=== PATIENT | male | born 1950 | race Caucasian/White ===

== ENCOUNTER 2017-09-09 09:13 | Day surgery (SDC) | payer OTHER ==
[2017-09-08 09:13] VITALS: BMI 25.7
[2017-09-09] MEDS ORDERED: MIDAZOLAM HCL 2 MG/2 ML SINGLE DOSE VIAL ONE (11:13)
[2017-09-09] MEDS ORDERED: PROPOFOL 20 ML ONE ×3 (11:13)
[2017-09-09] MEDS ORDERED: KETAMINE HCL 200 MG/20 ML VIAL ONE (12:03)
[2017-09-09] MEDS ORDERED: ACETAMINOPHEN 325 MG TABLET (FP) PO PRN (12:19)
[2017-09-09] MEDS ORDERED: ONDANSETRON 4 MG/2 ML VIAL IVPUSH PRN (12:19)
[2017-09-09] MEDS ORDERED: ceFAZolin SODIUM 1 GM VIAL IVPB ONE (12:19)
[2017-09-09] MEDS ORDERED: oxyCODONE HCL 5 MG TABLET PO PRN (12:19)
[2017-09-09] MEDS ORDERED: ceFAZolin SODIUM 1 GM VIAL ONE (12:20)
[2017-09-09] MEDS ORDERED: LACTATED RINGERS SOLUTION 1,000 ML IV SCH (12:30)
--- NOTE | 2017-09-09 13:15 | OP ---
Operative Note - Note: Operative Date: 09/09/17 Pre-Operative Diagnosis: gross hematuria freq.noct. urgen.dribbling and feelings of incomplete bladder emptying Operation: cysto.turp/fulgeration of trigone for controle of bleeding Findings: bleeding prostate and bleeding trigone of bladder and prostate obst. Post-Operative Diagnosis: Same as Pre-op Surgeon: Yo Barroso Anesthesia: General Estimated Blood Loss (mls): 40 Drains & Tubes with Location: 20f-10cc andino Drains, Volume Out (mls): 0 Blood Volume Replaced (mls): 0 Fluid Volume Replaced (mls): 0 Operative Report Dictated: Yes
[2017-09-09 15:14] VITALS: TEMP 98
[2017-09-09 15:46] VITALS: BP 127/89; PULSE 67
--- NOTE | 2017-09-09 16:42 | OP ---
DATE OF ADMISSION: 09/09/2017 PREOPERATIVE DIAGNOSIS: Persistent hematuria, obstructive uropathy, status post cystoscopy with bleeding base of bladder and prostate. POSTOPERATIVE DIAGNOSIS: Hemorrhagic, obstructive prostate and bladder neck. OPERATIVE PROCEDURE: Cystourethroscopy, TURP and fulguration of bladder neck. ANESTHESIA: Spinal. DESCRIPTION OF PROCEDURE: Under the above anesthesia, the patient was prepped and draped in the usual sterile manner. He was placed in the dorsal lithotomy position. External genitalia appeared to be within normal limits. The patient is not circumcised. The meatus is adequate. A continuous flow, 30-degree scope was introduced under direct vision. The anterior urethra was within normal limits. The prostatic urethra revealed an obstructing bleed and prostate. There was trilobar hypertrophy with a large subcervical prostate gland that was actively bleeding. Ureteral orifices were within normal limits with efflux of clear urine. Dome and lateral shahid were clear of lesions. The only bleeding areas were the right and left lobes of the prostate and the subcervical lobe, which was located in the trigone. A resectoscope was inserted and resection of the right lobe of the prostate was performed in the usual fashion. The same thing was done to the left lateral lobe. Prostate chips were evacuated with an Lockbox evacuator. No active bleeding was noted. The trigone which was bleeding was fulgurated for hemostasis. Ureteral orifices were not involved. Inspection of the bladder neck revealed no other bleeding. Therefore, the bladder was emptied and the scope was removed. A 24-Pashto De Luna was inserted and was connected to a drainage bag. The patient tolerated the procedure well and returned to the recovery room in good condition. Leandra [id number]
--- NOTE | 2017-09-10 14:27 | HP ---
DATE OF ADMISSION: DATE OF DICTATION: 09/09/2017 The patient is a 67-year-old male resident of a long-term. Admitted to undergo ambulatory cystoscopy and fulguration of bleeding prostate and/or bladder for recurrent gross hematuria and recurrent urinary tract infections. The patient does have a history of dyslipidemia. The patient also has history of seizures, a CVA, dementia. He is unable to ambulate. MEDICATIONS: Presently, he is on Depakote and Atrovent nebulizers. The patient also takes Keppra for his seizures and Flomax for his prostate. Physical exam revealed a male on a stretcher unable to communicate. He wears a diaper which is wet and pinkish indicative of gross hematuria. He does have history of a large postvoid residual. Also, has history of kidney stones. He is admitted to the hospital to undergo a cystourethroscopy, possible TUR of prostate, possible bladder biopsy, possible TUR bladder tumor. This was explained fully to the patient's who agrees. Leandra [id number]
--- NOTE | 2017-09-13 14:33 | PATH ---
Cytology Non-Gynecological Report Patient Name: TRIP MAE [facility]. Rec. #: [id number] /Age/Gender: 1950 (Age: 67) / M Account: [id number] Location: [facility] Taken: 09/09/2017 Received: 09/09/2017 Reported: 09/13/2017 Physicians: Yo Barroso M.D. Specimen(s) Received URINE VOIDED Clinical History Microscopic hematuria Final Diagnosis URINE FOR CYTOLOGY: SATISFACTORY FOR EVALUATION. NEGATIVE FOR HIGH GRADE UROTHELIAL CARCINOMA. RARE UROTHELIAL CELLS AND RARE RED BLOOD CELLS PRESENT. Electronically Signed Alejandrina Orellana M.D. Gross Description Approximately 20 cc of yellow fluid received fresh and sterile cup. Two cytofunnels prepared.
--- NOTE | 2017-09-13 15:08 | PATH ---
Surgical Pathology Report Patient Name: TRIP MAE [facility]. Rec. #: [id number] /Age/Gender: 1950 (Age: 67) / M Account: [id number] Location: [facility] Taken: 09/09/2017 Received: 09/09/2017 Reported: 09/13/2017 Physicians: Yo Barroso M.D. Specimen(s) Received PROSTATE CHIPS Clinical History Hematuria Final Diagnosis PROSTATE TISSUE, TRANSURETHRAL RESECTION OF BLADDER AND PROSTATE LESION: BENIGN PROSTATIC TISSUE WITH STROMAL HYPERPLASIA, FOCAL ACINAR ATROPHY, AND CYSTIC CHANGE. Electronically Signed Alejandrina Orellana M.D. Gross Description Received in formalin labeled "hemorrhagic prostate tissue," is a 2 g, 4.5 x 3.3 x 0.3 cm aggregate of sosa-pink, irregular portions of firm to rubbery tissue, consistent with prostate chips. The specimen is entirely submitted in 3 cassettes. 09/09/201709/09/2017
== END 2017-09-09 15:45 ==
LOC: JASU-SURG 09:13
PROVIDERS: ATTEND Urology
PROC: 0VT08ZZ Resection of Prostate, Via Natural or Artificial Opening Endoscopic (ICD-10-PCS; principal; 2017-09-09 10:00)
DX: N40.1 Benign prostatic hyperplasia with lower urinary tract symptoms (principal); N13.8 Other obstructive and reflux uropathy
CPT/HCPCS: 87086; 88108; 88305-TC; 94760

== ENCOUNTER 2017-12-29 10:26 | Emergency (ER) | payer OTHER ==
[2017-12-29 11:01] VITALS: BMI 26.4
--- NOTE | 2017-12-29 11:16 | PDOC ---
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 At presentation, patient is @ baseline mental status, hypertensive (BP 200's/100's) and bradycardic (HR 40). Patient's notes a h /o 7 year prison stay @ [facility] and a more recent 9 month stay @ [facility] in the [place] -- the latter from which patient was discharged last Tuesday (12/23/17). Patient's @ bedside denies any recent cough, wheezing, or noticed changes in bowel or bladder habits. Patient tolerates oral intake (all medications are PO meds). NKDA Surgical: shoulder surgery (unknown shoulder, unknown type of surgery) Social: no current nicotine/alcohol/recreational drugs HPI obtained from patient's nurse Kasia Fletcher as well as paperwork from [facility] and [facility]. Past History - Past Medical History Allergies/Adverse Reactions: Allergies Allergy/AdvReac Type Severity Reaction Status Date / Time No Known Allergies Allergy Verified 12/29/17 10:44 Home Medications: Ambulatory Orders Acetaminophen [Tylenol] 650 mg PO PRN PRN 12/29/17 Albuterol 0.083% Nebulizer Elizabeth [Ventolin 0.083%] 1 neb NEB TID 12/29/17 Docusate Sodium [Colace] 200 mg PO HS 12/29/17 Ferrous Sulfate 325 mg PO BID 12/29/17 Folic Acid 1 mg PO DAILY 12/29/17 Ipratropium 0.02% Nebulizer [Atrovent *Nebulizer*] 0.5 mg IH TID 12/29/17 Tamsulosin HCl 0.4 mg PO DAILY 12/29/17 Valproate Sodium Liquid [Depakene] 500 mg PO BID 12/29/17 Vitamin A & D Top Oint - [Vitamin A & D] 1 applic TP DAILY 12/29/17 levETIRAcetam [Keppra Oral Solution -] 1,000 mg PO BID 12/29/17 Anemia: No Asthma: No Cancer: No Cardiac Disorders: No CVA: No (altered mental behavior) COPD: Yes (uses O2@ prn) CHF: No Dementia: Yes Diabetes: Yes (not on meds) GI Disorders: No Disorders: Yes (BPH) HTN: No Hypercholesterolemia: Yes (hyperlidemia) Liver Disease: No Seizures: Yes Thyroid Disease: No - Suicide/Smoking/Psychosocial Hx Smoking History: Unknown if ever smoked Have you smoked in the past 12 months: No Hx Alcohol Use: No (unsure) Drug/Substance Use Hx: No Substance Use Type: None Hx Substance Use Treatment: No Review of Systems - Review of Systems Able to Perform ROS?: No (dementia) *Physical Exam - Physical Exam General Appearance: Yes: Nourished, Appropriately Dressed HEENT: positive: CATARINA. negative: TM Bulging, TM Dull, TM Erythema Neck: positive: Trachea midline, Supple Respiratory/Chest: positive: Lungs Clear Cardiovascular: positive: S1, S2. negative: Edema, JVD, Murmur Gastrointestinal/Abdominal: positive: Normal Bowel Sounds, Soft Integumentary: positive: Normal Color, Dry, Warm, Other (no ulcers) Neurologic: positive: Other (patient reponsive to tactile/verbal stimuli ( baseline); non-verbal @ baseline) ED Treatment Course - LABORATORY CBC & Chemistry Diagram: 12/29/17 11:56 12/29/17 11:56 Medical Decision Making - Medical Decision Making 12/29/17 11:17 67 year old male BIBEMS after visiting nurse noted some possible decreased breath sounds. At presentation patient bradycardic (40's-50's) and hypertensive (200's/100's). Will evaluate for ACS, medication overdose ( patient on Keppra, Dilantin), Hypothyroidism as well as broad infectious work- up including UA, CXR and r/o CVA. 12/29/17 11:19 Case d/w patient's home health nurse (Kasia Urias . Patient was evaluated on Tuesday (12/27) at which time lungs CLTA. Called 911 today as appreciated some decreased breath sounds. Also noted patient was diaphoretic earlier today. 12/29/17 12:05 ECG shows HR 45, NSR, no KASHMIR/STD, TWI in Lead III and anterior leads, poor R wave progression V1-V6. No acute ischemia on ECG. 12/29/17 12:[address] Wet read of head CT negative for acute bleed 12/29/17 13:26 Case d/w radiology -- no acute ischemia, microvascular ischemic change and decreased brain matter c/w advanced dementia 12/29/17 15:31 CBC shows no leukocytosis. TSH normal. Troponin (-) x1. 12/29/17 15:35 UA negative for UTI. At this time, low clinical suspicion for active infectious (no leukocytosis, afebrile), respiratory (clean CXR, normal saturation), cardiac (normal ECG, negative Troponin) process. Will plan to d/c home - as patient has previously scheduled PMD home visit tomorrow. 12/29/17 15:40 Case d/w home health nurse counseled on POC. 12/29/17 15:55 Patient's @ bedside. Counseled on POC. Will discharge home with return precautions. I discussed the physical exam findings, ancillary test results and final diagnoses with the patient. I answered all of the patient's questions. The patient was satisfied with the care received and felt comfortable with the discharge plan and treatment plan. The patient will return to the Emergency Department with any new, persistent or worsening symptoms. *DC/Admit/Observation/Transfer Diagnosis at time of Disposition: Dementia - Discharge Dispostion Disposition: HOME Condition at time of disposition: Good Admit: No - Referrals - Patient Instructions Printed Discharge Instructions: Improving Nutrition in the Elderly Additional Instructions: Adrian was evaluated today with a CT scan, chest x-ray, basic labs and a urinalysis. All labs and imaging showed no concerning findings. Please follow- up with your primary care doctor as scheduled tomorrow. Return to the Emergency Department for any new/worsening/concerning symptoms. - Post Discharge Activity
--- NOTE | 2017-12-29 11:25 | PDOC ---
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 seizure disorder, hld, schizophrenia, htn, hl, cardiomegaly, malignant neoplasm of bladder, copd presents from home for complaint of abnormal breath sounds - per the pt was in a NH for a few months and was d/c 1 week ago erick and has been doing well. eatig well, no fevers/coughing, vomiting, diarrhea, fould smelling urine. Pt notes that she has not been getting many medications as they were not sent to her pharmacy. Upon review of the patients discharge packet, there are several unfilled prescriptions - Physicial Exam PE: 12/29/17 11:41 GENERAL: The patient is awake, nontoxic, occasional twitching noted HEAD: Normocephalic, atraumatic. EYES: extraocular movements intact, sclera anicteric, conjunctiva clear ENT: Normal voice, Moist mucous membranes. NECK: Normal range of motion, supple LUNGS: Breath sounds equal, transmitted breath sounds b/l, no rales, no respiratory distress or accessory muscle use. . HEART:slightly bradycardic, no m/r/g ABDOMEN: Soft, nontender,. No guarding, no rebound. . No CVA tenderness EXTREMITIES: Normal range of motion, trace edema. No clubbing or cyanosis. No cords, erythema, or tenderness. NEUROLOGICAL: limited exam due to severe dementia SKIN: Warm, Dry, normal turgor, no sacral ulcers noted - Medical Decision Making 12/29/17 11:43 ddx includes possible chf, pna, viral syndrome will ck labs, cxr pt noted slightly mario but bp is elevated will ck ekg will reassess 12/29/17 15:41 The patient's blood work is unremarkable UA negative for infection Heart Score/ECG Review - ECG Impressions Comment:: 12/29/17 12:11 Twelve-lead EKG was performed and reviewed by me. There is normal sinus rhythm with a rate of 45 st flattening inferior and lateral leads no prior ekg for comparison
[2017-12-29 12:04] LABS: HEMATOCRIT 39.8 % (35.4-49); HEMOGLOBIN 13.1 GM/dL (11.7-16.9); LYMPH % 50.8 % (8-40); MCH 31.1 pg (25.7-33.7); MEAN CELL VOLUME 94.3 fl (80-96); MEAN PLT VOLUME 8.5 fl (7.5-11.1); PLATELET COUNT 144 K/MM3 (134-434); RBC 4.22 M/mm3 (4.00-5.60); WHITE BLOOD COUNT 3.4 K/mm3 (4.0-10.0)
[2017-12-29 12:05] LABS: BASO % 0.4 % (0-2.0); MONO % 8.8 % (3.8-10.2)
[2017-12-29 12:12] LABS: VENOUS PC02 61.5 mmHg (38-52); VENOUS PH 7.37 (7.32-7.42); VENOUS PO2 25.7 mmHg (28-48)
[2017-12-29 12:32] LABS: ALBUMIN 2.9 g/dl (3.4-5.0); ANION GAP 5 (8-16); BILIRUBIN,TOTAL 0.4 mg/dL (0.2-1.0); BLOOD UREA NITROGEN 13 mg/dL (7-18); CALCIUM 8.2 mg/dL (8.5-10.1); CHLORIDE 109 mmol/L (98-107); CO2 34 mmol/L (21-32); CREATININE 0.9 mg/dL (0.7-1.3); GLUCOSE,RANDOM 85 mg/dL (74-106); MAGNESIUM 2.4 mg/dL (1.8-2.4); N-TERMINAL BNP 111.57 pg/ml (5-125); POTASSIUM 3.4 mmol/L (3.5-5.1); SGPT/ALT 18 U/L (12-78); SODIUM 148 mmol/L (136-145)
[2017-12-29 12:35] LABS: ALK PHOS 61 U/L (45-117); SGOT/AST 10 U/L (15-37)
[2017-12-29] MEDS ORDERED: ALBUTEROL SO4 2.5/IPRATROPIUM 0.5 INH SOL 3 ML VIAL.NEB. NEB ONE (12:55)
--- NOTE | 2017-12-29 13:28 | EKG ---
Test Reason : Blood Pressure : / mmHG Vent. Rate : 045 BPM Atrial Rate : 045 BPM P-R Int : 150 ms QRS Dur : 092 ms QT Int : 424 ms P-R-T Axes : 022 -23 -08 degrees QTc Int : 366 ms SINUS BRADYCARDIA NONSPECIFIC T WAVE ABNORMALITY ABNORMAL ECG NO PREVIOUS ECGS AVAILABLE Confirmed by RUTH INGRAM MD ([id number]) on 12/29/2017 1:28:03 PM Referred By: Confirmed By:RUTH INGRAM MD
[2017-12-29 15:05] LABS: URINE APPEARANCE CLOUDY; URINE BILIRUBIN NEGATIVE (<2.0 mg/dL); URINE BLOOD NEGATIVE (NEGATIVE); URINE COLOR LTYELLOW; URINE GLUCOSE (UA) NEGATIVE (NEGATIVE); URINE KETONE NEGATIVE (NEGATIVE); URINE LEUK ESTERASE NEGATIVE (NEGATIVE); URINE NITRITE NEGATIVE (NEGATIVE); URINE PROTEIN NEGATIVE (NEGATIVE); URINE UROBILINOGEN 4.0 E.U/dl mg/dL (0.2-1.0)
[2017-12-29 18:59] VITALS: BP 154/78
[2017-12-29 19:04] VITALS: PULSE 54
== END 2017-12-29 19:03 | disposition home or self-care (01) ==
LOC: JER 10:26
PROC: 3E0F7GC Introduction of Other Therapeutic Substance into Respiratory Tract, Via Natural or Artificial Opening (ICD-10-PCS; principal; 2017-12-29)
DX: I10 Essential (primary) hypertension (principal); J44.9 Chronic obstructive pulmonary disease, unspecified; F03.90 Unspecified dementia, unspecified severity, without behavioral disturbance, psychotic disturbance, mood disturbance, and anxiety; N40.0 Benign prostatic hyperplasia without lower urinary tract symptoms; E78.5 Hyperlipidemia, unspecified
CPT/HCPCS: 36415; 70450-TC; 71045-TC-FY; 80053; 80164; 81003; 82550; 82803; 83735; 83880; 84443; 84484; 85025; 87040; 87086; 93005; 93010; 99285-25

== ENCOUNTER 2018-07-03 21:02 | Inpatient (IN) | payer OTHER ==
[2018-07-03 21:22] VITALS: BMI 26.6
[2018-07-03] MEDS: SODIUM CHLORIDE 1,000 ML IV SCH (22:18)
--- NOTE | 2018-07-03 22:19 | PDOC ---
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 At baseline pt is only able to track people but is not communicative. According to he hasn't been tracking and been more lethargic since yesterday. According to aide at bedside pt developed worsening of his R sided facial droop at 6pm today. Temperature was checked last night and he was at approximately 99 degrees. He currently is not tracking. reports seeing an extremely small amount of blood in urine today. No diarrhea was noted by . Further history was not able to obtained as pt is not able to communicate. NIH Stroke Scale - Last Known Well Date/Time & Onset Date Last Known Well: 07/03/18 Time Last Known Well: 18:00 - Initial Evaluation Level of consciousness: Not alert, but arousable with minimal stimulation Ask patient the month and their age: Both incorrect Ask patient to open & close eyes; make fist and let go: Both incorrect Best gaze (horizontal eye movement): Normal Visual field testing: No visual field loss Facial paresis (Show teeth/raise eyebrows/close eyes tight): Complete paralysis of one or both sides (Upper and lower face) Motor Function: Left Arm: Untestable (Joint fused orlimb amputated), explain: ( dementia) Motor Function: Right Arm: Untestable (Joint fused or limb amputated), explain: Motor Function: Left Leg: Untestable (Joint fused or limb amputated), explain: Motor Function: Right Leg: Untestable )Joint fused orlimb amputated), explain: Limb Ataxia: Untestable (Joint fused or limb amputated), explain: Sensory(Use pinprick test arms,legs,trunk,face/side to side): Severe to total sensory loss (unable to assess due to dementia) Best language (Describe picture, name items, read sentences): Mute (dementia) Dysarthria (read several words): Intubated or other physical barrierr, explain: (DEMENTED) Extinction and Inattention: Profound mark anthony-inattention or extinction to more than one modality (dementia) - Total Score NIH Stroke Scale Score: 15 Past History - Past Medical History Allergies/Adverse Reactions: Allergies Allergy/AdvReac Type Severity Reaction Status Date / Time No Known Allergies Allergy Verified 07/03/18 21:12 Home Medications: Ambulatory Orders Acetaminophen [Tylenol] 650 mg PO PRN PRN 12/29/17 Albuterol 0.083% Nebulizer Elizabeth [Ventolin 0.083%] 1 neb NEB TID 12/29/17 Docusate Sodium [Colace] 200 mg PO HS 12/29/17 Ferrous Sulfate 325 mg PO BID 12/29/17 Folic Acid 1 mg PO DAILY 12/29/17 Ipratropium 0.02% Nebulizer [Atrovent *Nebulizer*] 0.5 mg IH TID 12/29/17 Tamsulosin HCl 0.4 mg PO DAILY 12/29/17 Valproate Sodium Liquid [Depakene] 500 mg PO BID 12/29/17 Vitamin A & D Top Oint - [Vitamin A & D] 1 applic TP DAILY 12/29/17 levETIRAcetam [Keppra Oral Solution -] 1,000 mg PO BID 12/29/17 Anemia: No Asthma: No Cancer: No Cardiac Disorders: No CVA: No (altered mental behavior) COPD: Yes (uses O2@ prn) CHF: No Dementia: Yes Diabetes: Yes (not on meds) GI Disorders: No Disorders: Yes (BPH) HTN: No Hypercholesterolemia: Yes (hyperlidemia) Liver Disease: No Seizures: Yes Thyroid Disease: No - Suicide/Smoking/Psychosocial Hx Smoking History: Never smoked Have you smoked in the past 12 months: No Information on smoking cessation initiated: No Hx Alcohol Use: No Drug/Substance Use Hx: No Substance Use Type: None Hx Substance Use Treatment: No Review of Systems - Review of Systems Able to Perform ROS?: No *Physical Exam - Vital Signs Last Vital Signs Temp Pulse Resp BP Pulse Ox 99.2 F 106 H 17 152/99 97 07/03/18 21:11 07/03/18 21:11 07/03/18 21:11 07/03/18 21:11 07/03/18 21:11 - Physical Exam General Appearance: Yes: Appropriately Dressed, Other (Pt is not tracking and is demented and unable to communicate) HEENT: positive: CATARINA Respiratory/Chest: positive: Rales, Other (Coarse breath sounds) Cardiovascular: positive: Regular Rhythm, Regular Rate, S1, S2 ED Treatment Course - LABORATORY CBC & Chemistry Diagram: 07/03/18 22:45 07/03/18 22:45 - RADIOLOGY Radiology Studies Ordered: Category Date Time Status HEAD CT (STROKE) [CT] Stat CT Scan 07/03/18 22:07 Ordered Medical Decision Making - Medical Decision Making 07/03/18 22:10 -Pt last known well 6pm today. Worsening R sided facial droop. -Code drake called at 9:05 PM. -Head CT stat, labs, neuro consult -NIH stroke difficult to assess due to baseline dementia. 07/03/18 22:25 -Head CT with no acute bleed noted. Awaiting official read. Call sent out to Dr. Espana, awaiting call back. 07/03/18 22:36 -Case discussed with Dr. Espana. Pt is out of window for tpa and is unlikely to be stroke. Will work up for further etiology for subacute altered mental status. -Awaiting labs. 07/03/18 23:18 -Head CT no acute intracranial pathology noted on official read. -Lactic acid 1.3, WBC 12.3 07/03/18 23:43 -K+ 3.3, will replete K with 2b04jhq of KCl 07/03/18 23:47 -Blood cultures, lactic acid and CXR also ordered. 07/04/18 01:14 -Ceftriaxone 1g ordered 07/04/18 01:45 -Case signed out to Dr. Alexander Faye for admission for sepsis secondary to UTI. *DC/Admit/Observation/Transfer Diagnosis at time of Disposition: Sepsis secondary to UTI - Discharge Dispostion Condition at time of disposition: Fair Decision to Admit order: Yes - Referrals - Patient Instructions - Post Discharge Activity
--- NOTE | 2018-07-03 22:32 | PDOC ---
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 The patients last known well was 6:00pm. History was obtained from at bedside and from EMR. Allergies: NKDA Past surgical history: shoulder surgery (unknown shoulder, unknown type of surgery). <Casper Moreau - Last Filed: 07/03/18 22:32> - ED Attending Attestation I have performed the following: I have examined & evaluated the patient, The case was reviewed & discussed with the resident, I agree w/resident's findings & plan, Exceptions are as noted - Physicial Exam PE: 07/04/18 08:02 Chronic deficits with worsened facial droop per family - Critical Care Time Total Critical Care Time: 20 - Medical Decision Making 07/04/18 08:03 Initially evaluated for stroke, no signs of acute stroke Eval for AMS, infection <Jeffrey Cheng - Last Filed: 07/04/18 08:03> Attestations - Attestations 07/03/18 22:32 Documentation prepared by Casper Moreau, acting as medical device sales for Jeffrey Cheng MD. <Casper Moreau - Last Filed: 07/03/18 22:32>
[2018-07-03 22:55] LABS: BASO % 0.2 % (0-2.0); EOS % 0.2 % (0-4.5); HEMOGLOBIN 13.1 GM/dL (11.7-16.9); LYMPH % 12.6 % (8-40); MCHC 33.6 g/dl (32.0-35.9); MEAN CELL VOLUME 92.3 fl (80-96); MEAN PLT VOLUME 10.1 fl (7.5-11.1); MONO % 9.6 % (3.8-10.2); NEUT % 77.4 % (42.8-82.8); PLATELET COUNT 157 K/MM3 (134-434); RBC 4.22 M/mm3 (4.00-5.60); RDW 14.2 % (11.9-15.9); WHITE BLOOD COUNT 12.3 K/mm3 (4.0-10.0)
[2018-07-03 23:16] LABS: INR 1.18 (0.83-1.09); PROTHROMBIN TIME (PATIENT) 13.9 SEC (9.7-13.0)
[2018-07-03 23:22] LABS: ALBUMIN 2.9 g/dl (3.4-5.0); ALK PHOS 89 U/L (45-117); ANION GAP 7 MMOL/L (8-16); BILIRUBIN,TOTAL 0.6 mg/dL (0.2-1); BLOOD UREA NITROGEN 16 mg/dL (7-18); CALCIUM 8.3 mg/dL (8.5-10.1); CHLORIDE 105 mmol/L (98-107); CHOLESTEROL 189 mg/dL (50-200); CO2 30 mmol/L (21-32); GLUCOSE,RANDOM 120 mg/dL (74-106); HDL CHOLESTEROL 56 mg/dL (40-60); POTASSIUM 3.3 mmol/L (3.5-5.1); SGOT/AST 17 U/L (15-37); SGPT/ALT 19 U/L (13-61); SODIUM 141 mmol/L (136-145); TOT PROT 7.2 g/dl (6.4-8.2); TRIGLYCERIDES 102 mg/dL (0-150)
[2018-07-04] MEDS: KCL 10 MEQ IVPB 10 MEQ/100 ML INFUS.BAG IVPB SCH ×3 (00:01→03:28)
[2018-07-04 00:33] LABS: URINE APPEARANCE CLOUDY; URINE GLUCOSE (UA) NEGATIVE (NEGATIVE); URINE KETONE NEGATIVE (NEGATIVE); URINE LEUK ESTERASE 3+ (NEGATIVE); URINE NITRITE POSITIVE (NEGATIVE); URINE PROTEIN 2+ (NEGATIVE); URINE UROBILINOGEN 4.0 E.U/dl mg/dL (0.2-1.0)
[2018-07-04 00:36] LABS: URINE COLOR YELLOW
[2018-07-04 00:39] LABS: EPI CELLS FEW /HPF (FEW); URINE BACTERIA RARE /hpf (NONE SEEN); URINE HYALINE CAST 21 /lpf; URINE MUCUS MANY
[2018-07-04] MEDS ORDERED: CEFTRIAXONE 1,000 MG in DEXTROSE 5%-WATER - 50 ML IVPB ONE (01:04)
[2018-07-04] MEDS ORDERED: CEFTRIAXONE 1 GM/50 ML BAG ONE (01:08)
[2018-07-04] MEDS ORDERED: KCL 10 MEQ IVPB 10 MEQ/100 ML INFUS.BAG IVPB ONE ×3 (01:08→04:03)
--- NOTE | 2018-07-04 02:48 | PN ---
Teaching Attending Note Name of Resident: Alexander Barroso ATTENDING PHYSICIAN STATEMENT I saw and evaluated the patient. I reviewed the resident's note and discussed the case with the resident. I agree with the resident's findings and plan as documented. 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 At baseline he is only able to track people but is not communicative. According to he hasn't been tracking and been more lethargic since yesterday. According to aide at bedside he developed worsening of his R sided facial droop at 6pm today. Temperature was checked last night and he was at approximately 99 degrees. He currently is not tracking. reports seeing an extremely small amount of blood in urine today. No diarrhea was noted by . Further history was not able to obtained as patient is not able to communicate. OBJECTIVE: Somnolent but arousable Vital Signs Period Temp Pulse Resp BP Sys/Cortes Pulse Ox Last 24 Hr 99.2 F 106 17 152/99 97 HEENT: No Jaundice, eye redness or discharge, PERRLA, Right facial droop. Normocephalic, atraumatic. External ears are normal. No nasal discharge. Neck: Supple, nontender. No palpable adenopathy or thyromegaly. No JVD Chest: Good effort. Clear to auscultation and percussion. Heart: Regular. No S3, rub or murmur Abdomen: Not distended, soft, nontender and no HSM. No rebound or guarding. Normoactive bowel sounds. Ext: Peripheral pulses intact. No leg edema. Skin: Warm and dry. No petechiae, rash or ecchymosis. Neuro: Somnolent but arousable. Dementia. Unable to follow commands. Nonverbal. Moves all four extremities and DTR are symmetric. Current Medications Generic Name Dose Route Start Last Admin Trade Name Freq PRN Reason Stop Dose Admin Sodium Chloride 1,000 mls @ 42 mls/hr 07/03/18 22:15 07/03/18 22:18 Normal Saline - IV 42 mls/hr ASDIR CARA Administration Home Medications Medication Instructions Recorded Acetaminophen [Tylenol] 650 mg PO PRN PRN 12/29/17 Albuterol 0.083% Nebulizer Elizabeth 1 neb NEB TID 12/29/17 [Ventolin 0.083%] Docusate Sodium [Colace] 200 mg PO HS 12/29/17 Ferrous Sulfate 325 mg PO BID 12/29/17 Folic Acid 1 mg PO DAILY 12/29/17 Ipratropium 0.02% Nebulizer 0.5 mg IH TID 12/29/17 [Atrovent *Nebulizer*] Tamsulosin HCl 0.4 mg PO DAILY 12/29/17 Valproate Sodium Liquid [Depakene] 500 mg PO BID 12/29/17 Vitamin A & D Top Oint - [Vitamin 1 applic TP DAILY 12/29/17 A & D] levETIRAcetam [Keppra Oral 1,000 mg PO BID 12/29/17 Solution -] Abnormal Lab Results 07/03/18 07/03/18 07/03/18 22:45 22:45 22:45 WBC 12.3 H Absolute Neuts (auto) 9.5 H PT with INR 13.90 H INR 1.18 H Potassium 3.3 L Anion Gap 7 L Random Glucose 120 H Calcium 8.3 L Albumin 2.9 L Total LDL Cholesterol 123 H Urine Protein Urine Blood Ur Leukocyte Esterase 07/04/18 00:21 WBC Absolute Neuts (auto) PT with INR INR Potassium Anion Gap Random Glucose Calcium Albumin Total LDL Cholesterol Urine Protein 2+ H Urine Blood 3+ H Ur Leukocyte Esterase 3+ H ASSESSMENT AND PLAN: 1. Sepsis due to UTI with acute metabolic encephalopathy - No acute pathology on head CT. Will get MRI, do speech and swallow evaluation, implement fall precautions and consult neurology and PT. Treat UTI with Rocephin and continue IV NS. Hypokalemia likely due to poor intake and excess losses. Give IV KCL and check Mg+. 2. Hypoalbuminemia - Possibly due to combined effects of proteinuria, malnutrition and inflammation associated with comorbid chronic conditions. Will ensure adequate dietary protein intake and also consult ict developer. 3. DVT prophylaxis - Lovenox 40 mg SQ q 24 hours. 4. Advance directives - Full code
--- NOTE | 2018-07-04 05:18 | HP ---
CHIEF COMPLAINT: Lethargy PCP: Natasha BELL HISTORY OF PRESENT ILLNESS: Pt is poor historian. not at bedside. Information obtained from Dr Ramos ER resident and previous medical records. 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 Pt is noncommunicative at baseline but does track movement with his eyes. Per , pt hasn't been tracking with his eyes since yesterday evening. Per , pt is not eating well, believes this is because he has too much mucus in his throat. Per aid at pt's bedside, yesterday evening, she noticed increased facial droop. Furthermore, pt's states he underwent a barium swallow last week which was normal. Pt has 24/7 home health aid and receives visiting nursing services once per week. ER course was notable for: (1) WBC 12.3 (2) Potassium 3.3 (3) Leuk Est 3+ Recent Travel: negative PAST MEDICAL HISTORY: Per HPI PAST SURGICAL HISTORY: shoulder surgery (unknown shoulder, unknown type of surgery). Social History: Smoking: Negative Alcohol: Negative Drugs: Negative Family History: Allergies No Known Allergies Allergy (Verified 07/03/18 21:12) HOME MEDICATIONS: Home Medications Medication Instructions Recorded Acetaminophen [Tylenol] 650 mg PO PRN PRN 12/29/17 Albuterol 0.083% Nebulizer Elizabeth 1 neb NEB TID 12/29/17 [Ventolin 0.083%] Docusate Sodium [Colace] 200 mg PO HS 12/29/17 Ferrous Sulfate 325 mg PO BID 12/29/17 Folic Acid 1 mg PO DAILY 12/29/17 Ipratropium 0.02% Nebulizer 0.5 mg IH TID 12/29/17 [Atrovent *Nebulizer*] Tamsulosin HCl 0.4 mg PO DAILY 12/29/17 Valproate Sodium Liquid [Depakene] 500 mg PO BID 12/29/17 Vitamin A & D Top Oint - [Vitamin 1 applic TP DAILY 12/29/17 A & D] levETIRAcetam [Keppra Oral 1,000 mg PO BID 12/29/17 Solution -] REVIEW OF SYSTEMS unable to obtain. PHYSICAL EXAMINATION Vital Signs - 24 hr 07/03/18 21:11 Temperature 99.2 F Pulse Rate 106 H Respiratory 17 Rate Blood Pressure 152/99 O2 Sat by Pulse 97 Oximetry (%) GENERAL: Noncommunicative, resting in bed, NAD. HEAD: NC/AT EYES: PERRL, No scleral icterus EARS, NOSE, THROAT: MMM LUNGS: Coarse BS throughout. HEART: RRR, No MRG S1 S2 ABDOMEN:ND, No HSM, BS+ all 4 quadrants UPPER EXTREMITIES: No CCE LOWER EXTREMITIES:No CCE NEUROLOGICAL: Somnolent but arousable. Dementia. Unable to follow commands SKIN: No Rashes or lesions appreciated Laboratory Results - last 24 hr 07/03/18 07/03/18 07/03/18 22:45 22:45 22:45 WBC 12.3 H RBC 4.22 Hgb 13.1 Hct 39.0 MCV 92.3 MCH 31.0 MCHC 33.6 RDW 14.2 Plt Count 157 MPV 10.1 D Absolute Neuts (auto) 9.5 H Neutrophils % 77.4 D Lymphocytes % 12.6 D Monocytes % 9.6 Eosinophils % 0.2 Basophils % 0.2 Nucleated RBC % 0 PT with INR 13.90 H INR 1.18 H Sodium 141 Potassium 3.3 L Chloride 105 Carbon Dioxide 30 Anion Gap 7 L BUN 16 Creatinine 1.0 Creat Clearance w eGFR > 60 Random Glucose 120 H Lactic Acid Calcium 8.3 L Total Bilirubin 0.6 AST 17 ALT 19 Alkaline Phosphatase 89 Creatine Kinase 70 Troponin I < 0.02 Total Protein 7.2 Albumin 2.9 L Triglycerides 102 Cholesterol 189 Total LDL Cholesterol 123 H HDL Cholesterol 56 Urine Color Urine Appearance Urine pH Ur Specific [place] Urine Protein Urine Glucose (UA) Urine Ketones Urine Blood Urine Nitrite Urine Bilirubin Urine Urobilinogen Ur Leukocyte Esterase Urine WBC (Auto) Urine RBC (Auto) Ur Epithelial Cells Urine Bacteria Hyaline Casts Urine Mucus Blood Type Antibody Screen 07/03/18 07/03/18 07/04/18 22:45 22:45 00:21 WBC RBC Hgb Hct MCV MCH MCHC RDW Plt Count MPV Absolute Neuts (auto) Neutrophils % Lymphocytes % Monocytes % Eosinophils % Basophils % Nucleated RBC % PT with INR INR Sodium Potassium Chloride Carbon Dioxide Anion Gap BUN Creatinine Creat Clearance w eGFR Random Glucose Lactic Acid 1.3 Calcium Total Bilirubin AST ALT Alkaline Phosphatase Creatine Kinase Troponin I Total Protein Albumin Triglycerides Cholesterol Total LDL Cholesterol HDL Cholesterol Urine Color Yellow Urine Appearance Cloudy Urine pH 5.0 D Ur Specific [place] 1.027 Urine Protein 2+ H Urine Glucose (UA) Negative Urine Ketones Negative Urine Blood 3+ H Urine Nitrite Positive Urine Bilirubin 2.0 Urine Urobilinogen 4.0 e.u/dl Ur Leukocyte Esterase 3+ H Urine WBC (Auto) 1302 Urine RBC (Auto) 131 Ur Epithelial Cells Few Urine Bacteria Rare Hyaline Casts 21 Urine Mucus Many Blood Type A POSITIVE Antibody Screen Negative ASSESSMENT/PLAN: Pt is a 68 y/o gentleman with a significant past medical history of HTN, COPD, 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 # Sepsis 2/2 UTI -WBC 12.3 -Urine leukocyte Esterase 3+ - 2 SIRS Criteria (WBC and HR) plus G.U source of infection -Rocephin 1 gm QD -ID Consult #Dysphagia -Head CT Negative for any acute intracranial pathology. -Inability to swallow for 2 days -Speech/Swallow Eval MRI Brain-r/o CVA (code drake called in ED) -Fall precautions #Seizure D/O -Informed day team to reconcile pt's medications #COPD -Informed day team to reconcile pt's medication FEN NS@42cc/ml Monitor electrolytes NPO DVT Heparin SQ TID Dispo: Med-Surg Visit type - Emergency Visit Emergency Visit: Yes ED Registration Date: 07/04/18 Care time: The patient presented to the Emergency Department on the above date and was hospitalized for further evaluation of their emergent condition. - New Patient This patient is new to me today: Yes Date on this admission: 07/04/18 - Critical Care Critical Care patient: No
[2018-07-04] MEDS ORDERED: HEPARIN NA (PORCINE) 5,000 UNITS/ML 1ML VIAL ONE (06:35)
[2018-07-04] MEDS: HEPARIN NA (PORCINE) 5,000 UNITS/ML 1ML VIAL SQ SCH ×3 (06:37→22:13)
[2018-07-04] MEDS ORDERED: LORazepam 2 MG/ML SDV VIAL IVPUSH ONE (09:35)
[2018-07-04] MEDS ORDERED: LORazepam 2 MG/ML SDV VIAL ONE (09:38)
[2018-07-04] MEDS ORDERED: LORazepam 2 MG/ML SDV VIAL IVPUSH PRN (09:44)
--- NOTE | 2018-07-04 09:44 | PN ---
Progress Note (short form) - Note Progress Note: Having a seizure-- give Ativan - better after non verbal drowsy Vital Signs - 24 hr 07/03/18 07/03/18 07/04/18 21:11 22:17 06:11 Temperature 99.2 F 99.1 F Pulse Rate 106 H 84 Pulse Rate [ 84 Right Apical] Respiratory 17 15 Rate Blood Pressure 152/99 Blood Pressure 146/98 [Right Arm] O2 Sat by Pulse 97 98 99 Oximetry (%) Current Medications Generic Name Dose Route Start Last Admin Trade Name Rogerq PRN Reason Stop Dose Admin Heparin Sodium (Porcine) 5,000 unit 07/04/18 06:30 07/04/18 06:37 Heparin - SQ 5,000 unit TID CARA Administration Sodium Chloride 1,000 mls @ 42 mls/hr 07/03/18 22:15 07/03/18 22:18 Normal Saline - IV 42 mls/hr ASDIR CARA Administration Ceftriaxone Sodium 1 gm/ 50 mls @ 100 mls/hr 07/04/18 10:00 Dextrose IVPB DAILY CARA Protocol Laboratory Results - last 24 hr 07/03/18 07/03/18 07/03/18 22:45 22:45 22:45 WBC 12.3 H RBC 4.22 Hgb 13.1 Hct 39.0 MCV 92.3 MCH 31.0 MCHC 33.6 RDW 14.2 Plt Count 157 MPV 10.1 D Absolute Neuts (auto) 9.5 H Neutrophils % 77.4 D Lymphocytes % 12.6 D Monocytes % 9.6 Eosinophils % 0.2 Basophils % 0.2 Nucleated RBC % 0 PT with INR 13.90 H INR 1.18 H Sodium 141 Potassium 3.3 L Chloride 105 Carbon Dioxide 30 Anion Gap 7 L BUN 16 Creatinine 1.0 Creat Clearance w eGFR > 60 Random Glucose 120 H Lactic Acid Calcium 8.3 L Total Bilirubin 0.6 AST 17 ALT 19 Alkaline Phosphatase 89 Creatine Kinase 70 Troponin I < 0.02 Total Protein 7.2 Albumin 2.9 L Triglycerides 102 Cholesterol 189 Total LDL Cholesterol 123 H HDL Cholesterol 56 Urine Color Urine Appearance Urine pH Ur Specific [place] Urine Protein Urine Glucose (UA) Urine Ketones Urine Blood Urine Nitrite Urine Bilirubin Urine Urobilinogen Ur Leukocyte Esterase Urine WBC (Auto) Urine RBC (Auto) Ur Epithelial Cells Urine Bacteria Hyaline Casts Urine Mucus Blood Type Antibody Screen 1007/03/18 07/04/18 22:45 22:45 00:21 WBC RBC Hgb Hct MCV MCH MCHC RDW Plt Count MPV Absolute Neuts (auto) Neutrophils % Lymphocytes % Monocytes % Eosinophils % Basophils % Nucleated RBC % PT with INR INR Sodium Potassium Chloride Carbon Dioxide Anion Gap BUN Creatinine Creat Clearance w eGFR Random Glucose Lactic Acid 1.3 Calcium Total Bilirubin AST ALT Alkaline Phosphatase Creatine Kinase Troponin I Total Protein Albumin Triglycerides Cholesterol Total LDL Cholesterol HDL Cholesterol Urine Color Yellow Urine Appearance Cloudy Urine pH 5.0 D Ur Specific [place] 1.027 Urine Protein 2+ H Urine Glucose (UA) Negative Urine Ketones Negative Urine Blood 3+ H Urine Nitrite Positive Urine Bilirubin 2.0 Urine Urobilinogen 4.0 e.u/dl Ur Leukocyte Esterase 3+ H Urine WBC (Auto) 1302 Urine RBC (Auto) 131 Ur Epithelial Cells Few Urine Bacteria Rare Hyaline Casts 21 Urine Mucus Many Blood Type A POSITIVE Antibody Screen Negative 07/04/18 06:06 WBC RBC Hgb Hct MCV MCH MCHC RDW Plt Count MPV Absolute Neuts (auto) Neutrophils % Lymphocytes % Monocytes % Eosinophils % Basophils % Nucleated RBC % PT with INR INR Sodium Potassium Chloride Carbon Dioxide Anion Gap BUN Creatinine Creat Clearance w eGFR Random Glucose Lactic Acid Calcium Total Bilirubin AST ALT Alkaline Phosphatase Creatine Kinase Troponin I Total Protein Albumin Triglycerides Cholesterol Total LDL Cholesterol HDL Cholesterol Urine Color Urine Appearance Urine pH Ur Specific [place] Urine Protein Urine Glucose (UA) Urine Ketones Urine Blood Urine Nitrite Urine Bilirubin Urine Urobilinogen Ur Leukocyte Esterase Urine WBC (Auto) Urine RBC (Auto) Ur Epithelial Cells Urine Bacteria Hyaline Casts Urine Mucus Blood Type A POSITIVE Antibody Screen S1 S2 RRR Lungs decreased increased secretions ABd- soft, NT No edema PLAN Ativan PRN keep NPO IV fluids IV antibiotics cultures pending Keppra and Depakote IV Neurology and ID evaluation
[2018-07-04] MEDS: SODIUM CHLORIDE 1,000 ML IV SCH ×2 (09:47→22:00)
[2018-07-04] MEDS ORDERED: ACETAMINOPHEN 650 MG SUPP.RECT PR PRN (09:47)
[2018-07-04 10:08] LABS: BASO % 0.1 % (0-2.0); EOS % 0.2 % (0-4.5); HEMATOCRIT 39.2 % (35.4-49); HEMOGLOBIN 13.2 GM/dL (11.7-16.9); LYMPH % 10.7 % (8-40); MCH 31.6 pg (25.7-33.7); MCHC 33.8 g/dl (32.0-35.9); MEAN CELL VOLUME 93.5 fl (80-96); MEAN PLT VOLUME 9.9 fl (7.5-11.1); MONO % 3.6 % (3.8-10.2); NEUT % 85.4 % (42.8-82.8); PLATELET COUNT 148 K/MM3 (134-434); RBC 4.19 M/mm3 (4.00-5.60); RDW 14.4 % (11.9-15.9); WHITE BLOOD COUNT 9.9 K/mm3 (4.0-10.0)
[2018-07-04 10:21] LABS: INR 1.2 (0.83-1.09); PROTHROMBIN TIME (PATIENT) 14.2 SEC (9.7-13.0)
[2018-07-04 10:24] LABS: ACTIVATED PTT 29.4 SECONDS (25.2-36.5)
[2018-07-04 10:38] LABS: ANION GAP 6 MMOL/L (8-16); BLOOD UREA NITROGEN 11 mg/dL (7-18); CALCIUM 8.7 mg/dL (8.5-10.1); CHLORIDE 107 mmol/L (98-107); CO2 29 mmol/L (21-32); CREATININE 0.8 mg/dL (0.55-1.3); GLUCOSE,RANDOM 103 mg/dL (74-106); MAGNESIUM 2.2 mg/dL (1.8-2.4); SODIUM 142 mmol/L (136-145)
[2018-07-04] MEDS ORDERED: DEXTROSE 5%-WATER - 50 ML IVPB ONE (11:01)
[2018-07-04] MEDS ORDERED: cefTRIAXone SODIUM 1 GM VIAL ONE (11:01)
[2018-07-04] MEDS: levETIRAcetam 500 MG/5 ML INJECTION VIAL IVPB SCH ×2 (11:13→22:12)
[2018-07-04] MEDS: CEFTRIAXONE 1 GM in DEXTROSE 5%-WATER - 50 ML IVPB SCH (11:16)
[2018-07-04] MEDS: ALBUTEROL SO4 0.083% IH SOL 2.5 MG/3 ML VIAL.NEB. NEB SCH ×3 (12:00→20:00)
--- NOTE | 2018-07-04 12:16 | CONSULT ---
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 At baseline pt is only able to track people but is not communicative. According to he hasn't been tracking and been more lethargic since yesterday. According to aide at bedside pt developed worsening of his R sided facial droop at 6pm today. Temperature was checked last night and he was at approximately 99 degrees. He currently is not tracking. reports seeing an extremely small amount of blood in urine today. No diarrhea was noted by . Further history was not able to obtained as pt is not able to communicate. Seizure, given Ativan, secretions suctioned, lethargic. Assessment deferred. - Smoking History Smoking history: Never smoked Have you smoked in the past 12 months: No - Alcohol/Substance Use Hx Alcohol Use: No History - Admission Reason For Visit: SEPSIS DUE TO URINARY TRACT INFECTION Speech Evaluation - Communication Primary Language: ESTONIAN
--- NOTE | 2018-07-04 12:32 | EKG ---
Test Reason : Blood Pressure : / mmHG Vent. Rate : 081 BPM Atrial Rate : 081 BPM P-R Int : 152 ms QRS Dur : 100 ms QT Int : 374 ms P-R-T Axes : 036 -36 -27 degrees QTc Int : 434 ms POOR DATA QUALITY, INTERPRETATION MAY BE ADVERSELY AFFECTED NORMAL SINUS RHYTHM LEFT AXIS DEVIATION NONSPECIFIC ST AND T WAVE ABNORMALITY ABNORMAL ECG Confirmed by MD HARJINDER, BRIANNA ([id number]) on 07/04/2018 12:32:24 PM Referred By: Confirmed By:BRIANNA GRANDE MD
[2018-07-04] MEDS ORDERED: PT OWN MED DRAWER 7, Y5N ONE ×2 (14:38→15:55)
[2018-07-04] MEDS: VALPROATE SODIUM 500 MG/5 ML VIAL IVPB SCH ×2 (14:57→22:13)
--- NOTE | 2018-07-04 15:02 | CON.ID ---
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 reports mouth drooping, and hematuria no fevers at home eats pureed food no diarrhea prior history of UTI now nonambulatory, used to walk had a witnessed seizure this am and was given ativan- now asleep - History Source History Provided By: Family Member, Medical Record Limitations to Obtaining History: Dementia - Past Medical History COUNSELING CASE MANAGER: Yes: Dementia, Seizure Pulmonary: Yes: COPD Renal/: Yes: Renal Calculi, UTI - Past Surgical History Past Surgical History: Yes: TURP (2017) Additional Surgical History: shoulder surgery - Alcohol/Substance Use Hx Alcohol Use: No - Smoking History Smoking history: Never smoked Have you smoked in the past 12 months: No - Social History Usual Living Arrangement: With Spouse ADL: Support Services [facility] History of Recent Travel: No Home Medications - Allergies Allergies/Adverse Reactions: Allergies Allergy/AdvReac Type Severity Reaction Status Date / Time No Known Allergies Allergy Verified 07/03/18 21:12 - Home Medications Home Medications: Ambulatory Orders Acetaminophen [Tylenol] 650 mg PO PRN PRN 12/29/17 Albuterol 0.083% Nebulizer Elizabeth [Ventolin 0.083%] 1 neb NEB TID 12/29/17 Docusate Sodium [Colace] 200 mg PO HS 12/29/17 Ferrous Sulfate 325 mg PO BID 12/29/17 Folic Acid 1 mg PO DAILY 12/29/17 Ipratropium 0.02% Nebulizer [Atrovent *Nebulizer*] 0.5 mg IH TID 12/29/17 Tamsulosin HCl 0.4 mg PO DAILY 12/29/17 Valproate Sodium Liquid [Depakene] 500 mg PO BID 12/29/17 Vitamin A & D Top Oint - [Vitamin A & D] 1 applic TP DAILY 12/29/17 levETIRAcetam [Keppra Oral Solution -] 1,000 mg PO BID 12/29/17 Family Disease History - Family Disease History Family History: Unable to Obtain Review of Systems Unable to obtain ROS, reason: per - Review of Systems Constitutional: reports: No Symptoms. denies: Chills, Diaphoresis, Fever Eyes: reports: No Symptoms HENT: reports: No Symptoms Neck: reports: No Symptoms Cardiovascular: reports: No Symptoms. denies: Edema Respiratory: reports: Snoring. denies: Cough Gastrointestinal: reports: Abdominal Pain. denies: Bloating, Constipation, Diarrhea, Dysphagia, Indigestion Genitourinary: reports: Hematuria Physical Exam Vital Signs: Vital Signs Temperature 98.0 F 07/04/18 14:50 Pulse Rate 106 H 07/04/18 14:50 Respiratory Rate 20 07/04/18 14:50 Blood Pressure 129/65 07/04/18 14:50 O2 Sat by Pulse Oximetry (%) 96 07/04/18 14:00 Constitutional: Yes: Well Nourished, No Distress, Calm, Other (not awake, received ativan) Eyes: Yes: Conjunctiva Clear HENT: Yes: Atraumatic, Normocephalic Cardiovascular: Yes: Regular Rate and Rhythm Respiratory: Yes: Regular, CTA Bilaterally Gastrointestinal: Yes: Normal Bowel Sounds, Soft ...Rectal Exam: Yes: Deferred Extremities: Yes: WNL Edema: No Labs: CBC, BMP 07/04/18 09:55 07/04/18 09:55 Imaging - Results Chest X-ray: Report Reviewed Cat Scan: Report Reviewed Problem List - Problems (1) UTI (urinary tract infection) Code(s): N39.0 - URINARY TRACT INFECTION, SITE NOT SPECIFIED (2) Seizure disorder Code(s): G40.909 - EPILEPSY, UNSP, NOT INTRACTABLE, WITHOUT STATUS EPILEPTICUS (3) Dementia Code(s): F03.90 - UNSPECIFIED DEMENTIA WITHOUT BEHAVIORAL DISTURBANCE Assessment/Plan continue ceftriaxone for UTI prior history of TURP 2017 no fevers f/u cultures seizure disorder- for neurology evaluation d/w at bedside
--- NOTE | 2018-07-04 23:28 | CONSULT ---
Consult - text type - Consultation Consultation Note: NEUROLOGY CONSULTATION is greatly appreciated: This 68 yo man with h/o paranoid schizophrenia was last seen by me on after 10 years of relentlessly progressive cognitive decline c/w Alzheimer 's Disease, punctuated by the development of seizures. Since that visit, he has apparently been on stable doses of levetiracetam elixor (1000 mg q 12 hrs) and Depakote elixor (500 mg q 12 hrs). Now admitted after 3 days of progressive lethargy with UTI (Urine EKZ=4508). Now on Ceftriaxone. Reportedly had a seizure during transport to the floor. Given Ativan and has been "sleeping" since. No further seizures reported. Valproic acid level =18.6 ug% DANIELLA: Neck rigid in all directions. Neg. Kernigs. NEURO: Resting with eyes closed. Maintains arms in elevated posture when placed by examiner. Blinks to threat all oliver. Full EOM's. No facial. Symmetrical rigid tone. Normal reflexes. Plantars silent Withdraws all fours to pinch. IMP: Non-focal exam sig for severe, B/L cerebral dysfunction (OMS, Chronic) Seizure disorder All worsened by Toxic-metabolic encephalopathy (TME) do to UTI/urosepsis SUGGEST: Continue antibiotics and hydration. Continue levetiracetam 1000 mg IV q 12 hrs until taking PO Increase Depakote to 1000 mg IV q 12 hrs until taking PO. (Return patient to NH on new doses of AED's) Thank you very much, Raudel Espana MD
[2018-07-05] MEDS: HEPARIN NA (PORCINE) 5,000 UNITS/ML 1ML VIAL SQ SCH ×3 (06:52→21:16)
[2018-07-05] MEDS: ALBUTEROL SO4 0.083% IH SOL 2.5 MG/3 ML VIAL.NEB. NEB SCH ×4 (07:30→20:54)
[2018-07-05] MEDS ORDERED: cefTRIAXone SODIUM 1 GM VIAL ONE (09:04)
[2018-07-05] MEDS ORDERED: DEXTROSE 5%-WATER - 50 ML IVPB ONE (09:04)
--- NOTE | 2018-07-05 10:30 | PN ---
Progress Note (short form) - Note Progress Note: MRi brain no cva- +extensive volume loss c/w dementia still sleepy NAD Vital Signs Period Temp Pulse Resp BP Sys/Cortes Pulse Ox Last 24 Hr 97.8 F-98.6 F 68-106 18-20 129-148/65-80 96-98 cor-rrr lungs clear abd soft,nt ext no edema CBC, BMP 07/04/18 09:55 07/04/18 09:55 Microbiology 07/04/18 01:25 Blood - Peripheral Venous Blood Culture - Preliminary NO GROWTH OBTAINED AFTER 24 HOURS, INCUBATION TO CONTINUE FOR 4 DAYS. 07/04/18 01:25 Blood - Peripheral Venous Blood Culture - Preliminary NO GROWTH OBTAINED AFTER 24 HOURS, INCUBATION TO CONTINUE FOR 4 DAYS. urine culture pending a/p UTI continue ceftriaxone f/u cultures s/p seizure dementia Problem List - Problems (1) UTI (urinary tract infection) Code(s): N39.0 - URINARY TRACT INFECTION, SITE NOT SPECIFIED (2) Seizure disorder Code(s): G40.909 - EPILEPSY, UNSP, NOT INTRACTABLE, WITHOUT STATUS EPILEPTICUS (3) Dementia Code(s): F03.90 - UNSPECIFIED DEMENTIA WITHOUT BEHAVIORAL DISTURBANCE
[2018-07-05] MEDS: CEFTRIAXONE 1 GM in DEXTROSE 5%-WATER - 50 ML IVPB SCH (10:49)
[2018-07-05] MEDS: levETIRAcetam 500 MG/5 ML INJECTION VIAL IVPB SCH ×2 (10:51→21:17)
[2018-07-05] MEDS: VALPROATE SODIUM 500 MG/5 ML VIAL IVPB SCH ×2 (10:52→22:22)
--- NOTE | 2018-07-05 10:52 | PN ---
Progress Note, WAREHOUSE COORDINATOR - Note Progress Note: Selected Entries 07/05/18 07/05/18 07/05/18 02:00 06:00 06:11 Breakfast Temperature 98 F 97.8 F Respiratory 20 20 18 Rate O2 Sat by Pulse 98 98 Oximetry (%) 07/05/18 10:04 Breakfast NPO Temperature Respiratory Rate O2 Sat by Pulse Oximetry (%) Laboratory Tests 07/03/18 07/04/18 22:45 09:55 WBC 12.3 H 9.9 MRi brain no cva- +extensive volume loss c/w dementia Eye opening to sternal rub, nonverbal, not following directions. PO trial deferred. Pt not sufficiently alert. High risk of aspiration at present.
--- NOTE | 2018-07-05 11:32 | PN ---
Progress Note (short form) - Note Progress Note: no further seizures sleepy awakens with deep tactile stimuli Vital Signs - 24 hr 07/04/18 07/04/18 07/05/18 21:00 22:00 02:00 Temperature 98 F Pulse Rate 87 Respiratory 20 20 20 Rate Blood Pressure 140/69 O2 Sat by Pulse 98 98 98 Oximetry (%) 07/05/18 07/05/18 07/05/18 06:00 06:11 09:00 Temperature 97.8 F Pulse Rate 68 Respiratory 20 18 Rate Blood Pressure 148/80 O2 Sat by Pulse 98 94 L Oximetry (%) 07/05/18 07/05/18 07/05/18 10:00 14:17 18:00 Temperature 97.5 F L 97.5 F L 98.3 F Pulse Rate 55 L 80 88 Respiratory 18 18 18 Rate Blood Pressure 137/72 125/86 145/83 O2 Sat by Pulse Oximetry (%) Current Medications Generic Name Dose Route Start Last Admin Trade Name Freq PRN Reason Stop Dose Admin Acetaminophen 650 mg 07/04/18 09:47 Tylenol Suppository - MA Q6H PRN FEVER Albuterol Sulfate 1 amp 07/04/18 12:00 07/05/18 15:51 Ventolin 0.083% Nebulizer Soln - NEB 1 amp RQID CARA Administration Heparin Sodium (Porcine) 5,000 unit 07/04/18 06:30 07/05/18 15:26 Heparin - SQ 5,000 unit TID CARA Administration Sodium Chloride 1,000 mls @ 42 mls/hr 07/03/18 22:15 07/04/18 22:00 Normal Saline - IV 42 mls/hr ASDIR CARA Administration Ceftriaxone Sodium 1 gm/ 50 mls @ 100 mls/hr 07/04/18 10:00 07/05/18 10:49 Dextrose IVPB 100 mls/hr DAILY CARA Administration Protocol Potassium Chloride/Dextrose/Sod Cl 20 meq in 1,000 mls @ 83 mls/hr 07/05/18 11 :45 07/05/18 15:28 D5-1/2ns+20 Meq Kcl - IV 83 mls/hr ASDIR CARA Administration Levetiracetam 1,000 mg 07/04/18 10:00 07/05/18 10:51 Keppra Injection - IVPB 1,000 mg BID CARA Administration Lorazepam 1 mg 07/04/18 09:44 Ativan Injection - IVPUSH Q6H PRN seizures Valproate Sodium 1,000 mg 07/05/18 10:00 07/05/18 10:52 Depacon Injection - IVPB 1,000 mg BID CARA Administration S1 S2 RRR Lungs decreased increased secretions ABd- soft, NT No edema PLAN Ativan PRN keep NPO IV fluids- increase Noted increased depakote IV antibiotics cultures pending Keppra and Depakote IV Neurology and ID evaluation noted
[2018-07-05] MEDS: D5-1/2NS+20 MEQ KCL - 20 MEQ/1,000 ML INFUS.BAG IV SCH (15:28)
[2018-07-05] MEDS ORDERED: PT OWN MED DRAWER 7, Y5N ONE (20:32)
[2018-07-06] MEDS: SODIUM CHLORIDE 1,000 ML IV SCH (03:06)
[2018-07-06] MEDS: HEPARIN NA (PORCINE) 5,000 UNITS/ML 1ML VIAL SQ SCH ×3 (06:04→22:04)
[2018-07-06 07:27] LABS: BASO % 0.4 % (0-2.0); EOS % 3.2 % (0-4.5); HEMATOCRIT 37.5 % (35.4-49); HEMOGLOBIN 12.5 GM/dL (11.7-16.9); MCH 31.1 pg (25.7-33.7); MCHC 33.2 g/dl (32.0-35.9); MEAN CELL VOLUME 93.4 fl (80-96); MEAN PLT VOLUME 9.4 fl (7.5-11.1); MONO % 12.8 % (3.8-10.2); NEUT % 42.6 % (42.8-82.8); PLATELET COUNT 147 K/MM3 (134-434); RBC 4.01 M/mm3 (4.00-5.60); RDW 14.2 % (11.9-15.9); WHITE BLOOD COUNT 3.1 K/mm3 (4.0-10.0)
[2018-07-06] MEDS: ALBUTEROL SO4 0.083% IH SOL 2.5 MG/3 ML VIAL.NEB. NEB SCH ×4 (07:44→20:50)
[2018-07-06 08:38] LABS: ALBUMIN 2.6 g/dl (3.4-5.0); ALK PHOS 86 U/L (45-117); ANION GAP 6 MMOL/L (8-16); BILIRUBIN,TOTAL 0.6 mg/dL (0.2-1); BLOOD UREA NITROGEN 8 mg/dL (7-18); CALCIUM 8.2 mg/dL (8.5-10.1); CHLORIDE 105 mmol/L (98-107); CO2 30 mmol/L (21-32); CREATININE 0.5 mg/dL (0.55-1.3); GLUCOSE,RANDOM 149 mg/dL (74-106); POTASSIUM 4.2 mmol/L (3.5-5.1); SGOT/AST 22 U/L (15-37); SGPT/ALT 17 U/L (13-61); SODIUM 140 mmol/L (136-145); TOT PROT 6.9 g/dl (6.4-8.2)
[2018-07-06] MEDS: D5-1/2NS+20 MEQ KCL - 20 MEQ/1,000 ML INFUS.BAG IV SCH ×3 (09:05→13:19)
[2018-07-06] MEDS ORDERED: cefTRIAXone SODIUM 1 GM VIAL ONE (09:59)
[2018-07-06] MEDS ORDERED: PT OWN MED DRAWER 7, Y5N ONE ×2 (09:59→10:01)
[2018-07-06] MEDS ORDERED: DEXTROSE 5%-WATER - 50 ML IVPB ONE (10:00)
[2018-07-06] MEDS: levETIRAcetam 500 MG/5 ML INJECTION VIAL IVPB SCH ×2 (10:12→22:04)
--- NOTE | 2018-07-06 10:45 | PN ---
Progress Note (short form) - Note Progress Note: no further seizures awake and alert at bedside Wants to feed him Vital Signs - 24 hr 07/05/18 07/05/18 07/05/18 14:17 18:00 21:00 Temperature 97.5 F L 98.3 F Pulse Rate 80 88 Respiratory 18 18 18 Rate Blood Pressure 125/86 145/83 O2 Sat by Pulse 96 Oximetry (%) 07/05/18 07/06/18 07/06/18 22:00 01:00 06:05 Temperature 97.6 F 98.6 F 97.8 F Pulse Rate 93 H 68 55 L Respiratory 18 18 18 Rate Blood Pressure 137/68 153/84 137/62 O2 Sat by Pulse Oximetry (%) 07/06/18 08:48 Temperature Pulse Rate Respiratory Rate Blood Pressure O2 Sat by Pulse 100 Oximetry (%) Current Medications Generic Name Dose Route Start Last Admin Trade Name Freq PRN Reason Stop Dose Admin Acetaminophen 650 mg 07/04/18 09:47 Tylenol Suppository - [place] Q6H PRN FEVER Albuterol Sulfate 1 amp 07/04/18 12:00 07/06/18 07:44 Ventolin 0.083% Nebulizer Soln - NEB 1 amp RQID CARA Administration Heparin Sodium (Porcine) 5,000 unit 07/04/18 06:30 07/06/18 06:04 Heparin - SQ 5,000 unit TID CARA Administration Sodium Chloride 1,000 mls @ 42 mls/hr 07/03/18 22:15 07/06/18 03:06 Normal Saline - IV Not Given ASDIR CARA Ceftriaxone Sodium 1 gm/ 50 mls @ 100 mls/hr 07/04/18 10:00 07/05/18 10:49 Dextrose IVPB 100 mls/hr DAILY CARA Administration Protocol Potassium Chloride/Dextrose/Sod Cl 20 meq in 1,000 mls @ 83 mls/hr 07/05/18 11 :45 07/06/18 09:05 D5-1/2ns+20 Meq Kcl - IV 83 mls/hr ASDIR CARA Administration Levetiracetam 1,000 mg 07/04/18 10:00 07/06/18 10:12 Keppra Injection - IVPB 1,000 mg BID CARA Administration Lorazepam 1 mg 07/04/18 09:44 Ativan Injection - IVPUSH Q6H PRN seizures Valproate Sodium 1,000 mg 07/05/18 10:00 07/05/18 22:22 Depacon Injection - IVPB 1,000 mg BID CARA Administration Laboratory Results - last 24 hr 07/06/18 07/06/18 07/06/18 06:45 06:45 06:45 WBC 3.1 L RBC 4.01 Hgb 12.5 Hct 37.5 MCV 93.4 MCH 31.1 MCHC 33.2 RDW 14.2 Plt Count 147 MPV 9.4 Absolute Neuts (auto) 1.3 L Neutrophils % 42.6 L D Lymphocytes % 41.0 H D Monocytes % 12.8 H D Eosinophils % 3.2 D Basophils % 0.4 D Nucleated RBC % 0 Sodium 140 Potassium 4.2 Chloride 105 Carbon Dioxide 30 Anion Gap 6 L BUN 8 Creatinine 0.5 L Creat Clearance w eGFR > 60 Random Glucose 149 H Calcium 8.2 L Total Bilirubin 0.6 AST 22 ALT 17 Alkaline Phosphatase 86 Total Protein 6.9 Albumin 2.6 L Valproic Acid 81.2 awake S1 S2 RRR Lungs decreased ABd- soft, NT No edema PLAN Ativan PRN keep NPO till seen by Swallow therapist IV fluids Depakote levels therapeutic IV antibiotics cultures - blood culture negative Keppra and Depakote IV Neurology and ID evaluation noted
[2018-07-06] MEDS: CEFTRIAXONE 1 GM in DEXTROSE 5%-WATER - 50 ML IVPB SCH (11:04)
[2018-07-06] MEDS: VALPROATE SODIUM 500 MG/5 ML VIAL IVPB SCH ×2 (11:58→23:33)
--- NOTE | 2018-07-06 12:30 | PN ---
Progress Note, ADMISSIONS RECRUITER - Note Progress Note: h/o paranoid schizophrenia with progressive cognitive decline c/w Alzheimer's Disease, with onset of seizure. Pt alert today, eyes open. Pt's served as informant.He is nonverbal, nonvocal at baseline with progressive Dementia. He had a MBS at [facility] last week and Dys puree/nectar thick liquid was recommended. Swallowing assessed at bedside. Pt readily accepted puree and nectar thick with delayed but fairly brisk swallow. Some mastication on puree and bite reflex elicited from spoon touching teeth intermittently. REC: Dys puree/nectar thick liquid Feed fully upright, chin flexed, slowly 1/2 tsp at a time, single sips, no straw or continuous drinking. Pt's observed and educated regarding compensatory swallowing strategies and aspiration precautions.
[2018-07-06] MEDS: NIFEdipine E.R. 30 MG TABLET (FP) PO SCH (12:52)
--- NOTE | 2018-07-06 17:08 | PN ---
Progress Note (short form) - Note Progress Note: more awake today NAD Vital Signs Period Temp Pulse Resp BP Sys/Cortes Pulse Ox Last 24 Hr 97.6 F-98.6 F 55-93 18-18 129-153/62-89 96-100 cor-rrr lungs clear abd soft,nt ext no edema CBC, BMP 07/06/18 06:45 07/06/18 06:45 Microbiology 07/04/18 00:21 Urine - Urine - Catheterized Urine Culture - Final Escherichia Coli 07/04/18 01:25 Blood - Peripheral Venous Blood Culture - Preliminary NO GROWTH OBTAINED AFTER 48 HOURS, INCUBATION TO CONTINUE FOR 3 DAYS. 07/04/18 01:25 Blood - Peripheral Venous Blood Culture - Preliminary NO GROWTH OBTAINED AFTER 48 HOURS, INCUBATION TO CONTINUE FOR 3 DAYS. a/p UTI continue ceftriaxone can switch to po keflex once his swallowing eval is done s/p seizure dementia Problem List - Problems (1) UTI (urinary tract infection) Code(s): N39.0 - URINARY TRACT INFECTION, SITE NOT SPECIFIED (2) Seizure disorder Code(s): G40.909 - EPILEPSY, UNSP, NOT INTRACTABLE, WITHOUT STATUS EPILEPTICUS (3) Dementia Code(s): F03.90 - UNSPECIFIED DEMENTIA WITHOUT BEHAVIORAL DISTURBANCE
[2018-07-07] MEDS: D5-1/2NS+20 MEQ KCL - 20 MEQ/1,000 ML INFUS.BAG IV SCH ×2 (02:34→16:27)
[2018-07-07] MEDS: HEPARIN NA (PORCINE) 5,000 UNITS/ML 1ML VIAL SQ SCH ×3 (06:39→21:35)
[2018-07-07] MEDS: ALBUTEROL SO4 0.083% IH SOL 2.5 MG/3 ML VIAL.NEB. NEB SCH ×4 (07:25→20:37)
[2018-07-07] MEDS ORDERED: DEXTROSE 5%-WATER - 50 ML IVPB ONE (09:09)
[2018-07-07] MEDS ORDERED: cefTRIAXone SODIUM 1 GM VIAL ONE (09:09)
[2018-07-07] MEDS: levETIRAcetam 500 MG/5 ML INJECTION VIAL IVPB SCH ×2 (09:12→21:36)
[2018-07-07] MEDS: VALPROATE SODIUM 500 MG/5 ML VIAL IVPB SCH (09:16)
[2018-07-07] MEDS: CEFTRIAXONE 1 GM in DEXTROSE 5%-WATER - 50 ML IVPB SCH (09:18)
[2018-07-07] MEDS: NIFEdipine E.R. 30 MG TABLET (FP) PO SCH (09:18)
--- NOTE | 2018-07-07 14:00 | DS ---
Physical Examination Vital Signs: Vital Signs Temperature 97.8 F 07/07/18 10:46 Pulse Rate 72 07/07/18 10:46 Respiratory Rate 20 07/07/18 10:46 Blood Pressure 155/80 07/07/18 10:46 O2 Sat by Pulse Oximetry (%) 100 07/07/18 09:00 Findings/Remarks: pt seen/ examined chart reviewed awake/ comfortable non verbal no further seizure activity no distress afebrile eating ok per nursing staff swallowing eval noted Constitutional: Yes: No Distress, Calm Neck: Yes: Supple Cardiovascular: Yes: Regular Rate and Rhythm Respiratory: Yes: Diminished Gastrointestinal: Yes: Soft Edema: No Labs: CBC, BMP 07/06/18 06:45 07/06/18 06:45 Discharge Summary Reason For Visit: SEPSIS DUE TO URINARY TRACT INFECTION Current Active Problems Seizure disorder (Acute) Sepsis secondary to UTI (Acute) UTI (urinary tract infection) (Acute) Hospital Course: pt admitted due to seizures meds adjusted also treated with abx for uti now stable meds reconcilled discussed with medical case worker/ nursing staff stable to go home with home health services will d/c on po abx f/u with pmd in one week d/c time 30 min in examining/ documenting and coordating care. Condition: Fair - Instructions Disposition: VNS/HOME HEALTH CARE - Home Medications Comprehensive Discharge Medication List: Ambulatory Orders Acetaminophen [Tylenol] 650 mg PO PRN PRN 12/29/17 Albuterol 0.083% Nebulizer Elizabeth [Ventolin 0.083% Nebulizer Soln -] 1 neb NEB TID 12/29/17 Docusate Sodium [Colace] 200 mg PO HS 12/29/17 Ferrous Sulfate 325 mg PO BID 12/29/17 Folic Acid 1 mg PO DAILY 12/29/17 Ipratropium 0.02% Nebulizer [Atrovent 0.02% Nebulizer -] 0.5 mg IH TID 12/29/17 Tamsulosin HCl 0.4 mg PO DAILY 12/29/17 Valproate Sodium Liquid [Depakene] 500 mg PO BID 12/29/17 -- Changed dose to 1000 mg bid . Vitamin A & D Top Oint - 1 applic TP DAILY 12/29/17 Cephalexin [Keflex] 500 mg PO BID #10 capsule 07/07/18 Nifedipine ER [Procardia XL -] 30 mg PO DAILY tab.er.24 07/07/18
[2018-07-07] MEDS: CEPHALEXIN MONOHYDRATE 500 MG CAPSULE (UD) PO SCH (21:35)
[2018-07-07] MEDS: DIVALPROEX SODIUM 500 MG TABLET E.C. PO SCH (21:37)
[2018-07-08] MEDS: HEPARIN NA (PORCINE) 5,000 UNITS/ML 1ML VIAL SQ SCH ×2 (05:24→16:19)
[2018-07-08] MEDS: ALBUTEROL SO4 0.083% IH SOL 2.5 MG/3 ML VIAL.NEB. NEB SCH ×3 (07:55→15:07)
[2018-07-08] MEDS: levETIRAcetam 500 MG/5 ML INJECTION VIAL IVPB SCH (10:30)
[2018-07-08] MEDS: CEPHALEXIN MONOHYDRATE 500 MG CAPSULE (UD) PO SCH (10:30)
[2018-07-08] MEDS: NIFEdipine E.R. 30 MG TABLET (FP) PO SCH (10:31)
[2018-07-08] MEDS: DIVALPROEX SODIUM 500 MG TABLET E.C. PO SCH (12:03)
--- NOTE | 2018-07-08 12:04 | PN ---
Progress Note (short form) - Note Progress Note: Having a seizure-- give Ativan - better after non verbal drowsy Vital Signs - 24 hr 07/07/18 07/07/18 07/07/18 18:00 20:30 21:00 Temperature 98.4 F 98.4 F Pulse Rate 85 72 Respiratory 20 18 Rate Blood Pressure 137/64 138/82 O2 Sat by Pulse 98 Oximetry (%) 07/08/18 05:44 Temperature 98.5 F Pulse Rate 64 Respiratory 18 Rate Blood Pressure 136/83 O2 Sat by Pulse Oximetry (%) Current Medications Generic Name Dose Route Start Last Admin Trade Name Freq PRN Reason Stop Dose Admin Acetaminophen 650 mg 07/04/18 09:47 Tylenol Suppository - [place] Q6H PRN FEVER Albuterol Sulfate 1 amp 07/04/18 12:00 07/08/18 11:32 Ventolin 0.083% Nebulizer Soln - NEB 1 amp RQID CARA Administration Cephalexin HCl 500 mg 07/07/18 22:00 07/08/18 10:30 Keflex - PO 500 mg BID CARA Administration Divalproex Sodium 1,000 mg 07/07/18 22:00 07/08/18 12:03 Depakote - PO 1,000 mg BID CARA Administration Heparin Sodium (Porcine) 5,000 unit 07/04/18 06:30 07/08/18 05:24 Heparin - SQ 5,000 unit TID CARA Administration Levetiracetam 1,000 mg 07/04/18 10:00 07/08/18 10:30 Keppra Injection - IVPB 1,000 mg BID CARA Administration Lorazepam 1 mg 07/04/18 09:44 Ativan Injection - IVPUSH Q6H PRN seizures Nifedipine 30 mg 07/06/18 12:45 07/08/18 10:31 Procardia Xl - PO 30 mg DAILY CARA Administration Laboratory Results - last 24 hr 07/07/18 21:51 POC Glucometer 79 S1 S2 RRR Lungs decreased increased secretions ABd- soft, NT No edema PLAN Ativan PRN keep NPO IV fluids IV antibiotics cultures pending Keppra and Depakote IV Neurology and ID evaluation
[2018-07-08 14:05] VITALS: BP 125/69; PULSE 77; TEMP 98.4
== END 2018-07-08 17:30 | disposition home health service (06) | DRG 720 ==
LOC: JER 21:02 → JERBED 07-04 01:46 → J7W 07-04 09:25
PROVIDERS: ADMIT Internal Medicine; ATTEND Internal Medicine
DX: A41.9 Sepsis, unspecified organism (principal); N39.0 Urinary tract infection, site not specified; I10 Essential (primary) hypertension; J44.9 Chronic obstructive pulmonary disease, unspecified; R13.10 Dysphagia, unspecified; G40.909 Epilepsy, unspecified, not intractable, without status epilepticus; F03.90 Unspecified dementia, unspecified severity, without behavioral disturbance, psychotic disturbance, mood disturbance, and anxiety; G92 Toxic encephalopathy
CPT/HCPCS: 36415; 70450-TC; 70551-TC; 71045-TC-FY; 80048; 80053; 80164; 81003; 81015; 82465; 82550; 82962; 83605; 83718; 83721; 83735; 84100; 84478; 84484; 85025; 85610; 85730; 86850; 86900; 86901; 87040; 87086; 87186; 93005; 93010; 94640; 99284-25; J1644; J7030

== ENCOUNTER 2018-11-28 15:12 | Inpatient (IN) | payer OTHER ==
[2018-11-28] MEDS ORDERED: SODIUM CHLORIDE 1,000 ML IV STA ×2 (16:08→18:59)
--- NOTE | 2018-11-28 16:08 | PDOC ---
History of Present Illness - General Chief Complaint: Respiratory Stated Complaint: Weakness Time Seen by Provider: 11/28/18 15:59 History Source: Family, Other ([employer]) Exam Limitations: Dementia Past History - Past Medical History Allergies/Adverse Reactions: Allergies Allergy/AdvReac Type Severity Reaction Status Date / Time No Known Allergies Allergy Verified 07/03/18 21:12 Home Medications: Ambulatory Orders Acetaminophen [Tylenol] 650 mg PO PRN PRN 12/29/17 Albuterol 0.083% Nebulizer Elizabeth [Ventolin 0.083% Nebulizer Soln -] 1 neb NEB TID 12/29/17 Docusate Sodium [Colace] 200 mg PO HS 12/29/17 Ferrous Sulfate 325 mg PO BID 12/29/17 Folic Acid 1 mg PO DAILY 12/29/17 Ipratropium 0.02% Nebulizer [Atrovent 0.02% Nebulizer -] 0.5 mg IH BID 12/29/17 Tamsulosin HCl 0.4 mg PO DAILY 12/29/17 Valproate Sodium Liquid [Depakene] 500 mg PO BID 12/29/17 Vitamin A & D Top Oint - 1 applic TP DAILY 12/29/17 Nifedipine ER [Procardia XL -] 30 mg PO DAILY #30 tab.er.24 07/08/18 Cyanocobalamin (Vitamin B-12) [Vitamin B-12] 1,000 mcg PO DAILY 11/29/18 Levetiracetam 1,000 mg PO BID 11/29/18 Anemia: No Asthma: No Cancer: No Cardiac Disorders: No CVA: No (altered mental behavior) COPD: Yes (uses O2@ prn) CHF: No Dementia: Yes Diabetes: Yes (not on meds) GI Disorders: No Disorders: Yes (BPH) HTN: Yes Hypercholesterolemia: No Liver Disease: No Seizures: Yes Thyroid Disease: No - Suicide/Smoking/Psychosocial Hx Smoking History: Never smoked Have you smoked in the past 12 months: No Information on smoking cessation initiated: No Hx Alcohol Use: No Drug/Substance Use Hx: No Substance Use Type: None Hx Substance Use Treatment: No Review of Systems - Review of Systems Able to Perform ROS?: No (2/2 dementia) *Physical Exam - Vital Signs Last Vital Signs Temp Pulse Resp BP Pulse Ox 99.8 F H 92 H 22 H 156/100 97 11/28/18 15:27 11/28/18 15:27 11/28/18 15:27 11/28/18 15:27 11/28/18 15:27 - Physical Exam General Appearance: Yes: Appropriately Dressed Respiratory/Chest: negative: Respiratory Distress, Wheezing Gastrointestinal/Abdominal: positive: Normal Bowel Sounds, Soft. negative: Distended Integumentary: positive: Dry, Warm Moderate Sedation - Procedure Monitoring Vital Signs: Procedure Monitoring Vital Signs Temperature 99.8 F H 11/28/18 15:27 Pulse Rate 92 H 11/28/18 15:27 Respiratory Rate 22 H 11/28/18 15:27 Blood Pressure 156/100 11/28/18 15:27 O2 Sat by Pulse Oximetry (%) 97 11/28/18 15:27 ED Treatment Course - LABORATORY CBC & Chemistry Diagram: 12/05/18 07:10 12/05/18 07:10 - RADIOLOGY Radiology Studies Ordered: Category Date Time Status CHEST X-RAY PORTABLE* [RAD] Stat Radiology 11/28/18 16:05 Ordered Medical Decision Making - Medical Decision Making 11/28/18 16:06 [id number] male, history of HTN, COPD, 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 states she usually feeds pt w/ a spoon and that for the past week, pt has been refusing to eat and spittibg up food. No vomiting or diarrhea. States pt did have low grade fever 2 days ago and was given tylenol po which he tolerated. concerned that patient might have difficulty swallowing as she heard "a weird sound" in his throat. See exam Decreased po intake in pt w/ dementia Low grade fever in ED, in NAD w/ limited exam due to condition -IVF -labs -CXR -EKG -admit 11/28/18 18:49 Multiple electrolyte derangements, c/w dehydration. IVF and dose of po potassium in progress. Leukocytosis of 16. Urine with no nitrites or leuks and chest x-ray unchanged compared to previous. Will give dose of ceftriaxone, azithromycin and arrange admission at this time 11/28/18 19:00 Signed out to KARLA Padgett pending admission *DC/Admit/Observation/Transfer Diagnosis at time of Disposition: Dehydration, Anorexia - Referrals - Patient Instructions - Post Discharge Activity
[2018-11-28 16:36] LABS: BASO % 0.8 % (0-2.0); EOS % 0.2 % (0-4.5); HEMATOCRIT 41.1 % (35.4-49); LYMPH % 14.8 % (8-40); MCH 31.4 pg (25.7-33.7); MCHC 34.1 g/dl (32.0-35.9); MEAN CELL VOLUME 92.2 fl (80-96); MEAN PLT VOLUME 11.4 fl (7.5-11.1); MONO % 5.6 % (3.8-10.2); NEUT % 78.6 % (42.8-82.8); PLATELET COUNT 190 K/MM3 (134-434); RBC 4.46 M/mm3 (4.00-5.60); WHITE BLOOD COUNT 16.6 K/mm3 (4.0-10.0)
[2018-11-28 17:11] LABS: ALBUMIN 2.5 g/dl (3.4-5.0); ALK PHOS 100 U/L (45-117); ANION GAP 4 MMOL/L (8-16); BILIRUBIN,TOTAL 0.8 mg/dL (0.2-1); BLOOD UREA NITROGEN 22 mg/dL (7-18); CALCIUM 8.5 mg/dL (8.5-10.1); CHLORIDE 119 mmol/L (98-107); CO2 27 mmol/L (21-32); CREATININE 1.1 mg/dL (0.55-1.3); GLUCOSE,RANDOM 93 mg/dL (74-106); SGPT/ALT 37 U/L (13-61); SODIUM 150 mmol/L (136-145); TOT PROT 7.4 g/dl (6.4-8.2)
[2018-11-28 18:36] LABS: ALBUMIN 2.5 g/dl (3.4-5.0); ALK PHOS 92 U/L (45-117); ANION GAP 7 MMOL/L (8-16); BILIRUBIN,TOTAL 0.6 mg/dL (0.2-1); BLOOD UREA NITROGEN 21 mg/dL (7-18); CALCIUM 8.1 mg/dL (8.5-10.1); CHLORIDE 123 mmol/L (98-107); CO2 27 mmol/L (21-32); GLUCOSE,RANDOM 89 mg/dL (74-106); POTASSIUM 3.1 mmol/L (3.5-5.1); SGOT/AST 24 U/L (15-37); SGPT/ALT 29 U/L (13-61); SODIUM 157 mmol/L (136-145); TOT PROT 6.6 g/dl (6.4-8.2)
[2018-11-28 18:38] LABS: URINE APPEARANCE SLCLOUDY; URINE BILIRUBIN NEGATIVE (<2.0 mg/dL); URINE COLOR YELLOW; URINE GLUCOSE (UA) NEGATIVE (NEGATIVE); URINE KETONE NEGATIVE (NEGATIVE); URINE LEUK ESTERASE NEGATIVE (NEGATIVE); URINE NITRITE NEGATIVE (NEGATIVE); URINE PROTEIN 1+ (NEGATIVE); URINE UROBILINOGEN NEGATIVE mg/dL (0.2-1.0)
[2018-11-28] MEDS ORDERED: POTASSIUM CHLORIDE ORAL LIQUID 20 MEQ/15 ML PO ONE (18:40)
[2018-11-28 18:42] LABS: URINE BACTERIA RARE /hpf (NONE SEEN); URINE HYALINE CAST 3 /lpf; URINE MUCUS FEW
[2018-11-28] MEDS ORDERED: POTASSIUM CHLORIDE ORAL LIQUID 20 MEQ/15 ML ONE (18:46)
[2018-11-28] MEDS ORDERED: ACETAMINOPHEN 160 MG/5 ML *Children Solution PO ONE (18:49)
[2018-11-28] MEDS ORDERED: CEFTRIAXONE 1 GM in DEXTROSE 5%-WATER - 100 ML IVPB ONE (18:56)
[2018-11-28] MEDS ORDERED: AZITHROMYCIN IVPB 500 MG in DEXTROSE 5%-WATER - 250 ML IVPB ONE (18:57)
[2018-11-28] MEDS ORDERED: CEFTRIAXONE 1 GM/50 ML BAG ONE (19:38)
[2018-11-28] MEDS ORDERED: AZITHROMYCIN IVPB 500 MG/250 ML BAG IVPB ONE (19:38)
[2018-11-28 20:50] LABS: MAGNESIUM 2.3 mg/dL (1.8-2.4)
--- NOTE | 2018-11-28 21:21 | PN ---
Teaching Attending Note Name of Resident: Raudel Acevedo ATTENDING PHYSICIAN STATEMENT I saw and evaluated the patient. I reviewed the resident's note and discussed the case with the resident. I agree with the resident's findings and plan as documented. SUBJECTIVE: Seen and examined; please refer to resident note for further historical information. Briefly, this is a 68 y/o male presenting with diminished PO intake for2 weeks. He has been having intermittent fevers to 102 at home somewhat helped with APAP occasionally accompanied by shaking but not seizure- like activity. He was also noted as having a low pulse ox at home to 70s and HR to 150s. Limited history as nonverbal at baseline. He lives at home with his who takes care of him; he has a 24 hour home health aid. Hasn't been vomiting, etc. 10 sys ROS done and negative aside from HPI PMH, PSH, Family Hx, Social Hx reviewed Valproate 500 BID, tams, nifedipine, iron, folic acid) OBJECTIVE: VS, labs, imaging reviewed NAD, AAO, resting comfortably in bed NC AT EOMI PERRLA RRR s1/2 no mgr Lungs CTAB, w/ sym exp No rashes or abbrasions CN2-12 wnl, no fnd Normal mood, appropriate behavior CXR reviewed ASSESSMENT AND PLAN: #Aspiration Pnemonia -f/u CXR; continue zosyn and doxy. Reviewed CT. Speech/swallow and NPO #Failure to Thrive Consider nutrition #Hypernatremia -received 2L NS in ED -must decrease Sodium level at a rate of 1-2 meq/L per hour -5% Dextrose @75/hr -Q2H Sodium check -EKG shows prolonged QT 474, NSR, Left Anterior fasicular block #DVT Ppx. -HepSQ TID
--- NOTE | 2018-11-28 21:43 | HP ---
<CurtisRaudel - Last Filed: 11/29/18 08:02> CHIEF COMPLAINT: Decreased PO intake PCP: Dr. Brady HISTORY OF PRESENT ILLNESS: Pt. is a 68 y.o. non-verbal M presenting with 2 weeks of decreased PO intake. Pt. has been having fevers to 102.9 and treated with Tylenol at home. One one such occasion yesterday fever was preceded by vigorous "shaking" of unknown time that did not resemble his prior seizures. Pt. has not had seizures in a "long time." Pt. has been having on going problems swallowing at home. Pt. yesterday had desaturations at home to 78% and heart rates to 150 as noted by a home pulse oximeter. Per Pt.s Pt. has not had any changes to urinary or bowel habits. Per family they have been unable to assess for pain and do not know if the Pt. has had signs of localized discomfort. 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), seizure disorder PAST SURGICAL HISTORY: Per chart review shoulder surgery Social History: Smoking: Denies Alcohol: Denies Drugs: Denies Family History: N/c Allergies No Known Allergies Allergy (Verified 07/03/18 21:12) HOME MEDICATIONS: Home Medications Medication Instructions Recorded Acetaminophen [Tylenol] 650 mg PO PRN PRN 12/29/17 Albuterol 0.083% Nebulizer Elizabeth 1 neb NEB TID 12/29/17 [Ventolin 0.083% Nebulizer Soln -] Docusate Sodium [Colace] 200 mg PO HS 12/29/17 Ferrous Sulfate 325 mg PO BID 12/29/17 Folic Acid 1 mg PO DAILY 12/29/17 Ipratropium 0.02% Nebulizer 0.5 mg IH TID 12/29/17 [Atrovent 0.02% Nebulizer -] Tamsulosin HCl 0.4 mg PO DAILY 12/29/17 Valproate Sodium Liquid [Depakene] 500 mg PO BID 12/29/17 Vitamin A & D Top Oint - 1 applic TP DAILY 12/29/17 Nifedipine ER [Procardia XL -] 30 mg PO DAILY #30 tab.er.24 07/08/18 REVIEW OF SYSTEMS CONSTITUTIONAL: Present: fever, chills, diaphoresis, loss of appetite Absent: generalized weakness, malaise, , weight change HEENT: Present: difficulty swallowing Absent: rhinorrhea, nasal congestion, throat pain, throat swelling, mouth swelling, ear pain, eye pain, visual changes CARDIOVASCULAR: Absent: chest pain, syncope, palpitations, irregular heart rate, lightheadedness , peripheral edema RESPIRATORY: cough, shortness of breath Absent:, dyspnea with exertion, orthopnea, wheezing, stridor, hemoptysis GASTROINTESTINAL: Absent: abdominal pain, abdominal distension, nausea, vomiting, diarrhea, constipation, melena, hematochezia GENITOURINARY: Absent: dysuria, frequency, urgency, hesitancy, hematuria, flank pain, genital pain MUSCULOSKELETAL: Absent: myalgia, arthralgia, joint swelling, back pain, neck pain SKIN: Absent: rash, itching, pallor HEMATOLOGIC/IMMUNOLOGIC: Absent: easy bleeding, easy bruising, lymphadenopathy, frequent infections ENDOCRINE: Absent: unexplained weight gain, unexplained weight loss, heat intolerance, cold intolerance NEUROLOGIC: seizure Absent: headache, focal weakness or paresthesias, dizziness, unsteady gait, , mental status changes, bladder or bowel incontinence PSYCHIATRIC: Absent: anxiety, depression, suicidal or homicidal ideation, hallucinations. PHYSICAL EXAMINATION Vital Signs - 24 hr 11/28/18 11/28/18 15:27 18:56 Temperature 99.8 F H 98.4 F Pulse Rate 92 H Pulse Rate [ 94 H Apical] Respiratory 22 H 20 Rate Blood Pressure 156/100 Blood Pressure 169/105 H [Left Arm] O2 Sat by Pulse 97 94 L Oximetry (%) GENERAL: Awake, alert, unable to maintain eye contact . HEAD: Normal with no signs of trauma. EYES: Pupils equal, round and reactive to light, extraocular movements intact, sclera anicteric, conjunctiva cloudy. No lid lag. EARS, NOSE, THROAT: Ears normal, nares patent, difficult to open Pt.s mouth, copious secretions noted. Moist mucous membranes. NECK: supple without lymphadenopathy, JVD, or masses. LUNGS: Wet sounding cough, decreased breath sounds, diffuse crackles anteriorly and in axilla. No accessory muscle use. HEART: Tachycardic, regular rhythm, normal S1 and S2 without murmur- limited d/ t body habitus and coarse breath sounds ABDOMEN: Soft, nontender?, not distended, normoactive bowel sounds, no guarding , no rebound, no masses. No hepatomegaly or splenomegaly. MUSCULOSKELETAL: No CVA tenderness. UPPER EXTREMITIES: 2+ radial pulses, warm, well-perfused. No cyanosis. No clubbing. No peripheral edema. Tremulous LOWER EXTREMITIES: 2+ pulses, warm, well-perfused. No calf tenderness. No peripheral edema. Tremulous NEUROLOGICAL: PSYCHIATRIC: Demented SKIN: Warm, dry, normal turgor, no rashes or lesions noted, normal capillary refill. Laboratory Results - last 24 hr 11/28/18 11/28/18 11/28/18 16:00 16:00 17:32 WBC 16.6 H RBC 4.46 Hgb 14.0 Hct 41.1 MCV 92.2 MCH 31.4 MCHC 34.1 RDW 15.0 Plt Count 190 D MPV 11.4 H D Absolute Neuts (auto) 13.0 H Neutrophils % 78.6 D Lymphocytes % 14.8 D Monocytes % 5.6 Eosinophils % 0.2 D Basophils % 0.8 Nucleated RBC % 0 Sodium 150 H 157 H Potassium 3.1 L Chloride 119 H 123 H Carbon Dioxide 27 27 Anion Gap 4 L 7 L BUN 22 H 21 H Creatinine 1.1 1.0 Creat Clearance w eGFR > 60 > 60 Random Glucose 93 89 Calcium 8.5 8.1 L Magnesium 2.3 Total Bilirubin 0.8 0.6 AST 24 ALT 37 29 Alkaline Phosphatase 100 92 Creatine Kinase Troponin I 0.03 Total Protein 7.4 6.6 Albumin 2.5 L 2.5 L Urine Color Urine Appearance Urine pH Ur Specific [place] Urine Protein Urine Glucose (UA) Urine Ketones Urine Blood Urine Nitrite Urine Bilirubin Urine Urobilinogen Ur Leukocyte Esterase Urine WBC (Auto) Urine RBC (Auto) Urine Bacteria Hyaline Casts Urine Mucus 11/28/18 18:15 WBC RBC Hgb Hct MCV MCH MCHC RDW Plt Count MPV Absolute Neuts (auto) Neutrophils % Lymphocytes % Monocytes % Eosinophils % Basophils % Nucleated RBC % Sodium Potassium Chloride Carbon Dioxide Anion Gap BUN Creatinine Creat Clearance w eGFR Random Glucose Calcium Magnesium Total Bilirubin AST ALT Alkaline Phosphatase Creatine Kinase Troponin I Total Protein Albumin Urine Color Yellow Urine Appearance Slcloudy Urine pH 6.0 Ur Specific [place] 1.018 Urine Protein 1+ H Urine Glucose (UA) Negative Urine Ketones Negative Urine Blood 1+ H Urine Nitrite Negative Urine Bilirubin Negative Urine Urobilinogen Negative Ur Leukocyte Esterase Negative Urine WBC (Auto) 7 Urine RBC (Auto) 2 Urine Bacteria Rare Hyaline Casts 3 Urine Mucus Few ASSESSMENT/PLAN: Pt. is a 68 y.o. M w/ PMHx. 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 #Aspiration Pnemonia -f/u CXR -received Ceftriaxone and Azithromycin in ED -started Zosyn and Doxycycline -Chest CT noted -f/u Bcx. and Sputum Cx. -Barium swallow -NPO -Speech and Swallow consult #Failure to Thrive -keep HOB 30-45 degrees -aspiration precautions -barium swallow- last swallow in August 2018 was negative -Bedside suction (consider teaching family how to use suction and prescribe suction equipment on discharge) #Hypernatremia -received 2L NS in ED -must decrease Sodium level at a rate of 1-2 meq/L per hour -5% Dextrose @75/hr -Q2H Sodium check -EKG shows prolonged QT 474, NSR, Left Anterior fasicular block #DVT Ppx. -HepSQ TID Visit type - Emergency Visit Emergency Visit: Yes ED Registration Date: 11/28/18 Care time: The patient presented to the Emergency Department on the above date and was hospitalized for further evaluation of their emergent condition. - New Patient This patient is new to me today: Yes Date on this admission: 11/29/18 - Critical Care Critical Care patient: No <Joseluis Decker - Last Filed: 01/03/19 19:47> Seen and examined; agree with above aside from as supplemented by myself in my own assessment, plan, and physical examination.
[2018-11-28 23:29] LABS: ANION GAP 2 MMOL/L (8-16); BLOOD UREA NITROGEN 19 mg/dL (7-18); CHLORIDE 125 mmol/L (98-107); CO2 27 mmol/L (21-32); CREATININE 0.8 mg/dL (0.55-1.3); GLUCOSE,RANDOM 113 mg/dL (74-106); POTASSIUM 3.8 mmol/L (3.5-5.1); SODIUM 154 mmol/L (136-145)
[2018-11-29] MEDS ORDERED: DEXTROSE 5%-WATER - 1,000 ML IV SCH ×2 (00:15→05:39)
[2018-11-29 05:01] LABS: ANION GAP 2 MMOL/L (8-16); BLOOD UREA NITROGEN 19 mg/dL (7-18); CALCIUM 7.8 mg/dL (8.5-10.1); CHLORIDE 120 mmol/L (98-107); CO2 27 mmol/L (21-32); CREATININE 0.8 mg/dL (0.55-1.3); GLUCOSE,RANDOM 209 mg/dL (74-106); POTASSIUM 3.9 mmol/L (3.5-5.1); SODIUM 149 mmol/L (136-145)
--- NOTE | 2018-11-29 09:48 | PN ---
Progress Note (short form) - Note Progress Note: ID consult dictated imp/reccd 68 yo man admitted from home with decreased po intake. lethargy, and hypoxia fever two days ago difficulty swallowing at home per andino placed in ER +intermittent jerks of hands and arms RLL pneumonia cannot r/o aspiration suspicion for MDRO is low d/c zosyn unasyn and doxycycline urinary antigens can d/c doxycycline if antigens are negative ?reason for andino would consider d/c andino catheter anorexia dementia ?myoclonus spoke with nurse hospitalist service informed about HTN Problem List - Problems (1) Pneumonia Code(s): J18.9 - PNEUMONIA, UNSPECIFIED ORGANISM (2) Anorexia Code(s): R63.0 - ANOREXIA (3) Dementia Code(s): F03.90 - UNSPECIFIED DEMENTIA WITHOUT BEHAVIORAL DISTURBANCE
[2018-11-29] MEDS ORDERED: VALPROATE SODIUM 250 MG/5 ML UNIT DOSE CUP PO SCH (10:00)
[2018-11-29] MEDS ORDERED: PIPERACILLIN/TAZOB 3.375 GM 3.375 GM in DEXTROSE 5%-WATER - 50 ML IVPB SCH (10:00)
[2018-11-29 10:05] LABS: ANION GAP 6 MMOL/L (8-16); BLOOD UREA NITROGEN 17 mg/dL (7-18); CHLORIDE 118 mmol/L (98-107); CO2 27 mmol/L (21-32); CREATININE 0.8 mg/dL (0.55-1.3); GLUCOSE,RANDOM 115 mg/dL (74-106); SODIUM 150 mmol/L (136-145)
--- NOTE | 2018-11-29 10:08 | CONSULT ---
Admitting History and Physical - Admission History of Present Illness: 68 y.o. non-verbal M admitted following 2 weeks of decreased PO intake, developed fevers and o2 desaturation. CT chest noted. ID- PNA Last seen by me 07/06/18: h/o paranoid schizophrenia with progressive cognitive decline c/w Alzheimer's Disease, with onset of seizure. Pt alert today, eyes open. Pt's served as informant.He is nonverbal, nonvocal at baseline with progressive Dementia. He had a MBS at [facility] last week and Dys puree/nectar thick liquid was recommended. Swallowing assessed at bedside. Pt readily accepted puree and nectar thick with delayed but fairly brisk swallow. Some mastication on puree and bite reflex elicited from spoon touching teeth intermittently. REC: Dys puree/nectar thick liquid Feed fully upright, chin flexed, slowly 1/2 tsp at a time, single sips, no straw or continuous drinking. Pt's observed and educated regarding compensatory swallowing strategies and aspiration precautions. History Source: Medical Record Limitations to Obtaining History: Clinical Condition, Dementia - Past Medical History [employer]: Yes: Dementia, Seizure Pulmonary: Yes: COPD Renal/: Yes: Renal Calculi, UTI - Past Surgical History Past Surgical History: Yes: TURP (2017) - Smoking History Smoking history: Never smoked Have you smoked in the past 12 months: No - Alcohol/Substance Use Hx Alcohol Use: No - Social History ADL: Support Services History of Recent Travel: No History - Admission Reason For Visit: DEHYDRATION - Diagnostics CT Scan: Report Reviewed (atelectasis both bases, possible infiltrate on right) - General Mental Status: Confused, Flat Affect Attention: Moderate Impairment Ability to Follow Directions: Poor Head/Neck Control: Needs Assist - Hearing Hearing: Normal Speech Evaluation - Communication Primary Language: LAO Communication: Yes: Non-Communicable (non vocal unintelligible) - Speech Characteristics Voice Loudness: Hypophonia - Language/Auditory Comprehension Observation: Able to respond to yes/no queries: No, Comprehends Conversational Speech: No (maybe social speech) - Language/Verbal Expression Functional Communication Status: Yes: Severely Impaired - Swallow Evaluation/Bedside Assessment Current Nutritional Intake: NPO Oral Secretions: Yes: WFL Dentition: Yes: Adequate Facial Symmetry at Rest: Symmetrical Bite Reflex: Present Laryngeal Movement: Labored,delay initiation (rare, very delayed) Rate of Intake: Slow/Holding Bolus Size: Small Sensation: Bite Reflex Labial Seal: WFL Recommendations - Speech Evaluation, Impression/Plan Impression: Arousable to tactile stimulation.Opens eyes but does not visually track. Follows no commands.Bite reflex triggered by spoon to teeth. Oral holding of 1/3 tsp puree. Poor ability to transfer bolus. Rare, untimely swallow elicited. Poor function and airway protection suspected. Body twitching intermittently, - Disposition Discharge to: To be Determined - Dysphagia Impressions/Plan Swallowing Skills: Impaired Dysphagia Impressions: Severe Impairment, Suspect Aspiration *Silent aspiration: cannot be R/O at bedside Recommendations: Other (Strict NPO including medication.Consider IV medication vs NGT)
[2018-11-29] MEDS ORDERED: DEXTROSE 5%-0.45% SALINE 1,000 ML IV SCH (11:00)
--- NOTE | 2018-11-29 11:02 | CONS ---
DATE OF CONSULTATION: DATE OF DICTATION: 11/29/2018 REQUESTING PHYSICIAN: Hospitalist Service. CONSULTING PHYSICIAN: Elise Paz M.D. HISTORY: This is a 68-year-old man who was admitted from home. He lives at home with his and he has a 24-hour home health aide. He was brought to the emergency room for lethargy, decreased p.o. intake, intermittent fevers. Apparently 2 days ago, he had a fever 102.5. In the ER he was noted to be hypoxic. He had a chest x-ray done that was unremarkable. He was noted to have leukocytosis. He had CAT scan done that shows a right lower lobe infiltrate. He eats pureed food at home and he was noted as well to have increased jerking movements of his arms and legs and shaking. PAST MEDICAL HISTORY: Notable for dementia, seizure disorder, COPD, renal calculi and UTI. PAST SURGICAL HISTORY: Surgical history is notable for a TURP in 2017 and shoulder surgery. SOCIAL HISTORY: He lives at home with his spouse. He is from the [place] and he is aphasic. ALLERGIES: He has no known drug allergies. MEDICATIONS: His medications at home include: 1. Depakene. 2. Tamsulosin. 3. Nifedipine. 4. Atrovent nebulizer. 5. Albuterol nebulizer. 6. Folic acid. 7. Ferrous sulfate. 8. Colace. REVIEW OF SYSTEMS: Is as per the emergency room evaluation. He has been having trouble swallowing at home and he was noted to be hypoxic and tachycardic at home on their pulse oximeter. He was also noted to have some cough and has had some intermittent fevers. PHYSICAL EXAMINATION: General: On physical exam he is currently resting comfortably. He had a rare monoclonal jerk. Vitals: T max was 99.8 in the emergency room. Current temperature is 96.9. Pulse is 78. Blood pressure is 159/133 with a respiratory rate of 15. His O2 saturation is 97%. I will speak to the nurse about retaking his blood pressure. HEENT: He is normocephalic. He does not follow any commands. His dentition is fair. Lungs: His lungs have diminished breath sounds at the bases. Heart: His heart is regular rate and rhythm. Abdomen: His abdomen is soft, nontender. Extremities: Are without edema. Skin: He has no skin breakdown. LABORATORY DATA: White count is 16.6, hemoglobin 14, platelets are 190. BUN is 17 and creatinine 0.8. LFTs on admission were normal. Urinalysis was negative and his influenza screen was negative. Blood and urine cultures are pending. CAT scan reveals a right lower lobe infiltrate. IMPRESSION: 1. In summary, this is a 68-year-old man admitted from home with decreased oral intake, intermittent fever, found to have a right lower lobe pneumonia. Cannot rule out aspiration especially with the history of difficulty swallowing. Suspicion for multi-drug resistant organisms is low. I would stop his Zosyn and switch him to Unasyn for aspiration. Can continue the doxycycline for now, which was started as he was noted to have QT prolongation for atypical coverage. I would send urinary antigens. If the antigens are negative, would stop his doxycycline. 2. I am not sure why he has a [place]. I would consider discontinuation, if he did not have a De [place] at home and no history of urinary retention. 3. History of anorexia. 4. Dementia. 5. Lastly myoclonus. RECOMMENDATIONS: I would suggest that after his pneumonia improves, he get evaluated by Speech and Swallow, but we should probably give him 24 or 48 hours to clinically stabilize first. Further recommendations to follow. ELISE PAZ M.D. [id number]
--- NOTE | 2018-11-29 11:09 | EKG ---
Test Reason : Blood Pressure : / mmHG Vent. Rate : 100 BPM Atrial Rate : 100 BPM P-R Int : 150 ms QRS Dur : 094 ms QT Int : 368 ms P-R-T Axes : 046 -46 027 degrees QTc Int : 474 ms NORMAL SINUS RHYTHM LEFT ANTERIOR FASCICULAR BLOCK NONSPECIFIC T WAVE ABNORMALITY PROLONGED QT ABNORMAL ECG WHEN COMPARED WITH ECG OF 04-JUL-2018 06:35, NONSPECIFIC T WAVE ABNORMALITY HAS REPLACED INVERTED T WAVES IN INFERIOR LEADS Confirmed by MOUSTAPHA DE LA ROSA MD ([id number]) on 11/29/2018 11:09:01 AM Referred By: Confirmed By:MOUSTAPHA DE LA ROSA MD
[2018-11-29] MEDS: NIFEdipine E.R. 30 MG TABLET (FP) PO SCH (11:13)
[2018-11-29] MEDS: TAMSULOSIN HCL 0.4 MG CAP PO SCH (11:13)
[2018-11-29] MEDS: KCL 10 MEQ IVPB 10 MEQ/100 ML INFUS.BAG IVPB SCH ×3 (11:19→14:46)
[2018-11-29] MEDS ORDERED: PT OWN MED DRAWER 7, Y5N ONE ×5 (11:22→21:30)
[2018-11-29] MEDS: VITAMINS A AND D TOPICAL OINTMENT 60 GM TUBE TP SCH (11:23)
[2018-11-29] MEDS: AMPICILLIN NA/SULBACTAM NA 3 GM in SODIUM CHLORIDE 100 ML IVPB SCH ×3 (12:00→22:58)
[2018-11-29] MEDS: DOXYCYCLINE INJECTION 100 MG in DEXTROSE 5%-WATER 100 ML IVPB SCH ×2 (12:23→23:32)
[2018-11-29] MEDS: HEPARIN NA (PORCINE) 5,000 UNITS/ML 1ML VIAL SQ SCH ×2 (14:04→21:45)
[2018-11-29 14:45] LABS: ANION GAP 5 MMOL/L (8-16); BLOOD UREA NITROGEN 15 mg/dL (7-18); CALCIUM 8.3 mg/dL (8.5-10.1); CHLORIDE 116 mmol/L (98-107); CO2 27 mmol/L (21-32); CREATININE 0.8 mg/dL (0.55-1.3); GLUCOSE,RANDOM 99 mg/dL (74-106); POTASSIUM 3.4 mmol/L (3.5-5.1); SODIUM 149 mmol/L (136-145)
[2018-11-29] MEDS: VALPROATE SODIUM 500 MG/5 ML VIAL IVPB SCH ×2 (17:03→21:43)
--- NOTE | 2018-11-29 18:02 | PN ---
Teaching Attending Note Name of Resident: Jonh Echavarria ATTENDING PHYSICIAN STATEMENT I saw and evaluated the patient. I reviewed the resident's note and discussed the case with the resident. I agree with the resident's findings and plan as documented. SUBJECTIVE: Presented to ED with complaints of lethargy, decreased oral intake, fevers, chills by his daughter. OBJECTIVE: Afebrile, Hemodynamically Stable. Last Vital Signs Temp Pulse Resp BP Pulse Ox 98.3 F 91 H 22 H 148/86 97 11/29/18 14:28 11/29/18 14:28 11/29/18 14:28 11/29/18 14:28 11/29/18 09:00 HEENT - Atraumatic, Normocephalic Heart - S1, S2, RRR Lungs - basal crackles Abdomen - Soft, non-tender. Bowel Sounds normal. Extremities - no calf tenderness Neuro - opens eyes spontaneously. No tracking. Does not follow commands. Intermittent myoclonic jerks. Laboratory Results - last 24 hr 11/28/18 11/28/18 11/28/18 17:32 18:15 22:35 Sodium 157 H Potassium 3.1 L Chloride 123 H Carbon Dioxide 27 Anion Gap 7 L BUN 21 H Creatinine 1.0 Creat Clearance w eGFR > 60 Random Glucose 89 Lactic Acid Calcium 8.1 L Magnesium 2.3 Total Bilirubin 0.6 AST 24 ALT 29 Alkaline Phosphatase 92 Total Protein 6.6 Albumin 2.5 L Prealbumin 11.4 L Urine Color Yellow Urine Appearance Slcloudy Urine pH 6.0 Ur Specific [place] 1.018 Urine Protein 1+ H Urine Glucose (UA) Negative Urine Ketones Negative Urine Blood 1+ H Urine Nitrite Negative Urine Bilirubin Negative Urine Urobilinogen Negative Ur Leukocyte Esterase Negative Urine WBC (Auto) 7 Urine RBC (Auto) 2 Urine Bacteria Rare Hyaline Casts 3 Urine Mucus Few Valproic Acid Influenza A (Rapid) Influenza B (Rapid) 11/28/18 11/28/18 11/29/18 22:35 22:35 00:57 Sodium 154 H Potassium 3.8 Chloride 125 H Carbon Dioxide 27 Anion Gap 2 L BUN 19 H Creatinine 0.8 Creat Clearance w eGFR > 60 Random Glucose 113 H Lactic Acid Calcium 8.0 L Magnesium Total Bilirubin AST ALT Alkaline Phosphatase Total Protein Albumin Prealbumin Urine Color Urine Appearance Urine pH Ur Specific [place] Urine Protein Urine Glucose (UA) Urine Ketones Urine Blood Urine Nitrite Urine Bilirubin Urine Urobilinogen Ur Leukocyte Esterase Urine WBC (Auto) Urine RBC (Auto) Urine Bacteria Hyaline Casts Urine Mucus Valproic Acid 3.1 L Influenza A (Rapid) Negative Influenza B (Rapid) Negative 11/29/18 11/29/18 11/29/18 00:57 04:00 09:10 Sodium 149 H 150 H Potassium 3.9 3.0 L Chloride 120 H 118 H Carbon Dioxide 27 27 Anion Gap 2 L 6 L BUN 19 H 17 Creatinine 0.8 0.8 Creat Clearance w eGFR > 60 > 60 Random Glucose 209 H 115 H Lactic Acid 1.1 Calcium 7.8 L 8.0 L Magnesium Total Bilirubin AST ALT Alkaline Phosphatase Total Protein Albumin Prealbumin Urine Color Urine Appearance Urine pH Ur Specific [place] Urine Protein Urine Glucose (UA) Urine Ketones Urine Blood Urine Nitrite Urine Bilirubin Urine Urobilinogen Ur Leukocyte Esterase Urine WBC (Auto) Urine RBC (Auto) Urine Bacteria Hyaline Casts Urine Mucus Valproic Acid Influenza A (Rapid) Influenza B (Rapid) 11/29/18 13:55 Sodium 149 H Potassium 3.4 L Chloride 116 H Carbon Dioxide 27 Anion Gap 5 L BUN 15 Creatinine 0.8 Creat Clearance w eGFR > 60 Random Glucose 99 Lactic Acid Calcium 8.3 L Magnesium Total Bilirubin AST ALT Alkaline Phosphatase Total Protein Albumin Prealbumin Urine Color Urine Appearance Urine pH Ur Specific [place] Urine Protein Urine Glucose (UA) Urine Ketones Urine Blood Urine Nitrite Urine Bilirubin Urine Urobilinogen Ur Leukocyte Esterase Urine WBC (Auto) Urine RBC (Auto) Urine Bacteria Hyaline Casts Urine Mucus Valproic Acid Influenza A (Rapid) Influenza B (Rapid) Current Medications Generic Name Dose Route Start Last Admin Trade Name Freq PRN Reason Stop Dose Admin Heparin Sodium (Porcine) 5,000 unit 11/29/18 14:00 11/29/18 14:04 Heparin - SQ 5,000 unit TID CARA Administration Doxycycline Hyclate 100 mg/ 100 mls @ 100 mls/hr 11/29/18 10:00 11/29/18 12: 23 Dextrose IVPB 100 mls/hr BID CARA Administration Dextrose/Sodium Chloride 1,000 mls @ 42 mls/hr 11/29/18 11:00 11/29/18 11:19 D5-1/2ns - IV 42 mls/hr ASDIR CARA Administration Ampicillin Sodium/Sulbactam 100 mls @ 200 mls/hr 11/29/18 11:00 11/29/18 15: 51 Sodium 3 gm/ Sodium Chloride IVPB 200 mls/hr Q6H-IV CARA Administration Levetiracetam 1,000 mg 11/29/18 22:00 Keppra Injection - IVPB BID CARA Nifedipine 30 mg 11/29/18 10:00 11/29/18 11:13 Procardia Xl - PO Not Given DAILY CARA Tamsulosin HCl 0.4 mg 11/29/18 08:30 11/29/18 11:13 Flomax - PO Not Given DAILY@0830 CARA Valproate Sodium 250 mg 11/29/18 15:00 11/29/18 17:03 Depacon Injection - IVPB 250 mg Q6H-IV CARA Administration Vitamin A/Vitamin D 1 applic 11/29/18 10:00 11/29/18 11:23 Vitamin A & D Top Oint - TP 1 applic DAILY CARA Administration Home Medications Medication Instructions Recorded Acetaminophen [Tylenol] 650 mg PO PRN PRN 12/29/17 Albuterol 0.083% Nebulizer Elizabeth 1 neb NEB TID 12/29/17 [Ventolin 0.083% Nebulizer Soln -] Docusate Sodium [Colace] 200 mg PO HS 12/29/17 Ferrous Sulfate 325 mg PO BID 12/29/17 Folic Acid 1 mg PO DAILY 12/29/17 Ipratropium 0.02% Nebulizer 0.5 mg IH BID 12/29/17 [Atrovent 0.02% Nebulizer -] Tamsulosin HCl 0.4 mg PO DAILY 12/29/17 Valproate Sodium Liquid [Depakene] 500 mg PO BID 12/29/17 Vitamin A & D Top Oint - 1 applic TP DAILY 12/29/17 Nifedipine ER [Procardia XL -] 30 mg PO DAILY #30 tab.er.24 07/08/18 Cyanocobalamin (Vitamin B-12) 1,000 mcg PO DAILY 11/29/18 [Vitamin B-12] Levetiracetam 1,000 mg PO BID 11/29/18 ASSESSMENT AND PLAN: 68 year old Male with Dementia, Seizure Disorder, COPD, Nephrolithiasis, Hx UTI , presented to ED by his daughter with reports of increasing lethargy, decreased oral intake, fever. chills. No nausea/vomiting. No abdominal pain/ diarrhea. 1. Sepsis secondary to Aspiration Pneumonia Tachycardia and fever at presentation, now resolved CT Chest - bibasal atelectasis/infiltrate, R>L Zosyn changed to Unasyn - Continue Unasyn/Doxy Swallow eval - not able to take anything by mouth currently Palliative Care eval requested for goals of care 2. Seizure Disorder - Continue Keppra, Valproate 3. BPH - Continue Tamsulosin 4. Complex Cyst L Kidney - renal unction normal. For further work-up as an out- patient. 5. Dementia - baseline mental status non-verbal, non-participatory, fully dependent - further collateral history required from family members. 6. Hypernatremia - secondary to dehydration - improving with IV hydration 7. COPD - Stable. No evidence of acute exacerbation. Continue Albuterol prn. DVT Px - Heparin SQ
--- NOTE | 2018-11-29 18:22 | PN ---
Physical Exam: SUBJECTIVE: Patient seen and examined at bedside. nonverbal, comfortable. opens eyes spontaneously. No tracking. Does not follow commands. Intermittent myoclonic jerks (baseline) OBJECTIVE: Vital Signs Period Temp Pulse Resp BP Sys/Cortes Pulse Ox Last 24 Hr 96.9 F-99.2 F 77-94 15-22 129-169/56-133 94-100 GENERAL: Awake, alert, nonverbal, unable to maintain eye contact. intermittent myoclonic jerks (baseline) HEAD: Normal with no signs of trauma. EYES: Pupils equal, round and reactive to light, extraocular movements intact, sclera anicteric, conjunctiva cloudy. No lid lag. EARS, NOSE, THROAT: Ears normal, nares patent, difficult to open Pt.s mouth, copious secretions noted. Moist mucous membranes. NECK: supple without lymphadenopathy, JVD, or masses. LUNGS: Wet sounding cough, decreased breath sounds, diffuse crackles anteriorly and in axilla. No accessory muscle use. HEART: Tachycardic, regular rhythm, normal S1 and S2 without murmur- limited d/ t body habitus and coarse breath sounds ABDOMEN: Soft, nontender?, not distended, normoactive bowel sounds, no guarding , no rebound, no masses. No hepatomegaly or splenomegaly. MUSCULOSKELETAL: No CVA tenderness. UPPER EXTREMITIES: 2+ radial pulses, warm, well-perfused. No cyanosis. No clubbing. No peripheral edema. Tremulous LOWER EXTREMITIES: 2+ pulses, warm, well-perfused. No calf tenderness. No peripheral edema. Tremulous NEUROLOGICAL: opens eyes spontaneously. No tracking. Does not follow commands. Intermittent myoclonic jerks (baseline) PSYCHIATRIC: Demented SKIN: Warm, dry, normal turgor, no rashes or lesions noted, normal capillary refill. Laboratory Results - last 24 hr 11/28/18 11/28/18 11/28/18 17:32 18:15 22:35 Sodium 157 H Potassium 3.1 L Chloride 123 H Carbon Dioxide 27 Anion Gap 7 L BUN 21 H Creatinine 1.0 Creat Clearance w eGFR > 60 Random Glucose 89 Lactic Acid Calcium 8.1 L Magnesium 2.3 Total Bilirubin 0.6 AST 24 ALT 29 Alkaline Phosphatase 92 Total Protein 6.6 Albumin 2.5 L Prealbumin 11.4 L Urine Color Yellow Urine Appearance Slcloudy Urine pH 6.0 Ur Specific [place] 1.018 Urine Protein 1+ H Urine Glucose (UA) Negative Urine Ketones Negative Urine Blood 1+ H Urine Nitrite Negative Urine Bilirubin Negative Urine Urobilinogen Negative Ur Leukocyte Esterase Negative Urine WBC (Auto) 7 Urine RBC (Auto) 2 Urine Bacteria Rare Hyaline Casts 3 Urine Mucus Few Valproic Acid Influenza A (Rapid) Influenza B (Rapid) 11/28/18 11/28/18 11/29/18 22:35 22:35 00:57 Sodium 154 H Potassium 3.8 Chloride 125 H Carbon Dioxide 27 Anion Gap 2 L BUN 19 H Creatinine 0.8 Creat Clearance w eGFR > 60 Random Glucose 113 H Lactic Acid Calcium 8.0 L Magnesium Total Bilirubin AST ALT Alkaline Phosphatase Total Protein Albumin Prealbumin Urine Color Urine Appearance Urine pH Ur Specific [place] Urine Protein Urine Glucose (UA) Urine Ketones Urine Blood Urine Nitrite Urine Bilirubin Urine Urobilinogen Ur Leukocyte Esterase Urine WBC (Auto) Urine RBC (Auto) Urine Bacteria Hyaline Casts Urine Mucus Valproic Acid 3.1 L Influenza A (Rapid) Negative Influenza B (Rapid) Negative 11/29/18 11/29/18 11/29/18 00:57 04:00 09:10 Sodium 149 H 150 H Potassium 3.9 3.0 L Chloride 120 H 118 H Carbon Dioxide 27 27 Anion Gap 2 L 6 L BUN 19 H 17 Creatinine 0.8 0.8 Creat Clearance w eGFR > 60 > 60 Random Glucose 209 H 115 H Lactic Acid 1.1 Calcium 7.8 L 8.0 L Magnesium Total Bilirubin AST ALT Alkaline Phosphatase Total Protein Albumin Prealbumin Urine Color Urine Appearance Urine pH Ur Specific [place] Urine Protein Urine Glucose (UA) Urine Ketones Urine Blood Urine Nitrite Urine Bilirubin Urine Urobilinogen Ur Leukocyte Esterase Urine WBC (Auto) Urine RBC (Auto) Urine Bacteria Hyaline Casts Urine Mucus Valproic Acid Influenza A (Rapid) Influenza B (Rapid) 11/29/18 13:55 Sodium 149 H Potassium 3.4 L Chloride 116 H Carbon Dioxide 27 Anion Gap 5 L BUN 15 Creatinine 0.8 Creat Clearance w eGFR > 60 Random Glucose 99 Lactic Acid Calcium 8.3 L Magnesium Total Bilirubin AST ALT Alkaline Phosphatase Total Protein Albumin Prealbumin Urine Color Urine Appearance Urine pH Ur Specific [place] Urine Protein Urine Glucose (UA) Urine Ketones Urine Blood Urine Nitrite Urine Bilirubin Urine Urobilinogen Ur Leukocyte Esterase Urine WBC (Auto) Urine RBC (Auto) Urine Bacteria Hyaline Casts Urine Mucus Valproic Acid Influenza A (Rapid) Influenza B (Rapid) Active Medications Generic Name Dose Route Start Last Admin Trade Name Freq PRN Reason Stop Dose Admin Albuterol Sulfate 1 amp 11/29/18 18:15 Ventolin 0.083% Nebulizer Soln - NEB Q6H PRN SHORT OF BREATH/WHEEZING Heparin Sodium (Porcine) 5,000 unit 11/29/18 14:00 11/29/18 14:04 Heparin - SQ 5,000 unit TID CARA Administration Doxycycline Hyclate 100 mg/ 100 mls @ 100 mls/hr 11/29/18 10:00 11/29/18 12: 23 Dextrose IVPB 100 mls/hr BID CARA Administration Dextrose/Sodium Chloride 1,000 mls @ 42 mls/hr 11/29/18 11:00 11/29/18 11:19 D5-1/2ns - IV 42 mls/hr ASDIR CARA Administration Ampicillin Sodium/Sulbactam 100 mls @ 200 mls/hr 11/29/18 11:00 11/29/18 15: 51 Sodium 3 gm/ Sodium Chloride IVPB 200 mls/hr Q6H-IV CARA Administration Levetiracetam 1,000 mg 11/29/18 22:00 Keppra Injection - IVPB BID CARA Nifedipine 30 mg 11/29/18 10:00 11/29/18 11:13 Procardia Xl - PO Not Given DAILY CARA Tamsulosin HCl 0.4 mg 11/29/18 08:30 11/29/18 11:13 Flomax - PO Not Given DAILY@0830 [facility] Valproate Sodium 250 mg 11/29/18 15:00 11/29/18 17:03 Depacon Injection - IVPB 250 mg Q6H-IV CARA Administration Vitamin A/Vitamin D 1 applic 11/29/18 10:00 11/29/18 11:23 Vitamin A & D Top Oint - TP 1 applic DAILY CARA Administration [id number] CT/CHEST CT WITHOUT CONTRAST INDICATION: Shortness of breath TECHNIQUE: Helical images of the chest were obtained noncontrast . COMPARISON: None FINDINGS: LUNGS: Dependent atelectasis present at both bases, superimposed infiltrate especially at the right base cannot be excluded. There is motion artifact. No suspicious lung nodules are appreciated. No endobronchial lesions seen. PLEURA: Negative MEDIASTINUM: Negative CARDIAC: Normal sized heart. No pericardiac effusion. OTHER: Visualized portions of the adrenals appear unremarkable. Hyperdense subcortical cysts noted within the last image of the upper pole of the left kidney. This is not fully evaluated on this study. Kyphoscoliosis is seen. No aggressive bone lesions identified. Soft tissue calcification around the right shoulder suggests possibility of ligamentous calcifications, correlate with MR imaging as clinically warranted. Preliminary dictation was generated by the on-call radiologist at the time of this procedure. IMPRESSION: Atelectasis/infiltration worse on the right as discussed above. Complex cystic lesion upper pole of the left kidney not fully evaluated on the present study. ASSESSMENT/PLAN: 68 y.o. M w/ PMHx. of BPH,HTN, COPD, paranoid schizophrenia with progressive cognitive decline c/w Alzheimer's Disease (non-verbal), Nephrolithiasis, Hx UTI , seizure disorder presents with 2 weeks of decreased PO intake and intermittent fevers. #Sepsis 2/2 Aspiration Pnemonia - Tachycardia and fever at presentation, now resolved -CT Chest - bibasal atelectasis/infiltrate, R>L -s/p Ceftriaxone and Azithromycin in ED -Continue Unasyn/Doxy -ID consult -f/u Bcx. and Sputum Cx. -NPO -Swallow eval - not able to take anything by mouth currently -Palliative Care eval requested for goals of care #Failure to Thrive -keep HOB 30-45 degrees -aspiration precautions -barium swallow- last swallow in August 2018 was negative -Bedside suction (consider teaching family how to use suction and prescribe suction equipment on discharge) -Swallow eval - not able to take anything by mouth currently -Palliative Care eval requested for goals of care...PEG??? #Hypernatremia 2/2 dehydration - improving with IV hydration. 157...149, so far 8meq in 24hr -received 2L NS in ED -must decrease Sodium level at a rate of 1-2 meq/L per hour -switch 5% Dextrose to D5 1/2NS 42cc/hr -avoid overcorrection, so far 8meq in 24hr -EKG shows prolonged QT 474, NSR, Left Anterior fasicular block HTN - currently ctl unable to take PO meds at this time. if IV needed can do metoprolol 2.5mg q6h IV gtt, if PO status improves can try amlodipine 5 crushed or eventually restart home meds if pushes are needed urgently for high BP can transfer to tele or MD can push Seizure Disorder - Continue Keppra, Valproate BPH - Continue Tamsulosin COPD - Stable. No evidence of acute exacerbation. Continue Albuterol prn. Complex Cyst L Kidney - renal unction normal. For further work-up as an out- patient. FEN D5 1/2NS 42cc/hr replete prn, avoid overcorrection, so far 8meq in 24hr NPO, Swallow eval - not able to take anything by mouth currently #DVT Ppx. -HepSQ TID Dispo M/S Palliative Care eval requested for goals of care...PEG??? Visit type - Emergency Visit Emergency Visit: Yes ED Registration Date: 11/28/18 Care time: The patient presented to the Emergency Department on the above date and was hospitalized for further evaluation of their emergent condition. - New Patient This patient is new to me today: Yes Date on this admission: 11/29/18 - Critical Care Critical Care patient: No
[2018-11-29] MEDS: levETIRAcetam 500 MG/5 ML INJECTION VIAL IVPB SCH (21:41)
[2018-11-29 23:06] LABS: ANION GAP 6 MMOL/L (8-16); BLOOD UREA NITROGEN 13 mg/dL (7-18); CALCIUM 8.6 mg/dL (8.5-10.1); CHLORIDE 115 mmol/L (98-107); CO2 27 mmol/L (21-32); CREATININE 0.7 mg/dL (0.55-1.3); GLUCOSE,RANDOM 99 mg/dL (74-106); POTASSIUM 3.1 mmol/L (3.5-5.1); SODIUM 148 mmol/L (136-145)
[2018-11-30] MEDS ORDERED: POTASSIUM CHLORIDE 20 MEQ PREMIX IVPB 100 ML IVPB ONE (00:46)
[2018-11-30] MEDS: KCL 10 MEQ IVPB 10 MEQ/100 ML INFUS.BAG IVPB SCH ×5 (01:45→18:31)
[2018-11-30] MEDS: AMPICILLIN NA/SULBACTAM NA 3 GM in SODIUM CHLORIDE 100 ML IVPB SCH ×4 (03:45→20:56)
[2018-11-30] MEDS: VALPROATE SODIUM 500 MG/5 ML VIAL IVPB SCH ×4 (04:45→21:35)
[2018-11-30] MEDS: HEPARIN NA (PORCINE) 5,000 UNITS/ML 1ML VIAL SQ SCH ×3 (05:36→22:48)
[2018-11-30] MEDS: ALBUTEROL SO4 0.083% IH SOL 2.5 MG/3 ML VIAL.NEB. NEB PRN (06:11)
--- NOTE | 2018-11-30 07:12 | PN ---
Physical Exam: SUBJECTIVE: Patient seen and examined at bedside. no acute events overnight. nonverbal, comfortable. opens eyes spontaneously. No tracking. Does not follow commands. Intermittent myoclonic jerks (baseline). NPO per S&S. per family pt at baseline. spoke w/ about option of PEG, she will discuss with her daughter. OBJECTIVE: Vital Signs Period Temp Pulse Resp BP Sys/Cortes Pulse Ox Last 24 Hr 96.9 F-98.8 F 78-91 15-22 147-159/58-133 97-97 GENERAL: Awake, alert, nonverbal, unable to maintain eye contact. intermittent myoclonic jerks (baseline) HEAD: NCAT EYES: Pupils equal, round and reactive to light, sclera anicteric, conjunctiva cloudy. No lid lag. EARS, NOSE, THROAT: nares patent, difficult to open Pt.s mouth, copious secretions noted. Moist mucous membranes. NECK: supple without lymphadenopathy, JVD, or masses. LUNGS: Wet sounding cough, decreased breath sounds, transmitted upper airway sounds. No accessory muscle use. HEART: RRR, normal S1 and S2 without murmur ABDOMEN: Soft, NTND, normoactive bowel sounds, no guarding, no rebound, no masses. MUSCULOSKELETAL: No CVA tenderness. UPPER EXTREMITIES: 2+ radial pulses, warm, well-perfused. No cyanosis. No clubbing. No peripheral edema. LOWER EXTREMITIES: 2+ pulses, warm, well-perfused. No calf tenderness. No peripheral edema. NEUROLOGICAL: opens eyes spontaneously. No tracking. Does not follow commands. Intermittent myoclonic jerks (baseline). winces but does not withdraw to pain stimuli. PSYCHIATRIC: Demented SKIN: Warm, dry, normal turgor, no rashes or lesions noted, normal capillary refill. Laboratory Results - last 24 hr 11/29/18 11/29/18 11/29/18 09:10 13:55 21:30 Sodium 150 H 149 H 148 H Potassium 3.0 L 3.4 L 3.1 L Chloride 118 H 116 H 115 H Carbon Dioxide 27 27 27 Anion Gap 6 L 5 L 6 L BUN 17 15 13 Creatinine 0.8 0.8 0.7 Creat Clearance w eGFR > 60 > 60 > 60 Random Glucose 115 H 99 99 Calcium 8.0 L 8.3 L 8.6 Active Medications Generic Name Dose Route Start Last Admin Trade Name Freq PRN Reason Stop Dose Admin Albuterol Sulfate 1 amp 11/29/18 18:15 11/30/18 06:11 Ventolin 0.083% Nebulizer Soln - NEB 1 amp Q6H PRN Administration SHORT OF BREATH/WHEEZING Heparin Sodium (Porcine) 5,000 unit 11/29/18 14:00 11/30/18 05:36 Heparin - SQ 5,000 unit TID CARA Administration Doxycycline Hyclate 100 mg/ 100 mls @ 100 mls/hr 11/29/18 10:00 11/29/18 23: 32 Dextrose IVPB 100 mls/hr BID CARA Administration Dextrose/Sodium Chloride 1,000 mls @ 42 mls/hr 11/29/18 11:00 11/29/18 11:19 D5-1/2ns - IV 42 mls/hr ASDIR CARA Administration Ampicillin Sodium/Sulbactam 100 mls @ 200 mls/hr 11/29/18 11:00 11/30/18 03: 45 Sodium 3 gm/ Sodium Chloride IVPB 200 mls/hr Q6H-IV CARA Administration Levetiracetam 1,000 mg 11/29/18 22:00 11/29/18 21:41 Keppra Injection - IVPB 1,000 mg BID CARA Administration Nifedipine 30 mg 11/29/18 10:00 11/29/18 11:13 Procardia Xl - PO Not Given DAILY CARA Tamsulosin HCl 0.4 mg 11/29/18 08:30 11/29/18 11:13 Flomax - PO Not Given DAILY@0830 CARA Valproate Sodium 250 mg 11/29/18 15:00 11/30/18 04:45 Depacon Injection - IVPB 250 mg Q6H-IV CARA Administration Vitamin A/Vitamin D 1 applic 11/29/18 10:00 11/29/18 11:23 Vitamin A & D Top Oint - TP 1 applic DAILY CARA Administration [id number] CT/CHEST CT WITHOUT CONTRAST INDICATION: Shortness of breath TECHNIQUE: Helical images of the chest were obtained noncontrast . COMPARISON: None FINDINGS: LUNGS: Dependent atelectasis present at both bases, superimposed infiltrate especially at the right base cannot be excluded. There is motion artifact. No suspicious lung nodules are appreciated. No endobronchial lesions seen. PLEURA: Negative MEDIASTINUM: Negative CARDIAC: Normal sized heart. No pericardiac effusion. OTHER: Visualized portions of the adrenals appear unremarkable. Hyperdense subcortical cysts noted within the last image of the upper pole of the left kidney. This is not fully evaluated on this study. Kyphoscoliosis is seen. No aggressive bone lesions identified. Soft tissue calcification around the right shoulder suggests possibility of ligamentous calcifications, correlate with MR imaging as clinically warranted. Preliminary dictation was generated by the on-call radiologist at the time of this procedure. IMPRESSION: Atelectasis/infiltration worse on the right as discussed above. Complex cystic lesion upper pole of the left kidney not fully evaluated on the present study. ASSESSMENT/PLAN: 68 y.o. M w/ PMHx. of BPH,HTN, COPD, paranoid schizophrenia with 10 year progressive cognitive decline c/w Alzheimer's Disease (non-verbal) punctuated by the development of seizures, Nephrolithiasis, Hx UTI, p/w 2 weeks of decreased PO intake and intermittent fevers. #Sepsis 2/2 Aspiration Pnemonia - afebrile but w/ Tachycardia, tachypnea, and leukocytosis at presentation, now resolving -CT Chest - bibasal atelectasis/infiltrate, R>L -s/p Ceftriaxone and Azithromycin in ED -Continue Unasyn/Doxy day 2 -ID consult -Bcx, legionella neg. -Ucx +lactose ferm neg bacili -NPO -Swallow eval - not able to take anything by mouth currently -Palliative Care eval requested for goals of care #Failure to Thrive -keep HOB 30-45 degrees -aspiration precautions -barium swallow- last swallow in August 2018 was negative -Bedside suction (consider teaching family how to use suction and prescribe suction equipment on discharge) -Swallow eval - not able to take anything by mouth currently -Palliative Care eval requested for goals of care...PEG??? -spoke w/ about option of PEG, she will discuss with her daughter. #Functional quadriplegia unable to mobilize. winces but does not withdraw to pain stimuli. No tracking. Does not follow commands. requires someone to feed him at home. -spoke w/ about option of PEG, she will discuss with her daughter. -Palliative Care eval #Hypernatremia 2/2 dehydration - improving with IV hydration. 157...149..147 -received 2L NS in ED -must decrease Sodium level at a rate of 1-2 meq/L per hour -switch D5 1/2NS 42cc/hr to D5 1/2NS w/ 40meq K 75cc/hr -avoid overcorrection -EKG shows prolonged QT 474, NSR, Left Anterior fasicular block HTN - currently ctl unable to take PO meds at this time. if IV needed can do metoprolol 2.5mg q6h IV gtt, if PO status improves can try amlodipine 5 crushed or eventually restart home meds if pushes are needed urgently for high BP can transfer to tele or MD can push Seizure Disorder - Continue Keppra, Valproate IV BPH - Continue Tamsulosin when able to take PO COPD - Stable. No evidence of acute exacerbation. Continue Albuterol prn. Complex Cyst L Kidney - renal unction normal. For further work-up as an out- patient. FEN D5 1/2NS w/ 40meq K 75cc/hr replete prn, avoid overcorrection NPO, Swallow eval - not able to take anything by mouth currently #DVT Ppx. -HepSQ TID Dispo M/S Palliative Care eval requested for goals of care...PEG??? Visit type - Emergency Visit Emergency Visit: Yes ED Registration Date: 11/28/18 Care time: The patient presented to the Emergency Department on the above date and was hospitalized for further evaluation of their emergent condition. - New Patient This patient is new to me today: Yes Date on this admission: 11/30/18 - Critical Care Critical Care patient: No
[2018-11-30 08:05] LABS: BASO % 0.1 % (0-2.0); EOS % 1.8 % (0-4.5); HEMATOCRIT 35.9 % (35.4-49); HEMOGLOBIN 12.1 GM/dL (11.7-16.9); LYMPH % 32.3 % (8-40); MCH 30.9 pg (25.7-33.7); MCHC 33.8 g/dl (32.0-35.9); MEAN CELL VOLUME 91.5 fl (80-96); MEAN PLT VOLUME 11.1 fl (7.5-11.1); MONO % 7.4 % (3.8-10.2); NEUT % 58.4 % (42.8-82.8); PLATELET COUNT 157 K/MM3 (134-434); RBC 3.92 M/mm3 (4.00-5.60); RDW 14.8 % (11.9-15.9); WHITE BLOOD COUNT 6.2 K/mm3 (4.0-10.0)
[2018-11-30 08:30] LABS: ALBUMIN 2.4 g/dl (3.4-5.0); ALK PHOS 82 U/L (45-117); ANION GAP 5 MMOL/L (8-16); BILIRUBIN,TOTAL 0.5 mg/dL (0.2-1); BLOOD UREA NITROGEN 13 mg/dL (7-18); CALCIUM 8.2 mg/dL (8.5-10.1); CHLORIDE 114 mmol/L (98-107); CO2 28 mmol/L (21-32); CREATININE 0.7 mg/dL (0.55-1.3); GLUCOSE,RANDOM 101 mg/dL (74-106); MAGNESIUM 2.2 mg/dL (1.8-2.4); PHOSPHOROUS 3.4 mg/dL (2.5-4.9); POTASSIUM 3.1 mmol/L (3.5-5.1); SGOT/AST 15 U/L (15-37); SGPT/ALT 23 U/L (13-61); SODIUM 147 mmol/L (136-145); TOT PROT 6.4 g/dl (6.4-8.2)
[2018-11-30] MEDS ORDERED: PT OWN MED DRAWER 7, Y5N ONE ×4 (08:41→16:05)
[2018-11-30] MEDS: TAMSULOSIN HCL 0.4 MG CAP PO SCH (09:38)
[2018-11-30] MEDS: DOXYCYCLINE INJECTION 100 MG in DEXTROSE 5%-WATER 100 ML IVPB SCH ×2 (09:38→22:41)
[2018-11-30] MEDS: NIFEdipine E.R. 30 MG TABLET (FP) PO SCH (09:39)
[2018-11-30] MEDS ORDERED: D5-1/2NS+40 MEQ KCL - 40 MEQ/1,000 ML INFUS.BAG IV SCH (09:45)
[2018-11-30] MEDS ORDERED: PIPERACILLIN/TAZOB 3.375 GM 3.375 GM in DEXTROSE 5%-WATER - 50 ML IVPB SCH (10:00)
[2018-11-30] MEDS: D5-1/2NS+40 MEQ KCL - 40 MEQ/1,000 ML INFUS.BAG IV SCH (11:25)
[2018-11-30] MEDS: levETIRAcetam 500 MG/5 ML INJECTION VIAL IVPB SCH ×2 (11:42→22:27)
[2018-11-30 15:50] VITALS: BMI 29.8
--- NOTE | 2018-11-30 16:33 | PN ---
Teaching Attending Note Name of Resident: Jonh Echavarria ATTENDING PHYSICIAN STATEMENT I saw and evaluated the patient. I reviewed the resident's note and discussed the case with the resident. I agree with the resident's findings and plan as documented. SUBJECTIVE: Non-verbal. Still only wincing to pain stimuli. OBJECTIVE: Afebrile, Hemodynamically Stable. Last Vital Signs Temp Pulse Resp BP Pulse Ox 97.4 F L 86 22 H 155/94 95 11/30/18 14:43 11/30/18 14:43 11/30/18 14:43 11/30/18 14:43 11/30/18 09:00 HEENT - Atraumatic, Normocephalic Heart - S1, S2, RRR Lungs - basal crackles Abdomen - Soft, non-tender. Bowel Sounds normal. Extremities - no calf tenderness Neuro - opens eyes spontaneously. No tracking. Does not follow commands. Intermittent myoclonic jerks. Laboratory Results - last 24 hr 11/29/18 11/30/18 11/30/18 21:30 07:30 07:30 WBC 6.2 RBC 3.92 L Hgb 12.1 Hct 35.9 MCV 91.5 MCH 30.9 MCHC 33.8 RDW 14.8 Plt Count 157 MPV 11.1 Absolute Neuts (auto) 3.6 Neutrophils % 58.4 D Lymphocytes % 32.3 D Monocytes % 7.4 Eosinophils % 1.8 D Basophils % 0.1 Nucleated RBC % 0 Sodium 148 H 147 H Potassium 3.1 L 3.1 L Chloride 115 H 114 H Carbon Dioxide 27 28 Anion Gap 6 L 5 L BUN 13 13 Creatinine 0.7 0.7 Creat Clearance w eGFR > 60 > 60 Random Glucose 99 101 Calcium 8.6 8.2 L Phosphorus 3.4 Magnesium 2.2 Total Bilirubin 0.5 AST 15 ALT 23 Alkaline Phosphatase 82 Total Protein 6.4 Albumin 2.4 L Current Medications Generic Name Dose Route Start Last Admin Trade Name Freq PRN Reason Stop Dose Admin Albuterol Sulfate 1 amp 11/29/18 18:15 11/30/18 06:11 Ventolin 0.083% Nebulizer Soln - NEB 1 amp Q6H PRN Administration SHORT OF BREATH/WHEEZING Heparin Sodium (Porcine) 5,000 unit 11/29/18 14:00 11/30/18 14:30 Heparin - SQ 5,000 unit TID CARA Administration Doxycycline Hyclate 100 mg/ 100 mls @ 100 mls/hr 11/29/18 10:00 11/30/18 09: 38 Dextrose IVPB 100 mls/hr BID CARA Administration Ampicillin Sodium/Sulbactam 100 mls @ 200 mls/hr 11/29/18 11:00 11/30/18 16: 06 Sodium 3 gm/ Sodium Chloride IVPB 200 mls/hr Q6H-IV CARA Administration Dextrose/Sodium Chloride 40 meq in 1,000 mls @ 75 mls/hr 11/30/18 10:16 11/30 11:25 D5-1/2ns+40 Meq Kcl - IV 75 mls/hr ASDIR CARA Administration Levetiracetam 1,000 mg 11/29/18 22:00 11/30/18 11:42 Keppra Injection - IVPB 1,000 mg BID CARA Administration Nifedipine 30 mg 11/29/18 10:00 11/30/18 09:39 Procardia Xl - PO Not Given DAILY CARA Tamsulosin HCl 0.4 mg 11/29/18 08:30 11/30/18 09:38 Flomax - PO Not Given DAILY@0830 CARA Valproate Sodium 250 mg 11/29/18 15:00 11/30/18 09:42 Depacon Injection - IVPB 250 mg Q6H-IV CARA Administration Vitamin A/Vitamin D 1 applic 11/29/18 10:00 11/29/18 11:23 Vitamin A & D Top Oint - TP 1 applic DAILY CARA Administration ASSESSMENT AND PLAN: 68 year old Male with Dementia, Seizure Disorder, COPD, Nephrolithiasis, Hx UTI , presented to ED by his daughter with reports of increasing lethargy, decreased oral intake, fever, chills. No nausea/vomiting. No abdominal pain/ diarrhea. 1. Sepsis secondary to Aspiration Pneumonia with bacteremia Tachycardia and fever at presentation, now resolved CT Chest - bibasal atelectasis/infiltrate, R>L Blood Cx positive for Gram pos cocci in clusters (possible contaminant) - will start Vancomycin empirically pending final ID and sens. Repeat BCx requested. Zosyn changed to Unasyn - Continue Unasyn/Doxy. ID following. Swallow eval - not able to take anything by mouth currently - for re-eval today Palliative Care eval consulted for goals of care Discussed issue of feeding with his , who will discuss with daughters regarding issue of possible PEG. 2. Seizure Disorder - Continue Keppra, Valproate 3. BPH - Continue Tamsulosin 4. Complex Cyst L Kidney - renal function normal. For further work-up as an out- patient. 5. Dementia - baseline mental status non-verbal, non-participatory, fully dependent - currently close to baseline as per . 6. Hypernatremia - secondary to dehydration - improving with IV hydration 7. COPD - Stable. No evidence of acute exacerbation. Continue Albuterol prn. 8. Hypokalemia - repleted. 9. Seizure Disorder - Continue Valproic acid, Keppra 10. HTN - Continue Nifedipine. DVT Px - Heparin SQ
[2018-11-30] MEDS ORDERED: VANCOMYCIN 1 GRAM (PRE-DOCKED) 1,000 MG/250 ML BAG IVPB ONE (17:15)
[2018-11-30] MEDS: VITAMINS A AND D TOPICAL OINTMENT 60 GM TUBE TP SCH (18:35)
[2018-12-01] MEDS: AMPICILLIN NA/SULBACTAM NA 3 GM in SODIUM CHLORIDE 100 ML IVPB SCH ×2 (02:36→09:33)
[2018-12-01] MEDS: VALPROATE SODIUM 500 MG/5 ML VIAL IVPB SCH ×4 (03:09→21:44)
[2018-12-01] MEDS: HEPARIN NA (PORCINE) 5,000 UNITS/ML 1ML VIAL SQ SCH ×3 (06:34→21:45)
[2018-12-01 07:37] LABS: BASO % 0.5 % (0-2.0); EOS % 2.9 % (0-4.5); HEMATOCRIT 34.4 % (35.4-49); HEMOGLOBIN 11.8 GM/dL (11.7-16.9); LYMPH % 43.8 % (8-40); MCH 30.8 pg (25.7-33.7); MCHC 34.2 g/dl (32.0-35.9); MEAN CELL VOLUME 90.2 fl (80-96); MEAN PLT VOLUME 11.2 fl (7.5-11.1); MONO % 7.8 % (3.8-10.2); PLATELET COUNT 165 K/MM3 (134-434); RBC 3.82 M/mm3 (4.00-5.60); RDW 14.1 % (11.9-15.9); WHITE BLOOD COUNT 4.9 K/mm3 (4.0-10.0)
[2018-12-01 08:14] LABS: ALBUMIN 2.3 g/dl (3.4-5.0); ALK PHOS 78 U/L (45-117); ANION GAP 8 MMOL/L (8-16); BILIRUBIN,TOTAL 0.4 mg/dL (0.2-1); BLOOD UREA NITROGEN 9 mg/dL (7-18); CALCIUM 7.8 mg/dL (8.5-10.1); CHLORIDE 111 mmol/L (98-107); CO2 26 mmol/L (21-32); CREATININE 0.7 mg/dL (0.55-1.3); GLUCOSE,RANDOM 95 mg/dL (74-106); MAGNESIUM 2.1 mg/dL (1.8-2.4); PHOSPHOROUS 3.2 mg/dL (2.5-4.9); POTASSIUM 3.1 mmol/L (3.5-5.1); SGOT/AST 13 U/L (15-37); SGPT/ALT 16 U/L (13-61); SODIUM 145 mmol/L (136-145); TOT PROT 6.1 g/dl (6.4-8.2)
[2018-12-01] MEDS ORDERED: PT OWN MED DRAWER 7, Y5N ONE ×2 (09:28→23:01)
[2018-12-01] MEDS: TAMSULOSIN HCL 0.4 MG CAP PO SCH (09:37)
[2018-12-01] MEDS: NIFEdipine E.R. 30 MG TABLET (FP) PO SCH (09:51)
[2018-12-01 10:46] LABS: INR 1.17 (0.83-1.09); PROTHROMBIN TIME (PATIENT) 13.8 SEC (9.7-13.0)
[2018-12-01] MEDS: KCL 10 MEQ IVPB 10 MEQ/100 ML INFUS.BAG IVPB SCH ×5 (11:06→23:03)
--- NOTE | 2018-12-01 11:20 | PN ---
Progress Note, [employer]PER[employer] - Note Progress Note: Lethargy persists. Plan is for PE. Answered questions regarding PEG insertion and possibility for swallowing re-evaluation and possible PO trials in the future if he improves. Continue NPO for now
--- NOTE | 2018-12-01 12:01 | PN ---
Progress Note (short form) - Note Progress Note: per approaching his baseline he is nonverbal states he looks at her when she says his name Vital Signs Period Temp Pulse Resp BP Sys/Cortes Pulse Ox Last 24 Hr 97.4 F-98.3 F 67-86 18-22 140-155/79-99 97 cor-rrr lungs bilateral rhonchi abd soft,nt ext no edema CBC, BMP 12/01/18 07:00 12/01/18 07:00 Microbiology 11/28/18 16:08 Urine - Urine De Luna Urine Culture - Final Escherichia Coli 11/29/18 00:57 Blood - Peripheral Venous Blood Culture - Preliminary Staphylococcus Coagulase Neg 11/29/18 00:57 Blood - Peripheral Venous Blood Culture - Preliminary NO GROWTH OBTAINED AFTER 48 HOURS, INCUBATION TO CONTINUE FOR 3 DAYS. 11/29/18 15:45 Urine For Antigen Detection Legionella Antigen - Final 11/29/18 15:45 Urine For Antigen Detection Streptococcus pneumoniae Antigen (M - Final a/p RLL pneumonia cannot r/o aspiration continue unasyn day #3- can d/c doxycycline for GT placement blood culture is contaminant no need for further vancomycin anorexia dementia Problem List - Problems (1) Pneumonia Code(s): J18.9 - PNEUMONIA, UNSPECIFIED ORGANISM (2) Anorexia Code(s): R63.0 - ANOREXIA (3) Dementia Code(s): F03.90 - UNSPECIFIED DEMENTIA WITHOUT BEHAVIORAL DISTURBANCE
[2018-12-01] MEDS: DOXYCYCLINE INJECTION 100 MG in DEXTROSE 5%-WATER 100 ML IVPB SCH (12:07)
[2018-12-01] MEDS: levETIRAcetam 500 MG/5 ML INJECTION VIAL IVPB SCH ×2 (12:32→21:45)
[2018-12-01] MEDS: VITAMINS A AND D TOPICAL OINTMENT 60 GM TUBE TP SCH (12:33)
[2018-12-01] MEDS: D5-1/2NS+40 MEQ KCL - 40 MEQ/1,000 ML INFUS.BAG IV SCH (12:35)
--- NOTE | 2018-12-01 14:53 | PN ---
Teaching Attending Note Name of Resident: Jonh Echavarria ATTENDING PHYSICIAN STATEMENT I saw and evaluated the patient. I reviewed the resident's note and discussed the case with the resident. I agree with the resident's findings and plan as documented. SUBJECTIVE: Non-verbal. OBJECTIVE: Afebrile, Hemodynamically Stable. Close to baseline mental status as per . Last Vital Signs Temp Pulse Resp BP Pulse Ox 98.3 F 72 18 160/90 94 L 12/01/18 05:27 12/01/18 10:00 12/01/18 10:00 12/01/18 10:00 12/01/18 09:00 HEENT - Atraumatic, Normocephalic Heart - S1, S2, RRR Lungs - basal crackles Abdomen - Soft, non-tender. Bowel Sounds normal. Extremities - no calf tenderness Neuro - opens eyes spontaneously. No tracking. Does not follow commands. Intermittent myoclonic jerks. Laboratory Results - last 24 hr 12/01/18 12/01/18 12/01/18 07:00 07:00 09:20 WBC 4.9 RBC 3.82 L Hgb 11.8 Hct 34.4 L MCV 90.2 MCH 30.8 MCHC 34.2 RDW 14.1 Plt Count 165 MPV 11.2 H Absolute Neuts (auto) 2.2 Neutrophils % 45.0 D Lymphocytes % 43.8 H D Monocytes % 7.8 Eosinophils % 2.9 Basophils % 0.5 D Nucleated RBC % 0 PT with INR 13.80 H INR 1.17 H Sodium 145 Potassium 3.1 L Chloride 111 H Carbon Dioxide 26 Anion Gap 8 BUN 9 Creatinine 0.7 Creat Clearance w eGFR 111.49 Random Glucose 95 Calcium 7.8 L Phosphorus 3.2 Magnesium 2.1 Total Bilirubin 0.4 AST 13 L ALT 16 Alkaline Phosphatase 78 Total Protein 6.1 L Albumin 2.3 L Current Medications Generic Name Dose Route Start Last Admin Trade Name Freq PRN Reason Stop Dose Admin Albuterol Sulfate 1 amp 11/29/18 18:15 11/30/18 06:11 Ventolin 0.083% Nebulizer Soln - NEB 1 amp Q6H PRN Administration SHORT OF BREATH/WHEEZING Heparin Sodium (Porcine) 5,000 unit 11/29/18 14:00 12/01/18 06:34 Heparin - SQ 5,000 unit TID CARA Administration Dextrose/Sodium Chloride 40 meq in 1,000 mls @ 75 mls/hr 11/30/18 10:16 12/01 12:35 D5-1/2ns+40 Meq Kcl - IV 75 mls/hr ASDIR CARA Administration Ceftriaxone Sodium 1 gm/ 50 mls @ 100 mls/hr 12/01/18 14:30 Dextrose IVPB DAILY CARA Protocol Metronidazole 500 mg in 100 mls @ 100 mls/hr 12/01/18 14:30 Flagyl 500mg Premixed Ivpb - IVPB Q8H-IV CARA Levetiracetam 1,000 mg 11/29/18 22:00 12/01/18 12:32 Keppra Injection - IVPB 1,000 mg BID CARA Administration Nifedipine 30 mg 11/29/18 10:00 12/01/18 09:51 Procardia Xl - PO Not Given DAILY CARA Tamsulosin HCl 0.4 mg 11/29/18 08:30 12/01/18 09:37 Flomax - PO Not Given DAILY@0830 CARA Valproate Sodium 250 mg 11/29/18 15:00 12/01/18 11:04 Depacon Injection - IVPB 250 mg Q6H-IV CARA Administration Vitamin A/Vitamin D 1 applic 11/29/18 10:00 12/01/18 12:33 Vitamin A & D Top Oint - TP 1 applic DAILY CARA Administration ASSESSMENT AND PLAN: 68 year old Male with Dementia, Seizure Disorder, COPD, Nephrolithiasis, Hx UTI , presented to ED by his daughter with reports of increasing lethargy, decreased oral intake, fever, chills. No nausea/vomiting. No abdominal pain/ diarrhea. 1. Sepsis secondary to Aspiration Pneumonia with Bacteremia + UTI Tachycardia and fever at presentation, now resolved CT Chest - bibasal atelectasis/infiltrate, R>L Blood Cx positive for coag neg staph in one bottle - likely contaminant. Repeat BCx pending. Urine Cx positive for EColi ID following. Abx changed from Unasyn/Doxy to Ceftriaxone/Flagyl. Swallow eval - not able to take anything by mouth Family requests G tube - unable to be done until Tuesday by IR. NG tube today temporarily. Nutrition consulted for tube feed recommendations Palliative Care eval consulted for goals of care. 2. Seizure Disorder - Continue Keppra, Valproate 3. BPH - Continue Tamsulosin 4. Complex Cyst L Kidney - renal function normal. For further work-up as an out- patient. 5. Dementia with Functional Quadriplegia - baseline mental status non-verbal, non-participatory, fully dependent - currently close to baseline as per . 6. Hypernatremia - secondary to dehydration - improving with IV hydration 7. COPD - Stable. No evidence of acute exacerbation. Continue Albuterol prn. 8. Hypokalemia - repleted. 9. Seizure Disorder - Continue Valproic acid, Keppra 10. HTN - Continue Nifedipine. DVT Px - Heparin SQ
--- NOTE | 2018-12-01 15:11 | PN ---
Physical Exam: SUBJECTIVE: Patient seen and examined at bedside. no acute events overnight. nonverbal, comfortable. opens eyes spontaneously. No tracking. Does not follow commands. Intermittent myoclonic jerks (baseline). NPO per S&S. per family pt at baseline. Family has opted for PEG. OBJECTIVE: Vital Signs Period Temp Pulse Resp BP Sys/Cortes Pulse Ox Last 24 Hr 98 F-98.3 F 67-83 18-18 140-160/79-99 94-97 GENERAL: Awake, alert, nonverbal, unable to maintain eye contact. intermittent myoclonic jerks (baseline) HEAD: NCAT EYES: Pupils equal, round and reactive to light, sclera anicteric, conjunctiva cloudy. No lid lag. EARS, NOSE, THROAT: nares patent, difficult to open Pt.s mouth, copious secretions noted. Moist mucous membranes. NECK: supple without lymphadenopathy, JVD, or masses. LUNGS: Wet sounding cough, decreased breath sounds, transmitted upper airway sounds. No accessory muscle use. HEART: RRR, normal S1 and S2 without murmur ABDOMEN: Soft, NTND, normoactive bowel sounds, no guarding, no rebound, no masses. MUSCULOSKELETAL: No CVA tenderness. UPPER EXTREMITIES: 2+ radial pulses, warm, well-perfused. No cyanosis. No clubbing. No peripheral edema. LOWER EXTREMITIES: 2+ pulses, warm, well-perfused. No calf tenderness. No peripheral edema. NEUROLOGICAL: opens eyes spontaneously. No tracking. Does not follow commands. Intermittent myoclonic jerks (baseline). winces but does not withdraw to pain stimuli. PSYCHIATRIC: Demented SKIN: Warm, dry, normal turgor, no rashes or lesions noted, normal capillary refill. Laboratory Results - last 24 hr 12/01/18 12/01/18 12/01/18 07:00 07:00 09:20 WBC 4.9 RBC 3.82 L Hgb 11.8 Hct 34.4 L MCV 90.2 MCH 30.8 MCHC 34.2 RDW 14.1 Plt Count 165 MPV 11.2 H Absolute Neuts (auto) 2.2 Neutrophils % 45.0 D Lymphocytes % 43.8 H D Monocytes % 7.8 Eosinophils % 2.9 Basophils % 0.5 D Nucleated RBC % 0 PT with INR 13.80 H INR 1.17 H Sodium 145 Potassium 3.1 L Chloride 111 H Carbon Dioxide 26 Anion Gap 8 BUN 9 Creatinine 0.7 Creat Clearance w eGFR 111.49 Random Glucose 95 Calcium 7.8 L Phosphorus 3.2 Magnesium 2.1 Total Bilirubin 0.4 AST 13 L ALT 16 Alkaline Phosphatase 78 Total Protein 6.1 L Albumin 2.3 L Active Medications Generic Name Dose Route Start Last Admin Trade Name Freq PRN Reason Stop Dose Admin Albuterol Sulfate 1 amp 11/29/18 18:15 11/30/18 06:11 Ventolin 0.083% Nebulizer Soln - NEB 1 amp Q6H PRN Administration SHORT OF BREATH/WHEEZING Heparin Sodium (Porcine) 5,000 unit 11/29/18 14:00 12/01/18 06:34 Heparin - SQ 5,000 unit TID CARA Administration Dextrose/Sodium Chloride 40 meq in 1,000 mls @ 75 mls/hr 11/30/18 10:16 12/01 12:35 D5-1/2ns+40 Meq Kcl - IV 75 mls/hr ASDIR CARA Administration Ceftriaxone Sodium 1 gm/ 50 mls @ 100 mls/hr 12/01/18 14:30 Dextrose IVPB DAILY CARA Protocol Metronidazole 500 mg in 100 mls @ 100 mls/hr 12/01/18 14:30 Flagyl 500mg Premixed Ivpb - IVPB Q8H-IV CARA Levetiracetam 1,000 mg 11/29/18 22:00 12/01/18 12:32 Keppra Injection - IVPB 1,000 mg BID CARA Administration Nifedipine 30 mg 11/29/18 10:00 12/01/18 09:51 Procardia Xl - PO Not Given DAILY CARA Potassium Chloride 40 meq 12/01/18 22:00 Potassium Chloride Oral Liquid PO 12/02/18 10:01 BID CARA Tamsulosin HCl 0.4 mg 11/29/18 08:30 12/01/18 09:37 Flomax - PO Not Given DAILY@0830 [facility] Valproate Sodium 250 mg 11/29/18 15:00 12/01/18 11:04 Depacon Injection - IVPB 250 mg Q6H-IV CARA Administration Vitamin A/Vitamin D 1 applic 11/29/18 10:00 12/01/18 12:33 Vitamin A & D Top Oint - TP 1 applic DAILY CARA Administration [id number] CT/CHEST CT WITHOUT CONTRAST INDICATION: Shortness of breath TECHNIQUE: Helical images of the chest were obtained noncontrast . COMPARISON: None FINDINGS: LUNGS: Dependent atelectasis present at both bases, superimposed infiltrate especially at the right base cannot be excluded. There is motion artifact. No suspicious lung nodules are appreciated. No endobronchial lesions seen. PLEURA: Negative MEDIASTINUM: Negative CARDIAC: Normal sized heart. No pericardiac effusion. OTHER: Visualized portions of the adrenals appear unremarkable. Hyperdense subcortical cysts noted within the last image of the upper pole of the left kidney. This is not fully evaluated on this study. Kyphoscoliosis is seen. No aggressive bone lesions identified. Soft tissue calcification around the right shoulder suggests possibility of ligamentous calcifications, correlate with MR imaging as clinically warranted. Preliminary dictation was generated by the on-call radiologist at the time of this procedure. IMPRESSION: Atelectasis/infiltration worse on the right as discussed above. Complex cystic lesion upper pole of the left kidney not fully evaluated on the present study. ASSESSMENT/PLAN: 68 y.o. M w/ PMHx. of BPH,HTN, COPD, paranoid schizophrenia with 10 year progressive cognitive decline c/w Alzheimer's Disease (non-verbal) punctuated by the development of seizures, Nephrolithiasis, Hx UTI, p/w 2 weeks of decreased PO intake and intermittent fevers. #Sepsis 2/2 Aspiration Pnemonia with Bacteremia + UTI - afebrile but w/ Tachycardia, tachypnea, and leukocytosis at presentation, now resolved -CT Chest - bibasal atelectasis/infiltrate, R>L -Blood Cx positive for coag neg staph in one bottle - likely contaminant. Repeat BCx pending. -Urine Cx positive for EColi -legionella neg. -s/p Ceftriaxone and Azithromycin in ED -Abx changed from Unasyn/Doxy to Ceftriaxone/Flagyl. day 3 of total abx tx -ID consult -NPO -Swallow eval - not able to take anything by mouth currently -Family requests G tube - unable to be done until Tuesday by IR. -NG tube today temporarily, restart PO meds when placed. -Nutrition consulted for tube feed recommendations -Palliative Care eval requested for goals of care #Failure to Thrive -aspiration precautions -Swallow eval - not able to take anything by mouth currently -Palliative Care eval requested for goals of care -Family has opted for PEG. -NG tube today temporarily, restart PO meds when placed. -Nutrition consulted for tube feed recommendations #Dementia w/ Functional quadriplegia -baseline mental status non-verbal, non- participatory, fully dependent - currently close to baseline as per . unable to mobilize. winces but does not withdraw to pain stimuli. No tracking. Does not follow commands. requires someone to feed him at home. #Hypernatremia 2/2 dehydration - improving with IV hydration. 157...149..147...145 -received 2L NS in ED -must decrease Sodium level at a rate of 1-2 meq/L per hour -c/w D5 1/2NS w/ 40meq K 75cc/hr -avoid overcorrection -EKG shows prolonged QT 474, NSR, Left Anterior fasicular block HTN - currently ctl unable to take PO meds at this time. if IV needed can do metoprolol 2.5mg q6h IV gtt, if PO status improves can try amlodipine 5 crushed or eventually restart home meds if pushes are needed urgently for high BP can transfer to tele or MD can push Seizure Disorder - Continue Keppra, Valproate IV BPH - Continue Tamsulosin when able to take PO COPD - Stable. No evidence of acute exacerbation. Continue Albuterol prn. Complex Cyst L Kidney - renal unction normal. For further work-up as an out- patient. FEN D5 1/2NS w/ 40meq K 75cc/hr replete prn, avoid overcorrection NPO, Swallow eval - not able to take anything by mouth currently, will place temporary NGT #DVT Ppx. -HepSQ TID, will hold tuesday at midnight for IR procedure Dispo M/S Palliative Care eval requested for goals of care Family requests G tube - unable to be done until Tuesday by IR. NG tube today temporarily, restart PO meds when placed. Visit type - Emergency Visit Emergency Visit: Yes ED Registration Date: 11/28/18 Care time: The patient presented to the Emergency Department on the above date and was hospitalized for further evaluation of their emergent condition. - New Patient This patient is new to me today: Yes Date on this admission: 12/01/18 - Critical Care Critical Care patient: No - Discharge Referral Referred to [facility] No
[2018-12-01] MEDS ORDERED: cefTRIAXone SODIUM 1 GM VIAL ONE (15:19)
[2018-12-01] MEDS ORDERED: DEXTROSE 5%-WATER - 50 ML IVPB ONE (15:19)
[2018-12-01] MEDS: CEFTRIAXONE 1 GM in DEXTROSE 5%-WATER - 50 ML IVPB SCH (15:37)
[2018-12-01] MEDS ORDERED: METOPROLOL TARTRATE 5 MG/5 ML VIAL IVPUSH PRN (19:48)
[2018-12-01] MEDS ORDERED: METOPROLOL TARTRATE 5 MG/5 ML VIAL IVPB PRN (19:55)
[2018-12-01] MEDS ORDERED: POTASSIUM CHLORIDE ORAL LIQUID 20 MEQ/15 ML PO SCH (22:00)
[2018-12-02] MEDS: KCL 10 MEQ IVPB 10 MEQ/100 ML INFUS.BAG IVPB SCH (00:20)
[2018-12-02] MEDS: VALPROATE SODIUM 500 MG/5 ML VIAL IVPB SCH ×4 (03:04→22:25)
[2018-12-02] MEDS: HEPARIN NA (PORCINE) 5,000 UNITS/ML 1ML VIAL SQ SCH ×3 (06:35→22:23)
[2018-12-02 08:13] LABS: ANION GAP 6 MMOL/L (8-16); BLOOD UREA NITROGEN 7 mg/dL (7-18); CALCIUM 8.1 mg/dL (8.5-10.1); CHLORIDE 111 mmol/L (98-107); CO2 25 mmol/L (21-32); CREATININE 0.7 mg/dL (0.55-1.3); GLUCOSE,RANDOM 96 mg/dL (74-106); PHOSPHOROUS 2.8 mg/dL (2.5-4.9); POTASSIUM 3.3 mmol/L (3.5-5.1); SODIUM 142 mmol/L (136-145)
[2018-12-02] MEDS ORDERED: KCL 10 MEQ IVPB 10 MEQ/100 ML INFUS.BAG IVPB SCH (08:45)
[2018-12-02] MEDS ORDERED: DEXTROSE 5%-WATER - 50 ML IVPB ONE (08:56)
[2018-12-02] MEDS ORDERED: cefTRIAXone SODIUM 1 GM VIAL ONE (08:56)
[2018-12-02] MEDS: levETIRAcetam 500 MG/5 ML INJECTION VIAL IVPB SCH ×3 (09:19→22:24)
[2018-12-02] MEDS: CEFTRIAXONE 1 GM in DEXTROSE 5%-WATER - 50 ML IVPB SCH ×2 (09:20→13:42)
[2018-12-02] MEDS ORDERED: amLODIPine BESYLATE 5 MG TABLET (FP) PO SCH (10:15)
--- NOTE | 2018-12-02 10:22 | PN ---
Physical Exam: SUBJECTIVE: Patient seen and examined at bedside. Overnight, pt with elevated BP ~160/100. Was given Lopressor 2.5mg x 1 with improvement. NGT placement confirmed today. Pt arousable to sternal rub, however appears sleepy. OBJECTIVE: Vital Signs Period Temp Pulse Resp BP Sys/Cortes Pulse Ox Last 24 Hr 97.7 F-99.2 F 68-111 18-22 128-168/84-115 94 GENERAL: With dementia. sleepy, but arousable to sternal rub. HEAD: Normal with no signs of trauma. EYES: PERRL, extraocular movements intact, sclera anicteric, conjunctiva clear. ENT: Ears normal, nares patent, oropharynx clear without exudates, moist mucous membranes. NECK: Trachea midline, supple. LUNGS: +bibasilar crackles HEART: Regular rate and rhythm, S1, S2 without murmur, rub or gallop. ABDOMEN: Soft, obese, nontender, nondistended, normoactive bowel sounds EXTREMITIES: 2+ pt pulses, warm, well-perfused, no edema. NEUROLOGICAL: arousable to sternal rub, opens eyes. does not follow commands. SKIN: Warm, dry Laboratory Results - last 24 hr 12/01/18 12/02/18 09:20 07:20 PT with INR 13.80 H INR 1.17 H Sodium 142 Potassium 3.3 L Chloride 111 H Carbon Dioxide 25 Anion Gap 6 L BUN 7 Creatinine 0.7 Creat Clearance w eGFR 111.49 Random Glucose 96 Calcium 8.1 L Phosphorus 2.8 Magnesium 2.0 Active Medications Generic Name Dose Route Start Last Admin Trade Name Rogerq PRN Reason Stop Dose Admin Albuterol Sulfate 1 amp 11/29/18 18:15 11/30/18 06:11 Ventolin 0.083% Nebulizer Soln - NEB 1 amp Q6H PRN Administration SHORT OF BREATH/WHEEZING Amlodipine Besylate 5 mg 12/02/18 10:15 Norvasc - PO DAILY CARA Heparin Sodium (Porcine) 5,000 unit 11/29/18 14:00 12/02/18 06:35 Heparin - SQ 5,000 unit TID CARA Administration Dextrose/Sodium Chloride 40 meq in 1,000 mls @ 75 mls/hr 11/30/18 10:16 12/01 12:35 D5-1/2ns+40 Meq Kcl - IV 75 mls/hr ASDIR CARA Administration Ceftriaxone Sodium 1 gm/ 50 mls @ 100 mls/hr 12/01/18 14:30 12/02/18 09:20 Dextrose IVPB 100 mls/hr DAILY CARA Administration Protocol Metronidazole 500 mg in 100 mls @ 100 mls/hr 12/01/18 14:30 12/02/18 09:23 Flagyl 500mg Premixed Ivpb - IVPB 100 mls/hr Q8H-IV CARA Administration Levetiracetam 1,000 mg 11/29/18 22:00 12/02/18 09:19 Keppra Injection - IVPB 1,000 mg BID CARA Administration Nifedipine 30 mg 11/29/18 10:00 12/01/18 09:51 Procardia Xl - PO Not Given DAILY CARA Potassium Chloride 40 meq 12/02/18 10:00 Potassium Chloride Oral Liquid PO 12/02/18 22:01 BID CARA Tamsulosin HCl 0.4 mg 11/29/18 08:30 12/01/18 09:37 Flomax - PO Not Given DAILY@0830 CARA Valproate Sodium 250 mg 11/29/18 15:00 12/02/18 03:04 Depacon Injection - IVPB 250 mg Q6H-IV CARA Administration Vitamin A/Vitamin D 1 applic 11/29/18 10:00 12/01/18 12:33 Vitamin A & D Top Oint - TP 1 applic DAILY CARA Administration ASSESSMENT/PLAN: 68 y/o M w/ PMHx BPH,HTN, COPD, paranoid schizophrenia, Alzheimer's, who presented with decreased PO intake and intermittent fevers. Found to have sepsis 2/2 aspiration PNA, as well as UTI. #Sepsis 2/2 Aspiration Pnemonia with Bacteremia #UTI (E.coli) -c/w rocephin, flagyl (day 4) -initial blood cx (+) coag neg staph, contaminant as repeat cx (-) -ID on board: Dr. Mejia -c/w frequent suctioning -NPO #HTN -recently uncontrolled, likely 2/2 NPO -BP meds adjusted: nifedipine changed to 60mg qd. will give additional dose of 30mg today (received 30 earlier) to reflect change #FTT -GT placement Monday 12/04 by IR. -NGT ok to use; can restart PO meds -started tube feeds, on Jevity -Palliative Care eval requested for goals of care #hypokalemia 2/2 decreased PO intake -has improved -will supplement KCl 40mg PO BID -also on Kcl additive IVF #Dementia w/ Functional quadriplegia -at baseline -continue to monitor #Seizure Disorder -without recent sz episodes -c/w keppra, valproate #BPH -c/w tamsulosin #COPD -currently not in exacerbation -c/w albuterol PRN #Complex Cyst L Kidney -recommend outpt w/u #F/E/N D5 1/2NS w/ 40meq K 75cc/hr continue to follow lytes TF Jevity 1.5 #DVT PPX -HepSQ TID, hold tuesday at midnight for IR procedure #Dispo continue to monitor on med-surg Palliative Care eval requested for goals of care GT placement Tuesday by IR. Visit type - Emergency Visit Emergency Visit: No - New Patient This patient is new to me today: Yes Date on this admission: 12/02/18 - Critical Care Critical Care patient: No
--- NOTE | 2018-12-02 10:24 | PN ---
Teaching Attending Note Name of Resident: Audra Ott ATTENDING PHYSICIAN STATEMENT I saw and evaluated the patient. I reviewed the resident's note and discussed the case with the resident. I agree with the resident's findings and plan as documented. SUBJECTIVE: Non-verbal, sleeping OBJECTIVE: Afebrile, Hemodynamically Stable. Close to baseline mental status as per . Last Vital Signs Temp Pulse Resp BP Pulse Ox 98.4 F 68 20 146/84 94 L 12/02/18 07:00 12/02/18 07:00 12/02/18 07:00 12/02/18 07:00 12/01/18 21:00 HEENT - Atraumatic, Normocephalic Heart - S1, S2, RRR Lungs - few basal crackles Abdomen - Soft, non-tender. Bowel Sounds normal. Extremities - no calf tenderness Neuro - Sleeping but easily rousable. Opens eyes spontaneously. No tracking. Does not follow commands. Intermittent myoclonic jerks. Laboratory Results - last 24 hr 12/01/18 12/02/18 09:20 07:20 PT with INR 13.80 H INR 1.17 H Sodium 142 Potassium 3.3 L Chloride 111 H Carbon Dioxide 25 Anion Gap 6 L BUN 7 Creatinine 0.7 Creat Clearance w eGFR 111.49 Random Glucose 96 Calcium 8.1 L Phosphorus 2.8 Magnesium 2.0 Current Medications Generic Name Dose Route Start Last Admin Trade Name Freq PRN Reason Stop Dose Admin Albuterol Sulfate 1 amp 11/29/18 18:15 11/30/18 06:11 Ventolin 0.083% Nebulizer Soln - NEB 1 amp Q6H PRN Administration SHORT OF BREATH/WHEEZING Heparin Sodium (Porcine) 5,000 unit 11/29/18 14:00 12/02/18 06:35 Heparin - SQ 5,000 unit TID CARA Administration Dextrose/Sodium Chloride 40 meq in 1,000 mls @ 75 mls/hr 11/30/18 10:16 12/01 12:35 D5-1/2ns+40 Meq Kcl - IV 75 mls/hr ASDIR CARA Administration Ceftriaxone Sodium 1 gm/ 50 mls @ 100 mls/hr 12/01/18 14:30 12/02/18 09:20 Dextrose IVPB 100 mls/hr DAILY CARA Administration Protocol Metronidazole 500 mg in 100 mls @ 100 mls/hr 12/01/18 14:30 12/02/18 09:23 Flagyl 500mg Premixed Ivpb - IVPB 100 mls/hr Q8H-IV CARA Administration Levetiracetam 1,000 mg 11/29/18 22:00 12/02/18 09:19 Keppra Injection - IVPB 1,000 mg BID CARA Administration Nifedipine 30 mg 11/29/18 10:00 12/01/18 09:51 Procardia Xl - PO Not Given DAILY CARA Potassium Chloride 40 meq 12/02/18 10:00 Potassium Chloride Oral Liquid PO 12/02/18 22:01 BID CARA Tamsulosin HCl 0.4 mg 11/29/18 08:30 12/01/18 09:37 Flomax - PO Not Given DAILY@0830 CARA Valproate Sodium 250 mg 11/29/18 15:00 12/02/18 03:04 Depacon Injection - IVPB 250 mg Q6H-IV CARA Administration Vitamin A/Vitamin D 1 applic 11/29/18 10:00 12/01/18 12:33 Vitamin A & D Top Oint - TP 1 applic DAILY CARA Administration ASSESSMENT AND PLAN: 68 year old Male with Dementia, Seizure Disorder, COPD, Nephrolithiasis, Hx UTI , presented to ED by his daughter with reports of increasing lethargy, decreased oral intake, fever, chills. No nausea/vomiting. No abdominal pain/ diarrhea. 1. Sepsis secondary to Aspiration Pneumonia with Bacteremia + UTI - Sepsis resolved. Tachycardia and fever at presentation, now resolved CT Chest - bibasal atelectasis/infiltrate, R>L Blood Cx positive for coag neg staph in one bottle - likely contaminant. Repeat BCx negative x 2. Urine Cx positive for EColi ID following. Abx changed from Unasyn/Doxy to Ceftriaxone/Flagyl. Swallow eval - not able to take anything by mouth Family requests G tube - unable to be done until Tuesday by IR. NG tube placed temporarily. Nutrition consulted for tube feed recommendations - to begin 12/02 Palliative Care eval consulted for goals of care. 2. Seizure Disorder - Continue Keppra, Valproate 3. BPH - Continue Tamsulosin 4. Complex Cyst L Kidney - renal function normal. For further work-up as an out- patient. 5. Dementia with Functional Quadriplegia - baseline mental status non-verbal, non-participatory, fully dependent - currently close to baseline as per . 6. Hypernatremia - secondary to dehydration - improved with adequate hydration 7. COPD - Stable. No evidence of acute exacerbation. Continue Albuterol prn. 8. Hypokalemia - repleted. 9. Seizure Disorder - Continue Valproic acid, Keppra 10. HTN - Continue Nifedipine. DVT Px - Heparin SQ
[2018-12-02] MEDS ORDERED: NIFEdipine E.R. 30 MG TABLET (FP) PO ONE (10:30)
[2018-12-02] MEDS: POTASSIUM CHLORIDE ORAL LIQUID 20 MEQ/15 ML PO SCH ×2 (10:38→22:25)
[2018-12-02] MEDS: VITAMINS A AND D TOPICAL OINTMENT 60 GM TUBE TP SCH (10:50)
[2018-12-02] MEDS: TAMSULOSIN HCL 0.4 MG CAP PO SCH (10:55)
--- NOTE | 2018-12-02 11:53 | PN ---
Progress Note (short form) - Note Progress Note: per approaching his baseline he is nonverbal ngt in place for meds and feedings Vital Signs Period Temp Pulse Resp BP Sys/Cortes Pulse Ox Last 24 Hr 97.7 F-99.2 F 68-111 18-22 128-168/84-115 94 cor-rrr lungs decreased bs at bases abd soft,nt ext no edema CBC, BMP 12/01/18 07:00 12/02/18 07:20 Microbiology 11/29/18 00:57 Blood - Peripheral Venous Blood Culture - Final Staph Hominis Sub Sp Hominis 11/29/18 00:57 Blood - Peripheral Venous Blood Culture - Preliminary NO GROWTH OBTAINED AFTER 72 HOURS, INCUBATION TO CONTINUE FOR 2 DAYS. 11/30/18 20:30 Blood - Peripheral Venous Blood Culture - Preliminary NO GROWTH OBTAINED AFTER 24 HOURS, INCUBATION TO CONTINUE FOR 4 DAYS. 11/30/18 20:30 Blood - Peripheral Venous Blood Culture - Preliminary NO GROWTH OBTAINED AFTER 24 HOURS, INCUBATION TO CONTINUE FOR 4 DAYS. 11/28/18 16:08 Urine - Urine De Luna Urine Culture - Final Escherichia Coli 11/29/18 15:45 Urine For Antigen Detection Legionella Antigen - Final 11/29/18 15:45 Urine For Antigen Detection Streptococcus pneumoniae Antigen (M - Final cxray improved a/p RLL pneumonia day #4 antibiotics switch to rocephin/flagyl to treat both pneumonia and ecoli in urine complete total 7 days antibiotics blood culture is contaminant no need for further vancomycin anorexia dementia for GT Tuesday please call back if needed Problem List - Problems (1) Pneumonia Code(s): J18.9 - PNEUMONIA, UNSPECIFIED ORGANISM (2) Anorexia Code(s): R63.0 - ANOREXIA (3) Dementia Code(s): F03.90 - UNSPECIFIED DEMENTIA WITHOUT BEHAVIORAL DISTURBANCE
[2018-12-02] MEDS: D5-1/2NS+40 MEQ KCL - 40 MEQ/1,000 ML INFUS.BAG IV SCH (13:57)
[2018-12-02] MEDS: NIFEdipine E.R. 30 MG TABLET (FP) PO SCH (19:54)
[2018-12-03] MEDS: VALPROATE SODIUM 500 MG/5 ML VIAL IVPB SCH ×4 (03:45→21:35)
[2018-12-03] MEDS: HEPARIN NA (PORCINE) 5,000 UNITS/ML 1ML VIAL SQ SCH ×2 (06:39→14:14)
[2018-12-03 08:36] LABS: BASO % 0.2 % (0-2.0); EOS % 1.7 % (0-4.5); HEMATOCRIT 36.3 % (35.4-49); HEMOGLOBIN 12.4 GM/dL (11.7-16.9); LYMPH % 33.7 % (8-40); MCH 31.1 pg (25.7-33.7); MCHC 34.2 g/dl (32.0-35.9); MEAN CELL VOLUME 90.9 fl (80-96); MEAN PLT VOLUME 10.8 fl (7.5-11.1); NEUT % 56.4 % (42.8-82.8); PLATELET COUNT 179 K/MM3 (134-434); RBC 3.99 M/mm3 (4.00-5.60); RDW 14.4 % (11.9-15.9); WHITE BLOOD COUNT 5.4 K/mm3 (4.0-10.0)
[2018-12-03] MEDS: TAMSULOSIN HCL 0.4 MG CAP PO SCH (08:53)
[2018-12-03 09:02] LABS: ANION GAP 7 MMOL/L (8-16); BLOOD UREA NITROGEN 10 mg/dL (7-18); CALCIUM 7.8 mg/dL (8.5-10.1); CHLORIDE 113 mmol/L (98-107); CO2 23 mmol/L (21-32); CREATININE 0.7 mg/dL (0.55-1.3); GLUCOSE,RANDOM 145 mg/dL (74-106); MAGNESIUM 2.3 mg/dL (1.8-2.4); PHOSPHOROUS 2.4 mg/dL (2.5-4.9); SODIUM 143 mmol/L (136-145)
[2018-12-03] MEDS ORDERED: PT OWN MED DRAWER 7, Y5N ONE ×3 (09:14→15:57)
[2018-12-03] MEDS ORDERED: cefTRIAXone SODIUM 1 GM VIAL ONE (09:14)
[2018-12-03] MEDS ORDERED: DEXTROSE 5%-WATER - 50 ML IVPB ONE (09:15)
[2018-12-03] MEDS: CEFTRIAXONE 1 GM in DEXTROSE 5%-WATER - 50 ML IVPB SCH (09:41)
[2018-12-03] MEDS: levETIRAcetam 500 MG/5 ML INJECTION VIAL IVPB SCH ×2 (09:42→22:42)
[2018-12-03] MEDS: NIFEdipine E.R. 30 MG TABLET (FP) PO SCH (09:42)
[2018-12-03] MEDS: D5-1/2NS+40 MEQ KCL - 40 MEQ/1,000 ML INFUS.BAG IV SCH (09:44)
[2018-12-03] MEDS: VITAMINS A AND D TOPICAL OINTMENT 60 GM TUBE TP SCH (10:45)
--- NOTE | 2018-12-03 12:51 | PN ---
Progress Note (short form) - Note Progress Note: SUBJECTIVE: Non-verbal OBJECTIVE: Afebrile, Hemodynamically Stable. At baseline mental status. Last Vital Signs Temp Pulse Resp BP Pulse Ox 98.0 F 82 20 130/82 98 12/03/18 05:40 12/03/18 05:40 12/03/18 05:40 12/03/18 05:40 12/03/18 09:00 HEENT - Atraumatic, Normocephalic Heart - S1, S2, RRR Lungs - few basal crackles Abdomen - Soft, non-tender. Bowel Sounds normal. Extremities - no calf tenderness Neuro - Sleeping but easily rousable. Opens eyes spontaneously. No tracking. Does not follow commands. Intermittent myoclonic jerks. Laboratory Results - last 24 hr 12/03/18 12/03/18 12/03/18 07:30 07:30 12:16 WBC 5.4 RBC 3.99 L Hgb 12.4 Hct 36.3 MCV 90.9 MCH 31.1 MCHC 34.2 RDW 14.4 Plt Count 179 MPV 10.8 Absolute Neuts (auto) 3.0 Neutrophils % 56.4 D Lymphocytes % 33.7 D Monocytes % 8.0 Eosinophils % 1.7 Basophils % 0.2 Nucleated RBC % 0 Sodium 143 Potassium 4.0 Chloride 113 H Carbon Dioxide 23 Anion Gap 7 L BUN 10 Creatinine 0.7 Creat Clearance w eGFR 111.49 POC Glucometer 112 Random Glucose 145 H Calcium 7.8 L Phosphorus 2.4 L Magnesium 2.3 Current Medications Generic Name Dose Route Start Last Admin Trade Name Freq PRN Reason Stop Dose Admin Albuterol Sulfate 1 amp 11/29/18 18:15 11/30/18 06:11 Ventolin 0.083% Nebulizer Soln - NEB 1 amp Q6H PRN Administration SHORT OF BREATH/WHEEZING Heparin Sodium (Porcine) 5,000 unit 11/29/18 14:00 12/03/18 06:39 Heparin - SQ 5,000 unit TID CARA Administration Dextrose/Sodium Chloride 40 meq in 1,000 mls @ 75 mls/hr 11/30/18 10:16 12/03 09:44 D5-1/2ns+40 Meq Kcl - IV 75 mls/hr ASDIR CARA Administration Ceftriaxone Sodium 1 gm/ 50 mls @ 100 mls/hr 12/01/18 14:30 03/17/19 09:41 Dextrose IVPB 100 mls/hr DAILY CARA Administration Protocol Metronidazole 500 mg in 100 mls @ 100 mls/hr 12/01/18 14:30 12/03/18 09:41 Flagyl 500mg Premixed Ivpb - IVPB 100 mls/hr Q8H-IV CARA Administration Levetiracetam 1,000 mg 11/29/18 22:00 12/03/18 09:42 Keppra Injection - IVPB 1,000 mg BID CARA Administration Nifedipine 60 mg 12/03/18 10:00 12/03/18 09:42 Procardia Xl - PO 60 mg DAILY CARA Administration Tamsulosin HCl 0.4 mg 11/29/18 08:30 12/03/18 08:53 Flomax - PO 0.4 mg DAILY@0830 CARA Administration Valproate Sodium 250 mg 11/29/18 15:00 12/03/18 09:41 Depacon Injection - IVPB 250 mg Q6H-IV CARA Administration Vitamin A/Vitamin D 1 applic 11/29/18 10:00 12/03/18 10:45 Vitamin A & D Top Oint - TP 1 applic DAILY CARA Administration ASSESSMENT AND PLAN: 68 year old Male with Dementia, Seizure Disorder, COPD, Nephrolithiasis, Hx UTI , presented to ED by his daughter with reports of increasing lethargy, decreased oral intake, fever, chills. No nausea/vomiting. No abdominal pain/ diarrhea. 1. Sepsis secondary to Aspiration Pneumonia with Bacteremia + UTI - Sepsis resolved. Tachycardia and fever at presentation, resolved CT Chest - bibasal atelectasis/infiltrate, R>L Blood Cx positive for coag neg staph in one bottle - likely contaminant. Repeat BCx negative x 2. Urine Cx positive for EColi ID following. Abx changed from Unasyn/Doxy to Ceftriaxone/Flagyl - Day 5. Swallow eval - not able to take anything by mouth Family requests G tube - unable to be done until Tuesday by IR. NG tube placed temporarily for feeding. Palliative Care consulted for goals of care. 2. Seizure Disorder - Continue Keppra, Valproate 3. BPH - Continue Tamsulosin 4. Complex Cyst L Kidney - renal function normal. For further work-up as an out- patient. 5. Dementia with Functional Quadriplegia - baseline mental status non-verbal, non-participatory, fully dependent - currently close to baseline as per . 6. Hypernatremia - secondary to dehydration - improved with adequate hydration - now receiving free water via feeds. Will DC IV fluids. 7. COPD - Stable. No evidence of acute exacerbation. Continue Albuterol prn. 8. Hypokalemia - repleted. 9. Seizure Disorder - Continue Valproic acid, Keppra 10. HTN - Continue Nifedipine. 11. Hypophosphatemia - will replete. DVT Px - Heparin SQ Visit type - Emergency Visit Emergency Visit: Yes ED Registration Date: 11/28/18 Care time: The patient presented to the Emergency Department on the above date and was hospitalized for further evaluation of their emergent condition. - New Patient This patient is new to me today: No - Critical Care Critical Care patient: No - Discharge Referral Referred to [facility] No
[2018-12-03] MEDS ORDERED: POTASSIUM PHOSPHATE 15 MM in DEXTROSE 5%-WATER - 250 ML IVPB ONE (14:00)
[2018-12-04] MEDS: VALPROATE SODIUM 500 MG/5 ML VIAL IVPB SCH ×4 (03:45→20:28)
[2018-12-04] MEDS: TAMSULOSIN HCL 0.4 MG CAP PO SCH (10:03)
[2018-12-04] MEDS: NIFEdipine E.R. 30 MG TABLET (FP) PO SCH (10:05)
[2018-12-04] MEDS ORDERED: cefTRIAXone SODIUM 1 GM VIAL ONE (10:14)
[2018-12-04] MEDS ORDERED: PT OWN MED DRAWER 7, Y5N ONE ×2 (10:14→19:20)
[2018-12-04] MEDS ORDERED: DEXTROSE 5%-WATER - 50 ML IVPB ONE (10:15)
[2018-12-04] MEDS: VITAMINS A AND D TOPICAL OINTMENT 60 GM TUBE TP SCH (11:31)
[2018-12-04] MEDS: levETIRAcetam 500 MG/5 ML INJECTION VIAL IVPB SCH ×2 (12:11→21:46)
[2018-12-04] MEDS: CEFTRIAXONE 1 GM in DEXTROSE 5%-WATER - 50 ML IVPB SCH (13:27)
--- NOTE | 2018-12-04 13:48 | PN ---
Physical Exam: SUBJECTIVE: Patient seen and examined at bedside. no acute events overnight. nonverbal, comfortable. opens eyes spontaneously. No tracking. Does not follow commands. Intermittent myoclonic jerks (baseline). On tube feeds via NGT. per family pt at baseline. Family has opted for PEG w/ GI. OBJECTIVE: Vital Signs Period Temp Pulse Resp BP Sys/Cortes Pulse Ox Last 24 Hr 97.2 F-97.9 F 80-87 18-24 125-131/77-92 98 GENERAL: Awake, alert, nonverbal, unable to maintain eye contact. intermittent myoclonic jerks (baseline) HEAD: NCAT EYES: Pupils equal, round and reactive to light, sclera anicteric, conjunctiva cloudy. No lid lag. EARS, NOSE, THROAT: nares patent, difficult to open Pt.s mouth, copious secretions noted. Moist mucous membranes. NECK: supple without lymphadenopathy, JVD, or masses. LUNGS: Wet sounding cough, decreased breath sounds, transmitted upper airway sounds. No accessory muscle use. HEART: RRR, normal S1 and S2 without murmur ABDOMEN: Soft, NTND, normoactive bowel sounds, no guarding, no rebound, no masses. MUSCULOSKELETAL: No CVA tenderness. UPPER EXTREMITIES: 2+ radial pulses, warm, well-perfused. No cyanosis. No clubbing. No peripheral edema. LOWER EXTREMITIES: 2+ pulses, warm, well-perfused. No calf tenderness. No peripheral edema. NEUROLOGICAL: opens eyes spontaneously. No tracking. Does not follow commands. Intermittent myoclonic jerks (baseline). winces but does not withdraw to pain stimuli. PSYCHIATRIC: Demented SKIN: Warm, dry, normal turgor, no rashes or lesions noted, normal capillary refill. Active Medications Generic Name Dose Route Start Last Admin Trade Name Freq PRN Reason Stop Dose Admin Albuterol Sulfate 1 amp 11/29/18 18:15 11/30/18 06:11 Ventolin 0.083% Nebulizer Soln - NEB 1 amp Q6H PRN Administration SHORT OF BREATH/WHEEZING Heparin Sodium (Porcine) 5,000 unit 11/29/18 14:00 12/03/18 14:14 Heparin - SQ 5,000 unit TID CARA Administration Ceftriaxone Sodium 1 gm/ 50 mls @ 100 mls/hr 12/01/18 14:30 12/04/18 13:27 Dextrose IVPB 100 mls/hr DAILY CARA Administration Protocol Metronidazole 500 mg in 100 mls @ 100 mls/hr 12/01/18 14:30 12/04/18 11:24 Flagyl 500mg Premixed Ivpb - IVPB 100 mls/hr Q8H-IV CARA Administration Levetiracetam 1,000 mg 11/29/18 22:00 12/04/18 12:11 Keppra Injection - IVPB 1,000 mg BID CARA Administration Nifedipine 60 mg 12/03/18 10:00 12/04/18 10:05 Procardia Xl - PO Not Given DAILY CARA Tamsulosin HCl 0.4 mg 11/29/18 08:30 12/04/18 10:03 Flomax - PO Not Given DAILY@0830 CARA Valproate Sodium 250 mg 11/29/18 15:00 12/04/18 10:28 Depacon Injection - IVPB 250 mg Q6H-IV CARA Administration Vitamin A/Vitamin D 1 applic 11/29/18 10:00 12/04/18 11:31 Vitamin A & D Top Oint - TP 1 applic DAILY CARA Administration [id number] CT/CHEST CT WITHOUT CONTRAST INDICATION: Shortness of breath TECHNIQUE: Helical images of the chest were obtained noncontrast . COMPARISON: None FINDINGS: LUNGS: Dependent atelectasis present at both bases, superimposed infiltrate especially at the right base cannot be excluded. There is motion artifact. No suspicious lung nodules are appreciated. No endobronchial lesions seen. PLEURA: Negative MEDIASTINUM: Negative CARDIAC: Normal sized heart. No pericardiac effusion. OTHER: Visualized portions of the adrenals appear unremarkable. Hyperdense subcortical cysts noted within the last image of the upper pole of the left kidney. This is not fully evaluated on this study. Kyphoscoliosis is seen. No aggressive bone lesions identified. Soft tissue calcification around the right shoulder suggests possibility of ligamentous calcifications, correlate with MR imaging as clinically warranted. Preliminary dictation was generated by the on-call radiologist at the time of this procedure. IMPRESSION: Atelectasis/infiltration worse on the right as discussed above. Complex cystic lesion upper pole of the left kidney not fully evaluated on the present study. ASSESSMENT/PLAN: 68 y.o. M w/ PMHx. of BPH,HTN, COPD, paranoid schizophrenia with 10 year progressive cognitive decline c/w Alzheimer's Disease (non-verbal) punctuated by the development of seizures, Nephrolithiasis, Hx UTI, p/w 2 weeks of decreased PO intake and intermittent fevers. #Sepsis 2/2 Aspiration Pnemonia with Bacteremia + UTI - afebrile but w/ Tachycardia, tachypnea, and leukocytosis at presentation, now resolved -CT Chest - bibasal atelectasis/infiltrate, R>L -Blood Cx positive for coag neg staph in one bottle - likely contaminant as repeat cx are neg -Urine Cx positive for EColi -legionella neg. -s/p Ceftriaxone and Azithromycin in ED -Abx changed from Unasyn/Doxy to Ceftriaxone/Flagyl. day 6 of total abx tx -ID consult -Swallow eval - not able to take anything by mouth currently -NGT temporarily until GT placement possibly Tuesday12/05/18 by GI, per family request and pending GI eval -Nutrition consulted for tube feed recommendations -Palliative Care eval for goals of care #Failure to Thrive -aspiration precautions -Swallow eval - not able to take anything by mouth currently -Palliative Care eval requested for goals of care -NGT temporarily until GT placement Tuesday12/05/18 by GI, per family request and pending GI eval -GI consult -Nutrition consulted for tube feed recommendations #Dementia w/ Functional quadriplegia -baseline mental status non-verbal, non- participatory, fully dependent - currently close to baseline as per . unable to mobilize. winces but does not withdraw to pain stimuli. No tracking. Does not follow commands. requires someone to feed him at home. #Hypernatremia 2/2 dehydration - resolved with IV hydration. 157...149..147...145...143 -received 2L NS in ED -off IVF, free water via tube feeds -EKG shows prolonged QT 474, NSR, Left Anterior fasicular block #HTN - currently ctl c/w Nifedipine 60mg qd #Seizure Disorder - Continue Keppra, Valproate IV #BPH - Continue Tamsulosin #COPD - Stable. No evidence of acute exacerbation. Continue Albuterol prn. #Complex Cyst L Kidney - renal unction normal. For further work-up as an out- patient. FEN off IVF, free water via tube feeds replete prn TF Jevity 1.5 via temporary NGT. will hold feeds at midnight #DVT Ppx. -HepSQ TID, hold at midnight for GI procedure Dispo M/S Palliative Care eval requested for goals of care NGT temporarily until GT placement Tuesday12/05/18 by GI, per family request and pending GI eval Visit type - Emergency Visit Emergency Visit: Yes ED Registration Date: 11/28/18 Care time: The patient presented to the Emergency Department on the above date and was hospitalized for further evaluation of their emergent condition. - New Patient This patient is new to me today: Yes Date on this admission: 12/04/18 - Critical Care Critical Care patient: No
[2018-12-04] MEDS: HEPARIN NA (PORCINE) 5,000 UNITS/ML 1ML VIAL SQ SCH (14:42)
--- NOTE | 2018-12-04 15:56 | CON.GI ---
Consult Consult Specialty:: GI Referred by:: Medicine Reason for Consultation:: Dysphagia, PEG consult - History of Present Illness Chief Complaint: aspiration History of Present Illness: 68M with h/o dementia, neurodegenerative disorder for 12 years, being treated for aspiration PNA and UTI, on abx. GI consulted for PEG. Patient no longer able to swallow. Had been on puree diet at home per . Has had three aspiration PNAs in recent past. Currently on NGT feeds, tolerating well. - Past Medical History [employer]: Yes: Dementia, Seizure Pulmonary: Yes: COPD Renal/: Yes: Renal Calculi, UTI - Past Surgical History Past Surgical History: Yes: ERROL (2017) - Alcohol/Substance Use Hx Alcohol Use: No - Smoking History Smoking history: Never smoked Have you smoked in the past 12 months: No - Social History Usual Living Arrangement: With Spouse ADL: Support Services History of Recent Travel: No Home Medications - Allergies Allergies/Adverse Reactions: Allergies Allergy/AdvReac Type Severity Reaction Status Date / Time No Known Allergies Allergy Verified 07/03/18 21:12 - Home Medications Home Medications: Ambulatory Orders Acetaminophen [Tylenol] 650 mg PO PRN PRN 12/29/17 Albuterol 0.083% Nebulizer Elizabeth [Ventolin 0.083% Nebulizer Soln -] 1 neb NEB TID 12/29/17 Docusate Sodium [Colace] 200 mg PO HS 12/29/17 Ferrous Sulfate 325 mg PO BID 12/29/17 Folic Acid 1 mg PO DAILY 12/29/17 Ipratropium 0.02% Nebulizer [Atrovent 0.02% Nebulizer -] 0.5 mg IH BID 12/29/17 Tamsulosin HCl 0.4 mg PO DAILY 12/29/17 Valproate Sodium Liquid [Depakene] 500 mg PO BID 12/29/17 Vitamin A & D Top Oint - 1 applic TP DAILY 12/29/17 Nifedipine ER [Procardia XL -] 30 mg PO DAILY #30 tab.er.24 07/08/18 Cyanocobalamin (Vitamin B-12) [Vitamin B-12] 1,000 mcg PO DAILY 11/29/18 Levetiracetam 1,000 mg PO BID 11/29/18 Review of Systems Unable to obtain ROS, reason: dementia Physical Exam-GI Vital Signs: Vital Signs Temperature 98.2 F 12/04/18 14:45 Pulse Rate 88 12/04/18 14:45 Respiratory Rate 18 12/04/18 14:45 Blood Pressure 127/69 12/04/18 14:45 O2 Sat by Pulse Oximetry (%) 96 12/04/18 09:00 Constitutional: Yes: No Distress, Calm Eyes: Yes: Conjunctiva Clear Cardiovascular: Yes: Regular Rate and Rhythm Respiratory: Yes: CTA Bilaterally ...Palpate: Yes: Soft. No: Tenderness ...Rectal Exam: Yes: Deferred Neurological: Yes: Other (sleepy but arousable) Labs: CBC, BMP 12/03/18 07:30 12/03/18 07:30 INR, PTT INR 1.17 (0.83-1.09) H 12/01/18 09:20 Assessment/Plan Dysphagia. Appropriate for PEG. Will plan for tomorrow. NPO after MN. Full set of labs in am including INR Periprocedural abx with cefazolin 1g Consent obtained from at bedside and placed in chart
--- NOTE | 2018-12-04 16:17 | PN ---
Teaching Attending Note Name of Resident: Jonh Echavarria ATTENDING PHYSICIAN STATEMENT I saw and evaluated the patient. I reviewed the resident's note and discussed the case with the resident. I agree with the resident's findings and plan as documented. SUBJECTIVE: Non-verbal, unable to participate in medical interview OBJECTIVE: Afebrile, Hemodynamically Stable. Opens eyes and makes eye contact, unable to follow commands. Last Vital Signs Temp Pulse Resp BP Pulse Ox 98.2 F 88 18 127/69 96 12/04/18 14:45 12/04/18 14:45 12/04/18 14:45 12/04/18 14:45 12/04/18 09:00 HEENT - Atraumatic, Normocephalic Heart - S1, S2, RRR Lungs - few basal crackles Abdomen - Soft, non-tender. Bowel Sounds normal. Extremities - no calf tenderness Neuro - Sleeping but easily rousable. Opens eyes spontaneously. Does not follow commands. Intermittent myoclonic jerks when awake. Current Medications Generic Name Dose Route Start Last Admin Trade Name Freq PRN Reason Stop Dose Admin Albuterol Sulfate 1 amp 11/29/18 18:15 11/30/18 06:11 Ventolin 0.083% Nebulizer Soln - NEB 1 amp Q6H PRN Administration SHORT OF BREATH/WHEEZING Heparin Sodium (Porcine) 5,000 unit 11/29/18 14:00 12/04/18 14:42 Heparin - SQ 5,000 unit TID CARA Administration Ceftriaxone Sodium 1 gm/ 50 mls @ 100 mls/hr 12/01/18 14:30 12/04/18 13:27 Dextrose IVPB 100 mls/hr DAILY CARA Administration Protocol Metronidazole 500 mg in 100 mls @ 100 mls/hr 12/01/18 14:30 12/04/18 11:24 Flagyl 500mg Premixed Ivpb - IVPB 100 mls/hr Q8H-IV CARA Administration Levetiracetam 1,000 mg 11/29/18 22:00 12/04/18 12:11 Keppra Injection - IVPB 1,000 mg BID CARA Administration Nifedipine 60 mg 12/03/18 10:00 12/04/18 10:05 Procardia Xl - PO Not Given DAILY CARA Tamsulosin HCl 0.4 mg 11/29/18 08:30 03/18/19 10:03 Flomax - PO Not Given DAILY@0830 [facility] Valproate Sodium 250 mg 11/29/18 15:00 12/04/18 16:10 Depacon Injection - IVPB 250 mg Q6H-IV CARA Administration Vitamin A/Vitamin D 1 applic 11/29/18 10:00 12/04/18 11:31 Vitamin A & D Top Oint - TP 1 applic DAILY CARA Administration ASSESSMENT AND PLAN: 68 year old Male with Dementia, Seizure Disorder, COPD, Nephrolithiasis, Hx UTI , presented to ED by his daughter with reports of increasing lethargy, decreased oral intake, fever, chills. No nausea/vomiting. No abdominal pain/ diarrhea. 1. Sepsis secondary to Aspiration Pneumonia with Bacteremia + UTI - Sepsis resolved. Tachycardia and fever at presentation, resolved CT Chest - bibasal atelectasis/infiltrate, R>L Blood Cx positive for coag neg staph in one bottle - likely contaminant. Repeat BCx negative x 2. Urine Cx positive for EColi ID following. Abx changed from Unasyn/Doxy to Ceftriaxone/Flagyl - Day 6. Swallow eval - not able to take anything by mouth Family requests PEG - scheduled 12/05/18 NG tube placed temporarily for feeding - to be held along with Heparin prior to PEG placement. Palliative Care consulted for goals of care. 2. Seizure Disorder - Continue Keppra, Valproate 3. BPH - Continue Tamsulosin 4. Complex Cyst L Kidney - renal function normal. For further work-up as an out- patient. 5. Dementia with Functional Quadriplegia - baseline mental status non-verbal, non-participatory, fully dependent - currently close to baseline as per . 6. Hypernatremia - secondary to dehydration - improved with adequate hydration - now receiving free water via feeds. 7. COPD - Stable. No evidence of acute exacerbation. Continue Albuterol prn. 8. Hypokalemia - repleted. 9. Seizure Disorder - Continue Valproic acid, Keppra 10. HTN - Continue Nifedipine. 11. Hypophosphatemia - repleted DVT Px - Heparin SQ (being held prior to PEG placement)
[2018-12-04] MEDS: ALBUTEROL SO4 0.083% IH SOL 2.5 MG/3 ML VIAL.NEB. NEB PRN (22:06)
[2018-12-05] MEDS: VALPROATE SODIUM 500 MG/5 ML VIAL IVPB SCH ×4 (02:08→21:22)
--- NOTE | 2018-12-05 07:13 | PN ---
Physical Exam: SUBJECTIVE: Patient seen and examined at bedside. no acute events overnight. nonverbal, comfortable. opens eyes spontaneously. No tracking. Does not follow commands. Intermittent myoclonic jerks (baseline). NPO/tube feeds held for PEG. per family pt at baseline. Family has opted for PEG w/ GI. OBJECTIVE: Vital Signs Period Temp Pulse Resp BP Sys/Cortes Pulse Ox Last 24 Hr 98.2 F-98.8 F 82-99 18-20 127-156/69-90 96-96 GENERAL: Awake, alert, nonverbal, unable to maintain eye contact. intermittent myoclonic jerks (baseline) HEAD: NCAT EYES: Pupils equal, round and reactive to light, sclera anicteric, conjunctiva cloudy. No lid lag. EARS, NOSE, THROAT: nares patent, difficult to open Pt.s mouth, copious secretions noted. MMM NECK: supple without lymphadenopathy, JVD, or masses. LUNGS: Wet sounding cough, decreased breath sounds, transmitted upper airway sounds. No accessory muscle use. HEART: RRR, normal S1 and S2 without murmur ABDOMEN: Soft, NTND, normoactive bowel sounds, no guarding, no rebound, no masses. MUSCULOSKELETAL: No CVA tenderness. UPPER EXTREMITIES: 2+ radial pulses, warm, well-perfused. No cyanosis. No clubbing. No peripheral edema. LOWER EXTREMITIES: 2+ pulses, warm, well-perfused. No calf tenderness. No peripheral edema. NEUROLOGICAL: opens eyes spontaneously. No tracking. Does not follow commands. Intermittent myoclonic jerks (baseline). winces but does not withdraw to pain stimuli. PSYCHIATRIC: Demented SKIN: Warm, dry, normal turgor, no rashes or lesions noted, normal capillary refill. Active Medications Generic Name Dose Route Start Last Admin Trade Name Freq PRN Reason Stop Dose Admin Albuterol Sulfate 1 amp 11/29/18 18:15 12/04/18 22:06 Ventolin 0.083% Nebulizer Soln - NEB 1 amp Q6H PRN Administration SHORT OF BREATH/WHEEZING Heparin Sodium (Porcine) 5,000 unit 11/29/18 14:00 12/04/18 14:42 Heparin - SQ 5,000 unit TID CARA Administration Ceftriaxone Sodium 1 gm/ 50 mls @ 100 mls/hr 12/01/18 14:30 12/04/18 13:27 Dextrose IVPB 100 mls/hr DAILY CARA Administration Protocol Metronidazole 500 mg in 100 mls @ 100 mls/hr 12/01/18 14:30 12/05/18 01:10 Flagyl 500mg Premixed Ivpb - IVPB 100 mls/hr Q8H-IV CARA Administration Levetiracetam 1,000 mg 11/29/18 22:00 12/04/18 21:46 Keppra Injection - IVPB 1,000 mg BID CARA Administration Nifedipine 60 mg 12/03/18 10:00 12/04/18 10:05 Procardia Xl - PO Not Given DAILY CARA Tamsulosin HCl 0.4 mg 11/29/18 08:30 12/04/18 10:03 Flomax - PO Not Given DAILY@0830 CARA Valproate Sodium 250 mg 11/29/18 15:00 12/05/18 02:08 Depacon Injection - IVPB 250 mg Q6H-IV CARA Administration Vitamin A/Vitamin D 1 applic 11/29/18 10:00 12/04/18 11:31 Vitamin A & D Top Oint - TP 1 applic DAILY CARA Administration [id number] CT/CHEST CT WITHOUT CONTRAST INDICATION: Shortness of breath TECHNIQUE: Helical images of the chest were obtained noncontrast . COMPARISON: None FINDINGS: LUNGS: Dependent atelectasis present at both bases, superimposed infiltrate especially at the right base cannot be excluded. There is motion artifact. No suspicious lung nodules are appreciated. No endobronchial lesions seen. PLEURA: Negative MEDIASTINUM: Negative CARDIAC: Normal sized heart. No pericardiac effusion. OTHER: Visualized portions of the adrenals appear unremarkable. Hyperdense subcortical cysts noted within the last image of the upper pole of the left kidney. This is not fully evaluated on this study. Kyphoscoliosis is seen. No aggressive bone lesions identified. Soft tissue calcification around the right shoulder suggests possibility of ligamentous calcifications, correlate with MR imaging as clinically warranted. Preliminary dictation was generated by the on-call radiologist at the time of this procedure. IMPRESSION: Atelectasis/infiltration worse on the right as discussed above. Complex cystic lesion upper pole of the left kidney not fully evaluated on the present study. ASSESSMENT/PLAN: 68 y.o. M w/ PMHx. of BPH,HTN, COPD, paranoid schizophrenia with 10 year progressive cognitive decline c/w Alzheimer's Disease (non-verbal) punctuated by the development of seizures, Nephrolithiasis, Hx UTI, p/w 2 weeks of decreased PO intake and intermittent fevers. #Sepsis 2/2 Aspiration Pnemonia with Bacteremia + UTI - afebrile but w/ Tachycardia, tachypnea, and leukocytosis at presentation, now resolved -CT Chest - bibasal atelectasis/infiltrate, R>L -Blood Cx positive for coag neg staph in one bottle - likely contaminant as repeat cx are neg -Urine Cx positive for EColi -legionella neg. -s/p Ceftriaxone and Azithromycin in ED -Abx changed from Unasyn/Doxy to Ceftriaxone/Flagyl. completing day 7 of 7 of total abx tx , will dc after -ID consult -Swallow eval - not able to take anything by mouth currently -NPO/tube feeds held for PEG today -Nutrition consulted for tube feed recommendations -Palliative Care eval for goals of care #Failure to Thrive -aspiration precautions -Swallow eval - not able to take anything by mouth currently -Palliative Care eval requested for goals of care -NGT temporarily, NPO/tube feeds held for PEG today -GI consult -Nutrition consulted for tube feed recommendations #Dementia w/ Functional quadriplegia -baseline mental status non-verbal, non- participatory, fully dependent - currently close to baseline as per . unable to mobilize. winces but does not withdraw to pain stimuli. No tracking. Does not follow commands. requires someone to feed him at home. #Hypernatremia 2/2 dehydration - resolved with IV hydration. 157...149..147...145...143 -received 2L NS in ED -off IVF, free water via tube feeds -EKG shows prolonged QT 474, NSR, Left Anterior fasicular block #HTN - currently ctl c/w Nifedipine 60mg qd #Seizure Disorder - Continue Keppra, Valproate IV #BPH - Continue Tamsulosin #COPD - Stable. No evidence of acute exacerbation. Continue Albuterol prn. #Complex Cyst L Kidney - renal unction normal. For further work-up as an out- patient. FEN off IVF, free water via tube feeds replete prn TF Jevity 1.5, NPO/tube feeds held for PEG today #DVT Ppx. -HepSQ TID, held for PEG Dispo M/S Palliative Care eval requested for goals of care PEG today completing 7d abx course today Visit type - Emergency Visit Emergency Visit: Yes ED Registration Date: 11/28/18 Care time: The patient presented to the Emergency Department on the above date and was hospitalized for further evaluation of their emergent condition. - New Patient This patient is new to me today: Yes Date on this admission: 12/05/18 - Critical Care Critical Care patient: No
[2018-12-05 07:46] LABS: BASO % 0.4 % (0-2.0); HEMATOCRIT 37.1 % (35.4-49); HEMOGLOBIN 12.9 GM/dL (11.7-16.9); LYMPH % 32.1 % (8-40); MCH 31.9 pg (25.7-33.7); MCHC 34.8 g/dl (32.0-35.9); MEAN CELL VOLUME 91.4 fl (80-96); MEAN PLT VOLUME 10.8 fl (7.5-11.1); MONO % 7.1 % (3.8-10.2); NEUT % 58.4 % (42.8-82.8); PLATELET COUNT 163 K/MM3 (134-434); RBC 4.06 M/mm3 (4.00-5.60); RDW 14.8 % (11.9-15.9); WHITE BLOOD COUNT 7.1 K/mm3 (4.0-10.0)
[2018-12-05 08:09] LABS: ALBUMIN 2.3 g/dl (3.4-5.0); ALK PHOS 72 U/L (45-117); ANION GAP 7 MMOL/L (8-16); BILIRUBIN,TOTAL 0.2 mg/dL (0.2-1); BLOOD UREA NITROGEN 9 mg/dL (7-18); CALCIUM 7.6 mg/dL (8.5-10.1); CHLORIDE 108 mmol/L (98-107); CO2 26 mmol/L (21-32); CREATININE 0.7 mg/dL (0.55-1.3); GLUCOSE,RANDOM 98 mg/dL (74-106); MAGNESIUM 2.5 mg/dL (1.8-2.4); PHOSPHOROUS 2.7 mg/dL (2.5-4.9); POTASSIUM 3.6 mmol/L (3.5-5.1); SGOT/AST 23 U/L (15-37); SGPT/ALT 25 U/L (13-61); SODIUM 141 mmol/L (136-145); TOT PROT 6.1 g/dl (6.4-8.2)
[2018-12-05 08:26] LABS: INR 1.22 (0.83-1.09); PROTHROMBIN TIME (PATIENT) 14.4 SEC (9.7-13.0)
[2018-12-05 09:13] LABS: ACTIVATED PTT 30.3 SECONDS (25.2-36.5)
[2018-12-05] MEDS ORDERED: DEXTROSE 5%-WATER - 50 ML IVPB ONE (10:03)
[2018-12-05] MEDS ORDERED: cefTRIAXone SODIUM 1 GM VIAL ONE (10:03)
[2018-12-05] MEDS: VITAMINS A AND D TOPICAL OINTMENT 60 GM TUBE TP SCH (10:04)
[2018-12-05] MEDS: CEFTRIAXONE 1 GM in DEXTROSE 5%-WATER - 50 ML IVPB SCH (10:07)
[2018-12-05] MEDS: levETIRAcetam 500 MG/5 ML INJECTION VIAL IVPB SCH ×2 (10:07→22:36)
[2018-12-05] MEDS ORDERED: PT OWN MED DRAWER 7, Y5N ONE (11:31)
[2018-12-05] MEDS: NIFEdipine E.R. 30 MG TABLET (FP) PO SCH (13:23)
[2018-12-05] MEDS: TAMSULOSIN HCL 0.4 MG CAP PO SCH (13:23)
[2018-12-05] MEDS ORDERED: CEFAZOLIN 1 GM/D5W 1 GM/50 ML BAG ONE (15:35)
[2018-12-05] MEDS ORDERED: ceFAZolin SODIUM 1 GM VIAL IVPB ONE (15:44)
--- NOTE | 2018-12-05 16:16 | PN ---
Progress Note (short form) - Note Progress Note: EGD complete. Report left in procedural section of physical chart and to be scanned into [employer]
--- NOTE | 2018-12-05 16:57 | PN ---
Teaching Attending Note Name of Resident: Jonh Echavarria ATTENDING PHYSICIAN STATEMENT I saw and evaluated the patient. I reviewed the resident's note and discussed the case with the resident. I agree with the resident's findings and plan as documented. SUBJECTIVE: Non-verbal, unable to participate in medical interview OBJECTIVE: Afebrile, Hemodynamically Stable. Opens eyes and makes eye contact, unable to follow commands. Last Vital Signs Temp Pulse Resp BP Pulse Ox 97.9 F 84 16 167/87 100 12/05/18 16:07 12/05/18 16:22 12/05/18 16:22 12/05/18 16:22 12/05/18 16:22 HEENT - [place] Heart - S1, S2, RRR Lungs - few basal crackles Abdomen - Soft, non-tender. Bowel Sounds normal. Extremities - no calf tenderness Neuro - Opens eyes spontaneously. Does not follow commands. Intermittent myoclonic jerks when awake. Laboratory Results - last 24 hr 12/05/18 12/05/18 12/05/18 07:10 07:10 07:10 WBC 7.1 RBC 4.06 Hgb 12.9 Hct 37.1 MCV 91.4 MCH 31.9 MCHC 34.8 RDW 14.8 Plt Count 163 MPV 10.8 Absolute Neuts (auto) 4.1 Neutrophils % 58.4 Lymphocytes % 32.1 Monocytes % 7.1 Eosinophils % 2.0 Basophils % 0.4 Nucleated RBC % 0 PT with INR 14.40 H INR 1.22 H PTT (Actin FS) 30.3 Sodium 141 Potassium 3.6 Chloride 108 H Carbon Dioxide 26 Anion Gap 7 L BUN 9 Creatinine 0.7 Creat Clearance w eGFR 111.49 Random Glucose 98 Calcium 7.6 L Phosphorus 2.7 Magnesium 2.5 H Total Bilirubin 0.2 AST 23 ALT 25 Alkaline Phosphatase 72 Total Protein 6.1 L Albumin 2.3 L Current Medications Generic Name Dose Route Start Last Admin Trade Name Freq PRN Reason Stop Dose Admin Albuterol Sulfate 1 amp 11/29/18 18:15 12/04/18 22:06 Ventolin 0.083% Nebulizer Soln - NEB 1 amp Q6H PRN Administration SHORT OF BREATH/WHEEZING Heparin Sodium (Porcine) 5,000 unit 11/29/18 14:00 12/04/18 14:42 Heparin - SQ 5,000 unit TID CARA Administration Metronidazole 500 mg in 100 mls @ 100 mls/hr 12/01/18 14:30 12/05/18 10:08 Flagyl 500mg Premixed Ivpb - IVPB 12/05/18 23:00 100 mls/hr Q8H-IV CARA Administration Levetiracetam 1,000 mg 11/29/18 22:00 12/05/18 10:07 Keppra Injection - IVPB 1,000 mg BID CARA Administration Nifedipine 60 mg 12/03/18 10:00 12/05/18 13:23 Procardia Xl - PO Not Given DAILY CARA Tamsulosin HCl 0.4 mg 11/29/18 08:30 12/05/18 13:23 Flomax - PO Not Given DAILY@0830 CARA Valproate Sodium 250 mg 11/29/18 15:00 12/05/18 10:00 Depacon Injection - IVPB 250 mg Q6H-IV CARA Administration Vitamin A/Vitamin D 1 applic 11/29/18 10:00 12/04/18 11:31 Vitamin A & D Top Oint - TP 1 applic DAILY CARA Administration ASSESSMENT AND PLAN: 68 year old Male with Dementia, Seizure Disorder, COPD, Nephrolithiasis, Hx UTI , presented to ED by his daughter with reports of increasing lethargy, decreased oral intake, fever, chills. No nausea/vomiting. No abdominal pain/ diarrhea. 1. Sepsis secondary to Aspiration Pneumonia with Bacteremia + UTI - Sepsis resolved. Tachycardia and fever at presentation, resolved CT Chest - bibasal atelectasis/infiltrate, R>L Blood Cx positive for coag neg staph in one bottle - likely contaminant. Repeat BCx negative x 2. Urine Cx positive for EColi ID following. Abx changed from Unasyn/Doxy to Ceftriaxone/Flagyl - Day 7. Swallow eval - not able to take anything by mouth Family requests PEG - scheduled 12/05/18 but procedure was unsuccessful - GI recommends IR guided G tube placement. NG tube in situ for feeding. Palliative Care consulted for goals of care. 2. Seizure Disorder - Continue Keppra, Valproate 3. BPH - Continue Tamsulosin 4. Complex Cyst L Kidney - renal function normal. For further work-up as an out- patient. 5. Dementia with Functional Quadriplegia - baseline mental status non-verbal, non-participatory, fully dependent - currently close to baseline as per . 6. Hypernatremia - secondary to dehydration - improved with adequate hydration - now receiving free water via feeds. 7. COPD - Stable. No evidence of acute exacerbation. Continue Albuterol prn. 8. Hypokalemia/Hypophosphatemia - repleted. 9. Seizure Disorder - Continue Valproic acid, Keppra 10. HTN - Continue Nifedipine. DVT Px - Heparin SQ (to be held prior to G tube placement)
[2018-12-05] MEDS: HEPARIN NA (PORCINE) 5,000 UNITS/ML 1ML VIAL SQ SCH (21:22)
[2018-12-06] MEDS: VALPROATE SODIUM 500 MG/5 ML VIAL IVPB SCH ×4 (03:51→21:26)
[2018-12-06] MEDS: HEPARIN NA (PORCINE) 5,000 UNITS/ML 1ML VIAL SQ SCH (05:44)
--- NOTE | 2018-12-06 06:40 | PN ---
Physical Exam: SUBJECTIVE: Patient seen and examined at bedside. no acute events overnight. GI attempted but unable to do PEG, and recommend IR. tube feeds and SQH resumed. nonverbal, comfortable. opens eyes spontaneously. No tracking. Does not follow commands. Intermittent myoclonic jerks (baseline). per family pt at baseline. spoke w/ IR about PEG placement, awaiting their input. OBJECTIVE: Vital Signs Period Temp Pulse Resp BP Sys/Cortes Pulse Ox Last 24 Hr 97.6 F-98.5 F 74-89 16-20 114-167/68-99 96-100 GENERAL: Awake, alert, nonverbal, unable to maintain eye contact. intermittent myoclonic jerks (baseline) HEAD: NCAT EYES: Pupils equal, round and reactive to light, sclera anicteric, conjunctiva cloudy. No lid lag. EARS, NOSE, THROAT: nares patent, difficult to open Pt.s mouth, copious secretions noted. MMM NECK: supple without lymphadenopathy, JVD, or masses. LUNGS: Wet sounding cough, decreased breath sounds, transmitted upper airway sounds. No accessory muscle use. HEART: RRR, normal S1 and S2 without murmur ABDOMEN: Soft, NTND, normoactive bowel sounds, no guarding, no rebound, no masses. MUSCULOSKELETAL: No CVA tenderness. UPPER EXTREMITIES: 2+ radial pulses, warm, well-perfused. No cyanosis. No clubbing. No peripheral edema. LOWER EXTREMITIES: 2+ pulses, warm, well-perfused. No calf tenderness. No peripheral edema. NEUROLOGICAL: opens eyes spontaneously. No tracking. Does not follow commands. Intermittent myoclonic jerks (baseline). winces but does not withdraw to pain stimuli. PSYCHIATRIC: Demented SKIN: Warm, dry, normal turgor, no rashes or lesions noted, normal capillary refill. Laboratory Results - last 24 hr 12/05/18 12/05/18 12/05/18 07:10 07:10 07:10 WBC 7.1 RBC 4.06 Hgb 12.9 Hct 37.1 MCV 91.4 MCH 31.9 MCHC 34.8 RDW 14.8 Plt Count 163 MPV 10.8 Absolute Neuts (auto) 4.1 Neutrophils % 58.4 Lymphocytes % 32.1 Monocytes % 7.1 Eosinophils % 2.0 Basophils % 0.4 Nucleated RBC % 0 PT with INR 14.40 H INR 1.22 H PTT (Actin FS) 30.3 Sodium 141 Potassium 3.6 Chloride 108 H Carbon Dioxide 26 Anion Gap 7 L BUN 9 Creatinine 0.7 Creat Clearance w eGFR 111.49 Random Glucose 98 Calcium 7.6 L Phosphorus 2.7 Magnesium 2.5 H Total Bilirubin 0.2 AST 23 ALT 25 Alkaline Phosphatase 72 Total Protein 6.1 L Albumin 2.3 L Active Medications Generic Name Dose Route Start Last Admin Trade Name Freq PRN Reason Stop Dose Admin Albuterol Sulfate 1 amp 11/29/18 18:15 12/04/18 22:06 Ventolin 0.083% Nebulizer Soln - NEB 1 amp Q6H PRN Administration SHORT OF BREATH/WHEEZING Heparin Sodium (Porcine) 5,000 unit 11/29/18 14:00 12/06/18 05:44 Heparin - SQ 5,000 unit TID CARA Administration Levetiracetam 1,000 mg 11/29/18 22:00 12/05/18 22:36 Keppra Injection - IVPB 1,000 mg BID CARA Administration Nifedipine 60 mg 12/03/18 10:00 12/05/18 13:23 Procardia Xl - PO Not Given DAILY CARA Tamsulosin HCl 0.4 mg 11/29/18 08:30 12/05/18 13:23 Flomax - PO Not Given DAILY@0830 CARA Valproate Sodium 250 mg 11/29/18 15:00 12/06/18 03:51 Depacon Injection - IVPB 250 mg Q6H-IV CARA Administration Vitamin A/Vitamin D 1 applic 11/29/18 10:00 12/05/18 10:04 Vitamin A & D Top Oint - TP 1 applic DAILY CARA Administration [id number] CT/CHEST CT WITHOUT CONTRAST INDICATION: Shortness of breath TECHNIQUE: Helical images of the chest were obtained noncontrast . COMPARISON: None FINDINGS: LUNGS: Dependent atelectasis present at both bases, superimposed infiltrate especially at the right base cannot be excluded. There is motion artifact. No suspicious lung nodules are appreciated. No endobronchial lesions seen. PLEURA: Negative MEDIASTINUM: Negative CARDIAC: Normal sized heart. No pericardiac effusion. OTHER: Visualized portions of the adrenals appear unremarkable. Hyperdense subcortical cysts noted within the last image of the upper pole of the left kidney. This is not fully evaluated on this study. Kyphoscoliosis is seen. No aggressive bone lesions identified. Soft tissue calcification around the right shoulder suggests possibility of ligamentous calcifications, correlate with MR imaging as clinically warranted. Preliminary dictation was generated by the on-call radiologist at the time of this procedure. IMPRESSION: Atelectasis/infiltration worse on the right as discussed above. Complex cystic lesion upper pole of the left kidney not fully evaluated on the present study. ASSESSMENT/PLAN: 68 y.o. M w/ PMHx. of BPH,HTN, COPD, paranoid schizophrenia with 10 year progressive cognitive decline c/w Alzheimer's Disease (non-verbal) punctuated by the development of seizures, Nephrolithiasis, Hx UTI, p/w 2 weeks of decreased PO intake and intermittent fevers. #Sepsis 2/2 Aspiration Pnemonia with Bacteremia + UTI - afebrile but w/ Tachycardia, tachypnea, and leukocytosis at presentation - resolved -CT Chest - bibasal atelectasis/infiltrate, R>L -Blood Cx positive for coag neg staph in one bottle - likely contaminant as repeat cx are neg -Urine Cx positive for EColi -legionella neg. -s/p Ceftriaxone and Azithromycin in ED -s/p 7 days total abx tx, Abx changed from Unasyn/Doxy to Ceftriaxone/Flagyl. -ID consult -Swallow eval - not able to take anything by mouth currently -GI attempted but unable to do PEG, and recommend IR. tube feeds and SQH resumed. spoke w/ IR about PEG placement, awaiting their input. -Nutrition consulted for tube feed recommendations -Palliative Care eval for goals of care #Failure to Thrive -aspiration precautions -Swallow eval - not able to take anything by mouth currently -Palliative Care eval requested for goals of care -GI attempted but unable to do PEG, and recommend IR. tube feeds and SQH resumed. spoke w/ IR about PEG placement, awaiting their input. -GI consult -Nutrition consulted for tube feed recommendations #Dementia w/ Functional quadriplegia -baseline mental status non-verbal, non- participatory, fully dependent - currently close to baseline as per . unable to mobilize. winces but does not withdraw to pain stimuli. No tracking. Does not follow commands. requires someone to feed him at home. #Hypernatremia 2/2 dehydration - resolved with IV hydration. 157...149..147...145...143 -received 2L NS in ED -off IVF, free water via tube feeds -EKG shows prolonged QT 474, NSR, Left Anterior fasicular block #HTN - currently ctl c/w Nifedipine 60mg qd #Seizure Disorder - Continue Keppra, Valproate IV #BPH - Continue Tamsulosin #COPD - Stable. No evidence of acute exacerbation. Continue Albuterol prn. #Complex Cyst L Kidney - renal unction normal. For further work-up as an out- patient. FEN off IVF, free water via tube feeds replete prn TF Jevity 1.5, GI attempted but unable to do PEG, and recommend IR. tube feeds resumed #DVT Ppx. -HepSQ TID, GI attempted but unable to do PEG, and recommend IR. SQH resumed Dispo M/S Palliative Care eval requested for goals of care GI attempted but unable to do PEG, and recommend IR. tube feeds and SQH resumed. spoke w/ IR about PEG placement, awaiting their input. s/p 7d abx course Family has been informed of updates, and agrees w/ IR doing procedure Visit type - Emergency Visit Emergency Visit: Yes ED Registration Date: 11/28/18 Care time: The patient presented to the Emergency Department on the above date and was hospitalized for further evaluation of their emergent condition. - New Patient This patient is new to me today: Yes Date on this admission: 12/06/18 - Critical Care Critical Care patient: No
[2018-12-06] MEDS ORDERED: PT OWN MED DRAWER 7, Y5N ONE (08:45)
[2018-12-06] MEDS: VITAMINS A AND D TOPICAL OINTMENT 60 GM TUBE TP SCH ×2 (08:53→10:47)
[2018-12-06] MEDS: TAMSULOSIN HCL 0.4 MG CAP PO SCH (08:53)
[2018-12-06] MEDS: levETIRAcetam 500 MG/5 ML INJECTION VIAL IVPB SCH ×2 (10:49→22:31)
[2018-12-06] MEDS: NIFEdipine E.R. 30 MG TABLET (FP) PO SCH (11:00)
--- NOTE | 2018-12-06 11:52 | PN ---
Progress Note (short form) - Note Progress Note: EGD performed yesterday by Dr. Fish, PEG unable to be placed endoscopically. Pt currently receiving NG feeds, tolerating well. As previously advised, recommend IR consult for PEG placement. Please call GI if any questions /concerns.
--- NOTE | 2018-12-06 14:11 | PN ---
Teaching Attending Note Name of Resident: Jonh Echavarria ATTENDING PHYSICIAN STATEMENT I saw and evaluated the patient. I reviewed the resident's note and discussed the case with the resident. I agree with the resident's findings and plan as documented. SUBJECTIVE:resting comfortable OBJECTIVE: Last Vital Signs Temp Pulse Resp BP Pulse Ox 98.3 F 79 19 108/60 90 L 12/06/18 06:00 12/06/18 14:00 12/06/18 14:00 12/06/18 14:00 12/06/18 09:00 General NAD, resting comfortable, spontaneous eye opening CV S1 S2 RRR no murmur/rub/gallop Lungs CTA anteriorly Abdomen soft NT. slightly distended. +BS extremities no pedal edema ASSESSMENT AND PLAN: 68 year old Male with Dementia, Seizure Disorder, COPD, Nephrolithiasis, Hx UTI , presented to ED by his daughter with reports of increasing lethargy, decreased oral intake, fever, chills. patient was found to be septic due to aspiration PNA, bacteremic and UTI 1. Sepsis secondary to Aspiration Pneumonia with Bacteremia + UTI - Sepsis resolved. currently on Ceftriaxone/flagyl day 5. plan to complete 7 days total. ID on board 2. Dysphagia- plan for PEG tube. unsuccessful attempt by GI yesterday. plan for IR tomorrow. NPO tonight. 3. Hypernatremia- resolved 4. Seizure- no reported episodes. conthome regimen 5. BPH- flomax 6. dementia with functional quadriplegia- at baseline 7. COPD- stable. cont inhalers 8. HTN- controlled 9. DVT ppx- hep sq
[2018-12-07] MEDS: VALPROATE SODIUM 500 MG/5 ML VIAL IVPB SCH ×4 (03:02→20:50)
--- NOTE | 2018-12-07 06:42 | PN ---
Physical Exam: SUBJECTIVE: Patient seen and examined at bedside. no acute events overnight. NPO for IR PEG. nonverbal, comfortable. opens eyes spontaneously. No tracking. Does not follow commands. Intermittent myoclonic jerks (baseline). per family pt at baseline. OBJECTIVE: Vital Signs Period Temp Pulse Resp BP Sys/Cortes Pulse Ox Last 24 Hr 98 F-98.6 F 78-88 19-20 108-148/60-77 90-91 GENERAL: Awake, alert, nonverbal, unable to maintain eye contact. intermittent myoclonic jerks (baseline) HEAD: NCAT EYES: Pupils equal, round and reactive to light, sclera anicteric, conjunctiva cloudy. No lid lag. EARS, NOSE, THROAT: nares patent, difficult to open Pt.s mouth, copious secretions noted. MMM NECK: supple without lymphadenopathy, JVD, or masses. LUNGS: Wet sounding cough, decreased breath sounds, transmitted upper airway sounds. No accessory muscle use. HEART: RRR, normal S1 and S2 without murmur ABDOMEN: Soft, NTND, normoactive bowel sounds, no guarding, no rebound, no masses. MUSCULOSKELETAL: No CVA tenderness. UPPER EXTREMITIES: 2+ radial pulses, warm, well-perfused. No cyanosis. No clubbing. No peripheral edema. LOWER EXTREMITIES: 2+ pulses, warm, well-perfused. No calf tenderness. No peripheral edema. NEUROLOGICAL: opens eyes spontaneously. No tracking. Does not follow commands. Intermittent myoclonic jerks (baseline). winces but does not withdraw to pain stimuli. PSYCHIATRIC: Demented SKIN: Warm, dry, normal turgor, no rashes or lesions noted, normal capillary refill. Active Medications Generic Name Dose Route Start Last Admin Trade Name Freq PRN Reason Stop Dose Admin Albuterol Sulfate 1 amp 11/29/18 18:15 12/04/18 22:06 Ventolin 0.083% Nebulizer Soln - NEB 1 amp Q6H PRN Administration SHORT OF BREATH/WHEEZING Heparin Sodium (Porcine) 5,000 unit 11/29/18 14:00 12/06/18 05:44 Heparin - SQ 5,000 unit TID CARA Administration Levetiracetam 1,000 mg 11/29/18 22:00 12/06/18 22:31 Keppra Injection - IVPB 1,000 mg BID CARA Administration Nifedipine 60 mg 12/03/18 10:00 12/06/18 11:00 Procardia Xl - PO 60 mg DAILY CARA Administration Tamsulosin HCl 0.4 mg 11/29/18 08:30 12/06/18 08:53 Flomax - PO 0.4 mg DAILY@0830 CARA Administration Valproate Sodium 250 mg 11/29/18 15:00 12/07/18 03:02 Depacon Injection - IVPB 250 mg Q6H-IV CARA Administration Vitamin A/Vitamin D 1 applic 11/29/18 10:00 12/06/18 10:47 Vitamin A & D Top Oint - TP Not Given DAILY [facility] 3502-1325 CT/CHEST CT WITHOUT CONTRAST INDICATION: Shortness of breath TECHNIQUE: Helical images of the chest were obtained noncontrast . COMPARISON: None FINDINGS: LUNGS: Dependent atelectasis present at both bases, superimposed infiltrate especially at the right base cannot be excluded. There is motion artifact. No suspicious lung nodules are appreciated. No endobronchial lesions seen. PLEURA: Negative MEDIASTINUM: Negative CARDIAC: Normal sized heart. No pericardiac effusion. OTHER: Visualized portions of the adrenals appear unremarkable. Hyperdense subcortical cysts noted within the last image of the upper pole of the left kidney. This is not fully evaluated on this study. Kyphoscoliosis is seen. No aggressive bone lesions identified. Soft tissue calcification around the right shoulder suggests possibility of ligamentous calcifications, correlate with MR imaging as clinically warranted. Preliminary dictation was generated by the on-call radiologist at the time of this procedure. IMPRESSION: Atelectasis/infiltration worse on the right as discussed above. Complex cystic lesion upper pole of the left kidney not fully evaluated on the present study. ASSESSMENT/PLAN: 68 y.o. M w/ PMHx. of BPH,HTN, COPD, paranoid schizophrenia with 10 year progressive cognitive decline c/w Alzheimer's Disease (non-verbal) punctuated by the development of seizures, Nephrolithiasis, Hx UTI, p/w 2 weeks of decreased PO intake and intermittent fevers. #Sepsis 2/2 Aspiration Pnemonia with Bacteremia + UTI - afebrile but w/ Tachycardia, tachypnea, and leukocytosis at presentation - resolved -CT Chest - bibasal atelectasis/infiltrate, R>L -Blood Cx positive for coag neg staph in one bottle - likely contaminant as repeat cx are neg -Urine Cx positive for EColi -legionella neg. -s/p Ceftriaxone and Azithromycin in ED -s/p 7 days total abx tx, Abx changed from Unasyn/Doxy to Ceftriaxone/Flagyl. -ID consult -Swallow eval - not able to take anything by mouth currently -GI attempted but unable to do PEG, and recommend IR. IR will do PEG today tube feeds and SQH held. -Nutrition consulted for tube feed recommendations -Palliative Care eval for goals of care #Failure to Thrive -aspiration precautions -Swallow eval - not able to take anything by mouth currently -Palliative Care eval requested for goals of care -GI attempted but unable to do PEG, and recommend IR. IR will do PEG today tube feeds and SQH held. -GI consult -Nutrition consulted for tube feed recommendations #Dementia w/ Functional quadriplegia -baseline mental status non-verbal, non- participatory, fully dependent - currently close to baseline as per . unable to mobilize. winces but does not withdraw to pain stimuli. No tracking. Does not follow commands. requires someone to feed him at home. #Hypernatremia 2/2 dehydration - resolved with IV hydration. 157...149..147...145...143 -received 2L NS in ED -off IVF, free water via tube feeds -EKG shows prolonged QT 474, NSR, Left Anterior fasicular block #HTN - currently ctl c/w Nifedipine 60mg qd #Seizure Disorder - Continue Keppra, Valproate IV #BPH - Continue Tamsulosin #COPD - Stable. No evidence of acute exacerbation. Continue Albuterol prn. #Complex Cyst L Kidney - renal unction normal. For further work-up as an out- patient. FEN off IVF, free water via tube feeds replete prn TF Jevity 1.5, NPO for IR PEG #DVT Ppx. -HepSQ TID, held for PEG today Dispo M/S Palliative Care eval requested for goals of care NPO for IR PEG Visit type - Emergency Visit Emergency Visit: Yes ED Registration Date: 11/28/18 Care time: The patient presented to the Emergency Department on the above date and was hospitalized for further evaluation of their emergent condition. - New Patient This patient is new to me today: Yes Date on this admission: 12/07/18 - Critical Care Critical Care patient: No
[2018-12-07] MEDS: TAMSULOSIN HCL 0.4 MG CAP PO SCH (07:58)
[2018-12-07] MEDS: levETIRAcetam 500 MG/5 ML INJECTION VIAL IVPB SCH ×3 (10:27→22:34)
[2018-12-07] MEDS: NIFEdipine E.R. 30 MG TABLET (FP) PO SCH (10:27)
[2018-12-07] MEDS: VITAMINS A AND D TOPICAL OINTMENT 60 GM TUBE TP SCH (10:28)
[2018-12-07] MEDS ORDERED: PT OWN MED DRAWER 7, Y5N ONE (13:25)
--- NOTE | 2018-12-07 16:32 | PN ---
Teaching Attending Note Name of Resident: Jonh Echavarria ATTENDING PHYSICIAN STATEMENT I saw and evaluated the patient. I reviewed the resident's note and discussed the case with the resident. I agree with the resident's findings and plan as documented. SUBJECTIVE:resting comfortable OBJECTIVE: Last Vital Signs Temp Pulse Resp BP Pulse Ox 97.7 F 88 18 134/77 100 12/07/18 14:31 12/07/18 14:31 12/07/18 14:31 12/07/18 14:31 12/07/18 11:27 General NAD, resting comfortable, spontaneous eye opening CV S1 S2 RRR no murmur/rub/gallop Lungs CTA anteriorly Abdomen soft NT. slightly distended. +BS extremities no pedal edema ASSESSMENT AND PLAN: 68 year old Male with Dementia, Seizure Disorder, COPD, Nephrolithiasis, Hx UTI , presented to ED by his daughter with reports of increasing lethargy, decreased oral intake, fever, chills. patient was found to be septic due to aspiration PNA, bacteremic and UTI 1. Sepsis secondary to Aspiration Pneumonia with Bacteremia + UTI - Sepsis resolved. currently on Ceftriaxone/flagyl day 6. plan to complete 7 days total. ID on board 2. Dysphagia- NPO for PEG tube today. will f/u 3. Hypernatremia- resolved 4. Seizure- no reported episodes. conthome regimen 5. BPH- flomax 6. dementia with functional quadriplegia- at baseline 7. COPD- stable. cont inhalers 8. HTN- controlled 9. DVT ppx- hep sq 10. plan for discharge to SNF once tolerating PEG feeds
[2018-12-08] MEDS: VALPROATE SODIUM 500 MG/5 ML VIAL IVPB SCH ×4 (02:31→21:44)
--- NOTE | 2018-12-08 07:12 | PN ---
Physical Exam: SUBJECTIVE: Patient seen and examined at bedside. overnight temp of 100.3 . s/ p PEG placement w/o issues, placement confirmed and feeds resumed. nonverbal, comfortable. opens eyes spontaneously. No tracking. Does not follow commands. Intermittent myoclonic jerks (baseline). per family pt at baseline. OBJECTIVE: Vital Signs Period Temp Pulse Resp BP Sys/Cortes Pulse Ox Last 24 Hr 97.7 F-100.3 F 71-104 15-20 123-158/64-99 98-100 GENERAL: Awake, alert, nonverbal, unable to maintain eye contact. intermittent myoclonic jerks (baseline) HEAD: NCAT EYES: Pupils equal, round and reactive to light, sclera anicteric, conjunctiva cloudy. No lid lag. EARS, NOSE, THROAT: nares patent, difficult to open Pt.s mouth, copious secretions noted. MMM NECK: supple without lymphadenopathy, JVD, or masses. LUNGS: Wet sounding cough, decreased breath sounds, transmitted upper airway sounds. No accessory muscle use. HEART: RRR, normal S1 and S2 without murmur ABDOMEN: Soft, NTND, normoactive bowel sounds, no guarding, no rebound, no masses. +PEG MUSCULOSKELETAL: No CVA tenderness. UPPER EXTREMITIES: 2+ radial pulses, warm, well-perfused. No cyanosis. No clubbing. No peripheral edema. LOWER EXTREMITIES: 2+ pulses, warm, well-perfused. No calf tenderness. No peripheral edema. NEUROLOGICAL: opens eyes spontaneously. No tracking. Does not follow commands. Intermittent myoclonic jerks (baseline). winces but does not withdraw to pain stimuli. PSYCHIATRIC: Demented SKIN: Warm, dry, normal turgor, no rashes or lesions noted, normal capillary refill. Active Medications Generic Name Dose Route Start Last Admin Trade Name Freq PRN Reason Stop Dose Admin Albuterol Sulfate 1 amp 11/29/18 18:15 12/04/18 22:06 Ventolin 0.083% Nebulizer Soln - NEB 1 amp Q6H PRN Administration SHORT OF BREATH/WHEEZING Heparin Sodium (Porcine) 5,000 unit 11/29/18 14:00 12/06/18 05:44 Heparin - SQ 5,000 unit TID CARA Administration Levetiracetam 1,000 mg 11/29/18 22:00 12/07/18 22:34 Keppra Injection - IVPB 1,000 mg BID CARA Administration Nifedipine 60 mg 12/03/18 10:00 12/07/18 10:27 Procardia Xl - PO Not Given DAILY CARA Tamsulosin HCl 0.4 mg 11/29/18 08:30 12/07/18 07:58 Flomax - PO Not Given DAILY@0830 CARA Valproate Sodium 250 mg 11/29/18 15:00 12/08/18 02:31 Depacon Injection - IVPB 250 mg Q6H-IV CARA Administration Vitamin A/Vitamin D 1 applic 11/29/18 10:00 12/07/18 10:28 Vitamin A & D Top Oint - TP Not Given DAILY [facility] [id number] CT/CHEST CT WITHOUT CONTRAST INDICATION: Shortness of breath TECHNIQUE: Helical images of the chest were obtained noncontrast . COMPARISON: None FINDINGS: LUNGS: Dependent atelectasis present at both bases, superimposed infiltrate especially at the right base cannot be excluded. There is motion artifact. No suspicious lung nodules are appreciated. No endobronchial lesions seen. PLEURA: Negative MEDIASTINUM: Negative CARDIAC: Normal sized heart. No pericardiac effusion. OTHER: Visualized portions of the adrenals appear unremarkable. Hyperdense subcortical cysts noted within the last image of the upper pole of the left kidney. This is not fully evaluated on this study. Kyphoscoliosis is seen. No aggressive bone lesions identified. Soft tissue calcification around the right shoulder suggests possibility of ligamentous calcifications, correlate with MR imaging as clinically warranted. Preliminary dictation was generated by the on-call radiologist at the time of this procedure. IMPRESSION: Atelectasis/infiltration worse on the right as discussed above. Complex cystic lesion upper pole of the left kidney not fully evaluated on the present study. ASSESSMENT/PLAN: 68 y.o. M w/ PMHx. of BPH,HTN, COPD, paranoid schizophrenia with 10 year progressive cognitive decline c/w Alzheimer's Disease (non-verbal) punctuated by the development of seizures, Nephrolithiasis, Hx UTI, p/w 2 weeks of decreased PO intake, increasing lethargy, and intermittent fevers. s/p PEG #Sepsis 2/2 Aspiration Pnemonia with Bacteremia + UTI - afebrile but w/ Tachycardia, tachypnea, and leukocytosis at presentation - resolved -CT Chest - bibasal atelectasis/infiltrate, R>L -Blood Cx positive for coag neg staph in one bottle - likely contaminant as repeat cx are neg -Urine Cx positive for EColi -legionella neg. -s/p Ceftriaxone and Azithromycin in ED -s/p 7 days total abx tx, Abx changed from Unasyn/Doxy to Ceftriaxone/Flagyl. -ID consult -Swallow eval - not able to take anything by mouth currently -GI attempted but unable to do PEG, and recommend IR. s/p PEG 12/07/ by IR, PEG placement confirmed and tube feeds resumed. -Nutrition consulted for tube feed recommendations -Palliative Care eval for goals of care -plan for discharge to SNF once tolerating PEG feeds -overnight temp of 100.3, now resolved, will hold off on cx and abx for now, if cont to spike will initiate w/u and tx #Failure to Thrive 2/2 Dysphagia -s/p PEG on 12/07. PEG confirmed placement. will start TF. monitor residuals -aspiration precautions -Swallow eval - not able to take anything by mouth currently -Palliative Care eval requested for goals of care -GI attempted but unable to do PEG, and recommend IR. s/p PEG on 12/07. PEG confirmed placement. will start TF. monitor residuals -Nutrition consulted for tube feed recommendations -plan for discharge to SNF once tolerating PEG feeds #Dementia w/ Functional quadriplegia -baseline mental status non-verbal, non- participatory, fully dependent - currently close to baseline as per . unable to mobilize. winces but does not withdraw to pain stimuli. No tracking. Does not follow commands. requires someone to feed him at home. #Hypernatremia 2/2 dehydration - resolved with IV hydration. 157...149..147...145...143 -received 2L NS in ED -off IVF, free water via tube feeds -EKG shows prolonged QT 474, NSR, Left Anterior fasicular block #HTN - currently ctl c/w Nifedipine 60mg qd #Seizure Disorder - Continue Keppra, Valproate IV #BPH - Continue Tamsulosin #COPD - Stable. No evidence of acute exacerbation. Continue Albuterol prn. #Complex Cyst L Kidney - renal unction normal. For further work-up as an out- patient. FEN off IVF, free water via tube feeds replete prn TF Jevity 1.5, s/p PEG 12/07/18 by IR, PEG placement confirmed and tube feeds resumed. #DVT Ppx. -HepSQ TID Dispo M/S Palliative Care eval requested for goals of care s/p PEG 12/07/18 by IR, PEG placement confirmed and tube feeds resumed. will d/c tomorrow to SNF once tolerating TF Visit type - Emergency Visit Emergency Visit: Yes ED Registration Date: 11/28/18 Care time: The patient presented to the Emergency Department on the above date and was hospitalized for further evaluation of their emergent condition. - New Patient This patient is new to me today: Yes Date on this admission: 12/08/18 - Critical Care Critical Care patient: No
[2018-12-08 07:58] LABS: BASO % 0.2 % (0-2.0); EOS % 0.4 % (0-4.5); HEMATOCRIT 36.9 % (35.4-49); HEMOGLOBIN 12.9 GM/dL (11.7-16.9); MCH 31.3 pg (25.7-33.7); MCHC 34.9 g/dl (32.0-35.9); MEAN CELL VOLUME 89.9 fl (80-96); MEAN PLT VOLUME 10.3 fl (7.5-11.1); MONO % 6.3 % (3.8-10.2); NEUT % 77.1 % (42.8-82.8); PLATELET COUNT 167 K/MM3 (134-434); RBC 4.11 M/mm3 (4.00-5.60); RDW 14.8 % (11.9-15.9); WHITE BLOOD COUNT 6.7 K/mm3 (4.0-10.0)
[2018-12-08 08:18] LABS: ANION GAP 7 MMOL/L (8-16); BLOOD UREA NITROGEN 8 mg/dL (7-18); CALCIUM 8.1 mg/dL (8.5-10.1); CHLORIDE 102 mmol/L (98-107); CO2 29 mmol/L (21-32); CREATININE 0.6 mg/dL (0.55-1.3); GLUCOSE,RANDOM 101 mg/dL (74-106); MAGNESIUM 2.5 mg/dL (1.8-2.4); POTASSIUM 3.8 mmol/L (3.5-5.1); SODIUM 137 mmol/L (136-145)
[2018-12-08] MEDS: levETIRAcetam 500 MG/5 ML INJECTION VIAL IVPB SCH ×2 (12:17→22:30)
[2018-12-08] MEDS: VITAMINS A AND D TOPICAL OINTMENT 60 GM TUBE TP SCH (12:35)
[2018-12-08] MEDS: TAMSULOSIN HCL 0.4 MG CAP PO SCH (12:35)
[2018-12-08] MEDS: NIFEdipine E.R. 30 MG TABLET (FP) PO SCH (12:35)
--- NOTE | 2018-12-08 12:56 | PN ---
Teaching Attending Note Name of Resident: Jonh Echavarria ATTENDING PHYSICIAN STATEMENT I saw and evaluated the patient. I reviewed the resident's note and discussed the case with the resident. I agree with the resident's findings and plan as documented. SUBJECTIVE:resting comfortable OBJECTIVE: Last Vital Signs Temp Pulse Resp BP Pulse Ox 99 F 97 H 20 154/35 L 100 12/08/18 06:00 12/08/18 06:00 12/08/18 06:00 12/08/18 06:00 12/07/18 21:00 General NAD, resting comfortable, spontaneous eye opening CV S1 S2 RRR no murmur/rub/gallop Lungs CTA anteriorly Abdomen soft NT. slightly distended. +BS extremities no pedal edema ASSESSMENT AND PLAN: 68 year old Male with Dementia, Seizure Disorder, COPD, Nephrolithiasis, Hx UTI , presented to ED by his daughter with reports of increasing lethargy, decreased oral intake, fever, chills. patient was found to be septic due to aspiration PNA, bacteremic and UTI 1. Sepsis secondary to Aspiration Pneumonia with Bacteremia + UTI - Sepsis resolved. completed abx course. 2. Dysphagia- s/p PEG on 12/07. PEG confirmed placement. will start TF. monitor residuals 3. Hypernatremia- resolved 4. Seizure- no reported episodes. cont home regimen 5. BPH- flomax 6. dementia with functional quadriplegia- at baseline 7. COPD- stable. cont inhalers 8. HTN- controlled 9. DVT ppx- hep sq 10. will d/c tomorrow to SNF once shows tolerating TF
[2018-12-08] MEDS: HEPARIN NA (PORCINE) 5,000 UNITS/ML 1ML VIAL SQ SCH ×2 (14:39→21:55)
[2018-12-09] MEDS: VALPROATE SODIUM 500 MG/5 ML VIAL IVPB SCH ×4 (03:04→21:18)
[2018-12-09] MEDS: HEPARIN NA (PORCINE) 5,000 UNITS/ML 1ML VIAL SQ SCH ×3 (06:15→22:30)
[2018-12-09] MEDS ORDERED: PT OWN MED DRAWER 7, Y5N ONE (09:18)
[2018-12-09] MEDS: NIFEdipine E.R. 30 MG TABLET (FP) PO SCH (09:21)
[2018-12-09] MEDS: levETIRAcetam 500 MG/5 ML INJECTION VIAL IVPB SCH ×2 (09:22→22:30)
[2018-12-09] MEDS: TAMSULOSIN HCL 0.4 MG CAP PO SCH (09:22)
[2018-12-09] MEDS: VITAMINS A AND D TOPICAL OINTMENT 60 GM TUBE TP SCH (10:00)
--- NOTE | 2018-12-09 10:37 | PN ---
Progress Note (short form) - Note Progress Note: resting comfortable Current Medications Generic Name Dose Route Start Last Admin Trade Name Freq PRN Reason Stop Dose Admin Albuterol Sulfate 1 amp 11/29/18 18:15 12/04/18 22:06 Ventolin 0.083% Nebulizer Soln - NEB 1 amp Q6H PRN Administration SHORT OF BREATH/WHEEZING Heparin Sodium (Porcine) 5,000 unit 11/29/18 14:00 12/09/18 06:15 Heparin - SQ 5,000 unit TID CARA Administration Levetiracetam 1,000 mg 11/29/18 22:00 12/09/18 09:22 Keppra Injection - IVPB 1,000 mg BID CARA Administration Nifedipine 60 mg 12/03/18 10:00 12/09/18 09:21 Procardia Xl - PO 60 mg DAILY CARA Administration Tamsulosin HCl 0.4 mg 11/29/18 08:30 12/09/18 09:22 Flomax - PO 0.4 mg DAILY@0830 CARA Administration Valproate Sodium 250 mg 11/29/18 15:00 12/09/18 09:35 Depacon Injection - IVPB 250 mg Q6H-IV CARA Administration Vitamin A/Vitamin D 1 applic 11/29/18 10:00 12/08/18 12:35 Vitamin A & D Top Oint - TP 1 applic DAILY CARA Administration Last Vital Signs Temp Pulse Resp BP Pulse Ox 98.7 F 99 H 20 143/91 100 12/09/18 09:00 12/09/18 09:00 12/09/18 09:00 12/09/18 09:00 12/08/18 21:00 General NAD, resting comfortable, spontaneous eye opening CV S1 S2 RRR no murmur/rub/gallop Lungs CTA anteriorly Abdomen soft NT. slightly distended. +BS extremities no pedal edema ASSESSMENT AND PLAN: 68 year old Male with Dementia, Seizure Disorder, COPD, Nephrolithiasis, Hx UTI , presented to ED by his daughter with reports of increasing lethargy, decreased oral intake, fever, chills. patient was found to be septic due to aspiration PNA, bacteremic and UTI 1. Sepsis secondary to Aspiration Pneumonia with Bacteremia + UTI - Sepsis resolved. completed abx course. 2. Dysphagia- s/p PEG on 12/07. PEG confirmed placement. tolerating TF. monitor residuals 3. Hypernatremia- resolved 4. Seizure- no reported episodes. cont home regimen 5. BPH- flomax 6. dementia with functional quadriplegia- at baseline 7. COPD- stable. cont inhalers 8. HTN- controlled 9. DVT ppx- hep sq 10. d/c to SNF Visit type - Emergency Visit Emergency Visit: Yes ED Registration Date: 11/28/18 Care time: The patient presented to the Emergency Department on the above date and was hospitalized for further evaluation of their emergent condition. - New Patient This patient is new to me today: No - Critical Care Critical Care patient: No - Discharge Referral Referred to [facility] No
[2018-12-09] MEDS: NYSTATIN 100,000 UNIT/GM TOPICAL CREAM 15 GM TUBE TP SCH (23:29)
[2018-12-10] MEDS: VALPROATE SODIUM 500 MG/5 ML VIAL IVPB SCH ×3 (02:36→15:31)
[2018-12-10] MEDS: HEPARIN NA (PORCINE) 5,000 UNITS/ML 1ML VIAL SQ SCH ×3 (05:19→23:02)
[2018-12-10] MEDS ORDERED: PT OWN MED DRAWER 7, Y5N ONE ×3 (06:35→15:29)
[2018-12-10] MEDS: levETIRAcetam 500 MG/5 ML INJECTION VIAL IVPB SCH (10:38)
[2018-12-10] MEDS: TAMSULOSIN HCL 0.4 MG CAP PO SCH (10:47)
[2018-12-10] MEDS: NIFEdipine E.R. 30 MG TABLET (FP) PO SCH (10:47)
[2018-12-10] MEDS: VITAMINS A AND D TOPICAL OINTMENT 60 GM TUBE TP SCH (10:48)
[2018-12-10] MEDS: NYSTATIN 100,000 UNIT/GM TOPICAL CREAM 15 GM TUBE TP SCH ×2 (10:48→23:03)
[2018-12-10] MEDS: NYSTATIN POWDER 100,000 UNITS/GM - 15 GM TOPICAL POWDER TP SCH (12:32)
--- NOTE | 2018-12-10 16:38 | PN ---
Progress Note (short form) - Note Progress Note: notified by RN that pt was having a rash. Pt was discharged yesterday however it is not preferred facility. pt is resting comfortable Current Medications Generic Name Dose Route Start Last Admin Trade Name Freq PRN Reason Stop Dose Admin Albuterol Sulfate 1 amp 11/29/18 18:15 12/04/18 22:06 Ventolin 0.083% Nebulizer Soln - NEB 1 amp Q6H PRN Administration SHORT OF BREATH/WHEEZING Heparin Sodium (Porcine) 5,000 unit 11/29/18 14:00 12/10/18 15:28 Heparin - SQ 5,000 unit TID CARA Administration Levetiracetam 1,000 mg 12/10/18 22:00 Keppra Oral Solution - PEG BID CARA Nystatin 1 applic 12/09/18 22:00 12/10/18 10:48 Mycostatin Cream - TP 1 applic BID CARA Administration Nystatin 1 applic 12/10/18 10:30 12/10/18 12:32 Nystop Powder - TP 1 applic DAILY CARA Administration Tamsulosin HCl 0.4 mg 11/29/18 08:30 12/10/18 10:47 Flomax - PO Not Given DAILY@0830 CARA Valproate Sodium 500 mg 12/10/18 22:00 Depakene - PEG BID CARA Vitamin A/Vitamin D 1 applic 11/29/18 10:00 12/10/18 10:48 Vitamin A & D Top Oint - TP 1 applic DAILY CARA Administration Last Vital Signs Temp Pulse Resp BP Pulse Ox 97.4 F L 74 18 136/74 97 12/10/18 15:13 12/10/18 15:13 12/10/18 15:13 12/10/18 15:13 12/10/18 09:00 General NAD, resting comfortable, spontaneous eye opening CV S1 S2 RRR no murmur/rub/gallop Lungs CTA anteriorly Abdomen soft NT. slightly distended. +BS extremities no pedal edema skin rash along the neck and groin folds. skin is moist in these areas ASSESSMENT AND PLAN: 68 year old Male with Dementia, Seizure Disorder, COPD, Nephrolithiasis, Hx UTI , presented to ED by his daughter with reports of increasing lethargy, decreased oral intake, fever, chills. patient was found to be septic due to aspiration PNA, bacteremic and UTI 1. Sepsis secondary to Aspiration Pneumonia with Bacteremia + UTI - Sepsis resolved. completed abx course. 2. Dermatitis- likely irritated from moist skin. will place nystatin powder. A& D ointment. no new exposures that are concerning 3. Dysphagia- s/p PEG on 12/07. PEG confirmed placement. tolerating TF. monitor residuals 4. Hypernatremia- resolved 5. Seizure- no reported episodes. cont home regimen 6. BPH- flomax 7. dementia with functional quadriplegia- at baseline 8. COPD- stable. cont inhalers 9. HTN- controlled 10. DVT ppx- hep sq 11. medically optimized for discharge. appealing discharge since her choice facility is not covered by her insurance. will wait to hear on appeal Visit type - Emergency Visit Emergency Visit: Yes ED Registration Date: 11/28/18 Care time: The patient presented to the Emergency Department on the above date and was hospitalized for further evaluation of their emergent condition. - New Patient This patient is new to me today: No - Critical Care Critical Care patient: No - Discharge Referral Referred to [facility] No
[2018-12-10] MEDS: VALPROATE SODIUM 250 MG/5 ML UNIT DOSE CUP PEG SCH (23:03)
[2018-12-10] MEDS: levETIRAcetam 500 MG/5 ML ORAL SOLUTION (UNIT-DOSE CUPS) PEG SCH (23:03)
[2018-12-11] MEDS: HEPARIN NA (PORCINE) 5,000 UNITS/ML 1ML VIAL SQ SCH ×3 (05:57→23:16)
[2018-12-11] MEDS ORDERED: PT OWN MED DRAWER 7, Y5N ONE ×5 (10:43→23:14)
[2018-12-11] MEDS: VALPROATE SODIUM 250 MG/5 ML UNIT DOSE CUP PEG SCH ×2 (10:44→23:16)
[2018-12-11] MEDS: levETIRAcetam 500 MG/5 ML ORAL SOLUTION (UNIT-DOSE CUPS) PEG SCH ×2 (10:44→23:16)
[2018-12-11] MEDS: NYSTATIN 100,000 UNIT/GM TOPICAL CREAM 15 GM TUBE TP SCH ×2 (11:45→23:16)
[2018-12-11] MEDS: NYSTATIN POWDER 100,000 UNITS/GM - 15 GM TOPICAL POWDER TP SCH (11:45)
[2018-12-11] MEDS ORDERED: predniSONE 5 MG/5 ML ORAL SOLN- UNIT-DOSE CUP PEG SCH (16:15)
--- NOTE | 2018-12-11 16:15 | PN ---
Teaching Attending Note Name of Resident: Jonh Echavarria ATTENDING PHYSICIAN STATEMENT I saw and evaluated the patient. I reviewed the resident's note and discussed the case with the resident. I agree with the resident's findings and plan as documented. SUBJECTIVE:resting comfortable OBJECTIVE: Last Vital Signs Temp Pulse Resp BP Pulse Ox 97.4 F L 73 24 H 132/62 97 12/11/18 14:42 12/11/18 14:42 12/11/18 14:42 12/11/18 14:42 12/10/18 21:00 General NAD, resting comfortable, spontaneous eye opening skin papular rash noted on both flanks and on the back, also noted in square distribution surrounding PEG as well as on the RUE in square surrounding old catheter site ASSESSMENT AND PLAN: 68 year old Male with Dementia, Seizure Disorder, COPD, Nephrolithiasis, Hx UTI , presented to ED by his daughter with reports of increasing lethargy, decreased oral intake, fever, chills. patient was found to be septic due to aspiration PNA, bacteremic and UTI 1. Sepsis secondary to Aspiration Pneumonia with Bacteremia + UTI - Sepsis resolved. completed abx course. 2. Dermatitis-possible allergic reaction to soaps used here or sheets. has not started any new medications. less liekly to be fixed drug reaction. due to surface area will give short steroid course 40mg x5days. wash skin with mild soap and water. apply nystatin powder to skin folds and groin. and keep fold areas dry. if does not improve can follow up with dermatology as outpatient 3. Dysphagia- s/p PEG on 12/07. PEG confirmed placement. tolerating TF. monitor residuals 4. Hypernatremia- resolved 5. Seizure- no reported episodes. cont home regimen 6. BPH- flomax 7. dementia with functional quadriplegia- at baseline 8. COPD- stable. cont inhalers 9. HTN- controlled 10. DVT ppx- hep sq 11.pt is medically optimized for discharge at this time. spoke with in detail about plan and reassurance that rash should improve that this can be monitored at facility and if does not improve follow up with dermatology as outpatient. awaiting to hear on appeal
--- NOTE | 2018-12-11 17:24 | PN ---
Physical Exam: SUBJECTIVE: Patient seen and examined at bedside. no acute events overnight. s/ p PEG placement w/o issues, placement confirmed and tolerating feeds. nonverbal , comfortable. opens eyes spontaneously. No tracking. Does not follow commands. Intermittent myoclonic jerks (baseline). per family pt at baseline. pt was to be dcd but family appealed nystatin for rash/dermatitis OBJECTIVE: Vital Signs Period Temp Pulse Resp BP Sys/Cortes Pulse Ox Last 24 Hr 97.1 F-98.1 F 70-79 18-24 118-136/62-73 97 GENERAL: Awake, alert, nonverbal, unable to maintain eye contact. intermittent myoclonic jerks (baseline) HEAD: NCAT EYES: Pupils equal, round and reactive to light, sclera anicteric, conjunctiva cloudy. No lid lag. EARS, NOSE, THROAT: nares patent, difficult to open Pt.s mouth, copious secretions noted. MMM NECK: supple without lymphadenopathy, JVD, or masses. LUNGS: Wet sounding cough, decreased breath sounds, transmitted upper airway sounds. No accessory muscle use. HEART: RRR, normal S1 and S2 without murmur ABDOMEN: Soft, NTND, normoactive bowel sounds, no guarding, no rebound, no masses. +PEG MUSCULOSKELETAL: No CVA tenderness. UPPER EXTREMITIES: 2+ radial pulses, warm, well-perfused. No cyanosis. No clubbing. No peripheral edema. LOWER EXTREMITIES: 2+ pulses, warm, well-perfused. No calf tenderness. No peripheral edema. NEUROLOGICAL: opens eyes spontaneously. No tracking. Does not follow commands. Intermittent myoclonic jerks (baseline). winces but does not withdraw to pain stimuli. PSYCHIATRIC: Demented SKIN: skin papular rash noted on both flanks and on the back, also noted in square distribution surrounding PEG as well as on the RUE in square surrounding old catheter site Active Medications Generic Name Dose Route Start Last Admin Trade Name Freq PRN Reason Stop Dose Admin Albuterol Sulfate 1 amp 11/29/18 18:15 12/04/18 22:06 Ventolin 0.083% Nebulizer Soln - NEB 1 amp Q6H PRN Administration SHORT OF BREATH/WHEEZING Heparin Sodium (Porcine) 5,000 unit 11/29/18 14:00 12/11/18 14:57 Heparin - SQ 5,000 unit TID CARA Administration Levetiracetam 1,000 mg 12/10/18 22:00 12/11/18 10:44 Keppra Oral Solution - PEG 1,000 mg BID CARA Administration Nystatin 1 applic 12/09/18 22:00 12/11/18 11:45 Mycostatin Cream - TP 1 applic BID CARA Administration Nystatin 1 applic 12/10/18 10:30 12/11/18 11:45 Nystop Powder - TP 1 applic DAILY CARA Administration Prednisone 40 mg 12/11/18 16:15 Deltasone - PEG DAILY CARA Tamsulosin HCl 0.4 mg 11/29/18 08:30 12/10/18 10:47 Flomax - PO Not Given DAILY@0830 CARA Valproate Sodium 500 mg 12/10/18 22:00 12/11/18 10:44 Depakene - PEG 500 mg BID CARA Administration Vitamin A/Vitamin D 1 applic 11/29/18 10:00 12/10/18 10:48 Vitamin A & D Top Oint - TP 1 applic DAILY CARA Administration [id number] CT/CHEST CT WITHOUT CONTRAST INDICATION: Shortness of breath TECHNIQUE: Helical images of the chest were obtained noncontrast . COMPARISON: None FINDINGS: LUNGS: Dependent atelectasis present at both bases, superimposed infiltrate especially at the right base cannot be excluded. There is motion artifact. No suspicious lung nodules are appreciated. No endobronchial lesions seen. PLEURA: Negative MEDIASTINUM: Negative CARDIAC: Normal sized heart. No pericardiac effusion. OTHER: Visualized portions of the adrenals appear unremarkable. Hyperdense subcortical cysts noted within the last image of the upper pole of the left kidney. This is not fully evaluated on this study. Kyphoscoliosis is seen. No aggressive bone lesions identified. Soft tissue calcification around the right shoulder suggests possibility of ligamentous calcifications, correlate with MR imaging as clinically warranted. Preliminary dictation was generated by the on-call radiologist at the time of this procedure. IMPRESSION: Atelectasis/infiltration worse on the right as discussed above. Complex cystic lesion upper pole of the left kidney not fully evaluated on the present study. ASSESSMENT/PLAN: 68 y.o. M w/ PMHx. of BPH,HTN, COPD, paranoid schizophrenia with 10 year progressive cognitive decline c/w Alzheimer's Disease (non-verbal) punctuated by the development of seizures, Nephrolithiasis, Hx UTI, p/w 2 weeks of decreased PO intake, increasing lethargy, and intermittent fevers. s/p PEG #Sepsis 2/2 Aspiration Pnemonia with Bacteremia + UTI - afebrile but w/ Tachycardia, tachypnea, and leukocytosis at presentation - resolved -CT Chest - bibasal atelectasis/infiltrate, R>L -Blood Cx positive for coag neg staph in one bottle - likely contaminant as repeat cx are neg -Urine Cx positive for EColi -legionella neg. -s/p Ceftriaxone and Azithromycin in ED -s/p 7 days total abx tx, Abx initially Unasyn/Doxy and then changed to Ceftriaxone/Flagyl. -ID consult -Swallow eval - not able to take anything by mouth currently -GI attempted but unable to do PEG, and recommend IR. s/p PEG 12/07/18 by IR, PEG placement confirmed and tube feeds resumed. -Nutrition consulted for tube feed recommendations -Palliative Care eval for goals of care -tolerating PEG feeds and dcd to SNF but family appealing dc #Failure to Thrive 2/2 Dysphagia -s/p PEG on 12/07. PEG confirmed placement. c/w TF. monitor residuals -aspiration precautions -Swallow eval - not able to take anything by mouth currently -Palliative Care eval requested for goals of care -GI attempted but unable to do PEG, and recommend IR. s/p PEG on 12/07. PEG confirmed placement. c/w TF. monitor residuals -Nutrition consulted for tube feed recommendations tolerating PEG feeds and dcd to SNF but family appealing dc #Dermatitis- possible allergic reaction to soaps used here or sheets. has not started any new medications. less likely to be fixed drug reaction. -due to surface area will give short steroid course 40mg x5days. -wash skin with mild soap and water. -nystatin powder to skin folds and groin. keep fold areas dry. -if does not improve can follow up with dermatology as outpatient #Dementia w/ Functional quadriplegia -baseline mental status non-verbal, non- participatory, fully dependent - currently close to baseline as per . unable to mobilize. winces but does not withdraw to pain stimuli. No tracking. Does not follow commands. requires someone to feed him at home. #Hypernatremia 2/2 dehydration - resolved with IV hydration. 157...149..147...145...143 -received 2L NS in ED -off IVF, free water via tube feeds -EKG shows prolonged QT 474, NSR, Left Anterior fasicular block #HTN - currently ctl c/w Nifedipine 60mg qd #Seizure Disorder - Continue Keppra, Valproate IV #BPH - Continue Tamsulosin #COPD - Stable. No evidence of acute exacerbation. Continue Albuterol prn. #Complex Cyst L Kidney - renal function normal. For further work-up as an out- patient. FEN off IVF, free water via tube feeds replete prn TF Jevity 1.5, s/p PEG 12/07/18 by IR, PEG placement confirmed and tube feeds resumed. #DVT Ppx. -HepSQ TID Dispo M/S -s/p PEG 12/07/18 by IR, PEG placement confirmed -tolerating PEG feeds and dcd to SNF but family appealing dc -pt is medically optimized for discharge at this time. informed in detail about plan and reassured that rash should improve that this can be monitored at facility and if does not improve follow up with dermatology as outpatient. awaiting to hear on appeal Visit type - Emergency Visit Emergency Visit: Yes ED Registration Date: 11/28/18 Care time: The patient presented to the Emergency Department on the above date and was hospitalized for further evaluation of their emergent condition. - New Patient This patient is new to me today: Yes Date on this admission: 12/11/18 - Critical Care Critical Care patient: No
[2018-12-11] MEDS: VITAMINS A AND D TOPICAL OINTMENT 60 GM TUBE TP SCH (18:00)
[2018-12-12] MEDS: HEPARIN NA (PORCINE) 5,000 UNITS/ML 1ML VIAL SQ SCH ×3 (06:50→22:48)
--- NOTE | 2018-12-12 08:33 | DS ---
Physical Exam: SUBJECTIVE: Patient seen and examined at bedside. no acute events overnight. s/ p PEG placement w/o issues, placement confirmed and tolerating feeds. nonverbal , comfortable. opens eyes spontaneously. No tracking. Does not follow commands. Intermittent myoclonic jerks (baseline). per family pt at baseline. pt was to be dcd but family appealed nystatin, prednisone day 2 of 5 for rash/dermatitis OBJECTIVE: Vital Signs Period Temp Pulse Resp BP Sys/Cortes Pulse Ox Last 24 Hr 97.1 F-98.5 F 70-81 18-24 108-141/62-78 PHYSICAL EXAM GENERAL: Awake, alert, nonverbal, unable to maintain eye contact. intermittent myoclonic jerks (baseline) HEAD: NCAT EYES: Pupils equal, round and reactive to light, sclera anicteric, conjunctiva cloudy. No lid lag. EARS, NOSE, THROAT: nares patent, difficult to open Pt.s mouth, copious secretions noted. MMM NECK: supple without lymphadenopathy, JVD, or masses. LUNGS: Wet sounding cough, decreased breath sounds, transmitted upper airway sounds. No accessory muscle use. HEART: RRR, normal S1 and S2 without murmur ABDOMEN: Soft, NTND, normoactive bowel sounds, no guarding, no rebound, no masses. +PEG MUSCULOSKELETAL: No CVA tenderness. UPPER EXTREMITIES: 2+ radial pulses, warm, well-perfused. No cyanosis. No clubbing. No peripheral edema. LOWER EXTREMITIES: 2+ pulses, warm, well-perfused. No calf tenderness. No peripheral edema. NEUROLOGICAL: opens eyes spontaneously. No tracking. Does not follow commands. Intermittent myoclonic jerks (baseline). winces but does not withdraw to pain stimuli. PSYCHIATRIC: Demented SKIN: skin papular rash noted on both flanks and on the back, also noted in square distribution surrounding PEG as well as on the RUE in square surrounding old catheter site. also noted in the axilla skin fold and sporadically across the abdomen. some pustules noted with desquamation. LABS/IMAGING [id number] CT/CHEST CT WITHOUT CONTRAST INDICATION: Shortness of breath TECHNIQUE: Helical images of the chest were obtained noncontrast . COMPARISON: None FINDINGS: LUNGS: Dependent atelectasis present at both bases, superimposed infiltrate especially at the right base cannot be excluded. There is motion artifact. No suspicious lung nodules are appreciated. No endobronchial lesions seen. PLEURA: Negative MEDIASTINUM: Negative CARDIAC: Normal sized heart. No pericardiac effusion. OTHER: Visualized portions of the adrenals appear unremarkable. Hyperdense subcortical cysts noted within the last image of the upper pole of the left kidney. This is not fully evaluated on this study. Kyphoscoliosis is seen. No aggressive bone lesions identified. Soft tissue calcification around the right shoulder suggests possibility of ligamentous calcifications, correlate with MR imaging as clinically warranted. Preliminary dictation was generated by the on-call radiologist at the time of this procedure. IMPRESSION: Atelectasis/infiltration worse on the right as discussed above. Complex cystic lesion upper pole of the left kidney not fully evaluated on the present study. HOSPITAL COURSE: Date of Admission:11/28/18 Date of Discharge: 12/12/18 ASSESSMENT/PLAN: 68 y.o. M w/ PMHx. of BPH,HTN, COPD, paranoid schizophrenia with 10 year progressive cognitive decline c/w Alzheimer's Disease (non-verbal) punctuated by the development of seizures, Nephrolithiasis, Hx UTI, p/w 2 weeks of decreased PO intake, increasing lethargy, and intermittent fevers. s/p PEG Admitted for Sepsis 2/2 Aspiration PNA w/ Bacteremia? and UTI and progressive Failure to Thrive 2/2 Dysphagia 2/2 progressive dementia. pt afebrile but w/ Tachycardia, tachypnea, and leukocytosis at presentation. CT Chest - bibasal atelectasis/infiltrate, R>L, Urine Cx positive for EColi, Bcx positive for Staph Hominis Sub Sp Hominis in one bottle - likely contaminant as repeat cx are neg. legionella neg. ID consulted (Roberto) and pt tx w/ 7 days total IV abx (Abx initially Unasyn/Doxy, then changed to Ceftriaxone/Flagyl). sepsis resolved. pt evaluated by Speech and Swallow and determined unable to take anything by mouth/high risk aspiration. Palliative Care consulted for goals of care and family decided for PEG. PEG successfully placed by IR on 12/07/18, placement confirmed and tube feeds initiated (Jevity 1.5). pt tolerating feeds - eval - currently -GI attempted but unable to do PEG, and recommend IR. s/p PEG by IR, PEG resumed. -Nutrition consulted for tube feed recommendations - -tolerating PEG feeds and dcd to SNF but family appealing dc # -s/p PEG on 12/07. PEG confirmed placement. c/w TF. monitor residuals -Nutrition consulted for tube feed recommendations tolerating PEG feeds and dcd to SNF but family appealing dc #Dermatitis- possible allergic reaction to soaps used here or sheets. has not started any new medications. less likely to be fixed drug reaction. -due to surface area will give short steroid course 40mg x5days. -wash skin with mild soap and water. -nystatin powder to skin folds and groin. keep fold areas dry. -if does not improve can follow up with dermatology as outpatient #Dementia w/ Functional quadriplegia -baseline mental status non-verbal, non- participatory, fully dependent - currently close to baseline as per . unable to mobilize. winces but does not withdraw to pain stimuli. No tracking. Does not follow commands. requires someone to feed him at home. #Hypernatremia 2/2 dehydration - resolved with IV hydration. 157...149..147...145...143 -received 2L NS in ED -off IVF, free water via tube feeds -EKG shows prolonged QT 474, NSR, Left Anterior fasicular block #HTN - currently ctl c/w Nifedipine 60mg qd #Complex Cyst L Kidney - renal function normal. For further work-up as an out- patient. -tolerating PEG feeds and dcd to SNF but family appealing dc -pt is medically optimized for discharge at this time. informed in detail about plan and reassured that rash should improve that this can be monitored at facility and if does not improve follow up with dermatology as outpatient. awaiting to hear on appeal Minutes to complete discharge: 39 Discharge Summary Reason For Visit: DEHYDRATION Current Active Problems Anorexia (Acute) Dehydration (Acute) Pneumonia (Acute) Condition: Guarded - Instructions Diet, Activity, Other Instructions: you came into the hospital because you were unable to swallow food and you were aspirating food into your lungs causing a pneumonia. we gave you antibiotics to treat your pneumonia. you were see by speech therapist, and it was determined that it would be unsafe for you to continue eating with your mouth. during your stay, Interventional radiologist placed a PEG tube to your stomach. this will allow you to receive nutrition and your medicine. CT scan noted a fluid Cyst/mass on your Left Kidney - Please discuss with your primary care physician about further work-up as an out-patient. Tube Feeds: Jevity 1.5. 55cc/H with 35cc of water flushes every hour we have increased your nifedipine to 60mg qd for better blood pressure control please continue using nystatin powder for rash please continue taking prednisone 40mg once a day for 4 days for rash Please resume your home meds Please follow up with your primary care physician within 1 week. Please follow up Infectious disease Dr Mejia within 1 week if you continue to spike fevers Please follow up with Interventional radiologist Dr Davenport within 1 week if the PEG tube becomes dislodged or stops working. Please follow up [employer] Dr Amaya within 1 week if rash does not improve with prednisone and nystatin Referrals: Ellen Amaya MD [Staff Physician] - 1 Week Manuel Davenport MD [Staff Physician] - 1 Week Elise Mejia MD [Staff Physician] - 1 Week [facility]position: [facility] - Home Medications Comprehensive Discharge Medication List: Ambulatory Orders Albuterol 0.083% Nebulizer Elizabeth [Ventolin 0.083% Nebulizer Soln -] 1 neb NEB TID 12/29/17 Ipratropium 0.02% Nebulizer [Atrovent 0.02% Nebulizer -] 0.5 mg IH BID 12/29/17 Tamsulosin HCl 0.4 mg PO DAILY 12/29/17 Vitamin A & D Top Oint - 1 applic TP DAILY 12/29/17 Acetaminophen [Tylenol] 650 mg PEG PRN PRN #0 tab 12/09/18 Cyanocobalamin (Vitamin B-12) [Vitamin B-12] 1,000 mcg PEG DAILY 30 Days #0 cap 12/09/18 Docusate Sodium [Colace] 200 mg PEG HS #0 cap 12/09/18 Ferrous Sulfate 325 mg PEG BID #0 tab 12/09/18 Folic Acid 1 mg PEG DAILY #0 tab 12/09/18 Levetiracetam 1,000 mg PEG BID #0 tab 12/09/18 Nifedipine ER [Procardia XL -] 30 mg PEG DAILY #30 tab.er.24 12/09/18 Nifedipine ER [Procardia XL -] 60 mg PEG DAILY tab.er.24 12/09/18 Valproate Sodium Liquid [Depakene Oral Solution -] 500 mg PEG BID #0 ml - Discharge Referral Referred to [facility] No
[2018-12-12] MEDS: TAMSULOSIN HCL 0.4 MG CAP PO SCH (08:56)
[2018-12-12] MEDS ORDERED: PT OWN MED DRAWER 7, Y5N ONE ×2 (10:04→22:44)
[2018-12-12] MEDS: levETIRAcetam 500 MG/5 ML ORAL SOLUTION (UNIT-DOSE CUPS) PEG SCH ×2 (10:07→22:48)
[2018-12-12] MEDS: predniSONE 20 MG TABLET (UD) PEG SCH (10:07)
[2018-12-12] MEDS: VALPROATE SODIUM 250 MG/5 ML UNIT DOSE CUP PEG SCH ×2 (10:07→22:48)
[2018-12-12] MEDS: NYSTATIN POWDER 100,000 UNITS/GM - 15 GM TOPICAL POWDER TP SCH (10:15)
[2018-12-12] MEDS: VITAMINS A AND D TOPICAL OINTMENT 60 GM TUBE TP SCH (10:15)
[2018-12-12] MEDS: NYSTATIN 100,000 UNIT/GM TOPICAL CREAM 15 GM TUBE TP SCH ×2 (10:15→22:48)
[2018-12-12] MEDS: ALBUTEROL SO4 0.083% IH SOL 2.5 MG/3 ML VIAL.NEB. NEB PRN (11:40)
--- NOTE | 2018-12-12 13:34 | PN ---
Teaching Attending Note Name of Resident: Jonh Echavarria ATTENDING PHYSICIAN STATEMENT I saw and evaluated the patient. I reviewed the resident's note and discussed the case with the resident. I agree with the resident's findings and plan as documented. SUBJECTIVE:resting comfortable OBJECTIVE: Last Vital Signs Temp Pulse Resp BP Pulse Ox 97.3 F L 58 L 20 129/67 97 12/12/18 06:26 12/12/18 09:44 12/12/18 09:44 12/12/18 09:44 12/10/18 21:00 General NAD, resting comfortable, spontaneous eye opening skin papular pustular rash with surrounding erythema noted on both flanks and on the back, also noted in the axilla skin fold and sporadically across the abdomen. some pustules noted with desquamation. ASSESSMENT AND PLAN: 68 year old Male with Dementia, Seizure Disorder, COPD, Nephrolithiasis, Hx UTI , presented to ED by his daughter with reports of increasing lethargy, decreased oral intake, fever, chills. patient was found to be septic due to aspiration PNA, bacteremic and UTI 1. Sepsis secondary to Aspiration Pneumonia with Bacteremia + UTI - Sepsis resolved. completed abx course. 2. Dermatitis-possible allergic reaction to soaps used here or sheets. has not started any new medications. no mucosal involvement. since its dependent areas more likely due to contact with allergen vs moisture in the skin. will cont with prednione x5 days, nystatin powder. washing daily with mild soap and water. had another medical attending evlaute patient with me and agree with assessment. if does not improve can follow up with dermatology as outpatient 3. Dysphagia- s/p PEG on 12/07. PEG confirmed placement. tolerating TF. monitor residuals 4. Hypernatremia- resolved 5. Seizure- no reported episodes. cont home regimen 6. BPH- flomax 7. dementia with functional quadriplegia- at baseline 8. COPD- stable. cont inhalers 9. HTN- controlled 10. DVT ppx- hep sq 11.pt is medically optimized for discharge at this time. spoke with again wtih Dr Foster who reviewed the rash as well and agreed with plan at this time. Awaiting Ipro decision
--- NOTE | 2018-12-12 15:30 | PN ---
Physical Exam: SUBJECTIVE: Patient seen and examined at bedside. no acute events overnight. s/ p PEG placement w/o issues, placement confirmed and tolerating feeds. nonverbal , comfortable. opens eyes spontaneously. No tracking. Does not follow commands. Intermittent myoclonic jerks (baseline). per family pt at baseline. pt was to be dcd but family appealed nystatin, prednisone day 2 of 5 for rash/dermatitis OBJECTIVE: Vital Signs Period Temp Pulse Resp BP Sys/Cortes Pulse Ox Last 24 Hr 97.0 F-98.5 F 58-92 18-20 108-143/67-78 GENERAL: Awake, alert, nonverbal, unable to maintain eye contact. intermittent myoclonic jerks (baseline) HEAD: NCAT EYES: Pupils equal, round and reactive to light, sclera anicteric, conjunctiva cloudy. No lid lag. EARS, NOSE, THROAT: nares patent, difficult to open Pt.s mouth, copious secretions noted. MMM NECK: supple without lymphadenopathy, JVD, or masses. LUNGS: Wet sounding cough, decreased breath sounds, transmitted upper airway sounds. No accessory muscle use. HEART: RRR, normal S1 and S2 without murmur ABDOMEN: Soft, NTND, normoactive bowel sounds, no guarding, no rebound, no masses. +PEG MUSCULOSKELETAL: No CVA tenderness. UPPER EXTREMITIES: 2+ radial pulses, warm, well-perfused. No cyanosis. No clubbing. No peripheral edema. LOWER EXTREMITIES: 2+ pulses, warm, well-perfused. No calf tenderness. No peripheral edema. NEUROLOGICAL: opens eyes spontaneously. No tracking. Does not follow commands. Intermittent myoclonic jerks (baseline). winces but does not withdraw to pain stimuli. PSYCHIATRIC: Demented SKIN: skin papular rash noted on both flanks and on the back, also noted in square distribution surrounding PEG as well as on the RUE in square surrounding old catheter site. also noted in the axilla skin fold and sporadically across the abdomen. some pustules noted with desquamation. Active Medications Generic Name Dose Route Start Last Admin Trade Name Freq PRN Reason Stop Dose Admin Albuterol Sulfate 1 amp 11/29/18 18:15 12/12/18 11:40 Ventolin 0.083% Nebulizer Soln - NEB 1 amp Q6H PRN Administration SHORT OF BREATH/WHEEZING Heparin Sodium (Porcine) 5,000 unit 11/29/18 14:00 12/12/18 14:45 Heparin - SQ 5,000 unit TID CARA Administration Levetiracetam 1,000 mg 12/10/18 22:00 12/12/18 10:07 Keppra Oral Solution - PEG 1,000 mg BID CARA Administration Nystatin 1 applic 12/09/18 22:00 12/11/18 23:16 Mycostatin Cream - TP 1 applic BID CARA Administration Nystatin 1 applic 12/10/18 10:30 12/11/18 11:45 Nystop Powder - TP 1 applic DAILY CARA Administration Prednisone 40 mg 12/12/18 10:00 12/12/18 10:07 Deltasone - PEG 12/15/18 23:59 40 mg DAILY CARA Administration Tamsulosin HCl 0.4 mg 11/29/18 08:30 12/12/18 08:56 Flomax - PO 0.4 mg DAILY@0830 CARA Administration Valproate Sodium 500 mg 12/10/18 22:00 12/12/18 10:07 Depakene - PEG 500 mg BID CARA Administration Vitamin A/Vitamin D 1 applic 11/29/18 10:00 12/12/18 10:15 Vitamin A & D Top Oint - TP 1 applic DAILY CARA Administration [id number] CT/CHEST CT WITHOUT CONTRAST INDICATION: Shortness of breath TECHNIQUE: Helical images of the chest were obtained noncontrast . COMPARISON: None FINDINGS: LUNGS: Dependent atelectasis present at both bases, superimposed infiltrate especially at the right base cannot be excluded. There is motion artifact. No suspicious lung nodules are appreciated. No endobronchial lesions seen. PLEURA: Negative MEDIASTINUM: Negative CARDIAC: Normal sized heart. No pericardiac effusion. OTHER: Visualized portions of the adrenals appear unremarkable. Hyperdense subcortical cysts noted within the last image of the upper pole of the left kidney. This is not fully evaluated on this study. Kyphoscoliosis is seen. No aggressive bone lesions identified. Soft tissue calcification around the right shoulder suggests possibility of ligamentous calcifications, correlate with MR imaging as clinically warranted. Preliminary dictation was generated by the on-call radiologist at the time of this procedure. IMPRESSION: Atelectasis/infiltration worse on the right as discussed above. Complex cystic lesion upper pole of the left kidney not fully evaluated on the present study. ASSESSMENT/PLAN: 68 y.o. M w/ PMHx. of BPH,HTN, COPD, paranoid schizophrenia with 10 year progressive cognitive decline c/w Alzheimer's Disease (non-verbal) punctuated by the development of seizures, Nephrolithiasis, Hx UTI, p/w 2 weeks of decreased PO intake, increasing lethargy, and intermittent fevers. s/p PEG #Sepsis 2/2 Aspiration Pnemonia with Bacteremia + UTI - afebrile but w/ Tachycardia, tachypnea, and leukocytosis at presentation - resolved -CT Chest - bibasal atelectasis/infiltrate, R>L -Blood Cx positive for coag neg staph in one bottle - likely contaminant as repeat cx are neg -Urine Cx positive for EColi -legionella neg. -s/p Ceftriaxone and Azithromycin in ED -s/p 7 days total abx tx, Abx initially Unasyn/Doxy and then changed to Ceftriaxone/Flagyl. -ID consult -Swallow eval - not able to take anything by mouth currently -GI attempted but unable to do PEG, and recommended IR. s/p PEG 12/07/18 by IR, PEG placement confirmed and tube feeds resumed. -Nutrition consulted for tube feed recommendations -Palliative Care eval for goals of care -tolerating PEG feeds and dcd to SNF but family appealing dc #Failure to Thrive 2/2 Dysphagia -s/p PEG on 12/07. PEG confirmed placement. c/w TF. monitor residuals -aspiration precautions -Swallow eval - not able to take anything by mouth currently -Palliative Care eval requested for goals of care -GI attempted but unable to do PEG, and recommended IR. s/p PEG on 12/07. PEG confirmed placement. c/w TF. monitor residuals -Nutrition consulted for tube feed recommendations tolerating PEG feeds and dcd to SNF but family appealing dc #Dermatitis- possible allergic reaction to soaps used here or sheets. has not started any new medications. less likely to be fixed drug reaction. -due to surface area will give short steroid course 40mg x5days (day 2 of 5). -wash skin with mild soap and water. -nystatin powder to skin folds and groin. keep fold areas dry. -if does not improve can follow up with dermatology as outpatient #Dementia w/ Functional quadriplegia -baseline mental status non-verbal, non- participatory, fully dependent - currently close to baseline as per . unable to mobilize. winces but does not withdraw to pain stimuli. No tracking. Does not follow commands. requires someone to feed him at home. #Hypernatremia 2/2 dehydration - resolved with IV hydration. 157...149..147...145...143 -received 2L NS in ED -off IVF, free water via tube feeds -EKG shows prolonged QT 474, NSR, Left Anterior fasicular block #HTN - currently ctl c/w Nifedipine 60mg qd #Seizure Disorder - Continue Keppra, Valproate IV #BPH - Continue Tamsulosin #COPD - Stable. No evidence of acute exacerbation. Continue Albuterol prn. #Complex Cyst L Kidney - renal function normal. For further work-up as an out- patient. FEN off IVF, free water via tube feeds replete prn TF Jevity 1.5, s/p PEG 12/07/18 by IR, PEG placement confirmed and tube feeds resumed. #DVT Ppx. -HepSQ TID Dispo M/S -s/p PEG 12/07/18 by IR, PEG placement confirmed -tolerating PEG feeds and dcd to SNF but family appealing dc -pt is medically optimized for discharge at this time. informed in detail about plan and reassured that rash should improve that this can be monitored at facility and if does not improve follow up with dermatology as outpatient. awaiting to hear on appeal/Ipro decision Visit type - Emergency Visit Emergency Visit: Yes ED Registration Date: 11/28/18 Care time: The patient presented to the Emergency Department on the above date and was hospitalized for further evaluation of their emergent condition. - New Patient This patient is new to me today: Yes Date on this admission: 12/12/18 - Critical Care Critical Care patient: No
[2018-12-12] MEDS ORDERED: LOPERAMIDE HCL 1 MG/5 ML UNIT DOSE CUP PEG ONE (18:30)
[2018-12-12] MEDS: BANATROL PLUS POWDER PACKET PEG SCH (22:48)
[2018-12-13] MEDS: HEPARIN NA (PORCINE) 5,000 UNITS/ML 1ML VIAL SQ SCH ×3 (06:26→23:25)
[2018-12-13] MEDS: BANATROL PLUS POWDER PACKET PEG SCH ×3 (06:28→23:24)
[2018-12-13] MEDS: TAMSULOSIN HCL 0.4 MG CAP PO SCH (09:50)
[2018-12-13] MEDS ORDERED: PT OWN MED DRAWER 7, Y5N ONE (09:52)
[2018-12-13] MEDS: VALPROATE SODIUM 250 MG/5 ML UNIT DOSE CUP PEG SCH ×2 (10:04→23:24)
[2018-12-13] MEDS: predniSONE 20 MG TABLET (UD) PEG SCH (10:04)
[2018-12-13] MEDS: levETIRAcetam 500 MG/5 ML ORAL SOLUTION (UNIT-DOSE CUPS) PEG SCH ×2 (10:05→23:25)
[2018-12-13] MEDS: VITAMINS A AND D TOPICAL OINTMENT 60 GM TUBE TP SCH (11:59)
[2018-12-13] MEDS: NYSTATIN POWDER 100,000 UNITS/GM - 15 GM TOPICAL POWDER TP SCH (11:59)
[2018-12-13] MEDS: NYSTATIN 100,000 UNIT/GM TOPICAL CREAM 15 GM TUBE TP SCH ×2 (11:59→23:25)
--- NOTE | 2018-12-13 14:47 | PN ---
Teaching Attending Note Name of Resident: Jonh Echavarria ATTENDING PHYSICIAN STATEMENT I saw and evaluated the patient. I reviewed the resident's note and discussed the case with the resident. I agree with the resident's findings and plan as documented. SUBJECTIVE: Non-verbal, non-participatory OBJECTIVE: Afebrile, Hemodynamically Stable. Last Vital Signs Temp Pulse Resp BP Pulse Ox 98.1 F 64 17 102/56 L 99 12/13/18 06:00 12/13/18 06:00 12/13/18 06:00 12/13/18 06:00 12/12/18 21:00 HEENT - Atraumatic, Normocephalic, [place] Heart - S1, S2, RRR Lungs - bibasal crackles Abdomen - Soft, Bowel Sounds normal. PEG in situ. Extremities - no calf tenderness Skin - Scaly rash LUQ and RLQ, no sign of infection/cellulitis Neuro - Opens eyes spontaneously. Does not follow commands. Intermittent myoclonic jerks when awake. Current Medications Generic Name Dose Route Start Last Admin Trade Name Freq PRN Reason Stop Dose Admin Albuterol Sulfate 1 amp 11/29/18 18:15 12/12/18 11:40 Ventolin 0.083% Nebulizer Soln - NEB 1 amp Q6H PRN Administration SHORT OF BREATH/WHEEZING Heparin Sodium (Porcine) 5,000 unit 11/29/18 14:00 12/13/18 14:21 Heparin - SQ 5,000 unit TID CARA Administration Levetiracetam 1,000 mg 12/10/18 22:00 12/13/18 10:05 Keppra Oral Solution - PEG 1,000 mg BID CARA Administration Nystatin 1 applic 12/09/18 22:00 12/13/18 11:59 Mycostatin Cream - TP 1 applic BID CARA Administration Nystatin 1 applic 12/10/18 10:30 12/13/18 11:59 Nystop Powder - TP 1 applic DAILY CARA Administration Prednisone 40 mg 12/12/18 10:00 12/13/18 10:04 Deltasone - PEG 12/15/18 23:59 40 mg DAILY CARA Administration Tamsulosin HCl 0.4 mg 11/29/18 08:30 12/13/18 09:50 Flomax - PO Not Given DAILY@0830 CARA Valproate Sodium 500 mg 12/10/18 22:00 12/13/18 10:04 Depakene - PEG 500 mg BID CARA Administration Vitamin A/Vitamin D 1 applic 11/29/18 10:00 12/13/18 11:59 Vitamin A & D Top Oint - TP 1 applic DAILY CARA Administration ASSESSMENT AND PLAN: 68 year old Male with Dementia, Seizure Disorder, COPD, Nephrolithiasis, Hx UTI , presented to ED by his daughter with reports of increasing lethargy, decreased oral intake, fever, chills, found to be septic due to aspiration PNA, with bacteremia and UTI. 1. Sepsis secondary to Aspiration Pneumonia with Bacteremia + UTI - Sepsis resolved. CT Chest - bibasal atelectasis/infiltrate, R>L. Completed Abx course. Blood Cx positive for coag neg staph in one bottle - likely contaminant. Repeat BCx negative x 2. Urine Cx positive for EColi s/p PEG - feeds ongoing 2. Dermatitis - possibly allergic reaction to soaps used here or sheets. No new meds/recent med changes. no mucosal involvement. Being treated with Prednisone. If no improvement, can follow with Dermatology as out-patient. 3. Dysphagia - s/p PEG on 12/07. Tolerating feeds. 4. Seizure Disorder - Continue Keppra, Valproate. 5. BPH - Continue Flomax 6. Dementia with Functional Quadriplegia -needs supportive care - awaiting transfer to Nursing Facility. PEG feeds. 7. Complex Cyst L Kidney - renal function normal. For further work-up as an out- patient. 8. COPD - Stable. No evidence of acute exacerbation. Continue Albuterol prn. 9. HTN - Previously on Nifedipine. 10. Hypernatremia - sec to dehydration - resolved. Free water with PEG feeds. DVT Px - Heparin SQ Dispo - awaiting transfer to nursing facility
--- NOTE | 2018-12-13 17:51 | PN ---
Physical Exam: SUBJECTIVE: Patient seen and examined at bedside. no acute events overnight. s/ p PEG placement w/o issues, placement confirmed and tolerating feeds. nonverbal , comfortable. opens eyes spontaneously. No tracking. Does not follow commands. Intermittent myoclonic jerks (baseline). per family pt at baseline. pt was to be dcd but family appealed nystatin, prednisone day 3 of 5 for rash/dermatitis OBJECTIVE: Vital Signs Period Temp Pulse Resp BP Sys/Cortes Pulse Ox Last 24 Hr 97.9 F-98.6 F 64-91 16-24 102-139/47-87 96-99 GENERAL: Awake, alert, nonverbal, unable to maintain eye contact. intermittent myoclonic jerks (baseline) HEAD: NCAT EYES: Pupils equal, round and reactive to light, sclera anicteric, conjunctiva cloudy. No lid lag. EARS, NOSE, THROAT: nares patent, difficult to open Pt.s mouth, copious secretions noted. MMM NECK: supple without lymphadenopathy, JVD, or masses. LUNGS: Wet sounding cough, decreased breath sounds, transmitted upper airway sounds. No accessory muscle use. HEART: RRR, normal S1 and S2 without murmur ABDOMEN: Soft, NTND, normoactive bowel sounds, no guarding, no rebound, no masses. +PEG MUSCULOSKELETAL: No CVA tenderness. UPPER EXTREMITIES: 2+ radial pulses, warm, well-perfused. No cyanosis. No clubbing. No peripheral edema. LOWER EXTREMITIES: 2+ pulses, warm, well-perfused. No calf tenderness. No peripheral edema. NEUROLOGICAL: opens eyes spontaneously. No tracking. Does not follow commands. Intermittent myoclonic jerks (baseline). winces but does not withdraw to pain stimuli. PSYCHIATRIC: Demented SKIN: skin papular rash noted on both flanks and on the back, also noted in square distribution surrounding PEG as well as on the RUE in square surrounding old catheter site. also noted in the axilla skin fold and sporadically across the abdomen. some pustules noted with desquamation. Active Medications Generic Name Dose Route Start Last Admin Trade Name Freq PRN Reason Stop Dose Admin Albuterol Sulfate 1 amp 11/29/18 18:15 12/12/18 11:40 Ventolin 0.083% Nebulizer Soln - NEB 1 amp Q6H PRN Administration SHORT OF BREATH/WHEEZING Heparin Sodium (Porcine) 5,000 unit 11/29/18 14:00 12/13/18 14:21 Heparin - SQ 5,000 unit TID CARA Administration Levetiracetam 1,000 mg 12/10/18 22:00 12/13/18 10:05 Keppra Oral Solution - PEG 1,000 mg BID CARA Administration Nystatin 1 applic 12/09/18 22:00 12/13/18 11:59 Mycostatin Cream - TP 1 applic BID CARA Administration Nystatin 1 applic 12/10/18 10:30 12/13/18 11:59 Nystop Powder - TP 1 applic DAILY CARA Administration Prednisone 40 mg 12/12/18 10:00 12/13/18 10:04 Deltasone - PEG 12/15/18 23:59 40 mg DAILY CARA Administration Tamsulosin HCl 0.4 mg 11/29/18 08:30 12/13/18 09:50 Flomax - PO Not Given DAILY@0830 CARA Valproate Sodium 500 mg 12/10/18 22:00 12/13/18 10:04 Depakene - PEG 500 mg BID CARA Administration Vitamin A/Vitamin D 1 applic 11/29/18 10:00 12/13/18 11:59 Vitamin A & D Top Oint - TP 1 applic DAILY CARA Administration [id number] CT/CHEST CT WITHOUT CONTRAST INDICATION: Shortness of breath TECHNIQUE: Helical images of the chest were obtained noncontrast . COMPARISON: None FINDINGS: LUNGS: Dependent atelectasis present at both bases, superimposed infiltrate especially at the right base cannot be excluded. There is motion artifact. No suspicious lung nodules are appreciated. No endobronchial lesions seen. PLEURA: Negative MEDIASTINUM: Negative CARDIAC: Normal sized heart. No pericardiac effusion. OTHER: Visualized portions of the adrenals appear unremarkable. Hyperdense subcortical cysts noted within the last image of the upper pole of the left kidney. This is not fully evaluated on this study. Kyphoscoliosis is seen. No aggressive bone lesions identified. Soft tissue calcification around the right shoulder suggests possibility of ligamentous calcifications, correlate with MR imaging as clinically warranted. Preliminary dictation was generated by the on-call radiologist at the time of this procedure. IMPRESSION: Atelectasis/infiltration worse on the right as discussed above. Complex cystic lesion upper pole of the left kidney not fully evaluated on the present study. ASSESSMENT/PLAN: 68 y.o. M w/ PMHx. of BPH,HTN, COPD, paranoid schizophrenia with 10 year progressive cognitive decline c/w Alzheimer's Disease (non-verbal) punctuated by the development of seizures, Nephrolithiasis, Hx UTI, p/w 2 weeks of decreased PO intake, increasing lethargy, and intermittent fevers. s/p PEG #Sepsis 2/2 Aspiration Pnemonia with Bacteremia + UTI - afebrile but w/ Tachycardia, tachypnea, and leukocytosis at presentation - resolved -CT Chest - bibasal atelectasis/infiltrate, R>L -Blood Cx positive for coag neg staph in one bottle - likely contaminant as repeat cx are neg -Urine Cx positive for EColi -legionella neg. -s/p Ceftriaxone and Azithromycin in ED -s/p 7 days total abx tx, Abx initially Unasyn/Doxy and then changed to Ceftriaxone/Flagyl. -ID consult -Swallow eval - not able to take anything by mouth currently -GI attempted but unable to do PEG, and recommended IR. s/p PEG 12/07/18 by IR, PEG placement confirmed and tube feeds resumed. -Nutrition consulted for tube feed recommendations -Palliative Care eval for goals of care -tolerating PEG feeds and dcd to SNF but family appealing dc #Failure to Thrive 2/2 Dysphagia -s/p PEG on 12/07. PEG confirmed placement. c/w TF. monitor residuals -aspiration precautions -Swallow eval - not able to take anything by mouth currently -Palliative Care eval requested for goals of care -GI attempted but unable to do PEG, and recommended IR. s/p PEG on 12/07. PEG confirmed placement. c/w TF. monitor residuals -Nutrition consulted for tube feed recommendations tolerating PEG feeds and dcd to SNF but family appealing dc #Dermatitis- possible allergic reaction to soaps used here or sheets. has not started any new medications. less likely to be fixed drug reaction. appears to be improving -due to surface area will give short steroid course 40mg x5days (day 3 of 5). -wash skin with mild soap and water. -nystatin powder to skin folds and groin. keep fold areas dry. -if does not improve can follow up with dermatology as outpatient #Dementia w/ Functional quadriplegia -baseline mental status non-verbal, non- participatory, fully dependent - currently close to baseline as per . unable to mobilize. winces but does not withdraw to pain stimuli. No tracking. Does not follow commands. requires someone to feed him at home. #Hypernatremia 2/2 dehydration - resolved with IV hydration. 157...149..147...145...143 -received 2L NS in ED -off IVF, free water via tube feeds -EKG shows prolonged QT 474, NSR, Left Anterior fasicular block #HTN - currently ctl c/w Nifedipine 60mg qd #Seizure Disorder - Continue Keppra, Valproate IV #BPH - Continue Tamsulosin #COPD - Stable. No evidence of acute exacerbation. Continue Albuterol prn. #Complex Cyst L Kidney - renal function normal. For further work-up as an out- patient. FEN off IVF, free water via tube feeds replete prn TF Jevity 1.5, s/p PEG 12/07/18 by IR, PEG placement confirmed and tube feeds resumed. #DVT Ppx. -HepSQ TID Dispo M/S -s/p PEG 12/07/18 by IR, PEG placement confirmed -tolerating PEG feeds and dcd to SNF but family appealing dc -pt is medically optimized for discharge at this time. informed in detail about plan and reassured that rash should improve that this can be monitored at facility and if does not improve follow up with dermatology as outpatient. awaiting to hear on appeal/Ipro decision Visit type - Emergency Visit Emergency Visit: Yes ED Registration Date: 11/28/18 Care time: The patient presented to the Emergency Department on the above date and was hospitalized for further evaluation of their emergent condition. - New Patient This patient is new to me today: Yes Date on this admission: 12/13/18 - Critical Care Critical Care patient: No
[2018-12-14] MEDS: HEPARIN NA (PORCINE) 5,000 UNITS/ML 1ML VIAL SQ SCH ×3 (06:30→22:20)
[2018-12-14] MEDS: BANATROL PLUS POWDER PACKET PEG SCH ×3 (06:30→22:23)
--- NOTE | 2018-12-14 07:07 | PN ---
Physical Exam: SUBJECTIVE: Patient seen and examined at bedside. no acute events overnight. s/ p PEG placement w/o issues, placement confirmed and tolerating feeds. nonverbal , comfortable. opens eyes spontaneously. No tracking. Does not follow commands. Intermittent myoclonic jerks (baseline). per family pt at baseline. pt was to be dcd but family appealed, awaiting NH placement nystatin, prednisone day 4 of 5 for rash/dermatitis OBJECTIVE: Vital Signs Period Temp Pulse Resp BP Sys/Cortes Pulse Ox Last 24 Hr 98.0 F-98.5 F 68-87 16-24 105-136/62-78 96-97 GENERAL: Awake, alert, nonverbal, unable to maintain eye contact. intermittent myoclonic jerks (baseline) HEAD: NCAT EYES: Pupils equal, round and reactive to light, sclera anicteric, conjunctiva cloudy. No lid lag. EARS, NOSE, THROAT: nares patent, difficult to open Pt.s mouth, copious secretions noted. MMM NECK: supple without lymphadenopathy, JVD, or masses. LUNGS: Wet sounding cough, decreased breath sounds, transmitted upper airway sounds. No accessory muscle use. HEART: RRR, normal S1 and S2 without murmur ABDOMEN: Soft, NTND, normoactive bowel sounds, no guarding, no rebound, no masses. +PEG UPPER EXTREMITIES: 2+ radial pulses, warm, well-perfused. No cyanosis. No clubbing. No peripheral edema. LOWER EXTREMITIES: 2+ pulses, warm, well-perfused. No calf tenderness. No peripheral edema. NEUROLOGICAL: opens eyes spontaneously. No tracking. Does not follow commands. Intermittent myoclonic jerks (baseline). winces but does not withdraw to pain stimuli. PSYCHIATRIC: Demented SKIN: skin papular rash noted on both flanks and on the back, also noted in square distribution surrounding PEG as well as on the RUE in square surrounding old catheter site. also noted in the axilla skin fold and sporadically across the abdomen. some pustules noted with desquamation. Active Medications Generic Name Dose Route Start Last Admin Trade Name Freq PRN Reason Stop Dose Admin Albuterol Sulfate 1 amp 11/29/18 18:15 12/12/18 11:40 Ventolin 0.083% Nebulizer Soln - NEB 1 amp Q6H PRN Administration SHORT OF BREATH/WHEEZING Heparin Sodium (Porcine) 5,000 unit 11/29/18 14:00 12/14/18 06:30 Heparin - SQ 5,000 unit TID CARA Administration Levetiracetam 1,000 mg 12/10/18 22:00 12/13/18 23:25 Keppra Oral Solution - PEG 1,000 mg BID CARA Administration Nystatin 1 applic 12/09/18 22:00 12/13/18 23:25 Mycostatin Cream - TP 1 applic BID CARA Administration Nystatin 1 applic 12/10/18 10:30 12/13/18 11:59 Nystop Powder - TP 1 applic DAILY CRAA Administration Prednisone 40 mg 12/12/18 10:00 12/13/18 10:04 Deltasone - PEG 12/15/18 23:59 40 mg DAILY CARA Administration Tamsulosin HCl 0.4 mg 11/29/18 08:30 12/13/18 09:50 Flomax - PO Not Given DAILY@0830 CARA Valproate Sodium 500 mg 12/10/18 22:00 12/13/18 23:24 Depakene - PEG 500 mg BID CARA Administration Vitamin A/Vitamin D 1 applic 11/29/18 10:00 12/13/18 11:59 Vitamin A & D Top Oint - TP 1 applic DAILY CARA Administration [id number] CT/CHEST CT WITHOUT CONTRAST INDICATION: Shortness of breath TECHNIQUE: Helical images of the chest were obtained noncontrast . COMPARISON: None FINDINGS: LUNGS: Dependent atelectasis present at both bases, superimposed infiltrate especially at the right base cannot be excluded. There is motion artifact. No suspicious lung nodules are appreciated. No endobronchial lesions seen. PLEURA: Negative MEDIASTINUM: Negative CARDIAC: Normal sized heart. No pericardiac effusion. OTHER: Visualized portions of the adrenals appear unremarkable. Hyperdense subcortical cysts noted within the last image of the upper pole of the left kidney. This is not fully evaluated on this study. Kyphoscoliosis is seen. No aggressive bone lesions identified. Soft tissue calcification around the right shoulder suggests possibility of ligamentous calcifications, correlate with MR imaging as clinically warranted. Preliminary dictation was generated by the on-call radiologist at the time of this procedure. IMPRESSION: Atelectasis/infiltration worse on the right as discussed above. Complex cystic lesion upper pole of the left kidney not fully evaluated on the present study. ASSESSMENT/PLAN: 68 y.o. M w/ PMHx. of BPH,HTN, COPD, paranoid schizophrenia with 10 year progressive cognitive decline c/w Alzheimer's Disease (non-verbal) punctuated by the development of seizures, Nephrolithiasis, Hx UTI, p/w 2 weeks of decreased PO intake, increasing lethargy, and intermittent fevers. s/p PEG #Sepsis 2/2 Aspiration Pnemonia with Bacteremia + UTI - afebrile but w/ Tachycardia, tachypnea, and leukocytosis at presentation - resolved -CT Chest - bibasal atelectasis/infiltrate, R>L -Blood Cx positive for coag neg staph in one bottle - likely contaminant as repeat cx are neg -Urine Cx positive for EColi -legionella neg. -s/p Ceftriaxone and Azithromycin in ED -s/p 7 days total abx tx, Abx initially Unasyn/Doxy and then changed to Ceftriaxone/Flagyl. -ID consult -Swallow eval - not able to take anything by mouth currently -GI attempted but unable to do PEG, and recommended IR. s/p PEG 12/07/18 by IR, PEG placement confirmed and tube feeds resumed. -Nutrition consulted for tube feed recommendations -Palliative Care eval for goals of care -tolerating PEG feeds and dcd to SNF but family appealed dc #Failure to Thrive 2/2 Dysphagia -s/p PEG on 12/07. PEG confirmed placement. c/w TF. monitor residuals -aspiration precautions -Swallow eval - not able to take anything by mouth currently -Palliative Care eval requested for goals of care -GI attempted but unable to do PEG, and recommended IR. s/p PEG on 12/07. PEG confirmed placement. c/w TF. monitor residuals -Nutrition consulted for tube feed recommendations tolerating PEG feeds and dcd to SNF but family appealed dc #Dermatitis- possible allergic reaction to soaps used here or sheets. has not started any new medications. less likely to be fixed drug reaction. appears to be improving -due to surface area will give short steroid course 40mg x5days (day 4 of 5). -wash skin with mild soap and water. -nystatin powder to skin folds and groin. keep fold areas dry. -if does not improve can follow up with dermatology as outpatient #Dementia w/ Functional quadriplegia -baseline mental status non-verbal, non- participatory, fully dependent - currently close to baseline as per . unable to mobilize. winces but does not withdraw to pain stimuli. No tracking. Does not follow commands. requires someone to feed him at home. #Hypernatremia 2/2 dehydration - resolved with IV hydration. 157...149..147...145...143 -received 2L NS in ED -off IVF, free water via tube feeds -EKG shows prolonged QT 474, NSR, Left Anterior fasicular block #HTN - currently ctl c/w Nifedipine 60mg qd #Seizure Disorder - Continue Keppra, Valproate IV #BPH - Continue Tamsulosin #COPD - Stable. No evidence of acute exacerbation. Continue Albuterol prn. #Complex Cyst L Kidney - renal function normal. For further work-up as an out- patient. FEN off IVF, free water via tube feeds replete prn TF Jevity 1.5, s/p PEG 12/07/18 by IR, PEG placement confirmed and tube feeds resumed. #DVT Ppx. -HepSQ TID Dispo M/S -s/p PEG 12/07/18 by IR, PEG placement confirmed -tolerating PEG feeds and dcd to SNF but family appealed dc, awaiting NH placement -pt is medically optimized for discharge at this time. informed in detail about plan and reassured that rash should improve that this can be monitored at facility and if does not improve follow up with dermatology as outpatient. awaiting to hear on appeal/Ipro decision Visit type - Emergency Visit Emergency Visit: Yes ED Registration Date: 11/28/18 Care time: The patient presented to the Emergency Department on the above date and was hospitalized for further evaluation of their emergent condition. - New Patient This patient is new to me today: Yes Date on this admission: 12/14/18 - Critical Care Critical Care patient: No
[2018-12-14] MEDS ORDERED: PT OWN MED DRAWER 7, Y5N ONE ×4 (10:42→22:01)
[2018-12-14] MEDS: predniSONE 20 MG TABLET (UD) PEG SCH (10:45)
[2018-12-14] MEDS: VALPROATE SODIUM 250 MG/5 ML UNIT DOSE CUP PEG SCH ×2 (10:46→22:21)
[2018-12-14] MEDS: TAMSULOSIN HCL 0.4 MG CAP PO SCH (10:46)
[2018-12-14] MEDS: NYSTATIN POWDER 100,000 UNITS/GM - 15 GM TOPICAL POWDER TP SCH (10:47)
[2018-12-14] MEDS: VITAMINS A AND D TOPICAL OINTMENT 60 GM TUBE TP SCH (10:47)
[2018-12-14] MEDS: levETIRAcetam 500 MG/5 ML ORAL SOLUTION (UNIT-DOSE CUPS) PEG SCH ×2 (10:47→22:21)
[2018-12-14] MEDS: NYSTATIN 100,000 UNIT/GM TOPICAL CREAM 15 GM TUBE TP SCH ×2 (10:47→23:28)
--- NOTE | 2018-12-14 12:10 | PN ---
Teaching Attending Note Name of Resident: Jonh Echavarria ATTENDING PHYSICIAN STATEMENT I saw and evaluated the patient. I reviewed the resident's note and discussed the case with the resident. I agree with the resident's findings and plan as documented. SUBJECTIVE: Non-verbal, non-participatory OBJECTIVE: Afebrile, Hemodynamically Stable. Oral Secretions++ Last Vital Signs Temp Pulse Resp BP Pulse Ox 97.2 F L 71 20 141/75 97 12/14/18 09:00 12/14/18 09:00 12/14/18 09:00 12/14/18 09:00 12/13/18 21:00 HEENT - Atraumatic, Normocephalic, [place] Heart - S1, S2, RRR Lungs - bibasal crackles Abdomen - Soft, Bowel Sounds normal. PEG in situ. Extremities - no calf tenderness Skin - Scaly rash LUQ and RLQ, improving, no sign of infection/cellulitis Neuro - Opens eyes spontaneously. Does not follow commands. Improvement in intermittent myoclonic jerks. Current Medications Generic Name Dose Route Start Last Admin Trade Name Freq PRN Reason Stop Dose Admin Albuterol Sulfate 1 amp 11/29/18 18:15 12/12/18 11:40 Ventolin 0.083% Nebulizer Soln - NEB 1 amp Q6H PRN Administration SHORT OF BREATH/WHEEZING Heparin Sodium (Porcine) 5,000 unit 11/29/18 14:00 12/14/18 06:30 Heparin - SQ 5,000 unit TID CARA Administration Levetiracetam 1,000 mg 12/10/18 22:00 12/14/18 10:47 Keppra Oral Solution - PEG 1,000 mg BID CARA Administration Nystatin 1 applic 12/09/18 22:00 12/14/18 10:47 Mycostatin Cream - TP 1 applic BID CARA Administration Nystatin 1 applic 12/10/18 10:30 12/14/18 10:47 Nystop Powder - TP 1 applic DAILY CARA Administration Prednisone 40 mg 12/12/18 10:00 12/14/18 10:45 Deltasone - PEG 12/15/18 23:59 40 mg DAILY CARA Administration Tamsulosin HCl 0.4 mg 11/29/18 08:30 12/14/18 10:46 Flomax - PO Not Given DAILY@0830 CARA Valproate Sodium 500 mg 12/10/18 22:00 12/14/18 10:46 Depakene - PEG 500 mg BID CARA Administration Vitamin A/Vitamin D 1 applic 11/29/18 10:00 12/14/18 10:47 Vitamin A & D Top Oint - TP 1 applic DAILY CARA Administration ASSESSMENT AND PLAN: 68 year old Male with Dementia, Seizure Disorder, COPD, Nephrolithiasis, Hx UTI , presented to ED by his daughter with reports of increasing lethargy, decreased oral intake, fever, chills, found to be septic due to aspiration PNA, with bacteremia and UTI. 1. Sepsis secondary to Aspiration Pneumonia with Bacteremia + UTI - Sepsis resolved. CT Chest - bibasal atelectasis/infiltrate, R>L. Blood Cx positive for coag neg staph in one bottle - likely contaminant. Repeat BCx negative x 2. Urine Cx positive for EColi Completed Abx course. Afebrile, Hemodynamically Stable. Failed swallow eval - currently s/p PEG - feeds ongoing 2. Dermatitis - possibly allergic reaction to soap. Rash improving. No new meds/ recent med changes. No mucosal involvement. Being treated with Prednisone - for 5 day course. If persistent, can follow with Dermatology as out-patient. 3. Dysphagia - s/p PEG on 12/07. Tolerating feeds. 4. Seizure Disorder - Continue Keppra, Valproate. 5. BPH - Continue Flomax 6. Dementia with Functional Quadriplegia - needs supportive care - awaiting transfer to Nursing Facility. PEG feeds ongoing. 7. Complex Cyst L Kidney - renal function normal. For further work-up as an out- patient. 8. COPD - Stable. No evidence of acute exacerbation. Continue Albuterol prn. 9. HTN - Previously on Nifedipine. BP now within acceptable limits off anti- hypertensive medications. 10. Hypernatremia - sec to dehydration - resolved. Free water with PEG feeds. DVT Px - Heparin SQ Dispo - Medically optimized, awaiting transfer to nursing facility
[2018-12-14] MEDS: ALBUTEROL SO4 0.083% IH SOL 2.5 MG/3 ML VIAL.NEB. NEB PRN (20:48)
[2018-12-15] MEDS: HEPARIN NA (PORCINE) 5,000 UNITS/ML 1ML VIAL SQ SCH (05:43)
[2018-12-15] MEDS: BANATROL PLUS POWDER PACKET PEG SCH (05:52)
[2018-12-15 06:47] VITALS: TEMP 97.9
[2018-12-15] MEDS: TAMSULOSIN HCL 0.4 MG CAP PO SCH (08:33)
[2018-12-15] MEDS ORDERED: PT OWN MED DRAWER 7, Y5N ONE (10:16)
[2018-12-15] MEDS: predniSONE 20 MG TABLET (UD) PEG SCH (10:36)
[2018-12-15] MEDS: VALPROATE SODIUM 250 MG/5 ML UNIT DOSE CUP PEG SCH (10:36)
[2018-12-15] MEDS: levETIRAcetam 500 MG/5 ML ORAL SOLUTION (UNIT-DOSE CUPS) PEG SCH (10:36)
[2018-12-15] MEDS: VITAMINS A AND D TOPICAL OINTMENT 60 GM TUBE TP SCH (10:37)
[2018-12-15] MEDS: NYSTATIN POWDER 100,000 UNITS/GM - 15 GM TOPICAL POWDER TP SCH (10:37)
[2018-12-15] MEDS: NYSTATIN 100,000 UNIT/GM TOPICAL CREAM 15 GM TUBE TP SCH (10:37)
--- NOTE | 2018-12-15 10:41 | DS ---
Physical Exam: SUBJECTIVE: Patient seen and examined at bedside. no acute events overnight. s/ p PEG placement w/o issues, placement confirmed and tolerating feeds. nonverbal , comfortable. opens eyes spontaneously. No tracking. Does not follow commands. Intermittent myoclonic jerks (baseline). per family pt at baseline. nystatin, s/p prednisone day 5 of 5 for rash/dermatitis, improving OBJECTIVE: Vital Signs Period Temp Pulse Resp BP Sys/Cortes Pulse Ox Last 24 Hr 97.9 F-98.6 F 53-74 18-18 100-120/51-78 97 PHYSICAL EXAM GENERAL: Awake, alert, nonverbal, unable to maintain eye contact. intermittent myoclonic jerks (baseline) HEAD: NCAT EYES: Pupils equal, round and reactive to light, sclera anicteric, conjunctiva cloudy. No lid lag. EARS, NOSE, THROAT: nares patent, difficult to open Pt.s mouth, copious secretions noted. MMM NECK: supple without lymphadenopathy, JVD, or masses. LUNGS: Wet sounding cough, decreased breath sounds, transmitted upper airway sounds. No accessory muscle use. HEART: RRR, normal S1 and S2 without murmur ABDOMEN: Soft, NTND, normoactive bowel sounds, no guarding, no rebound, no masses. +PEG MUSCULOSKELETAL: No CVA tenderness. UPPER EXTREMITIES: 2+ radial pulses, warm, well-perfused. No cyanosis. No clubbing. No peripheral edema. LOWER EXTREMITIES: 2+ pulses, warm, well-perfused. No calf tenderness. No peripheral edema. NEUROLOGICAL: opens eyes spontaneously. No tracking. Does not follow commands. Intermittent myoclonic jerks (baseline). winces but does not withdraw to pain stimuli. PSYCHIATRIC: Demented SKIN: skin papular rash noted on both flanks and on the back, also noted in square distribution surrounding PEG as well as on the RUE in square surrounding old catheter site. also noted in the axilla skin fold and sporadically across the abdomen. some pustules noted with desquamation. RASH IS MUCH IMPROVED W/ STEROID COURSE LABS -EKG prolonged QT 474, NSR, Left Anterior fasicular block 3173-4860 CT/CHEST CT WITHOUT CONTRAST INDICATION: Shortness of breath TECHNIQUE: Helical images of the chest were obtained noncontrast . COMPARISON: None FINDINGS: LUNGS: Dependent atelectasis present at both bases, superimposed infiltrate especially at the right base cannot be excluded. There is motion artifact. No suspicious lung nodules are appreciated. No endobronchial lesions seen. PLEURA: Negative MEDIASTINUM: Negative CARDIAC: Normal sized heart. No pericardiac effusion. OTHER: Visualized portions of the adrenals appear unremarkable. Hyperdense subcortical cysts noted within the last image of the upper pole of the left kidney. This is not fully evaluated on this study. Kyphoscoliosis is seen. No aggressive bone lesions identified. Soft tissue calcification around the right shoulder suggests possibility of ligamentous calcifications, correlate with MR imaging as clinically warranted. Preliminary dictation was generated by the on-call radiologist at the time of this procedure. IMPRESSION: Atelectasis/infiltration worse on the right as discussed above. Complex cystic lesion upper pole of the left kidney not fully evaluated on the present study. HOSPITAL COURSE: Date of Admission:11/28/18 Date of Discharge: 12/15/18 ASSESSMENT/PLAN: 68 y.o. M w/ PMHx. of BPH,HTN, COPD, paranoid schizophrenia with 10 year progressive cognitive decline c/w Alzheimer's Disease (non-verbal) punctuated by the development of seizures, Nephrolithiasis, Hx UTI, p/w 2 weeks of decreased PO intake, increasing lethargy, and intermittent fevers. s/p PEG Admitted for Sepsis 2/2 Aspiration PNA w/ Bacteremia? and UTI and progressive Failure to Thrive 2/2 Dysphagia 2/2 progressive dementia. pt afebrile but w/ Tachycardia, tachypnea, and leukocytosis at presentation. CT Chest - bibasal atelectasis/infiltrate, R>L, Urine Cx positive for EColi, Bcx positive for Staph Hominis Sub Sp Hominis in one bottle - likely contaminant as repeat cx are neg. legionella neg. ID consulted (Roberto) and pt tx w/ 7 days total IV abx (Abx initially Unasyn/Doxy, then changed to Ceftriaxone/Flagyl). sepsis resolved. pt evaluated by Speech and Swallow and determined unable to take anything by mouth/high risk aspiration. Palliative Care consulted for goals of care and family decided for PEG. PEG successfully placed by IR on 12/07/18, placement confirmed, Nutrition consulted, and tube feeds initiated (Jevity 1.5). pt tolerating feeds. #Dermatitis- improving. possible allergic reaction to soaps used here or sheets. has not started any new medications. less likely to be fixed drug reaction. -s/p steroid course 40mg x5days. -wash skin with mild soap and water. -c/w nystatin powder to skin folds and groin. keep fold areas dry. -if does not improve can follow up with dermatology as outpatient. pt given referral #Dementia w/ Functional quadriplegia -baseline mental status non-verbal, non- participatory, fully dependent - currently close to baseline as per . unable to mobilize. winces but does not withdraw to pain stimuli. No tracking. Does not follow commands. requires someone to feed him at home. #Hypernatremia 2/2 dehydration - resolved with IV hydration. 157...149..147...145...143 -received 2L NS in ED -off IVF, free water via tube feeds #HTN - currently ctl Nifedipine was increased from 30 to 60mg qd. c/w 60 at dc #Complex Cyst L Kidney - renal function normal. For further work-up as an out- patient. -pt is medically optimized for discharge at this time. informed in detail about plan and reassured that rash should improve that this can be monitored at facility and if does not improve follow up with dermatology as outpatient. ' s appeal of the dc was denied and [facility] Minutes to complete discharge: 39 Discharge Summary Reason For Visit: DEHYDRATION Current Active Problems Anorexia (Acute) Dehydration (Acute) Pneumonia (Acute) Condition: Guarded - Instructions Diet, Activity, Other Instructions: you came into the hospital because you were unable to swallow food and you were aspirating food into your lungs causing a pneumonia. we gave you antibiotics to treat your pneumonia. you were see by speech therapist, and it was determined that it would be unsafe for you to continue eating with your mouth. during your stay, Interventional radiologist placed a PEG tube to your stomach. this will allow you to receive nutrition and your medicine. CT scan noted a fluid Cyst/mass on your Left Kidney - Please discuss with your primary care physician about further work-up as an out-patient. Tube Feeds: Jevity 1.5. 55cc/H with 35cc of water flushes every hour we have increased your nifedipine to 60mg qd for better blood pressure control please continue using nystatin powder for rash. you have completed prednisone/ steroid course here and the rash is improving Please resume your home meds Please follow up with your primary care physician within 1 week. Please follow up Infectious disease Dr Mejia within 1 week if you continue to spike fevers Please follow up with Interventional radiologist Dr Davenport within 1 week if the PEG tube becomes dislodged or stops working. Please follow up Hospital Administrative Assistant Dr Amaya within 1 week if rash does not improve with prednisone and nystatin Referrals: Ellen Amaya MD [Staff Physician] - 1 Week Manuel Davenport MD [Staff Physician] - 1 Week Elise Mejia MD [Staff Physician] - 1 Week Disposition: CUSTODIAL FACILITY - Home Medications Comprehensive Discharge Medication List: Ambulatory Orders Albuterol 0.083% Nebulizer Elizabeth [Ventolin 0.083% Nebulizer Soln -] 1 neb NEB TID 12/29/17 Ipratropium 0.02% Nebulizer [Atrovent 0.02% Nebulizer -] 0.5 mg IH BID 12/29/17 Tamsulosin HCl 0.4 mg PO DAILY 12/29/17 Vitamin A & D Top Oint - 1 applic TP DAILY 12/29/17 Acetaminophen [Tylenol] 650 mg PEG PRN PRN #0 tab 12/09/18 Cyanocobalamin (Vitamin B-12) [Vitamin B-12] 1,000 mcg PEG DAILY 30 Days #0 cap 12/09/18 Docusate Sodium [Colace] 200 mg PEG HS #0 cap 12/09/18 Ferrous Sulfate 325 mg PEG BID #0 tab 12/09/18 Folic Acid 1 mg PEG DAILY #0 tab 12/09/18 Levetiracetam 1,000 mg PEG BID #0 tab 12/09/18 Nifedipine ER [Procardia XL -] 60 mg PEG DAILY tab.er.24 12/09/18 Valproate Sodium Liquid [Depakene Oral Solution -] 500 mg PEG BID #0 ml Nystatin Cream [Mycostatin Cream -] 1 applic TP BID applic 12/13/18 Nystatin Powder [Nystop Powder -] 1 applic TP DAILY applic 12/13/18 This patient is new to me today: Yes Date on this admission: 12/15/18 Emergency Visit: Yes ED Registration Date: 11/28/18 Care time: The patient presented to the Emergency Department on the above date and was hospitalized for further evaluation of their emergent condition. Critical Care patient: No - Discharge Referral Referred to [facility] No
[2018-12-15 19:45] VITALS: BP 122/63; PULSE 59
--- NOTE | 2018-12-15 20:46 | PN ---
Teaching Attending Note Name of Resident: Jonh Echavarria ATTENDING PHYSICIAN STATEMENT I saw and evaluated the patient. I reviewed the resident's note and discussed the case with the resident. I agree with the resident's findings and plan as documented. SUBJECTIVE: Non-verbal, non-participatory OBJECTIVE: Afebrile, Hemodynamically Stable. Last Vital Signs Temp Pulse Resp BP Pulse Ox 97.9 F 59 L 18 122/63 97 12/15/18 10:00 12/15/18 10:00 12/15/18 10:00 12/15/18 10:00 12/15/18 09:00 HEENT - Atraumatic, Normocephalic, [place] Heart - S1, S2, RRR Lungs - bibasal crackles Abdomen - Soft, Bowel Sounds normal. PEG in situ. Extremities - no calf tenderness Skin - Scaly rash LUQ and RLQ, improving, no sign of infection/cellulitis Neuro - Opens eyes spontaneously. Does not follow commands. Improvement in intermittent myoclonic jerks. Discharge Medications Medication Instructions Recorded Albuterol 0.083% Nebulizer Elizabeth 1 neb NEB TID 12/29/17 [Ventolin 0.083% Nebulizer Soln -] Ipratropium 0.02% Nebulizer 0.5 mg IH BID 12/29/17 [Atrovent 0.02% Nebulizer -] Tamsulosin HCl 0.4 mg PO DAILY 12/29/17 Vitamin A & D Top Oint - 1 applic TP DAILY 12/29/17 Acetaminophen [Tylenol] 650 mg PEG PRN PRN #0 tab 12/09/18 Cyanocobalamin (Vitamin B-12) 1,000 mcg PEG DAILY 30 Days #0 cap 12/09/18 [Vitamin B-12] Docusate Sodium [Colace] 200 mg PEG HS #0 cap 12/09/18 Ferrous Sulfate 325 mg PEG BID #0 tab 12/09/18 Folic Acid 1 mg PEG DAILY #0 tab 12/09/18 Levetiracetam 1,000 mg PEG BID #0 tab 12/09/18 Valproate Sodium Liquid [Depakene 500 mg PEG BID #0 ml 12/09/18 Oral Solution -] Nystatin Cream [Mycostatin Cream -] 1 applic TP BID applic 12/13/18 Nystatin Powder [Nystop Powder -] 1 applic TP DAILY applic 12/13/18 ASSESSMENT AND PLAN: 68 year old Male with Dementia, Seizure Disorder, COPD, Nephrolithiasis, Hx UTI , presented to ED by his daughter with reports of increasing lethargy, decreased oral intake, fever, chills, found to be septic due to aspiration PNA, with bacteremia and UTI. 1. Sepsis secondary to Aspiration Pneumonia with Bacteremia + UTI - Sepsis resolved. CT Chest - bibasal atelectasis/infiltrate, R>L. Blood Cx positive for coag neg staph in one bottle - likely contaminant. Repeat BCx negative x 2. Urine Cx positive for EColi Completed Abx course. Afebrile, Hemodynamically Stable. Failed swallow eval - currently s/p PEG - feeds ongoing medically stable for transfer to SNF. 2. Dermatitis - possibly allergic reaction to soap. Rash improving. No new meds/ recent med changes. No mucosal involvement. Treated with Prednisone - completed 5 day course. If persistent, can follow with Dermatology as an out-patient. 3. Dysphagia - s/p PEG on 12/07. Tolerating feeds. 4. Seizure Disorder - Continue Keppra, Valproate. 5. BPH - Continue Flomax 6. Dementia with Functional Quadriplegia - needs supportive care - for transfer to Nursing Facility. PEG feeds ongoing. 7. Complex Cyst L Kidney - renal function normal. For further work-up as an out- patient. 8. COPD - Stable. No evidence of acute exacerbation. Continue Albuterol prn. 9. HTN - Previously on Nifedipine. BP now within acceptable limits off anti- hypertensive medications. 10. Hypernatremia - sec to dehydration - resolved. Free water with PEG feeds. Dispo - Medically optimized for transfer to nursing facility
== END 2018-12-15 11:17 | DRG 871 ==
LOC: JER 15:12 → JERBED 21:11 → J5S 11-29 04:24
PROVIDERS: ADMIT Internal Medicine
PROC: 0DJ08ZZ Inspection of Upper Intestinal Tract, Via Natural or Artificial Opening Endoscopic (ICD-10-PCS; 2018-12-05)
PROC: 0DH63UZ Insertion of Feeding Device into Stomach, Percutaneous Approach (ICD-10-PCS; principal; 2018-12-07)
DX: A41.9 Sepsis, unspecified organism (principal); J69.0 Pneumonitis due to inhalation of food and vomit; R53.2 Functional quadriplegia; J98.11 Atelectasis; I45.2 Bifascicular block; E87.0 Hyperosmolality and hypernatremia; N39.0 Urinary tract infection, site not specified; F20.0 Paranoid schizophrenia; R62.7 Adult failure to thrive; R63.0 Anorexia; E86.0 Dehydration; G40.909 Epilepsy, unspecified, not intractable, without status epilepticus; J44.9 Chronic obstructive pulmonary disease, unspecified; I10 Essential (primary) hypertension; E11.9 Type 2 diabetes mellitus without complications; N40.0 Benign prostatic hyperplasia without lower urinary tract symptoms; G30.9 Alzheimer's disease, unspecified; F02.80 Dementia in other diseases classified elsewhere, unspecified severity, without behavioral disturbance, psychotic disturbance, mood disturbance, and anxiety; N28.1 Cyst of kidney, acquired; E87.6 Hypokalemia; B96.29 Other Escherichia coli [E. coli] as the cause of diseases classified elsewhere; E83.39 Other disorders of phosphorus metabolism; R13.10 Dysphagia, unspecified; L23.89 Allergic contact dermatitis due to other agents; K29.70 Gastritis, unspecified, without bleeding; K29.80 Duodenitis without bleeding
CPT/HCPCS: 36415; 49440; 71045-TC-FY; 71250-TC; 74018-TC-FY; 76000-TC-FY; 80048; 80053; 80164; 81003; 81015; 82550; 82962; 83605; 83735; 84100; 84134; 84484; 85025; 85610; 85730; 87040; 87086; 87186; 87804; 87899; 93005; 93010; 94640; 97161-GP; 99285-25; J1644; J7030

== ENCOUNTER 2019-02-17 23:53 | Emergency (ER) | payer OTHER ==
--- NOTE | 2019-02-18 00:24 | PDOC ---
History of Present Illness - General Stated Complaint: GI TUBE Time Seen by Provider: 02/18/19 00:16 - History of Present Illness Initial Comments: Adrian Jacobo is a 68yo man with a PMH of COPD, HTN, paranoid schizophrenia with progressive cognitive decline, advanced Alzheimer's, nonverbal at baseline , recent-onset seizures, admitted in November for difficulty feeding now s/p PEG () who presents from [facility] for confirmation of his g-tube placement. Family reports that they were told at 10am that Mr Jacobo's PEG was leaking and needed to be replaced. The tube was replaced, and he was sent for confirmation xray. However, the nurse at [facility] said that she was unable to determine whether the g-tube was in place based on the xray report, and they could not use the tube for feeding until it was confirmed. Mr Jacobo was sent to the ED so that the tube can be confirmed and used. Past History - Past Medical History Allergies/Adverse Reactions: Allergies Allergy/AdvReac Type Severity Reaction Status Date / Time No Known Allergies Allergy Verified 02/18/19 00:39 Home Medications: Ambulatory Orders Albuterol 0.083% Nebulizer Elizabeth [Ventolin 0.083% Nebulizer Soln -] 1 neb NEB TID 12/29/17 Ipratropium 0.02% Nebulizer [Atrovent 0.02% Nebulizer -] 0.5 mg IH BID 12/29/17 Vitamin A & D Top Oint - 1 applic TP DAILY 12/29/17 Acetaminophen [Tylenol] 650 mg PEG PRN PRN #0 tab 12/09/18 Cyanocobalamin (Vitamin B-12) [Vitamin B-12] 1,000 mcg PEG DAILY 30 Days #0 cap 12/09/18 Docusate Sodium [Colace] 200 mg PEG HS #0 cap 12/09/18 Folic Acid 1 mg PEG DAILY #0 tab 12/09/18 Valproate Sodium Liquid [Depakene Oral Solution -] 500 mg PEG BID #0 ml Nystatin Cream [Mycostatin Cream -] 1 applic TP BID applic 12/13/18 Nystatin Powder [Nystop Powder -] 1 applic TP DAILY applic 12/13/18 Ferrous Sulfate 330 mg PO DAILY 02/18/19 Levetiracetam 750 mg PEG BID 02/18/19 Nifedipine ER [Procardia XL -] 20 mg PEG TID 02/18/19 Anemia: No Asthma: No Cancer: No Cardiac Disorders: No CVA: No (altered mental behavior) COPD: Yes (uses O2@ prn) CHF: No Dementia: Yes Diabetes: Yes (not on meds) GI Disorders: No Disorders: Yes (BPH) HTN: Yes Hypercholesterolemia: No Liver Disease: No Seizures: Yes Thyroid Disease: No - Suicide/Smoking/Psychosocial Hx Smoking History: Never smoked Have you smoked in the past 12 months: No Hx Alcohol Use: No Drug/Substance Use Hx: No Substance Use Type: None Hx Substance Use Treatment: No Review of Systems - Review of Systems Comments:: Could not obtain, pt nonverbal *Physical Exam - Physical Exam Comments: General: In no acute distress HEENT: PERRL, eyes track, MMM Cards: RRR, no murmur appreciated Pulm: Comfortable on room air, clear to auscultation bilaterally Abd: Soft, nontender, nondistended. G-tube in place with no surrounding erythema , edema, bleeding or abnormal drainage. Ext: Atraumatic. No LE edema. Vasc: Extremities WWP Neuro: Awake, increased tone in limbs, tremulous w/ continuing limb movements, CN grossly intact Medical Decision Making - Medical Decision Making 02/18/19 00:27 Adrian Jacobo is a 68yo man with a PMH of COPD, HTN, paranoid schizophrenia with progressive cognitive decline, advanced Alzheimer's, nonverbal at baseline , recent-onset seizures, admitted in November for difficulty feeding now s/p PEG () who presents from [facility] for confirmation of his g-tube placement. Per family, the tube was replaced earlier today but the initial xray did not use contrast and placement could not be confirmed. - Plan for gastrografin injection through T-tube prior to xray - KUB ordered for confirmation 02/18/19 01:30 - Xray completed, reviewed in ED. G-tube appears to be in place, but will confirm w/ radiology 02/18/19 02:12 - Tube placement confirmed by radiologist - Family updated - Will d/c back to SNF. Seen with Dr Snowden. Charisma Cerrato PGY1 *DC/Admit/Observation/Transfer Diagnosis at time of Disposition: Gastrostomy tube in place - Discharge Dispostion Condition at time of disposition: Stable Decision to Admit order: No - Referrals Referrals: Anderson Sarah MD [Primary Care Provider] - - Patient Instructions Additional Instructions: Discharge Instructions: You were seen in the ED for confirmation of G-tube placement. Your G-tube was confirmed to be in place and may be used for any needed medications or feeding. Please continue all tube feeds and medications as prescribed. Seek immediate medical care for any medical emergency, additional problems with the G-tube including accidental removal (if it cannot be replaced), redness, drainage, or bleeding around the tube. - Post Discharge Activity
[2019-02-18 00:30] VITALS: PULSE 80; TEMP 97.9; BMI 29.2
--- NOTE | 2019-02-18 01:25 | PDOC ---
Documentation entered by Nelsy Medina SCRIBE, acting as scribe for Shon Snowden MD. Shon Snowden MD: This documentation has been prepared by the scribe, Nelsy Medina SCRIBE, under my direction and personally reviewed by me in its entirety. I confirm that the documentation accurately reflects all work, treatment, procedures, and medical decision making performed by me. Attending Attestation - Resident Resident Name: BlossomCharisma - HPI HPI: 02/18/19 01:25 The patient is a 68 year old male with significant past medical history of dementia, diabetes, hypertension, BPH, seizures and COPD who [facility] since earlier today. As per the patient's family this morning, the patient was noted to have a displaced G-tube this morning and there was an attempt to replace it but x-ray results were inconclusive to lacement so the patient was sent to the ED. No other symptoms or complaints reported. - Physicial Exam PE: 02/18/19 01:24 Patient appears alert, nonverbal, does not follow commands, Normocephalic, atraumatic MMM CTA RRR G-tube in the area left upper quadrant - Medical Decision Making 02/18/19 01:24 68-year-old male with history of advanced dementia, nonverbal at baseline, new- onset seizures, COPD, hypertension, [facility] for confirmation of G-tube replacement which was dislodged earlier in the day. No other acute issues are reported. Patient is an nonverbal and is unable to cooperate with the history of present illness. 20 mL of Gastroview injected into the G-tube while KUB obtained. Will confirm placement. [facility] to jail. 02/18/19 02:04 EXAM: X-RAY ABDOMEN Percutaneous gastrostomy tube in satisfactory position. Oral contrast opacifies distal stomach, duodenum, and probably proximal jejunum. No contrast extravasation. Moderate air in small bowel, with a single minimally dilated loop in mid right abdomen, possibly transient dilatation. Moderate air and feces in nondilated colon. Hepatomegaly. Right lateral abdomen and pelvis incompletely seen.
[2019-02-18 04:22] VITALS: BP 119/97
== END 2019-02-18 04:49 ==
LOC: JER 23:53
DX: Z43.1 Encounter for attention to gastrostomy (principal); I10 Essential (primary) hypertension; J44.9 Chronic obstructive pulmonary disease, unspecified; G30.9 Alzheimer's disease, unspecified; F02.80 Dementia in other diseases classified elsewhere, unspecified severity, without behavioral disturbance, psychotic disturbance, mood disturbance, and anxiety; F20.0 Paranoid schizophrenia; G40.909 Epilepsy, unspecified, not intractable, without status epilepticus; E11.9 Type 2 diabetes mellitus without complications; N40.0 Benign prostatic hyperplasia without lower urinary tract symptoms
CPT/HCPCS: 74018-TC-FY; 99282-25

== ENCOUNTER 2021-07-18 15:17 | Emergency (ER) | payer OTHER ==
[2021-07-18 16:49] VITALS: BP 125/65; PULSE 68; TEMP 98; BMI 27.3
== END 2021-07-18 18:21 ==
LOC: JER 15:17
DX: K94.23 Gastrostomy malfunction (principal)
CPT/HCPCS: 74018-TC-FY; 99283-25

== ENCOUNTER 2021-11-04 20:44 | Inpatient (IN) | payer OTHER ==
[2021-11-04 22:14] LABS: BASO % 0.5 % (0-2.0); EOS % 1.5 % (0-4.5); HEMATOCRIT 35.6 % (35.4-49); HEMOGLOBIN 11.6 GM/dL (11.7-16.9); LYMPH % 43.5 % (8-40); MCH 31.2 pg (25.7-33.7); MCHC 32.7 g/dl (32.0-35.9); MEAN CELL VOLUME 95.4 fl (80-96); MEAN PLT VOLUME 10.2 fl (7.5-11.1); MONO % 8.1 % (3.8-10.2); NEUT % 46.4 % (42.8-82.8); PLATELET COUNT 171 10^3/uL (134-434); RBC 3.74 M/mm3 (4.00-5.60); RDW 14.8 % (11.9-15.9); WHITE BLOOD COUNT 4.9 K/mm3 (4.0-10.0)
[2021-11-04 22:33] LABS: BLOOD UREA NITROGEN 13.2 mg/dL (7-18); CALCIUM 8.3 mg/dL (8.5-10.1)
[2021-11-04 22:34] LABS: ALBUMIN 2.9 g/dl (3.4-5.0)
[2021-11-04 22:36] LABS: CREATININE 0.6 mg/dL (0.55-1.3)
[2021-11-04 22:38] LABS: BILIRUBIN,TOTAL 0.3 mg/dL (0.2-1); TOT PROT 6.9 g/dl (6.4-8.2)
[2021-11-04 22:55] LABS: INR 1.2 (0.83-1.09); PROTHROMBIN TIME (PATIENT) 13.8 SEC (9.7-13.0)
[2021-11-04] MEDS ORDERED: AMPICILLIN NA/SULBACTAM NA 3 GM in SODIUM CHLORIDE 100 ML IVPB ONE (23:46)
[2021-11-05 01:36] LABS: URINE APPEARANCE CLEAR; URINE BILIRUBIN NEGATIVE (NEGATIVE); URINE COLOR YELLOW; URINE GLUCOSE (UA) NEGATIVE (NEGATIVE); URINE KETONE TRACE (NEGATIVE); URINE LEUK ESTERASE NEGATIVE (NEGATIVE); URINE NITRITE NEGATIVE (NEGATIVE); URINE PROTEIN NEGATIVE (NEGATIVE)
[2021-11-05] MEDS: levETIRAcetam 500 MG/5 ML ORAL SOLUTION (UNIT-DOSE CUPS) GT SCH ×2 (09:38→23:10)
[2021-11-05] MEDS: VALPROATE SODIUM 250 MG/5 ML UNIT DOSE CUP GT SCH ×2 (09:38→23:09)
[2021-11-05] MEDS ORDERED: POLYETHYLENE GLYCOL 3350 119 GM BTL PEG PRN (10:20)
[2021-11-05] MEDS: POTASSIUM CHLORIDE ORAL LIQUID 20 MEQ/15 ML GT SCH ×2 (10:58→23:10)
[2021-11-05] MEDS: CEFEPIME 2 GM in DEXTROSE 5%-WATER 100 ML IVPB SCH ×2 (10:59→17:53)
[2021-11-05] MEDS: FUROSEMIDE 40 MG/5 ML UNIT-DOSE CUP GT SCH (12:00)
[2021-11-05] MEDS ORDERED: ALBUTEROL SO4 0.083% IH SOL 2.5 MG/3 ML VIAL.NEB. NEB SCH (14:00)
[2021-11-05 17:13] LABS: ALBUMIN 2.7 g/dl (3.4-5.0); BLOOD UREA NITROGEN 12.1 mg/dL (7-18); CALCIUM 8.4 mg/dL (8.5-10.1); MAGNESIUM 2.3 mg/dL (1.8-2.4)
[2021-11-05 17:15] LABS: CREATININE 0.6 mg/dL (0.55-1.3)
[2021-11-05 17:16] LABS: BILIRUBIN,TOTAL 0.5 mg/dL (0.2-1); TOT PROT 6.8 g/dl (6.4-8.2)
[2021-11-05] MEDS: ALBUTEROL SO4 0.083% IH SOL 2.5 MG/3 ML VIAL.NEB. NEB SCH (20:32)
[2021-11-06] MEDS: CEFEPIME 2 GM in DEXTROSE 5%-WATER 100 ML IVPB SCH (03:17)
[2021-11-06] MEDS: ALBUTEROL SO4 0.083% IH SOL 2.5 MG/3 ML VIAL.NEB. NEB SCH ×3 (08:45→21:08)
[2021-11-06] MEDS: levETIRAcetam 500 MG/5 ML ORAL SOLUTION (UNIT-DOSE CUPS) GT SCH (09:46)
[2021-11-06] MEDS: FUROSEMIDE 40 MG/5 ML UNIT-DOSE CUP GT SCH (09:46)
[2021-11-06] MEDS: VALPROATE SODIUM 250 MG/5 ML UNIT DOSE CUP GT SCH (09:46)
[2021-11-06] MEDS: POTASSIUM CHLORIDE ORAL LIQUID 20 MEQ/15 ML GT SCH ×2 (09:47→23:15)
[2021-11-06] MEDS ORDERED: POLYETHYLENE GLYCOL (HEALTHYLAX) 3350 17 GM PACKET PEG PRN (10:44)
[2021-11-06 12:08] LABS: SARS-CoV-2 NAA Not Detected (Not Detected)
[2021-11-06] MEDS ORDERED: SCOPOLAMINE HYDROBROMIDE 1 PATCH PATCH.TD72 TD SCH (13:15)
[2021-11-06] MEDS: ENOXAPARIN NA (PORCINE) 40 MG/0.4 ML DISP.SYRIN SQ SCH (15:45)
[2021-11-06] MEDS ORDERED: levETIRAcetam 500 MG/5 ML INJECTION VIAL IVPB ONE (21:12)
[2021-11-06] MEDS ORDERED: VALPROATE SODIUM 500 MG/5 ML VIAL IVPB ONE (21:14)
[2021-11-06] MEDS ORDERED: VALPROATE SODIUM INJECTION 500 MG in DEXTROSE 5%-WATER - 100 ML IVPB ONE (21:45)
[2021-11-07] MEDS ORDERED: DEXTROSE 5%-WATER - 50 ML IVPB ONE ×3 (01:03→17:21)
[2021-11-07] MEDS ORDERED: PIPERACILLIN/TAZOBACTAM 3.375 GM VIAL IVPB ONE ×3 (01:03→17:20)
[2021-11-07] MEDS: PIPERACILLIN/TAZOB 3.375 GM 3.375 GM in DEXTROSE 5%-WATER - 50 ML IVPB SCH ×3 (03:02→17:34)
[2021-11-07] MEDS: CEFEPIME HCL/D5W 2 GM/50 ML BAG IVPB SCH (04:15)
[2021-11-07 08:24] LABS: BASO % 0.2 % (0-2.0); HEMATOCRIT 36.6 % (35.4-49); HEMOGLOBIN 11.8 GM/dL (11.7-16.9); LYMPH % 34.7 % (8-40); MCH 31.1 pg (25.7-33.7); MCHC 32.3 g/dl (32.0-35.9); MEAN CELL VOLUME 96.2 fl (80-96); MEAN PLT VOLUME 10.8 fl (7.5-11.1); MONO % 11.4 % (3.8-10.2); NEUT % 51.7 % (42.8-82.8); PLATELET COUNT 157 10^3/uL (134-434); RDW 14.4 % (11.9-15.9); WHITE BLOOD COUNT 4.6 K/mm3 (4.0-10.0)
[2021-11-07] MEDS: ALBUTEROL SO4 0.083% IH SOL 2.5 MG/3 ML VIAL.NEB. NEB SCH ×3 (08:25→20:26)
[2021-11-07 09:18] LABS: CALCIUM 8.8 mg/dL (8.5-10.1)
[2021-11-07 09:19] LABS: ALBUMIN 2.8 g/dl (3.4-5.0); BLOOD UREA NITROGEN 10.3 mg/dL (7-18)
[2021-11-07 09:22] LABS: BILIRUBIN,TOTAL 0.4 mg/dL (0.2-1); TOT PROT 6.9 g/dl (6.4-8.2)
[2021-11-07 09:23] LABS: CREATININE 0.6 mg/dL (0.55-1.3)
[2021-11-07] MEDS: POTASSIUM CHLORIDE ORAL LIQUID 20 MEQ/15 ML GT SCH ×2 (11:55→21:38)
[2021-11-07] MEDS: ENOXAPARIN NA (PORCINE) 40 MG/0.4 ML DISP.SYRIN SQ SCH (11:56)
[2021-11-07] MEDS: FUROSEMIDE 40 MG/5 ML UNIT-DOSE CUP GT SCH (11:56)
[2021-11-07] MEDS: levETIRAcetam 500 MG/5 ML ORAL SOLUTION (UNIT-DOSE CUPS) GT SCH ×2 (11:56→21:28)
[2021-11-07] MEDS: VALPROATE SODIUM 250 MG/5 ML UNIT DOSE CUP GT SCH ×2 (11:56→21:27)
[2021-11-07] MEDS ORDERED: VALPROATE SODIUM 250 MG/5 ML UNIT DOSE CUP GT SCH (13:01)
[2021-11-07 17:31] VITALS: BMI 29.5
[2021-11-07] MEDS: ATORVASTATIN CA 10 MG TABLET (FP) PO SCH (21:37)
[2021-11-08] MEDS ORDERED: DEXTROSE 5%-WATER - 50 ML IVPB ONE ×3 (03:12→17:18)
[2021-11-08] MEDS ORDERED: PIPERACILLIN/TAZOBACTAM 3.375 GM VIAL IVPB ONE ×3 (03:12→17:17)
[2021-11-08] MEDS: PIPERACILLIN/TAZOB 3.375 GM 3.375 GM in DEXTROSE 5%-WATER - 50 ML IVPB SCH ×3 (03:15→17:42)
[2021-11-08] MEDS: ALBUTEROL SO4 0.083% IH SOL 2.5 MG/3 ML VIAL.NEB. NEB SCH ×3 (07:20→20:10)
[2021-11-08] MEDS: FUROSEMIDE 40 MG/5 ML UNIT-DOSE CUP GT SCH (09:21)
[2021-11-08] MEDS: AMINO ACIDS/PROTEIN HYDROLYS 30 ML LIQUID.PKT PO SCH (09:21)
[2021-11-08] MEDS: VALPROATE SODIUM 250 MG/5 ML UNIT DOSE CUP GT SCH ×2 (09:21→21:24)
[2021-11-08] MEDS: levETIRAcetam 500 MG/5 ML ORAL SOLUTION (UNIT-DOSE CUPS) GT SCH ×2 (09:21→21:25)
[2021-11-08] MEDS: ENOXAPARIN NA (PORCINE) 40 MG/0.4 ML DISP.SYRIN SQ SCH (09:22)
[2021-11-08] MEDS: POTASSIUM CHLORIDE ORAL LIQUID 20 MEQ/15 ML GT SCH ×2 (09:22→21:26)
[2021-11-08] MEDS: ATORVASTATIN CA 10 MG TABLET (FP) PO SCH (21:26)
[2021-11-09] MEDS ORDERED: DEXTROSE 5%-WATER - 50 ML IVPB ONE ×3 (02:52→17:48)
[2021-11-09] MEDS ORDERED: PIPERACILLIN/TAZOBACTAM 3.375 GM VIAL IVPB ONE ×3 (02:52→17:47)
[2021-11-09] MEDS: PIPERACILLIN/TAZOB 3.375 GM 3.375 GM in DEXTROSE 5%-WATER - 50 ML IVPB SCH ×3 (02:55→18:00)
[2021-11-09] MEDS: ALBUTEROL SO4 0.083% IH SOL 2.5 MG/3 ML VIAL.NEB. NEB SCH ×2 (07:20→20:10)
[2021-11-09] MEDS: VALPROATE SODIUM 250 MG/5 ML UNIT DOSE CUP GT SCH ×2 (09:31→22:35)
[2021-11-09] MEDS: AMINO ACIDS/PROTEIN HYDROLYS 30 ML LIQUID.PKT PO SCH (09:31)
[2021-11-09] MEDS: FUROSEMIDE 40 MG/5 ML UNIT-DOSE CUP GT SCH (09:31)
[2021-11-09] MEDS: ENOXAPARIN NA (PORCINE) 40 MG/0.4 ML DISP.SYRIN SQ SCH (09:31)
[2021-11-09] MEDS: POTASSIUM CHLORIDE ORAL LIQUID 20 MEQ/15 ML GT SCH ×2 (09:31→22:34)
[2021-11-09] MEDS: levETIRAcetam 500 MG/5 ML ORAL SOLUTION (UNIT-DOSE CUPS) GT SCH ×2 (09:34→22:35)
[2021-11-09] MEDS ORDERED: VALPROATE SODIUM 250 MG/5 ML UNIT DOSE CUP GT SCH (11:10)
[2021-11-09] MEDS ORDERED: POLYETHYLENE GLYCOL (HEALTHYLAX) 3350 17 GM PACKET PEG PRN (14:57)
[2021-11-09] MEDS: ATORVASTATIN CA 10 MG TABLET (FP) GT SCH (22:35)
[2021-11-10] MEDS ORDERED: PIPERACILLIN/TAZOBACTAM 3.375 GM VIAL IVPB ONE ×2 (01:47→09:36)
[2021-11-10] MEDS ORDERED: DEXTROSE 5%-WATER - 50 ML IVPB ONE ×2 (01:47→09:37)
[2021-11-10] MEDS: PIPERACILLIN/TAZOB 3.375 GM 3.375 GM in DEXTROSE 5%-WATER - 50 ML IVPB SCH ×2 (01:48→09:37)
[2021-11-10] MEDS: ALBUTEROL SO4 0.083% IH SOL 2.5 MG/3 ML VIAL.NEB. NEB SCH ×3 (08:15→20:37)
[2021-11-10] MEDS: VALPROATE SODIUM 250 MG/5 ML UNIT DOSE CUP GT SCH ×2 (09:33→21:15)
[2021-11-10] MEDS: levETIRAcetam 500 MG/5 ML ORAL SOLUTION (UNIT-DOSE CUPS) GT SCH ×2 (09:33→21:16)
[2021-11-10] MEDS: AMINO ACIDS/PROTEIN HYDROLYS 30 ML LIQUID.PKT GT SCH (09:33)
[2021-11-10] MEDS: POTASSIUM CHLORIDE ORAL LIQUID 20 MEQ/15 ML GT SCH ×2 (09:34→21:16)
[2021-11-10] MEDS: FUROSEMIDE 40 MG/5 ML UNIT-DOSE CUP GT SCH (09:34)
[2021-11-10] MEDS: ENOXAPARIN NA (PORCINE) 40 MG/0.4 ML DISP.SYRIN SQ SCH (09:35)
[2021-11-10 09:59] LABS: BASO % 0.2 % (0-2.0); EOS % 5.8 % (0-4.5); HEMATOCRIT 31.6 % (35.4-49); HEMOGLOBIN 10.8 GM/dL (11.7-16.9); LYMPH % 41.6 % (8-40); MCH 32.1 pg (25.7-33.7); MEAN CELL VOLUME 94.3 fl (80-96); MONO % 14.4 % (3.8-10.2); PLATELET COUNT 150 10^3/uL (134-434); RBC 3.35 M/mm3 (4.00-5.60); WHITE BLOOD COUNT 2.7 K/mm3 (4.0-10.0)
[2021-11-10 10:19] LABS: ALBUMIN 2.5 g/dl (3.4-5.0); BLOOD UREA NITROGEN 15.4 mg/dL (7-18); CALCIUM 8.7 mg/dL (8.5-10.1)
[2021-11-10 10:22] LABS: CREATININE 0.6 mg/dL (0.55-1.3)
[2021-11-10 10:24] LABS: BILIRUBIN,TOTAL 0.2 mg/dL (0.2-1); TOT PROT 6.2 g/dl (6.4-8.2)
[2021-11-10] MEDS ORDERED: POLYETHYLENE GLYCOL (HEALTHYLAX) 3350 17 GM PACKET PEG PRN (10:59)
[2021-11-10] MEDS ORDERED: SCOPOLAMINE HYDROBROMIDE 1 PATCH PATCH.TD72 TD SCH (11:00)
[2021-11-10] MEDS: LACTOBACILLUS ACIDOPHILUS 1 TABLET PEG SCH (11:49)
[2021-11-10] MEDS: AMOX TR/POTASSIUM CLAVULANATE 400 MG/5 ML BOTTLE PEG SCH (18:22)
[2021-11-10] MEDS: ATORVASTATIN CA 10 MG TABLET (FP) GT SCH (21:16)
[2021-11-10] MEDS ORDERED: SENNOSIDES 8.8 MG/5 ML BULK BOTTLE GT SCH (22:00)
[2021-11-11 08:10] LABS: SARS-CoV-2 NAA Not Detected (Not Detected)
[2021-11-11] MEDS: ALBUTEROL SO4 0.083% IH SOL 2.5 MG/3 ML VIAL.NEB. NEB SCH ×2 (08:37→15:30)
[2021-11-11] MEDS: AMINO ACIDS/PROTEIN HYDROLYS 30 ML LIQUID.PKT GT SCH (09:17)
[2021-11-11] MEDS: POTASSIUM CHLORIDE ORAL LIQUID 20 MEQ/15 ML GT SCH (09:17)
[2021-11-11] MEDS: VALPROATE SODIUM 250 MG/5 ML UNIT DOSE CUP GT SCH (09:17)
[2021-11-11] MEDS: LACTOBACILLUS ACIDOPHILUS 1 TABLET PEG SCH (09:18)
[2021-11-11] MEDS: ENOXAPARIN NA (PORCINE) 40 MG/0.4 ML DISP.SYRIN SQ SCH (09:18)
[2021-11-11] MEDS: AMOX TR/POTASSIUM CLAVULANATE 400 MG/5 ML BOTTLE PEG SCH ×2 (09:21→16:57)
[2021-11-11] MEDS ORDERED: POLYETHYLENE GLYCOL (HEALTHYLAX) 3350 17 GM PACKET PEG SCH (10:00)
[2021-11-11] MEDS: FUROSEMIDE 40 MG/5 ML UNIT-DOSE CUP GT SCH (10:58)
[2021-11-11] MEDS: levETIRAcetam 500 MG/5 ML ORAL SOLUTION (UNIT-DOSE CUPS) GT SCH (10:58)
[2021-11-11 14:09] VITALS: BP 136/61; PULSE 62; TEMP 98.2
== END 2021-11-11 18:45 | DRG 178 ==
LOC: JER 20:44 → JERBED 23:47 → J4W 11-05 04:27 → J6S 11-09 14:32
PROVIDERS: ADMIT Internal Medicine; ATTEND Internal Medicine
DX: J69.0 Pneumonitis due to inhalation of food and vomit (principal); F20.0 Paranoid schizophrenia; G30.9 Alzheimer's disease, unspecified; F02.80 Dementia in other diseases classified elsewhere, unspecified severity, without behavioral disturbance, psychotic disturbance, mood disturbance, and anxiety; J44.9 Chronic obstructive pulmonary disease, unspecified; I10 Essential (primary) hypertension; G40.909 Epilepsy, unspecified, not intractable, without status epilepticus; E88.09 Other disorders of plasma-protein metabolism, not elsewhere classified; R94.31 Abnormal electrocardiogram [ECG] [EKG]; E66.3 Overweight; Z68.29 Body mass index [BMI] 29.0-29.9, adult; I95.9 Hypotension, unspecified; M21.372 Foot drop, left foot; M21.371 Foot drop, right foot; R09.02 Hypoxemia; Z93.1 Gastrostomy status
CPT/HCPCS: 36415; 71045-TC-FY; 71250-TC; 80053; 80061; 80164; 80177; 81003; 82607; 82962; 83605; 83735; 84439; 84443; 84484; 85025; 85610; 86780; 86850; 86900; 86901; 87040; 87086; 87899; 93005; 93010; 93306-TC; 94640; 99285-25; C9803; U0003; U0005

== ENCOUNTER 2021-11-14 16:04 | Inpatient (IN) | payer OTHER ==
[2021-11-14 17:10] LABS: BASO % 0.4 % (0-2.0); EOS % 0.8 % (0-4.5); HEMATOCRIT 35.4 % (35.4-49); HEMOGLOBIN 12.1 GM/dL (11.7-16.9); LYMPH % 33.3 % (8-40); MCH 32.2 pg (25.7-33.7); MCHC 34.2 g/dl (32.0-35.9); MEAN CELL VOLUME 94.1 fl (80-96); MEAN PLT VOLUME 10.9 fl (7.5-11.1); MONO % 8.8 % (3.8-10.2); NEUT % 56.7 % (42.8-82.8); PLATELET COUNT 181 10^3/uL (134-434); RBC 3.76 M/mm3 (4.00-5.60); RDW 14.2 % (11.9-15.9); WHITE BLOOD COUNT 4.7 K/mm3 (4.0-10.0)
[2021-11-14 17:17] LABS: EPI CELLS 21 /uL (0-25.1); HYALINE CASTS 0 /uL (0-3.1); URINE APPEARANCE CLEAR; URINE BACTERIA 18 /uL (0-1359); URINE BILIRUBIN NEGATIVE (NEGATIVE); URINE COLOR YELLOW; URINE GLUCOSE (UA) NEGATIVE (NEGATIVE); URINE KETONE NEGATIVE (NEGATIVE); URINE LEUK ESTERASE TRACE (NEGATIVE); URINE NITRITE NEGATIVE (NEGATIVE); URINE PROTEIN NEGATIVE (NEGATIVE); URINE RBC 10 /uL (0-23.9); URINE WBC 12 /uL (0-25.8)
[2021-11-14 17:19] LABS: INR 1.15 (0.83-1.09); PROTHROMBIN TIME (PATIENT) 13.2 SEC (9.7-13.0)
[2021-11-14 17:22] LABS: ACTIVATED PTT 35.3 SECONDS (25.2-36.5)
[2021-11-14 17:31] LABS: CALCIUM 8.6 mg/dL (8.5-10.1)
[2021-11-14 17:32] LABS: BLOOD UREA NITROGEN 15.1 mg/dL (7-18); MAGNESIUM 2.4 mg/dL (1.8-2.4)
[2021-11-14 17:35] LABS: CREATININE 0.7 mg/dL (0.55-1.3); PHOSPHOROUS 2.9 mg/dL (2.5-4.9)
[2021-11-14 17:36] LABS: BILIRUBIN,TOTAL 0.4 mg/dL (0.2-1); TOT PROT 7.6 g/dl (6.4-8.2)
[2021-11-14 17:48] LABS: ALBUMIN 3.1 g/dl (3.4-5.0)
[2021-11-14 18:24] LABS: VENOUS BASE EXCESS 10.4 mmol/L (-2-2); VENOUS O2 SATURATION 69.4 % (70-80); VENOUS PCO2 58.1 mmHg (38-52); VENOUS PH 7.408 (7.310-7.410)
[2021-11-14] MEDS ORDERED: ALBUTEROL SO4 2.5/IPRATROPIUM 0.5 INH SOL 3 ML VIAL.NEB. NEB ONE ×4 (18:33→22:46)
[2021-11-14] MEDS ORDERED: VANCOMYCIN 1 GM in D5W (PRE-DOCKED) 1,000 MG/250 ML IVPB ONE (19:20)
[2021-11-14] MEDS ORDERED: PIPERACILLIN/TAZOB 4.5 GM 4.5 GM in DEXTROSE 5%-WATER 100 ML IVPB ONE (19:20)
[2021-11-14] MEDS ORDERED: PIPERACILLIN/TAZOB 4.5 GM 4.5 GM/100 ML BAG IVPB ONE (20:02)
[2021-11-14 21:29] LABS: BASO % 1.2 % (0-2.0); EOS % 0.6 % (0-4.5); HEMATOCRIT 34.1 % (35.4-49); HEMOGLOBIN 11.8 GM/dL (11.7-16.9); LYMPH % 34.9 % (8-40); MCH 32.3 pg (25.7-33.7); MCHC 34.5 g/dl (32.0-35.9); MEAN CELL VOLUME 93.5 fl (80-96); MEAN PLT VOLUME 9.7 fl (7.5-11.1); MONO % 8.6 % (3.8-10.2); NEUT % 54.7 % (42.8-82.8); PLATELET COUNT 159 10^3/uL (134-434); RBC 3.65 M/mm3 (4.00-5.60); WHITE BLOOD COUNT 5.4 K/mm3 (4.0-10.0)
[2021-11-14] MEDS: ENOXAPARIN NA (PORCINE) 100 MG/1 ML DISP.SYRIN SQ SCH (22:47)
[2021-11-14] MEDS ORDERED: ENOXAPARIN NA (PORCINE) 100 MG/1 ML DISP.SYRIN SQ ONE (22:47)
[2021-11-15] MEDS ORDERED: ACETAMINOPHEN 325 MG TABLET (FP) NR PRN (00:20)
[2021-11-15] MEDS ORDERED: POTASSIUM CHLORIDE ORAL LIQUID 20 MEQ/15 ML GT SCH (00:30)
[2021-11-15] MEDS ORDERED: ALBUTEROL SO4 0.083% IH SOL 2.5 MG/3 ML VIAL.NEB. NEB SCH (06:00)
[2021-11-15 06:29] LABS: BLOOD UREA NITROGEN 12.3 mg/dL (7-18); CALCIUM 8.4 mg/dL (8.5-10.1)
[2021-11-15 06:32] LABS: CREATININE 0.6 mg/dL (0.55-1.3)
[2021-11-15 07:16] LABS: HEMATOCRIT 34.2 % (35.4-49); HEMOGLOBIN 11.5 GM/dL (11.7-16.9); MCH 31.8 pg (25.7-33.7); MCHC 33.5 g/dl (32.0-35.9); MEAN CELL VOLUME 94.8 fl (80-96); MEAN PLT VOLUME 10.8 fl (7.5-11.1); PLATELET COUNT 168 10^3/uL (134-434); RBC 3.61 M/mm3 (4.00-5.60); RDW 14.1 % (11.9-15.9); WHITE BLOOD COUNT 4.8 K/mm3 (4.0-10.0)
[2021-11-15] MEDS ORDERED: ASCORBIC ACID 500 MG TABLET (FP) ONE (09:01)
[2021-11-15] MEDS ORDERED: FOLIC ACID 1 MG TABLET (FP) ONE (09:01)
[2021-11-15] MEDS ORDERED: ENOXAPARIN NA (PORCINE) 100 MG/1 ML DISP.SYRIN SQ ONE (09:02)
[2021-11-15] MEDS ORDERED: VALPROATE SODIUM 250 MG/5 ML UNIT DOSE CUP GT SCH (10:00)
[2021-11-15] MEDS ORDERED: LACTULOSE 20 GM/30 ML UDC (FOR ORAL USE ONLY) GT SCH (10:00)
[2021-11-15] MEDS ORDERED: NYSTATIN 100,000 UNIT/GM TOPICAL CREAM 15 GM TUBE TP SCH (10:00)
[2021-11-15] MEDS ORDERED: ASCORBIC ACID 500 MG TABLET (FP) GT SCH (10:00)
[2021-11-15] MEDS ORDERED: LACTOBACILLUS ACIDOPHILUS 1 TABLET PEG SCH (10:00)
[2021-11-15] MEDS ORDERED: FOLIC ACID 1 MG TABLET (FP) PEG SCH (10:00)
[2021-11-15] MEDS ORDERED: FUROSEMIDE 40 MG/5 ML UNIT-DOSE CUP GT SCH (10:00)
[2021-11-15] MEDS ORDERED: levETIRAcetam 500 MG/5 ML ORAL SOLUTION (UNIT-DOSE CUPS) GT SCH (10:00)
[2021-11-15] MEDS: ENOXAPARIN NA (PORCINE) 100 MG/1 ML DISP.SYRIN SQ SCH ×2 (10:13→22:33)
[2021-11-15 13:07] LABS: SARS-CoV-2 NAA Not Detected (Not Detected)
[2021-11-15 19:36] VITALS: BMI 26.2
[2021-11-15] MEDS: ALBUTEROL SO4 0.083% IH SOL 2.5 MG/3 ML VIAL.NEB. NEB SCH (21:17)
[2021-11-15] MEDS ORDERED: DOCUSATE NA 100 MG/10 ML UNIT-DOSE CUPS PO SCH (22:00)
[2021-11-15] MEDS ORDERED: DOCUSATE NA 100 MG/10 ML UNIT-DOSE CUPS GT SCH (22:00)
[2021-11-15] MEDS: LACTULOSE 20 GM/30 ML UDC (FOR ORAL USE ONLY) GT SCH (22:30)
[2021-11-15] MEDS: levETIRAcetam 500 MG/5 ML ORAL SOLUTION (UNIT-DOSE CUPS) GT SCH (22:30)
[2021-11-15] MEDS: VALPROATE SODIUM 250 MG/5 ML UNIT DOSE CUP GT SCH (22:31)
[2021-11-15] MEDS: NYSTATIN 100,000 UNIT/GM TOPICAL CREAM 15 GM TUBE TP SCH (22:50)
[2021-11-16] MEDS: ALBUTEROL SO4 0.083% IH SOL 2.5 MG/3 ML VIAL.NEB. NEB SCH ×2 (07:35→13:45)
[2021-11-16] MEDS ORDERED: LACTOBACILLUS ACIDOPHILUS 1 TABLET PEG SCH (10:00)
[2021-11-16] MEDS ORDERED: ASCORBIC ACID 500 MG TABLET (FP) GT SCH (10:00)
[2021-11-16] MEDS ORDERED: FUROSEMIDE 40 MG/5 ML UNIT-DOSE CUP GT SCH (10:00)
[2021-11-16] MEDS ORDERED: FOLIC ACID 1 MG TABLET (FP) PEG SCH (10:00)
[2021-11-16] MEDS: LACTULOSE 20 GM/30 ML UDC (FOR ORAL USE ONLY) GT SCH (11:12)
[2021-11-16] MEDS: VALPROATE SODIUM 250 MG/5 ML UNIT DOSE CUP GT SCH (11:13)
[2021-11-16] MEDS: levETIRAcetam 500 MG/5 ML ORAL SOLUTION (UNIT-DOSE CUPS) GT SCH (11:13)
[2021-11-16] MEDS: NYSTATIN 100,000 UNIT/GM TOPICAL CREAM 15 GM TUBE TP SCH (11:14)
[2021-11-16] MEDS: ENOXAPARIN NA (PORCINE) 100 MG/1 ML DISP.SYRIN SQ SCH (11:14)
[2021-11-16] MEDS ORDERED: INSULIN (NOVOLOG) ASPART 100 UNITS/ML 10ML VIAL ONE (12:16)
[2021-11-16 21:07] VITALS: BP 122/57; PULSE 70; TEMP 98.3
== END 2021-11-16 21:09 | DRG 205 ==
LOC: JER 16:04 → JERBED 19:36 → J8W 11-15 16:35
PROVIDERS: ADMIT Internal Medicine; ATTEND Internal Medicine
DX: T17.590A Other foreign object in bronchus causing asphyxiation, initial encounter (principal); R53.2 Functional quadriplegia; F20.0 Paranoid schizophrenia; J98.11 Atelectasis; J44.9 Chronic obstructive pulmonary disease, unspecified; I10 Essential (primary) hypertension; G30.9 Alzheimer's disease, unspecified; F02.80 Dementia in other diseases classified elsewhere, unspecified severity, without behavioral disturbance, psychotic disturbance, mood disturbance, and anxiety; G40.909 Epilepsy, unspecified, not intractable, without status epilepticus; R09.02 Hypoxemia; N40.0 Benign prostatic hyperplasia without lower urinary tract symptoms; M51.34 Other intervertebral disc degeneration, thoracic region; Z93.1 Gastrostomy status; E78.5 Hyperlipidemia, unspecified; R00.0 Tachycardia, unspecified
CPT/HCPCS: 36415; 71045-TC-FY; 71250-TC; 71275-TC; 80048; 80053; 81003; 82803; 82962; 83605; 83735; 84100; 84484; 85025; 85027; 85379; 85610; 85730; 87040; 87086; 93005; 93010; 93970-TC; 99285-25; C9803; U0003; U0005

== ENCOUNTER 2021-11-27 02:35 | Emergency (ER) | payer OTHER ==
[2021-11-27 03:04] VITALS: PULSE 78; TEMP 97.7; BMI 32.5
[2021-11-27 04:22] VITALS: BP 127/75
== END 2021-11-27 04:41 ==
LOC: JER 02:35
DX: Z46.59 Encounter for fitting and adjustment of other gastrointestinal appliance and device (principal)
CPT/HCPCS: 74018-TC-FY; 99283-25

== ENCOUNTER 2021-11-29 10:58 | Inpatient (IN) | payer OTHER ==
[2021-11-29] MEDS ORDERED: SODIUM CHLORIDE 0.9% 500 ML INFUS.BAG IV ONE ×2 (11:25→14:40)
[2021-11-29] MEDS ORDERED: ACETAMINOPHEN 1000 MG/100 ML BAG IVPB ONE (11:32)
[2021-11-29] MEDS ORDERED: ACETAMINOPHEN INJECTION 100 ML IVPB ONE (12:29)
[2021-11-29] MEDS ORDERED: PIPERACILLIN/TAZOB 4.5 GM 4.5 GM in DEXTROSE 5%-WATER 100 ML IVPB ONE (12:31)
[2021-11-29] MEDS ORDERED: VANCOMYCIN 1 GM in D5W (PRE-DOCKED) 1,000 MG/250 ML IVPB ONE (12:31)
[2021-11-29 12:36] LABS: BASO % 0.4 % (0-2.0); HEMATOCRIT 35.5 % (35.4-49); LYMPH % 3.4 % (8-40); MCH 31.3 pg (25.7-33.7); MCHC 33.8 g/dl (32.0-35.9); MEAN CELL VOLUME 92.5 fl (80-96); MEAN PLT VOLUME 9.3 fl (7.5-11.1); MONO % 5.5 % (3.8-10.2); NEUT % 90.7 % (42.8-82.8); PLATELET COUNT 242 10^3/uL (134-434); RBC 3.84 M/mm3 (4.00-5.60); RDW 13.9 % (11.9-15.9); WHITE BLOOD COUNT 19.5 K/mm3 (4.0-10.0)
[2021-11-29 12:45] LABS: INR 1.15 (0.83-1.09); PROTHROMBIN TIME (PATIENT) 13.3 SEC (9.7-13.0)
[2021-11-29 12:47] LABS: VENOUS O2 SATURATION 92.3 % (70-80); VENOUS PCO2 37.1 mmHg (38-52); VENOUS PH 7.472 (7.310-7.410)
[2021-11-29 12:48] LABS: ACTIVATED PTT 25.9 SECONDS (25.2-36.5)
[2021-11-29 12:58] LABS: BLOOD UREA NITROGEN 19.2 mg/dL (7-18)
[2021-11-29] MEDS ORDERED: PIPERACILLIN/TAZOB 4.5 GM 4.5 GM/100 ML BAG IVPB ONE (12:58)
[2021-11-29 13:01] LABS: CREATININE 0.9 mg/dL (0.55-1.3)
[2021-11-29 13:03] LABS: BILIRUBIN,TOTAL 0.3 mg/dL (0.2-1); TOT PROT 7.7 g/dl (6.4-8.2)
[2021-11-29] MEDS ORDERED: VANCOMYCIN 1 GRAM (PRE-DOCKED) 1,000 MG/250 ML BAG IVPB ONE (13:05)
[2021-11-29 13:18] LABS: LACTIC ACID 3.8 mmol/L (0.4-2.0)
[2021-11-29 15:52] LABS: PH,URINE 8.5 (5.0-8.0); URINE APPEARANCE CLEAR; URINE BILIRUBIN NEGATIVE (NEGATIVE); URINE COLOR YELLOW; URINE GLUCOSE (UA) NEGATIVE (NEGATIVE); URINE KETONE TRACE (NEGATIVE); URINE LEUK ESTERASE NEGATIVE (NEGATIVE); URINE NITRITE NEGATIVE (NEGATIVE); URINE PROTEIN NEGATIVE (NEGATIVE); URINE UROBILINOGEN 0.2 mg/dL (0.2-1.0)
[2021-11-29] MEDS ORDERED: ACETAMINOPHEN 650 MG/20.3 ML ORAL SOLUTION (CUPS) GT PRN (17:45)
[2021-11-29] MEDS: ALBUTEROL SO4 0.083% IH SOL 2.5 MG/3 ML VIAL.NEB. NEB SCH (21:15)
[2021-11-29] MEDS: levETIRAcetam 500 MG/5 ML ORAL SOLUTION (UNIT-DOSE CUPS) GT SCH (22:12)
[2021-11-29] MEDS: LACTULOSE 20 GM/30 ML UDC (FOR ORAL USE ONLY) GT SCH (22:12)
[2021-11-29] MEDS: VALPROATE SODIUM 250 MG/5 ML UNIT DOSE CUP GT SCH (22:36)
[2021-11-29] MEDS: NYSTATIN 100,000 UNIT/GM TOPICAL CREAM 15 GM TUBE TP SCH (22:36)
[2021-11-30 01:08] VITALS: BMI 26.9
[2021-11-30] MEDS: ALBUTEROL SO4 0.083% IH SOL 2.5 MG/3 ML VIAL.NEB. NEB SCH ×3 (07:24→19:55)
[2021-11-30 08:09] LABS: BASO % 0.3 % (0-2.0); HEMATOCRIT 30.6 % (35.4-49); HEMOGLOBIN 10.4 GM/dL (11.7-16.9); LYMPH % 7.6 % (8-40); MCH 31.8 pg (25.7-33.7); MCHC 33.9 g/dl (32.0-35.9); MEAN CELL VOLUME 93.8 fl (80-96); MEAN PLT VOLUME 10.1 fl (7.5-11.1); MONO % 4.2 % (3.8-10.2); NEUT % 87.9 % (42.8-82.8); PLATELET COUNT 176 10^3/uL (134-434); RBC 3.27 M/mm3 (4.00-5.60); RDW 14.4 % (11.9-15.9); WHITE BLOOD COUNT 22.7 K/mm3 (4.0-10.0)
[2021-11-30 08:23] LABS: CREATININE 0.5 mg/dL (0.55-1.3)
[2021-11-30 08:25] LABS: BILIRUBIN,TOTAL 0.3 mg/dL (0.2-1); TOT PROT 5.9 g/dl (6.4-8.2)
[2021-11-30 08:27] LABS: ALBUMIN 2.2 g/dl (3.4-5.0)
[2021-11-30] MEDS: levETIRAcetam 500 MG/5 ML ORAL SOLUTION (UNIT-DOSE CUPS) GT SCH ×2 (09:19→22:02)
[2021-11-30] MEDS: LACTULOSE 20 GM/30 ML UDC (FOR ORAL USE ONLY) GT SCH ×2 (09:19→22:02)
[2021-11-30] MEDS: ENOXAPARIN NA (PORCINE) 40 MG/0.4 ML DISP.SYRIN SQ SCH (09:20)
[2021-11-30] MEDS: VALPROATE SODIUM 250 MG/5 ML UNIT DOSE CUP GT SCH ×2 (09:20→22:03)
[2021-11-30] MEDS: NYSTATIN 100,000 UNIT/GM TOPICAL CREAM 15 GM TUBE TP SCH ×2 (09:21→22:03)
[2021-11-30 09:46] LABS: ANISOCYTOSIS 0; HELMET CELLS 0; HOWELL-JOLLY BODIES 0; MACROCYTOSIS 0; OVALOCYTE 0; ROULEAU 0; SICKELED CELLS 0; TARGET CELLS 0; TEAR DROP CELLS 0; TOXIC GRANULATION 0
[2021-11-30] MEDS ORDERED: FUROSEMIDE 20 MG TABLET (FP) GT SCH (10:00)
[2021-11-30] MEDS: FERROUS SULFATE 220 MG/5 ML ELIXIR GT SCH (10:21)
[2021-11-30] MEDS ORDERED: PIPERACILLIN/TAZOBACTAM 3.375 GM VIAL IVPB ONE ×2 (12:22→19:42)
[2021-11-30] MEDS: PIPERACILLIN/TAZOB 3.375 GM 3.375 GM in DEXTROSE 5%-WATER - 50 ML IVPB SCH ×2 (12:59→19:45)
[2021-11-30] MEDS ORDERED: POTASSIUM CHLORIDE ORAL LIQUID 20 MEQ/15 ML GT ONE (12:59)
[2021-11-30] MEDS ORDERED: DEXTROSE 5%-WATER - 50 ML IVPB ONE (19:42)
[2021-12-01] MEDS: PIPERACILLIN/TAZOB 3.375 GM 3.375 GM in DEXTROSE 5%-WATER - 50 ML IVPB SCH ×3 (02:47→17:00)
[2021-12-01] MEDS ORDERED: PIPERACILLIN/TAZOBACTAM 3.375 GM VIAL IVPB ONE ×3 (02:59→16:48)
[2021-12-01] MEDS ORDERED: DEXTROSE 5%-WATER - 50 ML IVPB ONE ×3 (02:59→16:48)
[2021-12-01] MEDS: ALBUTEROL SO4 0.083% IH SOL 2.5 MG/3 ML VIAL.NEB. NEB SCH ×3 (07:52→20:30)
[2021-12-01] MEDS ORDERED: POTASSIUM CHLORIDE ORAL LIQUID 20 MEQ/15 ML GT SCH (10:00)
[2021-12-01 10:12] LABS: BASO % 0.2 % (0-2.0); EOS % 1.5 % (0-4.5); HEMATOCRIT 28.9 % (35.4-49); HEMOGLOBIN 9.9 GM/dL (11.7-16.9); LYMPH % 19.1 % (8-40); MCH 31.9 pg (25.7-33.7); MCHC 34.2 g/dl (32.0-35.9); MEAN CELL VOLUME 93.4 fl (80-96); MEAN PLT VOLUME 9.5 fl (7.5-11.1); MONO % 7.4 % (3.8-10.2); NEUT % 71.8 % (42.8-82.8); PLATELET COUNT 158 10^3/uL (134-434); RBC 3.09 M/mm3 (4.00-5.60); RDW 14.2 % (11.9-15.9); WHITE BLOOD COUNT 8.4 K/mm3 (4.0-10.0)
[2021-12-01] MEDS: FERROUS SULFATE 220 MG/5 ML ELIXIR GT SCH (10:13)
[2021-12-01] MEDS: VALPROATE SODIUM 250 MG/5 ML UNIT DOSE CUP GT SCH ×2 (10:13→22:18)
[2021-12-01] MEDS: levETIRAcetam 500 MG/5 ML ORAL SOLUTION (UNIT-DOSE CUPS) GT SCH ×2 (10:13→22:18)
[2021-12-01] MEDS: ENOXAPARIN NA (PORCINE) 40 MG/0.4 ML DISP.SYRIN SQ SCH (10:14)
[2021-12-01] MEDS: LACTULOSE 20 GM/30 ML UDC (FOR ORAL USE ONLY) GT SCH (10:14)
[2021-12-01] MEDS: NYSTATIN 100,000 UNIT/GM TOPICAL CREAM 15 GM TUBE TP SCH ×2 (10:15→22:18)
[2021-12-01 10:59] LABS: BLOOD UREA NITROGEN 11.8 mg/dL (7-18); CALCIUM 8.3 mg/dL (8.5-10.1)
[2021-12-01 11:00] LABS: ALBUMIN 2.3 g/dl (3.4-5.0)
[2021-12-01 11:03] LABS: CREATININE 0.5 mg/dL (0.55-1.3)
[2021-12-01 11:04] LABS: BILIRUBIN,TOTAL 0.3 mg/dL (0.2-1); TOT PROT 6.2 g/dl (6.4-8.2)
[2021-12-01] MEDS ORDERED: LACTULOSE 20 GM/30 ML UDC (FOR ORAL USE ONLY) GT PRN (12:30)
[2021-12-02] MEDS ORDERED: PIPERACILLIN/TAZOBACTAM 3.375 GM VIAL IVPB ONE ×3 (00:53→17:36)
[2021-12-02] MEDS ORDERED: DEXTROSE 5%-WATER - 50 ML IVPB ONE ×3 (00:53→17:36)
[2021-12-02] MEDS: PIPERACILLIN/TAZOB 3.375 GM 3.375 GM in DEXTROSE 5%-WATER - 50 ML IVPB SCH ×3 (01:31→17:41)
[2021-12-02] MEDS: ALBUTEROL SO4 0.083% IH SOL 2.5 MG/3 ML VIAL.NEB. NEB SCH ×3 (07:49→20:08)
[2021-12-02] MEDS: ENOXAPARIN NA (PORCINE) 40 MG/0.4 ML DISP.SYRIN SQ SCH (10:15)
[2021-12-02] MEDS: VALPROATE SODIUM 250 MG/5 ML UNIT DOSE CUP GT SCH ×2 (10:16→21:29)
[2021-12-02] MEDS: FERROUS SULFATE 220 MG/5 ML ELIXIR GT SCH (10:16)
[2021-12-02] MEDS: levETIRAcetam 500 MG/5 ML ORAL SOLUTION (UNIT-DOSE CUPS) GT SCH ×2 (10:16→21:29)
[2021-12-02] MEDS: NYSTATIN 100,000 UNIT/GM TOPICAL CREAM 15 GM TUBE TP SCH ×2 (10:16→21:30)
[2021-12-02] MEDS ORDERED: SCOPOLAMINE HYDROBROMIDE 1 PATCH PATCH.TD72 TD SCH (15:00)
[2021-12-03] MEDS ORDERED: PIPERACILLIN/TAZOBACTAM 3.375 GM VIAL IVPB ONE ×3 (01:44→16:30)
[2021-12-03] MEDS ORDERED: DEXTROSE 5%-WATER - 50 ML IVPB ONE ×3 (01:44→16:30)
[2021-12-03] MEDS: PIPERACILLIN/TAZOB 3.375 GM 3.375 GM in DEXTROSE 5%-WATER - 50 ML IVPB SCH ×3 (02:41→17:05)
[2021-12-03] MEDS: ALBUTEROL SO4 0.083% IH SOL 2.5 MG/3 ML VIAL.NEB. NEB SCH (08:23)
[2021-12-03] MEDS: VALPROATE SODIUM 250 MG/5 ML UNIT DOSE CUP GT SCH ×2 (10:46→22:02)
[2021-12-03] MEDS: FERROUS SULFATE 220 MG/5 ML ELIXIR GT SCH (10:46)
[2021-12-03] MEDS: NYSTATIN 100,000 UNIT/GM TOPICAL CREAM 15 GM TUBE TP SCH ×2 (10:47→22:03)
[2021-12-03] MEDS: levETIRAcetam 500 MG/5 ML ORAL SOLUTION (UNIT-DOSE CUPS) GT SCH ×2 (10:52→22:06)
[2021-12-03] MEDS: ENOXAPARIN NA (PORCINE) 40 MG/0.4 ML DISP.SYRIN SQ SCH (10:54)
[2021-12-03 12:09] LABS: SARS-CoV-2 NAA Not Detected (Not Detected)
[2021-12-03] MEDS: FUROSEMIDE 40 MG/5 ML UNIT-DOSE CUP GT SCH (14:00)
[2021-12-03] MEDS: ALBUTEROL SULFATE 2 MG/5 ML SOLUTION GT SCH ×2 (14:00→22:07)
[2021-12-04] MEDS ORDERED: DEXTROSE 5%-WATER - 50 ML IVPB ONE ×3 (01:06→17:12)
[2021-12-04] MEDS ORDERED: PIPERACILLIN/TAZOBACTAM 3.375 GM VIAL IVPB ONE ×3 (01:06→17:12)
[2021-12-04] MEDS: PIPERACILLIN/TAZOB 3.375 GM 3.375 GM in DEXTROSE 5%-WATER - 50 ML IVPB SCH ×3 (01:30→17:19)
[2021-12-04] MEDS: ALBUTEROL SULFATE 2 MG/5 ML SOLUTION GT SCH ×2 (05:46→15:39)
[2021-12-04] MEDS: levETIRAcetam 500 MG/5 ML ORAL SOLUTION (UNIT-DOSE CUPS) GT SCH (09:58)
[2021-12-04] MEDS: FERROUS SULFATE 220 MG/5 ML ELIXIR GT SCH (09:59)
[2021-12-04] MEDS: FUROSEMIDE 40 MG/5 ML UNIT-DOSE CUP GT SCH (10:00)
[2021-12-04] MEDS: VALPROATE SODIUM 250 MG/5 ML UNIT DOSE CUP GT SCH (10:02)
[2021-12-04] MEDS: ENOXAPARIN NA (PORCINE) 40 MG/0.4 ML DISP.SYRIN SQ SCH (10:02)
[2021-12-04] MEDS: NYSTATIN 100,000 UNIT/GM TOPICAL CREAM 15 GM TUBE TP SCH (10:04)
[2021-12-04 10:14] VITALS: PULSE 71
[2021-12-04 16:36] VITALS: BP 116/66; TEMP 99
== END 2021-12-04 19:04 | DRG 871 ==
LOC: JER 10:58 → JERBED 15:44 → J8W 20:16
PROVIDERS: ADMIT Internal Medicine; ATTEND Internal Medicine
DX: A41.89 Other specified sepsis (principal); J69.0 Pneumonitis due to inhalation of food and vomit; R53.2 Functional quadriplegia; G93.41 Metabolic encephalopathy; J98.11 Atelectasis; F20.0 Paranoid schizophrenia; E87.2 Acidosis; I10 Essential (primary) hypertension; J44.9 Chronic obstructive pulmonary disease, unspecified; G30.9 Alzheimer's disease, unspecified; F02.80 Dementia in other diseases classified elsewhere, unspecified severity, without behavioral disturbance, psychotic disturbance, mood disturbance, and anxiety; N40.0 Benign prostatic hyperplasia without lower urinary tract symptoms; E11.9 Type 2 diabetes mellitus without complications; G40.909 Epilepsy, unspecified, not intractable, without status epilepticus; D72.829 Elevated white blood cell count, unspecified; R50.9 Fever, unspecified; R09.02 Hypoxemia; E86.0 Dehydration; Z93.1 Gastrostomy status
CPT/HCPCS: 36415; 71045-TC-FY; 74018-TC-FY; 80053; 81003; 82803; 82962; 83605; 84484; 85025; 85610; 85730; 86850; 86900; 86901; 87040; 87086; 93005; 93010; 94640; 99283-25; 99291; C9803; U0003; U0005

== ENCOUNTER 2022-03-23 19:08 | Observation (INO) | payer OTHER ==
[2022-03-23 19:53] VITALS: BMI 25.7
[2022-03-23 23:44] LABS: EOS % 2.6 % (0-4.5); HEMOGLOBIN 11.2 GM/dL (11.7-16.9); LYMPH % 50.8 % (8-40); MCHC 33.9 g/dl (32.0-35.9); MEAN CELL VOLUME 94.4 fl (80-96); MEAN PLT VOLUME 10.1 fl (7.5-11.1); NEUT % 36.6 % (42.8-82.8); PLATELET COUNT 167 10^3/uL (134-434); WHITE BLOOD COUNT 4.8 K/mm3 (4.0-10.0)
[2022-03-23 23:50] LABS: INR 1.14 (0.83-1.09); PROTHROMBIN TIME (PATIENT) 13.1 SEC (9.7-13.0)
[2022-03-23 23:52] LABS: ACTIVATED PTT 26.9 SECONDS (25.2-36.5)
[2022-03-24 00:05] LABS: ALBUMIN 2.6 g/dl (3.4-5.0); BLOOD UREA NITROGEN 12.5 mg/dL (7-18); CALCIUM 8.3 mg/dL (8.5-10.1)
[2022-03-24 00:08] LABS: CREATININE 0.5 mg/dL (0.55-1.3)
[2022-03-24 00:10] LABS: BILIRUBIN,TOTAL 0.3 mg/dL (0.2-1); TOT PROT 6.7 g/dl (6.4-8.2)
[2022-03-24 07:24] VITALS: TEMP 97.8
[2022-03-24 09:32] LABS: BASO % 0.5 % (0-2.0); EOS % 3.4 % (0-4.5); HEMATOCRIT 34.6 % (35.4-49); HEMOGLOBIN 11.6 GM/dL (11.7-16.9); LYMPH % 51.9 % (8-40); MCH 31.9 pg (25.7-33.7); MCHC 33.5 g/dl (32.0-35.9); MEAN CELL VOLUME 95.3 fl (80-96); MEAN PLT VOLUME 9.9 fl (7.5-11.1); MONO % 11.3 % (3.8-10.2); NEUT % 32.9 % (42.8-82.8); PLATELET COUNT 173 10^3/uL (134-434); RBC 3.63 M/mm3 (4.00-5.60); RDW 14.4 % (11.9-15.9)
[2022-03-24 09:56] LABS: CALCIUM 8.6 mg/dL (8.5-10.1)
[2022-03-24 09:57] LABS: BLOOD UREA NITROGEN 12.9 mg/dL (7-18)
[2022-03-24 10:00] LABS: CREATININE 0.6 mg/dL (0.55-1.3)
[2022-03-24] MEDS ORDERED: levETIRAcetam 500 MG/5 ML INJECTION VIAL IVPB SCH (10:00)
[2022-03-24] MEDS ORDERED: VALPROATE SODIUM 500 MG/5 ML VIAL IVPB SCH (10:00)
[2022-03-24] MEDS ORDERED: VALPROATE SODIUM 500 MG/5 ML VIAL ONE (10:36)
[2022-03-24] MEDS ORDERED: levETIRAcetam 500 MG/5 ML INJECTION VIAL IVPB ONE (10:37)
[2022-03-24] MEDS ORDERED: levETIRAcetam 500 MG/5 ML ORAL SOLUTION (UNIT-DOSE CUPS) GT SCH (13:00)
[2022-03-24] MEDS ORDERED: VALPROATE SODIUM 250 MG/5 ML UNIT DOSE CUP GT SCH (13:00)
[2022-03-24] MEDS ORDERED: SCOPOLAMINE HYDROBROMIDE 1 PATCH PATCH.TD72 TD SCH (13:00)
[2022-03-24 14:44] VITALS: BP 133/80; PULSE 74
[2022-03-24] MEDS ORDERED: LACTULOSE 20 GM/30 ML UDC (FOR ORAL USE ONLY) GT SCH (22:00)
[2022-03-24] MEDS ORDERED: NYSTATIN 100,000 UNIT/GM TOPICAL CREAM 15 GM TUBE TP SCH (22:00)
[2022-03-25] MEDS ORDERED: FUROSEMIDE 20 MG TABLET (FP) GT SCH (10:00)
[2022-03-25] MEDS ORDERED: FERROUS SULFATE 220 MG/5 ML ELIXIR GT SCH (10:00)
== END 2022-03-24 15:00 ==
LOC: JER 19:08 → JERBED 20:26
PROVIDERS: ADMIT Internal Medicine; ATTEND Internal Medicine
PROC: 0DW6XUZ Revision of Feeding Device in Stomach, External Approach (ICD-10-PCS; principal; 2022-03-23)
DX: T85.528A Displacement of other gastrointestinal prosthetic devices, implants and grafts, initial encounter (principal); Z43.1 Encounter for attention to gastrostomy; G30.1 Alzheimer's disease with late onset; F02.80 Dementia in other diseases classified elsewhere, unspecified severity, without behavioral disturbance, psychotic disturbance, mood disturbance, and anxiety; F20.9 Schizophrenia, unspecified; J44.9 Chronic obstructive pulmonary disease, unspecified; I10 Essential (primary) hypertension; R56.9 Unspecified convulsions; R53.2 Functional quadriplegia; N20.0 Calculus of kidney; Z87.440 Personal history of urinary (tract) infections; Z20.822 Contact with and (suspected) exposure to COVID-19; Z29.8 Encounter for other specified prophylactic measures; Z79.01 Long term (current) use of anticoagulants; X58.XXXA Exposure to other specified factors, initial encounter; Y93.89 Activity, other specified; Y92.89 Other specified places as the place of occurrence of the external cause
CPT/HCPCS: 36415; 49440; 71045-TC-FY; 80048; 80053; 85025; 85610; 85730; 93005; 93010; 99285-25; C1769; C9803-CS; G0378; U0003; U0005

== ENCOUNTER 2022-04-25 20:35 | Emergency (ER) | payer OTHER ==
[2022-04-25 20:52] VITALS: TEMP 98.5; BMI 26.6
[2022-04-26 00:06] VITALS: BP 113/85; PULSE 68; RESP 18
== END 2022-04-26 01:12 | disposition home or self-care (01) ==
LOC: JER 20:35
DX: Z43.1 Encounter for attention to gastrostomy (principal)
CPT/HCPCS: 74018-TC-FY; 99283-25

== ENCOUNTER 2022-07-26 13:46 | Emergency (ER) | payer OTHER ==
[2022-07-26 14:52] VITALS: RESP 20; BMI 25.9
[2022-07-26 18:34] VITALS: BP 165/95; PULSE 66; TEMP 97.8
== END 2022-07-26 19:13 | disposition home or self-care (01) ==
LOC: JER 13:46
DX: K94.23 Gastrostomy malfunction (principal)
CPT/HCPCS: 49440; 99283-25

== ENCOUNTER 2022-10-08 13:10 | Emergency (ER) | payer OTHER ==
[2022-10-08 13:29] VITALS: TEMP 98.2; BMI 65.1
[2022-10-08 19:55] VITALS: BP 133/78; PULSE 78; RESP 19
== END 2022-10-08 19:49 ==
LOC: JER 13:10
DX: K94.23 Gastrostomy malfunction (principal)
CPT/HCPCS: 74018-TC-FY; 99283-25

== ENCOUNTER 2022-12-01 21:48 | Emergency (ER) | payer OTHER ==
[2022-12-01 22:35] VITALS: BMI 26.6
[2022-12-02] MEDS ORDERED: VALPROATE SODIUM 250 MG/5 ML UNIT DOSE CUP PO SCH (10:00)
[2022-12-02] MEDS ORDERED: levETIRAcetam 500 MG/5 ML ORAL SOLUTION (UNIT-DOSE CUPS) PO SCH (10:00)
[2022-12-02] MEDS ORDERED: levETIRAcetam 500 MG/5 ML ORAL SOLUTION (UNIT-DOSE CUPS) PO STA (10:15)
[2022-12-02] MEDS ORDERED: VALPROATE SODIUM 250 MG/5 ML UNIT DOSE CUP PO ONE (10:16)
[2022-12-02 12:22] VITALS: BP 125/78; PULSE 85; RESP 18; TEMP 98
== END 2022-12-02 12:22 | disposition home or self-care (01) ==
LOC: JER 21:48
DX: K94.23 Gastrostomy malfunction (principal)
CPT/HCPCS: 74018-TC-FY; 99283-25

== ENCOUNTER 2023-01-23 21:15 | Inpatient (IN) | payer OTHER ==
[2023-01-23 22:26] LABS: BASO % 0.6 % (0-2.0); EOS % 1.9 % (0-4.5); HEMATOCRIT 35.3 % (35.4-49); LYMPH % 56.7 % (8-40); MCH 32.6 pg (25.7-33.7); MCHC 34.1 g/dl (32.0-35.9); MEAN CELL VOLUME 95.5 fl (80-96); MEAN PLT VOLUME 8.9 fl (7.5-11.1); MONO % 9.2 % (3.8-10.2); NEUT % 31.6 % (42.8-82.8); PLATELET COUNT 200 10^3/uL (134-434); RDW 13.6 % (11.9-15.9); WHITE BLOOD COUNT 6.1 K/mm3 (4.0-10.0)
[2023-01-23 22:33] LABS: INR 1.14 (0.83-1.09); PROTHROMBIN TIME (PATIENT) 13.2 SEC (9.7-13.0)
[2023-01-23 22:36] LABS: ACTIVATED PTT 34.2 SECONDS (25.2-36.5)
[2023-01-23 22:45] LABS: POTASSIUM 4.6 mmol/L (3.5-5.1)
[2023-01-23 22:47] LABS: ALBUMIN 2.9 g/dl (3.4-5.0); BLOOD UREA NITROGEN 13.2 mg/dL (7-18)
[2023-01-23 22:50] LABS: CREATININE 0.7 mg/dL (0.55-1.3)
[2023-01-23 22:52] LABS: BILIRUBIN,TOTAL 0.3 mg/dL (0.2-1); TOT PROT 7.3 g/dl (6.4-8.2)
[2023-01-24] MEDS: DEXTROSE 5%-0.45% SALINE 1,000 ML IV SCH (00:50)
[2023-01-24] MEDS: ALBUTEROL SO4 0.083% IH SOL 2.5 MG/3 ML VIAL.NEB. NEB SCH ×3 (07:45→20:14)
[2023-01-24] MEDS: ENOXAPARIN NA (PORCINE) 40 MG/0.4 ML DISP.SYRIN SQ SCH (09:50)
[2023-01-24] MEDS: levETIRAcetam 500 MG/5 ML INJECTION VIAL IVPB SCH ×2 (09:51→21:05)
[2023-01-24] MEDS ORDERED: VALPROATE SODIUM 500 MG/5 ML VIAL IVPB SCH (10:00)
[2023-01-24] MEDS ORDERED: VALPROATE SODIUM INJECTION 500 MG in SODIUM CHLORIDE 100 ML IVPB SCH ×2 (10:00→11:30)
[2023-01-24] MEDS ORDERED: SCOPOLAMINE HYDROBROMIDE 1 PATCH PATCH.TD72 TD SCH (10:00)
[2023-01-24] MEDS: VALPROATE SODIUM INJECTION 500 MG in SODIUM CHLORIDE 100 ML IVPB SCH ×3 (14:25→22:40)
[2023-01-24 15:42] VITALS: BMI 27.0
[2023-01-25] MEDS: DEXTROSE 5%-0.45% SALINE 1,000 ML IV SCH (02:46)
[2023-01-25] MEDS: VALPROATE SODIUM INJECTION 500 MG in SODIUM CHLORIDE 100 ML IVPB SCH ×4 (02:47→21:41)
[2023-01-25] MEDS: ALBUTEROL SO4 0.083% IH SOL 2.5 MG/3 ML VIAL.NEB. NEB SCH ×3 (08:05→20:46)
[2023-01-25] MEDS: levETIRAcetam 500 MG/5 ML INJECTION VIAL IVPB SCH ×2 (09:11→22:31)
[2023-01-25] MEDS: ENOXAPARIN NA (PORCINE) 40 MG/0.4 ML DISP.SYRIN SQ SCH (10:49)
[2023-01-26] MEDS: VALPROATE SODIUM INJECTION 500 MG in SODIUM CHLORIDE 100 ML IVPB SCH ×2 (02:23→13:04)
[2023-01-26 05:41] VITALS: RESP 20
[2023-01-26] MEDS: ALBUTEROL SO4 0.083% IH SOL 2.5 MG/3 ML VIAL.NEB. NEB SCH ×2 (08:54→14:00)
[2023-01-26] MEDS: levETIRAcetam 500 MG/5 ML INJECTION VIAL IVPB SCH (13:14)
[2023-01-26] MEDS: ENOXAPARIN NA (PORCINE) 40 MG/0.4 ML DISP.SYRIN SQ SCH (13:15)
[2023-01-26 15:40] VITALS: BP 121/64; PULSE 73; TEMP 98.1
== END 2023-01-26 14:57 | DRG 393 ==
LOC: JER 21:15 → JERBED 21:47 → J8W 01-24 04:14 → OBSVTOIN 01-25 10:26
PROVIDERS: ADMIT Internal Medicine; ATTEND Internal Medicine
PROC: 0DH63UZ Insertion of Feeding Device into Stomach, Percutaneous Approach (ICD-10-PCS; principal; 2023-01-25)
PROC: BD12YZZ Fluoroscopy of Stomach using Other Contrast (ICD-10-PCS; 2023-01-25)
DX: K94.23 Gastrostomy malfunction (principal); R53.2 Functional quadriplegia; Y83.9 Surgical procedure, unspecified as the cause of abnormal reaction of the patient, or of later complication, without mention of misadventure at the time of the procedure; G30.9 Alzheimer's disease, unspecified; G40.909 Epilepsy, unspecified, not intractable, without status epilepticus; J44.9 Chronic obstructive pulmonary disease, unspecified; I10 Essential (primary) hypertension; F20.9 Schizophrenia, unspecified; F02.80 Dementia in other diseases classified elsewhere, unspecified severity, without behavioral disturbance, psychotic disturbance, mood disturbance, and anxiety
CPT/HCPCS: 0241U-QW; 36415; 49440; 71045-TC-FY; 80053; 80164; 80177; 82962; 85025; 85610; 85730; 86850; 86900; 86901; 93005; 93010; 94640; 99285-25; G0378

== ENCOUNTER 2023-03-04 14:32 | Emergency (ER) | payer OTHER ==
[2023-03-04 15:22] VITALS: BMI 26.6
[2023-03-04 19:38] VITALS: RESP 20
[2023-03-04 23:37] VITALS: BP 136/71; PULSE 70; TEMP 97.6
== END 2023-03-05 00:03 | disposition home or self-care (01) ==
LOC: JER 14:32
DX: K94.23 Gastrostomy malfunction (principal)
CPT/HCPCS: 74018-TC-FY; 99283-25

== ENCOUNTER 2023-03-09 00:32 | Observation (INO) | payer OTHER ==
[2023-03-09 00:46] VITALS: TEMP 97.4; BMI 26.3
[2023-03-09 02:42] LABS: BASO % 0.3 % (0-2.0); EOS % 1.2 % (0-4.5); HEMOGLOBIN 11.1 GM/dL (11.7-16.9); LYMPH % 53.6 % (8-40); MCH 31.8 pg (25.7-33.7); MCHC 32.6 g/dl (32.0-35.9); MEAN CELL VOLUME 97.7 fl (80-96); MEAN PLT VOLUME 10.2 fl (7.5-11.1); MONO % 7.8 % (3.8-10.2); NEUT % 37.1 % (42.8-82.8); PLATELET COUNT 168 10^3/uL (134-434); RBC 3.48 M/mm3 (4.00-5.60); RDW 14.2 % (11.9-15.9); WHITE BLOOD COUNT 4.9 K/mm3 (4.0-10.0)
[2023-03-09 02:50] LABS: INR 1.17 (0.83-1.09); PROTHROMBIN TIME (PATIENT) 13.6 SEC (9.7-13.0)
[2023-03-09 02:53] LABS: ACTIVATED PTT 34.3 SECONDS (25.2-36.5)
[2023-03-09 03:02] LABS: POTASSIUM 4.2 mmol/L (3.5-5.1)
[2023-03-09 03:04] LABS: ALBUMIN 2.7 g/dl (3.4-5.0); CALCIUM 8.6 mg/dL (8.5-10.1)
[2023-03-09 03:05] LABS: BLOOD UREA NITROGEN 15.9 mg/dL (7-18)
[2023-03-09 03:07] LABS: CREATININE 0.6 mg/dL (0.55-1.3)
[2023-03-09 03:09] LABS: BILIRUBIN,TOTAL 0.3 mg/dL (0.2-1); TOT PROT 6.9 g/dl (6.4-8.2)
[2023-03-09 06:26] LABS: BASO % 0.3 % (0-2.0); EOS % 2.5 % (0-4.5); HEMATOCRIT 33.6 % (35.4-49); HEMOGLOBIN 11.3 GM/dL (11.7-16.9); LYMPH % 55.8 % (8-40); MCH 32.3 pg (25.7-33.7); MCHC 33.5 g/dl (32.0-35.9); MEAN CELL VOLUME 96.4 fl (80-96); MEAN PLT VOLUME 10.1 fl (7.5-11.1); MONO % 9.5 % (3.8-10.2); NEUT % 31.9 % (42.8-82.8); PLATELET COUNT 165 10^3/uL (134-434); RBC 3.49 M/mm3 (4.00-5.60); RDW 14.4 % (11.9-15.9); WHITE BLOOD COUNT 4.5 K/mm3 (4.0-10.0)
[2023-03-09] MEDS ORDERED: ALBUTEROL SO4 0.083% IH SOL 2.5 MG/3 ML VIAL.NEB. NEB PRN (08:16)
[2023-03-09] MEDS ORDERED: levETIRAcetam 500 MG/5 ML INJECTION VIAL IVPB SCH (10:00)
[2023-03-09] MEDS ORDERED: VALPROATE SODIUM 500 MG/5 ML VIAL IVPB SCH (10:00)
[2023-03-09 11:15] VITALS: RESP 20
[2023-03-09] MEDS ORDERED: WATER IVPB SCH (11:30)
[2023-03-09] MEDS ORDERED: DEXTROSE 5% IVPB SCH (11:30)
[2023-03-09] MEDS ORDERED: VALPROATE SODIUM IVPB SCH (11:30)
[2023-03-09 12:54] VITALS: BP 127/77; PULSE 70
== END 2023-03-09 18:26 ==
LOC: JER 00:32 → JERBED 02:19
PROVIDERS: ADMIT Internal Medicine; ATTEND Internal Medicine
PROC: 3E033GC Introduction of Other Therapeutic Substance into Peripheral Vein, Percutaneous Approach (ICD-10-PCS; principal; 2023-03-09)
PROC: 3E033GC Introduction of Other Therapeutic Substance into Peripheral Vein, Percutaneous Approach (ICD-10-PCS; 2023-03-09)
PROC: 0DP63UZ Removal of Feeding Device from Stomach, Percutaneous Approach (ICD-10-PCS; 2023-03-09)
PROC: 0DH63UZ Insertion of Feeding Device into Stomach, Percutaneous Approach (ICD-10-PCS; 2023-03-09)
DX: K94.23 Gastrostomy malfunction (principal); F03.90 Unspecified dementia, unspecified severity, without behavioral disturbance, psychotic disturbance, mood disturbance, and anxiety; J44.9 Chronic obstructive pulmonary disease, unspecified; N40.0 Benign prostatic hyperplasia without lower urinary tract symptoms; I10 Essential (primary) hypertension; F20.0 Paranoid schizophrenia; R56.9 Unspecified convulsions; G82.50 Quadriplegia, unspecified
CPT/HCPCS: 36415; 49450; 80053; 80164; 80177; 85025; 85610; 85730; 86850; 86900; 86901; 96365; 96375; 99285-25; G0378

== ENCOUNTER 2023-10-09 21:04 | Inpatient (IN) | payer OTHER ==
[2023-10-09] MEDS ORDERED: methylPREDNISolone NA SUCC 125 MG/2 ML VIAL IVPUSH ONE (21:38)
[2023-10-09] MEDS ORDERED: PIPERACILLIN/TAZOB 3.375 GM 3.375 GM in DEXTROSE 5%-WATER - 50 ML IVPB ONE (21:38)
[2023-10-09] MEDS ORDERED: VANCOMYCIN 1,000 MG in DEXTROSE 5%-WATER - 250 ML IVPB ONE (21:38)
[2023-10-09] MEDS ORDERED: ACETAMINOPHEN 1000 MG/100 ML BAG IVPB ONE (21:47)
[2023-10-09] MEDS ORDERED: ACETAMINOPHEN INJECTION 100 ML IVPB ONE (22:50)
[2023-10-09] MEDS ORDERED: PIPERACILLIN/TAZOB 3.375 GM 3.375 GM/50 ML BAG IVPB ONE (22:50)
[2023-10-09] MEDS ORDERED: methylPREDNISolone NA SUCC 125 MG/2 ML VIAL ONE (22:50)
[2023-10-09] MEDS ORDERED: ALBUTEROL SO4 2.5/IPRATROPIUM 0.5 INH SOL 3 ML VIAL.NEB. NEB ONE ×4 (22:50→23:38)
[2023-10-09] MEDS: ALBUTEROL SO4 2.5/IPRATROPIUM 0.5 INH SOL 3 ML VIAL.NEB. NEB SCH ×2 (23:04→23:18)
[2023-10-09 23:15] LABS: BASO % 0.4 % (0-2.0); EOS % 0.4 % (0-4.5); HEMATOCRIT 30.1 % (35.4-49); HEMOGLOBIN 10.4 GM/dL (11.7-16.9); LYMPH % 9.4 % (8-40); MCH 32.6 pg (25.7-33.7); MCHC 34.4 g/dl (32.0-35.9); MEAN CELL VOLUME 94.5 fl (80-96); MEAN PLT VOLUME 8.8 fl (7.5-11.1); NEUT % 75.8 % (42.8-82.8); PLATELET COUNT 214 10^3/uL (134-434); RBC 3.18 M/mm3 (4.00-5.60); RDW 13.7 % (11.9-15.9); WHITE BLOOD COUNT 7.8 K/mm3 (4.0-10.0)
[2023-10-09 23:39] LABS: POTASSIUM 5.7 mmol/L (3.5-5.1)
[2023-10-09 23:41] LABS: CALCIUM 8.6 mg/dL (8.5-10.1)
[2023-10-09 23:42] LABS: ALBUMIN 2.4 g/dl (3.4-5.0); BLOOD UREA NITROGEN 10.7 mg/dL (7-18)
[2023-10-09 23:45] LABS: CREATININE 0.8 mg/dL (0.55-1.3)
[2023-10-09 23:46] LABS: BILIRUBIN,TOTAL 0.4 mg/dL (0.2-1)
[2023-10-09 23:47] LABS: TOT PROT 7.1 g/dl (6.4-8.2)
[2023-10-09 23:50] LABS: N-TERMINAL BNP 183.6 pg/ml (5-450)
[2023-10-10] MEDS: ALBUTEROL SO4 2.5/IPRATROPIUM 0.5 INH SOL 3 ML VIAL.NEB. NEB SCH ×6 (00:02→21:46)
[2023-10-10 00:14] LABS: INR 1.15 (0.83-1.09); PROTHROMBIN TIME (PATIENT) 13.3 SEC (9.7-13.0)
[2023-10-10] MEDS ORDERED: VANCOMYCIN 1 GRAM (PRE-DOCKED) 1,000 MG/250 ML BAG IVPB ONE ×2 (00:27→17:05)
[2023-10-10] MEDS ORDERED: PIPERACILLIN/TAZOB 4.5 GM 4.5 GM/100 ML BAG IVPB ONE ×3 (05:08→14:54)
[2023-10-10] MEDS: PIPERACILLIN/TAZOB 4.5 GM 4.5 GM in DEXTROSE 5%-WATER 100 ML IVPB SCH ×4 (05:10→17:10)
[2023-10-10] MEDS: INSULIN ASPART SLIDING SCALE (NOVOLOG) 1 VIAL SQ SCH ×3 (06:11→16:52)
[2023-10-10] MEDS ORDERED: ACETAMINOPHEN 160 MG/5 ML *Children Solution GT PRN (06:36)
[2023-10-10] MEDS ORDERED: methylPREDNISolone NA SUCC 40 MG/1 ML VIAL ONE ×3 (09:44→21:47)
[2023-10-10] MEDS ORDERED: ALBUTEROL SO4 2.5/IPRATROPIUM 0.5 INH SOL 3 ML VIAL.NEB. NEB ONE ×4 (09:44→21:43)
[2023-10-10] MEDS: methylPREDNISolone NA SUCC 40 MG/1 ML VIAL IVPUSH SCH ×3 (09:51→22:00)
[2023-10-10] MEDS ORDERED: VALPROATE SODIUM 250 MG/5 ML UNIT DOSE CUP GT SCH (10:00)
[2023-10-10] MEDS ORDERED: FERROUS SULFATE 220 MG/5 ML ELIXIR GT SCH (10:00)
[2023-10-10] MEDS: SCOPOLAMINE HYDROBROMIDE 1 PATCH PATCH.TD72 TD SCH (10:19)
[2023-10-10] MEDS: CHOLECALCIFEROL (VIT D SOLUTION) 400 UNIT/1 ML DROPS GT SCH (10:20)
[2023-10-10] MEDS: CYANOCOBALAMIN 1,000 MCG TABLET (FP) PEG SCH (10:20)
[2023-10-10] MEDS: levETIRAcetam 500 MG/5 ML ORAL SOLUTION (UNIT-DOSE CUPS) GT SCH ×2 (10:21→23:00)
[2023-10-10] MEDS: ASCORBIC ACID 500 MG/5 ML UNIT DOSE CUP GT SCH (10:21)
[2023-10-10] MEDS ORDERED: LACTULOSE 20 GM/30 ML UDC (FOR ORAL USE ONLY) ONE ×2 (10:28→22:52)
[2023-10-10] MEDS ORDERED: FOLIC ACID 1 MG TABLET (FP) ONE (10:28)
[2023-10-10] MEDS ORDERED: FUROSEMIDE 20 MG TABLET (FP) ONE (10:29)
[2023-10-10] MEDS ORDERED: ENOXAPARIN NA (PORCINE) 40 MG/0.4 ML DISP.SYRIN SQ ONE (10:30)
[2023-10-10] MEDS: ENOXAPARIN NA (PORCINE) 40 MG/0.4 ML DISP.SYRIN SQ SCH (10:31)
[2023-10-10] MEDS: LACTULOSE 20 GM/30 ML UDC (FOR ORAL USE ONLY) GT SCH ×2 (10:31→23:00)
[2023-10-10] MEDS: FUROSEMIDE 20 MG TABLET (FP) GT SCH (10:31)
[2023-10-10] MEDS: FOLIC ACID 1 MG TABLET (FP) PEG SCH (10:31)
[2023-10-10] MEDS ORDERED: ALBUTEROL SO4 0.083% IH SOL 2.5 MG/3 ML VIAL.NEB. NEB SCH (14:00)
[2023-10-10] MEDS ORDERED: ALBUTEROL SO4 0.083% IH SOL 2.5 MG/3 ML VIAL.NEB. NEB ONE (14:53)
[2023-10-10] MEDS: VALPROATE SODIUM 250 MG/5 ML UNIT DOSE CUP GT SCH ×2 (14:57→23:00)
[2023-10-10] MEDS ORDERED: FERROUS SO4 300 MG/5 ML ORAL SOLN UNIT DOSE CUPS GT SCH (15:00)
[2023-10-10] MEDS: FERROUS SO4 300 MG/5 ML ORAL SOLN UNIT DOSE CUPS GT SCH (15:21)
[2023-10-10] MEDS: VANCOMYCIN 1 GRAM (PRE-DOCKED) 1,000 MG/250 ML BAG IVPB SCH (17:10)
[2023-10-11] MEDS ORDERED: PIPERACILLIN/TAZOB 4.5 GM 4.5 GM/100 ML BAG IVPB ONE ×2 (02:00→09:57)
[2023-10-11] MEDS ORDERED: ALBUTEROL SO4 0.083% IH SOL 2.5 MG/3 ML VIAL.NEB. NEB ONE (02:06)
[2023-10-11] MEDS: PIPERACILLIN/TAZOB 4.5 GM 4.5 GM in DEXTROSE 5%-WATER 100 ML IVPB SCH ×3 (02:09→18:02)
[2023-10-11] MEDS: ALBUTEROL SO4 0.083% IH SOL 2.5 MG/3 ML VIAL.NEB. NEB PRN ×3 (02:10→23:27)
[2023-10-11] MEDS ORDERED: methylPREDNISolone NA SUCC 40 MG/1 ML VIAL ONE ×2 (02:43→08:19)
[2023-10-11] MEDS: methylPREDNISolone NA SUCC 40 MG/1 ML VIAL IVPUSH SCH ×4 (02:54→21:42)
[2023-10-11] MEDS ORDERED: PIPERACILLIN/TAZOB 4.5 GM 4.5 GM in DEXTROSE 5%-WATER 100 ML IVPB SCH (03:00)
[2023-10-11] MEDS ORDERED: VANCOMYCIN 1 GRAM (PRE-DOCKED) 1,000 MG/250 ML BAG IVPB ONE (05:59)
[2023-10-11] MEDS: VANCOMYCIN 1 GRAM (PRE-DOCKED) 1,000 MG/250 ML BAG IVPB SCH ×2 (06:32→19:39)
[2023-10-11] MEDS ORDERED: ALBUTEROL SO4 2.5/IPRATROPIUM 0.5 INH SOL 3 ML VIAL.NEB. NEB ONE (07:32)
[2023-10-11] MEDS: ALBUTEROL SO4 2.5/IPRATROPIUM 0.5 INH SOL 3 ML VIAL.NEB. NEB SCH ×4 (07:41→20:02)
[2023-10-11] MEDS: INSULIN ASPART SLIDING SCALE (NOVOLOG) 1 VIAL SQ SCH ×3 (08:08→18:23)
[2023-10-11] MEDS: FERROUS SO4 300 MG/5 ML ORAL SOLN UNIT DOSE CUPS GT SCH (10:06)
[2023-10-11] MEDS: LACTULOSE 20 GM/30 ML UDC (FOR ORAL USE ONLY) GT SCH ×2 (10:06→21:41)
[2023-10-11] MEDS: CHOLECALCIFEROL (VIT D SOLUTION) 400 UNIT/1 ML DROPS GT SCH (10:07)
[2023-10-11] MEDS: CYANOCOBALAMIN 1,000 MCG TABLET (FP) PEG SCH (10:07)
[2023-10-11] MEDS: ENOXAPARIN NA (PORCINE) 40 MG/0.4 ML DISP.SYRIN SQ SCH (10:07)
[2023-10-11] MEDS: levETIRAcetam 500 MG/5 ML ORAL SOLUTION (UNIT-DOSE CUPS) GT SCH ×2 (10:07→21:41)
[2023-10-11] MEDS: FUROSEMIDE 20 MG TABLET (FP) GT SCH (10:07)
[2023-10-11] MEDS: ASCORBIC ACID 500 MG/5 ML UNIT DOSE CUP GT SCH (10:07)
[2023-10-11] MEDS: FOLIC ACID 1 MG TABLET (FP) PEG SCH (10:07)
[2023-10-11] MEDS ORDERED: DIVALPROEX SODIUM 500 MG TABLET E.C. ONE (10:09)
[2023-10-11 12:49] LABS: HEMATOCRIT 35.7 % (35.4-49); HEMOGLOBIN 12.1 GM/dL (11.7-16.9); MCH 32.9 pg (25.7-33.7); MEAN CELL VOLUME 96.8 fl (80-96); MEAN PLT VOLUME 8.5 fl (7.5-11.1); PLATELET COUNT 206 10^3/uL (134-434); RBC 3.69 M/mm3 (4.00-5.60); RDW 13.5 % (11.9-15.9); WHITE BLOOD COUNT 21.9 K/mm3 (4.0-10.0)
[2023-10-11 13:06] LABS: POTASSIUM 4.6 mmol/L (3.5-5.1)
[2023-10-11 13:08] LABS: CALCIUM 9.5 mg/dL (8.5-10.1)
[2023-10-11 13:09] LABS: BLOOD UREA NITROGEN 16.1 mg/dL (7-18); MAGNESIUM 2.8 mg/dL (1.8-2.4)
[2023-10-11 13:12] LABS: CREATININE 0.9 mg/dL (0.55-1.3); PHOSPHOROUS 3.8 mg/dL (2.5-4.9)
[2023-10-11 13:13] LABS: TOT PROT 8.4 g/dl (6.4-8.2)
[2023-10-11 13:14] LABS: BILIRUBIN,TOTAL 0.2 mg/dL (0.2-1)
[2023-10-11 13:15] LABS: ALBUMIN 3.1 g/dl (3.4-5.0)
[2023-10-11 13:33] LABS: ANISOCYTOSIS 0; MACROCYTOSIS 0
[2023-10-11] MEDS: VALPROATE SODIUM 250 MG/5 ML UNIT DOSE CUP GT SCH ×2 (13:54→21:41)
[2023-10-12] MEDS: PIPERACILLIN/TAZOB 4.5 GM 4.5 GM in DEXTROSE 5%-WATER 100 ML IVPB SCH ×3 (02:47→17:55)
[2023-10-12] MEDS: methylPREDNISolone NA SUCC 40 MG/1 ML VIAL IVPUSH SCH ×4 (02:47→21:20)
[2023-10-12] MEDS ORDERED: INSULIN (NOVOLOG) ASPART 100 UNITS/ML 10ML VIAL ONE ×2 (06:56→11:59)
[2023-10-12] MEDS: INSULIN ASPART SLIDING SCALE (NOVOLOG) 1 VIAL SQ SCH ×3 (06:59→17:03)
[2023-10-12] MEDS ORDERED: ACETAMINOPHEN 650 MG/20.3 ML ORAL SOLUTION (CUPS) GT PRN (07:21)
[2023-10-12] MEDS: ALBUTEROL SO4 2.5/IPRATROPIUM 0.5 INH SOL 3 ML VIAL.NEB. NEB SCH ×4 (08:49→20:17)
[2023-10-12] MEDS: VANCOMYCIN 1 GRAM (PRE-DOCKED) 1,000 MG/250 ML BAG IVPB SCH (08:50)
[2023-10-12] MEDS: ENOXAPARIN NA (PORCINE) 40 MG/0.4 ML DISP.SYRIN SQ SCH (09:21)
[2023-10-12] MEDS: ASCORBIC ACID 500 MG/5 ML UNIT DOSE CUP GT SCH (09:21)
[2023-10-12] MEDS: FOLIC ACID 1 MG TABLET (FP) PEG SCH (09:21)
[2023-10-12] MEDS: levETIRAcetam 500 MG/5 ML ORAL SOLUTION (UNIT-DOSE CUPS) GT SCH ×2 (09:22→22:21)
[2023-10-12] MEDS: CYANOCOBALAMIN 1,000 MCG TABLET (FP) PEG SCH (09:22)
[2023-10-12] MEDS: VALPROATE SODIUM 250 MG/5 ML UNIT DOSE CUP GT SCH ×2 (09:22→22:21)
[2023-10-12] MEDS: LACTULOSE 20 GM/30 ML UDC (FOR ORAL USE ONLY) GT SCH ×2 (09:22→22:21)
[2023-10-12] MEDS: FUROSEMIDE 20 MG TABLET (FP) GT SCH (09:22)
[2023-10-12] MEDS: CHOLECALCIFEROL (VIT D SOLUTION) 400 UNIT/1 ML DROPS GT SCH (09:24)
[2023-10-12] MEDS: FERROUS SO4 300 MG/5 ML ORAL SOLN UNIT DOSE CUPS GT SCH (09:24)
[2023-10-12 16:19] VITALS: BMI 27.8
[2023-10-13] MEDS: methylPREDNISolone NA SUCC 40 MG/1 ML VIAL IVPUSH SCH ×4 (02:05→17:58)
[2023-10-13] MEDS: PIPERACILLIN/TAZOB 4.5 GM 4.5 GM in DEXTROSE 5%-WATER 100 ML IVPB SCH ×3 (02:05→21:16)
[2023-10-13] MEDS: INSULIN ASPART SLIDING SCALE (NOVOLOG) 1 VIAL SQ SCH ×3 (07:10→17:59)
[2023-10-13] MEDS: ALBUTEROL SO4 2.5/IPRATROPIUM 0.5 INH SOL 3 ML VIAL.NEB. NEB SCH ×4 (07:22→20:33)
[2023-10-13] MEDS: SCOPOLAMINE HYDROBROMIDE 1 PATCH PATCH.TD72 TD SCH ×2 (08:01→11:48)
[2023-10-13] MEDS: LACTULOSE 20 GM/30 ML UDC (FOR ORAL USE ONLY) GT SCH ×2 (11:42→22:55)
[2023-10-13] MEDS: ENOXAPARIN NA (PORCINE) 40 MG/0.4 ML DISP.SYRIN SQ SCH (11:43)
[2023-10-13] MEDS: levETIRAcetam 500 MG/5 ML ORAL SOLUTION (UNIT-DOSE CUPS) GT SCH ×2 (11:44→23:25)
[2023-10-13] MEDS: VALPROATE SODIUM 250 MG/5 ML UNIT DOSE CUP GT SCH ×2 (11:44→22:55)
[2023-10-13] MEDS: CYANOCOBALAMIN 1,000 MCG TABLET (FP) PEG SCH (11:45)
[2023-10-13] MEDS: CHOLECALCIFEROL (VIT D3) 5000 UNITS (125 MCG) CAP NR SCH (11:45)
[2023-10-13] MEDS: FERROUS SO4 300 MG/5 ML ORAL SOLN UNIT DOSE CUPS GT SCH (11:45)
[2023-10-13] MEDS: FUROSEMIDE 20 MG TABLET (FP) GT SCH (11:46)
[2023-10-13] MEDS: FOLIC ACID 1 MG TABLET (FP) PEG SCH (11:46)
[2023-10-13] MEDS: ASCORBIC ACID 500 MG/5 ML UNIT DOSE CUP GT SCH (11:47)
[2023-10-13 15:00] VITALS: RESP 18
[2023-10-13] MEDS ORDERED: VANCOMYCIN/WATER FOR INJ (PEG) 1,000 MG/200 ML BAG IVPB ONE (15:43)
[2023-10-14] MEDS: methylPREDNISolone NA SUCC 40 MG/1 ML VIAL IVPUSH SCH ×2 (01:40→11:31)
[2023-10-14] MEDS: PIPERACILLIN/TAZOB 4.5 GM 4.5 GM in DEXTROSE 5%-WATER 100 ML IVPB SCH ×3 (01:40→17:43)
[2023-10-14] MEDS: INSULIN ASPART SLIDING SCALE (NOVOLOG) 1 VIAL SQ SCH ×3 (06:13→17:40)
[2023-10-14] MEDS: ALBUTEROL SO4 2.5/IPRATROPIUM 0.5 INH SOL 3 ML VIAL.NEB. NEB SCH ×4 (08:49→20:10)
[2023-10-14 10:17] LABS: HEMATOCRIT 36.2 % (35.4-49); HEMOGLOBIN 11.7 GM/dL (11.7-16.9); MCH 31.6 pg (25.7-33.7); MCHC 32.4 g/dl (32.0-35.9); MEAN CELL VOLUME 97.5 fl (80-96); MEAN PLT VOLUME 8.3 fl (7.5-11.1); PLATELET COUNT 242 10^3/uL (134-434); RBC 3.72 M/mm3 (4.00-5.60); RDW 13.6 % (11.9-15.9); WHITE BLOOD COUNT 11.1 K/mm3 (4.0-10.0)
[2023-10-14 10:38] LABS: POTASSIUM 3.7 mmol/L (3.5-5.1)
[2023-10-14 10:47] LABS: ANISOCYTOSIS 0; MACROCYTOSIS 0
[2023-10-14 11:09] LABS: CREATININE 0.8 mg/dL (0.55-1.3)
[2023-10-14 11:10] LABS: BILIRUBIN,TOTAL 0.2 mg/dL (0.2-1); TOT PROT 7.1 g/dl (6.4-8.2)
[2023-10-14 11:11] LABS: ALBUMIN 2.6 g/dl (3.4-5.0)
[2023-10-14 11:12] LABS: BLOOD UREA NITROGEN 21.8 mg/dL (7-18)
[2023-10-14 11:14] LABS: CALCIUM 8.8 mg/dL (8.5-10.1)
[2023-10-14] MEDS: FOLIC ACID 1 MG TABLET (FP) PEG SCH (11:29)
[2023-10-14] MEDS: VALPROATE SODIUM 250 MG/5 ML UNIT DOSE CUP GT SCH ×2 (11:29→22:10)
[2023-10-14] MEDS: ENOXAPARIN NA (PORCINE) 40 MG/0.4 ML DISP.SYRIN SQ SCH (11:29)
[2023-10-14] MEDS: CYANOCOBALAMIN 1,000 MCG TABLET (FP) PEG SCH (11:29)
[2023-10-14] MEDS: FUROSEMIDE 20 MG TABLET (FP) GT SCH (11:29)
[2023-10-14] MEDS: ASCORBIC ACID 500 MG/5 ML UNIT DOSE CUP GT SCH (11:30)
[2023-10-14] MEDS: levETIRAcetam 500 MG/5 ML ORAL SOLUTION (UNIT-DOSE CUPS) GT SCH ×2 (11:30→22:10)
[2023-10-14] MEDS: LACTULOSE 20 GM/30 ML UDC (FOR ORAL USE ONLY) GT SCH ×2 (11:31→22:10)
[2023-10-14] MEDS: CHOLECALCIFEROL (VIT D3) 5000 UNITS (125 MCG) CAP NR SCH (11:36)
[2023-10-14] MEDS: FERROUS SO4 300 MG/5 ML ORAL SOLN UNIT DOSE CUPS GT SCH (11:36)
[2023-10-14] MEDS ORDERED: methylPREDNISolone NA SUCC 40 MG/1 ML VIAL IVPUSH SCH (13:27)
[2023-10-14 15:29] VITALS: BP 139/80; PULSE 79; TEMP 97.7
== END 2023-10-14 21:50 | DRG 193 ==
LOC: JER 21:04 → JERBED 10-10 00:27 → J8W 10-11 11:27
PROVIDERS: ADMIT Internal Medicine; ATTEND Internal Medicine
PROC: 02HV33Z Insertion of Infusion Device into Superior Vena Cava, Percutaneous Approach (ICD-10-PCS; principal; 2023-10-14)
PROC: B548ZZA Ultrasonography of Superior Vena Cava, Guidance (ICD-10-PCS; 2023-10-14)
DX: J18.9 Pneumonia, unspecified organism (principal); J96.91 Respiratory failure, unspecified with hypoxia; R53.2 Functional quadriplegia; J44.0 Chronic obstructive pulmonary disease with (acute) lower respiratory infection; F20.0 Paranoid schizophrenia; R78.81 Bacteremia; B33.8 Other specified viral diseases; E11.9 Type 2 diabetes mellitus without complications; D64.9 Anemia, unspecified; R56.9 Unspecified convulsions; Z93.1 Gastrostomy status; F03.90 Unspecified dementia, unspecified severity, without behavioral disturbance, psychotic disturbance, mood disturbance, and anxiety
CPT/HCPCS: 0241U-QW; 36415; 36569; 71045-TC-FY; 71250-TC; 80053; 82962; 83735; 83880; 84100; 84484; 85025; 85610; 85730; 86850; 86900; 86901; 87040; 87186; 87635; 93005; 93010; 93306-TC; 94640; 99285-25; G0480

== ENCOUNTER 2024-01-05 03:15 | Observation (INO) | payer OTHER ==
[2024-01-05 04:46] LABS: HEMATOCRIT 34.1 % (35.4-49); HEMOGLOBIN 11.5 GM/dL (11.7-16.9); MCH 32.8 pg (25.7-33.7); MCHC 33.6 g/dl (32.0-35.9); MEAN CELL VOLUME 97.6 fl (80-96); PLATELET COUNT 216 10^3/uL (134-434); RDW 13.8 % (11.9-15.9); WHITE BLOOD COUNT 4.8 K/mm3 (4.0-10.0)
[2024-01-05 04:56] LABS: INR 1.14 (0.83-1.09); PROTHROMBIN TIME (PATIENT) 13.2 SEC (9.7-13.0)
[2024-01-05 04:58] LABS: ACTIVATED PTT 36.3 SECONDS (25.2-36.5)
[2024-01-05 05:05] LABS: POTASSIUM 4.1 mmol/L (3.5-5.1)
[2024-01-05 05:07] LABS: CALCIUM 8.5 mg/dL (8.5-10.1)
[2024-01-05 05:08] LABS: ALBUMIN 2.8 g/dl (3.4-5.0); BLOOD UREA NITROGEN 11.9 mg/dL (7-18)
[2024-01-05 05:11] LABS: CREATININE 0.7 mg/dL (0.55-1.3)
[2024-01-05 05:13] LABS: BILIRUBIN,TOTAL 0.3 mg/dL (0.2-1); TOT PROT 6.8 g/dl (6.4-8.2)
[2024-01-05 06:20] LABS: ANISOCYTOSIS 1+; MACROCYTOSIS 0
[2024-01-05] MEDS ORDERED: ACETAMINOPHEN 1000 MG/100 ML BAG IVPB PRN (06:31)
[2024-01-05] MEDS: DEXTROSE 5%-NORMAL SALINE 1,000 ML IV SCH (06:53)
[2024-01-05] MEDS ORDERED: levETIRAcetam 500 MG/5 ML INJECTION VIAL IVPB ONE (07:35)
[2024-01-05] MEDS: levETIRAcetam 500 MG/5 ML INJECTION VIAL IVPB ONE (07:46)
[2024-01-05] MEDS ORDERED: ACETAMINOPHEN 160 MG/5 ML *Children Solution GT PRN (11:17)
[2024-01-05] MEDS ORDERED: CHOLECALCIFEROL (VIT D3 5000 UNITS) 125 MCG TAB NR SCH (11:43)
[2024-01-05] MEDS: CYANOCOBALAMIN 1,000 MCG TABLET (FP) PEG SCH (12:00)
[2024-01-05] MEDS: LACTULOSE 20 GM/30 ML UDC (FOR ORAL USE ONLY) GT SCH (12:00)
[2024-01-05] MEDS: FUROSEMIDE 20 MG TABLET (FP) GT SCH (12:00)
[2024-01-05] MEDS: LACTOBACILLUS ACIDOPHILUS 1 TABLET GT SCH (12:00)
[2024-01-05] MEDS: FOLIC ACID 1 MG TABLET (FP) PEG SCH (12:00)
[2024-01-05] MEDS: ASCORBIC ACID 500 MG/5 ML UNIT DOSE CUP GT SCH (12:00)
[2024-01-05 12:29] VITALS: BMI 28.0
[2024-01-05] MEDS ORDERED: ACETAMINOPHEN 650 MG/20.3 ML ORAL SOLUTION (CUPS) GT PRN (13:26)
[2024-01-05] MEDS: MULTIVIT-MINERALS ORAL LIQUID GT SCH (14:02)
[2024-01-05] MEDS: SCOPOLAMINE HYDROBROMIDE 1 PATCH PATCH.TD72 TD SCH (14:02)
[2024-01-05] MEDS: FERROUS SO4 300 MG/5 ML ORAL SOLN UNIT DOSE CUPS GT SCH (14:03)
[2024-01-05] MEDS: ALBUTEROL SO4 0.083% IH SOL 2.5 MG/3 ML VIAL.NEB. NEB SCH (15:03)
[2024-01-05] MEDS: CHOLECALCIFEROL (VIT D3) 1,000 UNIT (25 MCG) TABLET GT SCH (18:41)
[2024-01-05] MEDS: VITAMINS A AND D TOPICAL OINTMENT TP SCH (21:28)
[2024-01-05] MEDS: VALPROATE SODIUM 250 MG/5 ML UNIT DOSE CUP GT SCH (21:28)
[2024-01-05] MEDS: levETIRAcetam 500 MG/5 ML ORAL SOLUTION (UNIT-DOSE CUPS) GT SCH (21:28)
[2024-01-06] MEDS ORDERED: CHOLECALCIFEROL (VIT D3 5000 UNITS) 125 MCG TAB NR SCH (00:48)
[2024-01-06 08:47] LABS: BASO % 0.2 % (0-2.0); EOS % 1.4 % (0-4.5); HEMATOCRIT 32.5 % (35.4-49); HEMOGLOBIN 10.9 GM/dL (11.7-16.9); LYMPH % 54.4 % (8-40); MCH 32.7 pg (25.7-33.7); MCHC 33.5 g/dl (32.0-35.9); MEAN CELL VOLUME 97.6 fl (80-96); MEAN PLT VOLUME 9.1 fl (7.5-11.1); MONO % 10.2 % (3.8-10.2); NEUT % 33.8 % (42.8-82.8); PLATELET COUNT 204 10^3/uL (134-434); RBC 3.33 M/mm3 (4.00-5.60); RDW 13.6 % (11.9-15.9); WHITE BLOOD COUNT 5.2 K/mm3 (4.0-10.0)
[2024-01-06 09:02] LABS: POTASSIUM 4.3 mmol/L (3.5-5.1)
[2024-01-06 09:04] LABS: BLOOD UREA NITROGEN 10.1 mg/dL (7-18); CALCIUM 8.4 mg/dL (8.5-10.1)
[2024-01-06 09:08] LABS: CREATININE 0.6 mg/dL (0.55-1.3)
[2024-01-06] MEDS: CHOLECALCIFEROL (VIT D3) 1,000 UNIT (25 MCG) TABLET GT SCH (09:29)
[2024-01-06 11:02] VITALS: BP 136/92; PULSE 68; RESP 19; TEMP 98.4
== END 2024-01-06 12:44 ==
LOC: JER 03:15 → JERBED 03:52 → J8W 08:17
PROVIDERS: ADMIT Internal Medicine; ATTEND Internal Medicine
PROC: 3E0F7GC Introduction of Other Therapeutic Substance into Respiratory Tract, Via Natural or Artificial Opening (ICD-10-PCS; principal; 2024-01-05)
PROC: 3E033GC Introduction of Other Therapeutic Substance into Peripheral Vein, Percutaneous Approach (ICD-10-PCS; 2024-01-05)
PROC: 0D20XUZ Change Feeding Device in Upper Intestinal Tract, External Approach (ICD-10-PCS; 2024-01-05)
DX: K94.29 Other complications of gastrostomy (principal); F03.90 Unspecified dementia, unspecified severity, without behavioral disturbance, psychotic disturbance, mood disturbance, and anxiety; R13.10 Dysphagia, unspecified; R53.2 Functional quadriplegia; I10 Essential (primary) hypertension; R56.9 Unspecified convulsions; I73.9 Peripheral vascular disease, unspecified; J44.9 Chronic obstructive pulmonary disease, unspecified; N40.0 Benign prostatic hyperplasia without lower urinary tract symptoms
CPT/HCPCS: 36415; 49440; 80048; 80053; 85025; 85610; 85730; 86850; 86900; 86901; 87635; 93005; 93010; 94640; 96365; 96375; 99285-25; G0378

== ENCOUNTER 2024-05-09 22:34 | Emergency (ER) | payer OTHER ==
[2024-05-09 22:51] VITALS: BP 125/67; PULSE 65; RESP 20; TEMP 98; BMI 29.5
== END 2024-05-10 02:03 ==
LOC: JER 22:34
DX: K94.23 Gastrostomy malfunction (principal)
CPT/HCPCS: 74019-TC-FY; 99283-25

== ENCOUNTER 2025-01-09 13:46 | Emergency (ER) | payer OTHER ==
[2025-01-09 14:51] VITALS: BMI 26.6
[2025-01-09 20:22] VITALS: TEMP 98
[2025-01-10 00:59] VITALS: BP 123/84; PULSE 109; RESP 22
== END 2025-01-10 01:25 | disposition home or self-care (01) ==
LOC: JER 13:46
PROC: 0DH Gastrointestinal System, Insertion (ICD-10-PCS; principal; 2025-01-09)
DX: T85.520A Displacement of bile duct prosthesis, initial encounter (principal); Y83.1 Surgical operation with implant of artificial internal device as the cause of abnormal reaction of the patient, or of later complication, without mention of misadventure at the time of the procedure
CPT/HCPCS: 74018-TC-FY; 74176-TC; 99284-25